=== PATIENT | female | born 1940 | race Caucasian/White ===

== ENCOUNTER 2021-05-04 09:58 | Emergency (ER) | payer MEDICARE, SELFPAY ==
[2021-05-04 10:05] VITALS: BP 160/65; PULSE 82; RESP 18; TEMP -13.2; TEMP 8.2; O2SAT 93; BMI 29.8
--- NOTE | 2021-05-04 10:10 | ECG_ITS ---
Test Reason : FALL Blood Pressure : / mmHG Vent. Rate : 081 BPM Atrial Rate : 081 BPM P-R Int : 162 ms QRS Dur : 084 ms QT Int : 370 ms P-R-T Axes : 034 016 054 degrees QTc Int : 429 ms Normal sinus rhythm Nonspecific ST and T wave abnormality Abnormal ECG No previous ECGs available Referred By: Verona Jurado Electronically Signed By:DONAL HUNTER
--- NOTE | 2021-05-04 10:11 | ED.FALL ---
HPI - Fall General Chief Complaint: Fall Stated Complaint: episode of leg weakness,no complaints now Time Seen by Provider: 05/04/21 10:09 Source: patient and EMS Mode of arrival: EMS Limitations: no limitations History of Present Illness HPI Narrative: 80-year-old female brought in by ambulance for evaluation after a fall. This is a 80-year-old female who fell while walking to the bathroom, patient thing that her legs give out a lost balance patient fell on her buttocks, no head injury, no neck pain. No chest pain, no LOC. Patient thinks that she is dehydrated that is why she fell and felt weak. Patient now has no complaint. Related Data Previous Rx's Medication Instructions Recorded cefuroxime axetil 500 mg tablet 500 mg PO BID #14 tab 05/04/21 Allergies Allergy/AdvReac Type Severity Reaction Status Date / Time No Known Allergies Allergy Verified 05/04/21 10:09 Review of Systems Review of Systems: All other systems are reviewed and are negative Constitutional: Reports as per HPI and Reports no additional constitutional complaints Eyes: Reports as per HPI and Reports no additional eye complaints Reports system reviewed and no additional complaints, except as documented Cardiovascular: Reports as per HPI and Reports no additional cardiovascular complaints Respiratory: Reports as per HPI and Reports no additional respiratory complaints Gastrointestinal: Reports as per HPI and Reports no additional gastrointestinal complaints Genitourinary: Reports no additional female genitourinary complaints Musculoskeletal: Reports no additional musculoskeletal complaints Skin/Breast: Reports system reviewed and no additional complaints, except as docu Psychiatric: Reports no additional psychiatric complaints Endocrine: Reports no additional endocrine complaints Hematologic/Lymphatic: Reports no additional hematologic/lymphatic complaints Allergic/Immunologic: Reports no additional allergic/immunologic complaints Reports system reviewed and no additional complaints, except as documented and Reports Abnormal speech present [facility] Past Medical History Medical History Diabetes Gallbladder & bile duct stone with obstruction Surgical History H/O: hysterectomy Social History Social History Advance Directives: Yes Advance Directives Information Provided: Yes Advance Directives on File: No Physical Exam Vital Signs: Vital Signs: Last Vital Signs Temp 100.0 F 08/25/21 13:25 Pulse 78 05/04/21 13:25 Resp 16 05/04/21 13:25 BP 147/55 H 05/04/21 13:25 Pulse Ox 96 05/04/21 13:25 Body Mass Index 29.8 Vital signs have been reviewed as appeared to be correct. Blood pressure normal. Heart rate normal. Respiration rate normal. Temperature normal. Oxygen saturation normal. Appearance: Alert. Oriented X3. No acute distress. Head: Normal external exam. Normocephalic. Atraumatic. No Rowley signs noted. No raccoon eyes noted Eyes: PERRLA. EOMI. Conjunctiva and sclera normal. Eyelids normal. ENT: TM's Normal. Pharynx normal. Uvula midline. Moist mucous membranes. No trismus noted. No drooling noted. No muffled voice noted. Neck: Normal inspection. Neck supple. FROM. No adenopathy. Thyroid Normal. No meningeal signs. No neck mass noted. CVS: Normal heart rate and rhythm. Heart sound normal. No murmurs noted. Pulses normal throughout. Respiratory: No respiratory distress. Painless inspiration. Breath sounds normal. No wheezes/rales/rhonchi noted. Chest nontender. No accessory muscle usage noted or decreased air movement noted. Abdomen: Soft and nontender. Bowel sounds normal in all 4 quadrants. No distention noted. No organomegaly noted. No visible injury noted. Back: No CVA tenderness. Full range of motion noted. Skin: Skin warm and dry. Normal skin color. Normal skin turgor. No rashes/lesions/lacerations noted. Extremities: No lower extremity edema. Extremities exhibit normal range of motion. Extremities nontender. Neuro: Oriented X 3. Cranial nerve exam: II-XII are grossly intact No motor deficit. No sensory deficit. Reflexes normal. Course Course Course Narrative: Assessment and plan. 80-year-old female came in after she fell, patient declined any chest pain, patient had EKG with no specific ischemic changes, patient also had troponin x2 with no delta changes. Patient was UTI will start the patient on Ceftin and drink plenty of fluids. MDM - Fall Lab Data Attestation: I reviewed the patient's lab results. Result diagrams: 05/04/21 10:40 05/04/21 10:40 Labs: Lab Results 05/04/21 05/04/2121 Range/Units 10:40 10:40 10:40 WBC 8.7 (4.8-10.8) X10*3/uL RBC 4.12 L (4.20-5.50) X10*6/uL Hgb 13.0 (12.0-16.0) g/dl Hct 39.3 (37-47) % MCV 95.4 (80-98) fL MCH 31.6 (27.0-33.0) pg MCHC 33.1 (31.0-35.0) g/dl RDW 12.4 (11.0-16.0) % Plt Count 124 L (160-400) X10*3/uL MPV 9.6 (9.4-12.3) fL Immature Gran % (Auto) 0.2 (0.0-0.4) % Neut % (Auto) 86.4 H (45-73) % Lymph % (Auto) 5.4 L (20-40) % Ritchie % (Auto) 7.8 (2-11) % Eos % (Auto) 0.1 (0-4) % Baso % (Auto) 0.1 (0-2) % Lymph # (Auto) 0.5 L (1.2-4.9) X10*3/uL Ritchie # (Auto) 0.7 (0.1-1.2) X10*3/uL Eos # (Auto) 0.0 (0.0-0.4) X10*3/uL Baso # (Auto) 0.0 (0.0-0.2) X10*3/uL Abs Immat Gran (auto) 0.02 (0.00-0.03) X10*3/uL Absolute Neuts (auto) 7.5 (2.0-8.3) X10*3/uL Absolute Nucleated RBC 0.000 (0.0-0.012) X10*3/uL Nucleated RBC % (auto) 0.0 (0.0-0.2) /100WBC Smear Tech's Comments Not Reportable Sodium 142 (135-145) mmol/L Potassium 4.9 (3.3-5.1) mmol/L Chloride 103 (96-108) mmol/L Carbon Dioxide 31 H (22-29) mmol/L Anion Gap 13 (12-20) BUN 25 H (9-16) mg/dL Creatinine 1.86 H (0.5-1.4) mg/dL Estim Creat Clear Calc 23.5 Estimated GFR 26 Random Glucose 65 (60-115) mg/dL Calcium 9.5 (8.4-10.2) mg/dL Total Bilirubin 1.1 H (0.0-1.0) mg/dL Direct Bilirubin 0.5 (0.0-0.5) mg/dL AST 26 (5-31) U/L ALT 21 (0-31) U/L Alkaline Phosphatase 102 (39-117) U/L Troponin I High Sens (<3.5-17.0) ng/L Total Protein 7.1 (6.5-8.0) g/dL Albumin 4.1 (3.5-5.0) g/dL Lipase 11 (8-78) U/L Urine Color Urine Appearance Urine pH (5.0-8.0) Ur Specific [place] (1.005-1.025) Urine Protein (NEG-TRACE) MG/DL Urine Glucose (UA) (NEG) MG/DL Urine Ketones (NEG) MG/DL Urine Blood (NEG) Urine Nitrite (NEG) Ur Leukocyte Esterase (NEG) Urine RBC (0) /HPF Urine WBC (0-4) /HPF Ur Squamous Epith Cells /LPF Urine Bacteria /LPF 05/04/21 05/04/21 05/04/21 Range/Units 10:40 10:40 15:27 WBC (4.8-10.8) X10*3/uL RBC (4.20-5.50) X10*6/uL Hgb (12.0-16.0) g/dl Hct (37-47) % MCV (80-98) fL MCH (27.0-33.0) pg MCHC (31.0-35.0) g/dl RDW (11.0-16.0) % Plt Count (160-400) X10*3/uL MPV (9.4-12.3) fL Immature Gran % (Auto) (0.0-0.4) % Neut % (Auto) (45-73) % Lymph % (Auto) (20-40) % Ritchie % (Auto) (2-11) % Eos % (Auto) (0-4) % Baso % (Auto) (0-2) % Lymph # (Auto) (1.2-4.9) X10*3/uL Ritchie # (Auto) (0.1-1.2) X10*3/uL Eos # (Auto) (0.0-0.4) X10*3/uL Baso # (Auto) (0.0-0.2) X10*3/uL Abs Immat Gran (auto) (0.00-0.03) X10*3/uL Absolute Neuts (auto) (2.0-8.3) X10*3/uL Absolute Nucleated RBC (0.0-0.012) X10*3/uL Nucleated RBC % (auto) (0.0-0.2) /100WBC Smear Tech's Comments Sodium (135-145) mmol/L Potassium (3.3-5.1) mmol/L Chloride (96-108) mmol/L Carbon Dioxide (22-29) mmol/L Anion Gap (12-20) BUN (9-16) mg/dL Creatinine (0.5-1.4) mg/dL Estim Creat Clear Calc Estimated GFR Random Glucose (60-115) mg/dL Calcium (8.4-10.2) mg/dL Total Bilirubin (0.0-1.0) mg/dL Direct Bilirubin (0.0-0.5) mg/dL AST (5-31) U/L ALT (0-31) U/L Alkaline Phosphatase (39-117) U/L Troponin I High Sens 18.1 H* 18.0 H* (<3.5-17.0) ng/L Total Protein (6.5-8.0) g/dL Albumin (3.5-5.0) g/dL Lipase (8-78) U/L Urine Color YELLOW Urine Appearance CLOUDY Urine pH 6.0 (5.0-8.0) Ur Specific [place] 1.020 (1.005-1.025) Urine Protein 2+ H (NEG-TRACE) MG/DL Urine Glucose (UA) NEG (NEG) MG/DL Urine Ketones 5 (NEG) MG/DL Urine Blood 1+ H (NEG) Urine Nitrite POS H (NEG) Ur Leukocyte Esterase 2+ H (NEG) Urine RBC 1-4 (0) /HPF Urine WBC 50-75 H (0-4) /HPF Ur Squamous Epith Cells 2+ /LPF Urine Bacteria 3+ /LPF ECG Data Pacemaker model: Normal sinus rhythm at 81 beats per minutes, normal axis deviation. Discharge Plan Discharge Clinical Impression: Fall, UTI (urinary tract infection) Patient Disposition: Home, Self-Care Instructions: Urinary Urgency and Frequency (DC) Prescriptions: New cefuroxime axetil 500 mg tablet 500 mg PO BID Qty: 14 RF: 0 Referrals: Physician,Unknown [Primary Care Provider] - 2 days
[2021-05-04] MEDS: 0.9 % Sodium Chloride 1,000 ML 999 ML IVCONT (10:16)
[2021-05-04 10:53] LABS: Glucose Urine UA NEG (NEG); Leukocyte Esterase Urine 2+ (NEG); Nitrite Urine POS (NEG); UACC Culture Trigger YES; Urine Blood 1+ (NEG); Urine Ketones 5 MG/DL (NEG); Urine Protein 2+ MG/DL (NEG-TRACE)
[2021-05-04 10:55] LABS: Appearance Urine CLOUDY; Color Urine YELLOW
[2021-05-04 10:56] LABS: Lymphocytes Percent Auto 5.4 % (20-40); MANUAL DIFF FLAG SCAN; Mean Corpuscular Volume 95.4 fL (80-98); PLT CLUMP 1; SCAN SMEAR FLAG 1
[2021-05-04 10:59] LABS: Basophils Percent Auto 0.1 % (0-2); Eosinophils Percent Auto 0.1 % (0-4); Hematocrit 39.3 % (37-47); Imm Gran Abs Auto 0.02 X10*3/uL (0.00-0.03); Imm Gran Pct Auto 0.2 % (0.0-0.4); Lymphocytes Absolute Auto 0.5 X10*3/uL (1.2-4.9); Mean Corpuscular HGB Conc 33.1 g/dl (31.0-35.0); Mean Corpuscular Hemoglobin 31.6 pg (27.0-33.0); Mean Platelet Volume 9.6 fL (9.4-12.3); Monocytes Absolute Auto 0.7 X10*3/uL (0.1-1.2); Monocytes Percent Auto 7.8 % (2-11); Neutrophils Absolute Auto 7.5 X10*3/uL (2.0-8.3); Neutrophils Percent Auto 86.4 % (45-73); Platelet Count 124 X10*3/uL (160-400); Red Blood Count 4.12 X10*6/uL (4.20-5.50); Red Cell Distribution Width 12.4 % (11.0-16.0); White Blood Count 8.7 X10*3/uL (4.8-10.8)
[2021-05-04 11:05] LABS: Bacteria Urine 3+ /LPF; Squamous Epithelial Cell Urine 2+ /LPF; WBC Urine 50-75 /HPF (0-4)
[2021-05-04 11:15] LABS: Alanine Aminotransferase 21 U/L (0-31); Albumin Level 4.1 g/dL (3.5-5.0); Alkaline Phosphatase 102 U/L (39-117); Aspartate Amino Transferase 26 U/L (5-31); Bilirubin Direct 0.5 mg/dL (0.0-0.5); Bilirubin Total 1.1 mg/dL (0.0-1.0); Total Protein 7.1 g/dL (6.5-8.0)
[2021-05-04 11:16] LABS: Anion Gap 13 (12-20); Blood Urea Nitrogen 25 mg/dL (9-16); Calcium 9.5 mg/dL (8.4-10.2); Carbon Dioxide 31 mmol/L (22-29); Chloride 103 mmol/L (96-108); Creatinine Clr Calc Pharmacy 23.5; Estimated Glomerular Filt Rate 26; Glucose Random 65 mg/dL (60-115); Lipase 11 U/L (8-78); Potassium 4.9 mmol/L (3.3-5.1); Sodium 142 mmol/L (135-145)
[2021-05-04 11:33] VITALS: BP 156/58; PULSE 79; RESP 16; O2SAT 98
[2021-05-04 11:39] LABS: Troponin-I High Sensitivity 18.1 ng/L (<3.5-17.0)
[2021-05-04 13:25] VITALS: BP 147/55; PULSE 78; RESP 16; TEMP 37.8; O2SAT 96
--- NOTE | 2021-05-04 16:19 | PC.NURSE ---
Patient ambulates to bathroom with steady gait.
== END 2021-05-04 16:48 | disposition home or self-care (01) ==
PROVIDERS: Emergency Provider Emergency Medicine
DX: N39.0 Urinary tract infection, site not specified (principal); R35.0 Frequency of micturition; Z79.899 Other long term (current) drug therapy
CPT/HCPCS: 36415; 80048; 80076; 81001; 83690; 84484; 85025; 87086; 93005; 96360; 99284

== ENCOUNTER 2022-09-05 07:10 | Emergency (ER) | payer MEDICARE, SELFPAY ==
[2022-09-05 07:29] VITALS: BP 142/60; PULSE 72; O2SAT 100
[2022-09-05 07:45] VITALS: PULSE 69; RESP 16; TEMP 36.7; O2SAT 100; BMI 26.7
[2022-09-05 07:52] VITALS: BP 160/65; PULSE 69; RESP 16; TEMP 36.7; O2SAT 100
--- NOTE | 2022-09-05 08:08 | ED_ITS ---
HPI - Female Genitourinary General Chief complaint: Urogenital-Female Stated complaint: URINARY SYMPYTOMS Source: patient Mode of arrival: EMS History of Present Illness HPI Narrative: 81-year-old female who arrives via EMS stating ?I felt funny yesterday? and then states that she had urinary frequency overnight and denies any use of any diuretics, denies any abdominal pain fever, chills. Related Data Previous Rx's Medication Instructions Recorded cefuroxime axetil 500 mg tablet 500 mg PO BID #14 tabs 05/04/21 Allergies Allergy/AdvReac Type Severity Reaction Status Date / Time No Known Allergies Allergy Verified 05/04/21 10:09 Review of Systems Review of Systems: Pertinent positives and negatives as stated in HPI. [facility] Past Medical History Source: nursing notes reviewed Medical History Diabetes Gallbladder & bile duct stone with obstruction Surgical History H/O: hysterectomy Social History Social History Advance Directives: No Advance Directives Information Provided: No Physical Exam Vital Signs: Vital Signs: Last Vital Signs Temp 97.7 F 09/05/22 09:33 Pulse 80 09/05/22 09:22 Resp 15 09/05/22 09:22 BP 119/55 L 09/05/22 09:22 Pulse Ox 100 09/05/22 09:22 O2 Del Method 09/05/22 09:22 BMI result Body Mass Index 26.7 VITAL SIGNS: Reviewed. GENERAL: Well developed, well nourished, in no acute distress. HEAD: Normocephalic/atraumatic, EYES: PERRLA, EOMI EARS: Ext canals without abnormality OROPHARYNX: no oral lesions noted, posterior pharynx clear LUNGS: Normal breath sounds. No adventitious sounds or accessory muscle use. SpO2<100> CARDIOVASCULAR: Regular rate and rhythm without noted murmurs ABDOMEN: Soft, non-tender, non-distended with bowel sounds. MUSCULOSKELETAL: No tenderness, deformities, or effusions noted on gross inspection. EXTREMITIES: No cyanosis, clubbing or edema. SKIN: Inspection of the skin reveals no rashes NEUROLOGIC: Alert and oriented x 4. Strength and sensation to light touch were grossly intact x 4. Course Course Course Narrative: I reviewed patient's bladder scan which demonstrates 241 cc within the bladder, patient was provided with a pitcher of water to assist in urination. There is not evidence of overflow incontinence at this time. Reevaluation(s) Reevaluation #1: On re-evaluation patient states that she urinated but did not get a urine sample stating that ?nobody told me?. I have limited suspicion for UTI, patient is hemodynamically stable, urinary frequency in of itself is unlikely to be a urinary tract infection and will discharge the patient without a script for antibiotics at this time and instructed to follow-up with her primary care provider. I will be sending my note to her primary care provider for additional history. Time: 09:45 Medical Decision Making Medical Decision Making MDM Narrative: 81-year-old female who reports urinary frequency without pain or burning and no fever or chills. Differential Diagnosis Differential Diagnoses: The differential diagnosis associated with the presentation includes Overflow incontinence, UTI Lab Data Labs: Lab Results 09/05/22 Range/Units 08:21 POC Glucose 117 H (60-115) mg/dL Discharge Plan Discharge Clinical Impression: Urinary frequency Patient Disposition: Home, Self-Care Instructions: Urinary Urgency and Frequency (DC) Additional Instructions: 1. Resume all home medications as prescribed. 2. Follow-up with your primary care provider by calling the office today and setting up an appointment for re-evaluation further outpatient management Return to the ER for any worsening symptoms. Prescriptions: No Action cefuroxime axetil 500 mg tablet 500 mg PO BID Qty: 14 0RF Referrals: Po,Aniya Quispe MD [Primary Care Provider] - (Patient sites urinary frequency but denies any pain or burning, she was unable to provide a urine sample multiple times here in the emergency room, appears to be otherwise well and hemodynamically stable. I did discharge her home with instructions to follow-up with you and I did not empirically start her on antibiotics for the urinary frequency.)
[2022-09-05 08:17] VITALS: BP 162/78; PULSE 71; RESP 15; O2SAT 100
[2022-09-05 08:25] LABS: Glucose, Whole Blood 117 mg/dL (60-115)
[2022-09-05 09:22] VITALS: BP 119/55; PULSE 80; RESP 15; TEMP -13.3; TEMP 8; O2SAT 100
[2022-09-05 09:33] VITALS: TEMP 36.5
== END 2022-09-05 10:08 | disposition home or self-care (01) ==
PROVIDERS: Emergency Provider Student in an Organized Health Care Education/Training Program; PCP Internal Medicine
DX: R35.0 Frequency of micturition (principal); Z79.899 Other long term (current) drug therapy
CPT/HCPCS: 51798; 82947; 99283; 99284

== ENCOUNTER 2022-09-07 11:41 | Outpatient (REF) | payer MEDICARE, SELFPAY ==
[2022-09-07 13:51] LABS: MANUAL DIFF FLAG NO
[2022-09-07 13:56] LABS: Appearance Urine Turbid; Color Urine Yellow; Glucose Urine UA >=1000 mg/dL (Negative); Leukocyte Esterase Urine Moderate (2+) (Negative); Nitrite Urine Negative (Negative); PH 5.5 (5.0-9.0); Specific Gravity - Urine 1.025 (1.005-1.025); UMIC TRIGGER UACC YES; Urine Blood Moderate (2+) (Negative); Urine Ketones Trace mg/dL (Negative); Urine Protein 30 (1+) mg/dL (Neg-Trace)
[2022-09-07 14:00] LABS: Basophils Percent Auto 0.5 % (0-2); Eosinophils Absolute Auto 0.1 X10*3/uL (0.0-0.4); Eosinophils Percent Auto 2.3 % (0-4); Hematocrit 34.9 % (37.0-47.0); Hemoglobin 11.8 g/dl (12.0-16.0); Imm Gran Abs Auto 0.02 X10*3/uL (0.00-0.03); Imm Gran Pct Auto 0.5 % (0.0-0.4); Lymphocytes Absolute Auto 0.9 X10*3/uL (1.2-4.9); Lymphocytes Percent Auto 21.2 % (20-40); Mean Corpuscular HGB Conc 33.8 g/dl (31.0-35.0); Mean Corpuscular Hemoglobin 31.6 pg (27.0-33.0); Mean Corpuscular Volume 93.6 fL (80.0-98.0); Monocytes Absolute Auto 0.3 X10*3/uL (0.1-1.2); Monocytes Percent Auto 7.2 % (2-11); Neutrophils Percent Auto 68.3 % (45-73); Platelet Count 140 X10*3/uL (160-400); Red Blood Count 3.73 X10*6/uL (4.20-5.50); Red Cell Distribution Width 12.9 % (11.0-16.0); White Blood Count 4.3 X10*3/uL (4.8-10.8)
[2022-09-07 14:07] LABS: Bacteria Urine 4+ (None Seen); Hyaline Casts Urine 0-2 /LPF (0-2); RBC Urine >20 /HPF (0-2); UACC Culture Trigger YES; WBC Urine >50 /HPF (0-5)
[2022-09-07 14:11] LABS: Estimated Average Glucose 260 mg/dL; Hemoglobin A1c % 10.7 %
[2022-09-07 14:46] LABS: Creatinine Urine 37.09 mg/dL
[2022-09-07 15:15] LABS: Folate > 20.0 ng/mL (> or = 4.0); Vitamin B12 1303 pg/mL (200-900)
[2022-09-07 15:50] LABS: Alanine Aminotransferase 17 U/L (0-31); Albumin Level 3.8 g/dL (3.5-5.0); Alkaline Phosphatase 106 U/L (39-117); Anion Gap 13 (12-20); Aspartate Amino Transferase 16 U/L (5-31); Bilirubin Total 0.8 mg/dL (0.0-1.0); Blood Urea Nitrogen 19 mg/dL (9-16); C Reactive Protein 0.44 mg/dL (< or = 0.50); Calcium 9.1 mg/dL (8.4-10.2); Carbon Dioxide 29 mmol/L (22-29); Chloride 98 mmol/L (96-108); Estimated Glomerular Filt Rate 27; Glucose Random 516 mg/dL (60-115); Potassium 4.2 mmol/L (3.3-5.1); Sodium 136 mmol/L (135-145); Total Protein 6.3 g/dL (6.5-8.0); Vitamin D 25-OH Total 33.3 ng/mL (>30)
[2022-09-07 17:56] LABS: Free T4 (Free Thyroxine) 1.32 ng/dL (0.71-1.85)
== END 2022-09-07 11:42 | disposition home or self-care (01) ==
LOC: HO.10HDL 11:41
PROVIDERS: Visit Provider Internal Medicine
DX: I12.9 Hypertensive chronic kidney disease with stage 1 through stage 4 chronic kidney disease, or unspecified chronic kidney disease (principal); E11.22 Type 2 diabetes mellitus with diabetic chronic kidney disease; N18.9 Chronic kidney disease, unspecified; E03.9 Hypothyroidism, unspecified; R30.0 Dysuria; E55.9 Vitamin D deficiency, unspecified
CPT/HCPCS: 36415; 80053; 81001; 82043; 82306; 82607; 82746; 83036; 84439; 85025; 86140; 87086

== ENCOUNTER 2023-05-06 15:44 | Emergency (ER) | payer MEDICARE, SELFPAY ==
[2023-05-06] VITALS (8 sets, daily range): BP systolic 107–179; BP diastolic 61–104; PULSE 86–93; RESP 15–18; TEMP 36.8–38.2; O2SAT 95–100; BMI 25.7
--- NOTE | ~2023-05-06 | CT_ITS ---
EXAMINATION: CT CHEST WITHOUT CONTRAST CLINICAL INFORMATION: Assess for mediastinal lesion COMPARISON: Radiographs the same day TECHNIQUE: Multidetector volumetric CT imaging of the chest was done. Axial MIP volume rendering provided. Sagittal and coronal reformatted images were obtained. This CT examination was performed using dose optimization techniques as appropriate, variously including the following: *Automated exposure control *Adjustment of mA and/or kV according to patient size (this includes techniques or standardized protocols for targeted exams where dose is matched to indication/reason for exam; i.e. extremities or head) *Use of iterative reconstruction technique DLP: 169 mGy-cm FINDINGS: [employer]: Unchanged LUNGS: Appearance of the radiograph can be explained by a left upper lobe paramediastinal infiltrate. No definite endobronchial lesion. There are reactive appearing lymph nodes within the AP window. On this nonenhanced study, there is no definite hilar mass. Additional high density lesions noted within the left lower lobe measuring up to 10 mm and probable granuloma right lobe laterally measuring 3 mm. MEDIASTINUM: Thoracic vasculature normal. No mediastinal mass. CORONARY ARTERY CALCIFICATION: Present PLEURA: There is no pleural effusion. No pleural mass or thickening. Small pericardial effusion is present. AXILLA: No lymphadenopathy. UPPER ABDOMEN: Splenic granulomata. OSSEOUS STRUCTURES: Unremarkable. CT/CT chest wo IV con IMPRESSION: Left upper lobe paramediastinal infiltrate. No definite hilar mass. Nonspecific lung nodules. According to the UPDATED 2017 Fleischner Society recommendations, the advised follow-up imaging for multiple solid nodules, the largest measuring 6 mm or greater, is: LOW RISK PATIENT: CT at 3-6 months, then consider CT at 18-24 months. HIGH RISK PATIENT: CT at 3-6 months, then at 18-24 months. 1. Evidence of old granulomatous disease. 2. Small pericardial effusion. 3. Coronary calcifications. Fleischner guidelines were followed. Follow-up CT in several weeks recommended to ensure resolution of the left upper lobe paramediastinal infiltrate.
--- NOTE | ~2023-05-06 | XR_ITS ---
EXAMINATION: XR CHEST CLINICAL INFORMATION: Generalized weakness COMPARISON: None available. TECHNIQUE: Frontal view of the chest was obtained. FINDINGS: The mediastinal border along the AP window is indistinct. The trachea is slightly deviated to the right. No pleural effusion. No pneumothorax. No acute osseous abnormality. XR/XR chest 1V IMPRESSION: The mediastinal border along the AP window is indistinct and the trachea is deviated to the right. This may be related to an enlarged thoracic aortic arch, although a mediastinal mass could have a similar appearance. Consider dedicated chest CT for further evaluation.
--- NOTE | 2023-05-06 16:01 | PC.NURSE ---
Patient arrived from home via ems with complaints of weakness and high blood sugar BS upon arrival 528, temp 100.3. Patient denies falls, lethargy, fever, sob, or chest pain. Grandson at bedside.
[2023-05-06 16:03] LABS: Glucose, Whole Blood 528 mg/dL (60-115)
--- NOTE | 2023-05-06 16:20 | MHC.EDTECH ---
PT CAME IN VIA EMS ,BLOOD SUGAR CHECK ,JONATHON CALDWELL IS AWARE OF PATIENT BLOOD SUGAR RESULT OF 528 ,PT WAS CHANGE INTO HOSPITAL ATTIRE .
--- NOTE | 2023-05-06 16:27 | ECG_ITS ---
Test Reason : WEAKNESS Blood Pressure : / mmHG Vent. Rate : 090 BPM Atrial Rate : 090 BPM P-R Int : 174 ms QRS Dur : 088 ms QT Int : 366 ms P-R-T Axes : 022 028 -28 degrees QTc Int : 447 ms Normal sinus rhythm Nonspecific ST and T wave abnormality Abnormal ECG When compared with ECG of 04-MAY-2021 10:24, Nonspecific T wave abnormality, worse in Lateral leads Referred By: Verona Jurado Electronically Signed By:DONAL HUNTER
--- NOTE | 2023-05-06 16:47 | MHC.EDTECH ---
EKG TAKEN AND WAS READ BY PROVIDER ,BLOOD DRAWN AND SENT TO LAB .
[2023-05-06 16:48] LABS: MANUAL DIFF FLAG NO
[2023-05-06 16:50] LABS: Basophils Percent Auto 0.3 % (0-2); Hematocrit 31.3 % (37.0-47.0); Hemoglobin 11.1 g/dl (12.0-16.0); Imm Gran Abs Auto 0.04 X10*3/uL (0.00-0.03); Imm Gran Pct Auto 0.6 % (0.0-0.4); Lymphocytes Absolute Auto 0.5 X10*3/uL (1.2-4.9); Mean Corpuscular HGB Conc 35.5 g/dl (31.0-35.0); Mean Corpuscular Hemoglobin 32.7 pg (27.0-33.0); Mean Corpuscular Volume 92.3 fL (80.0-98.0); Mean Platelet Volume 9.7 fL (9.4-12.3); Monocytes Absolute Auto 0.6 X10*3/uL (0.1-1.2); Monocytes Percent Auto 9.3 % (2-11); Neutrophils Absolute Auto 5.5 x10*3/uL (2.0-8.3); Neutrophils Percent Auto 82.8 % (45-73); Platelet Count 105 X10*3/uL (160-400); Red Blood Count 3.39 X10*6/uL (4.20-5.50); Red Cell Distribution Width 11.9 % (11.0-16.0); White Blood Count 6.7 X10*3/uL (4.8-10.8)
--- NOTE | 2023-05-06 16:52 | ED_ITS ---
HPI - General Adult General Chief complaint: General Medical Stated complaint: FEELS WEAK HIGH BLOOD SUGAR Time Seen by Provider: 05/06/23 16:27 Source: patient, family (Grandson) and EMS Mode of arrival: EMS Limitations: no limitations History of Present Illness HPI narrative: 82-year-old female came in by ambulance for evaluation of generalized weakness and patient do not feel her normal self. Otherwise no headache, blurry vision, sore throat, sneezing, coughing, CP, SOB, abdominal pain, nausea, vomiting, fever, chills, dysuria, frequency urination, or blood in the urine. Patient normally functional at home for the past 2 days has been walking with a walker due to generalized weakness, otherwise declined a focal weakness or numbness. Grandson checked her blood sugar and the machine read it as HI, patient with history of diabetes that is controlled with oral medication and insulin that the grandson think she is not compliant with her insulin. Related Data Previous Rx's Medication Instructions Recorded cefuroxime axetil 500 mg tablet 500 mg PO BID #14 tabs 05/04/21 cefuroxime axetil 500 mg tablet 500 mg PO BID #14 tabs 05/06/23 Allergies Allergy/AdvReac Type Severity Reaction Status Date / Time No Known Allergies Allergy Verified 05/04/21 10:09 Review of Systems Review of Systems: All other systems are reviewed and are negative Constitutional: Reports as per HPI and Reports no additional constitutional complaints Eyes: Reports as per HPI and Reports no additional eye complaints Reports system reviewed and no additional complaints, except as documented Cardiovascular: Reports as per HPI and Reports no additional cardiovascular complaints Respiratory: Reports as per HPI and Reports no additional respiratory complaints Gastrointestinal: Reports as per HPI and Reports no additional gastrointestinal complaints Genitourinary: Reports no additional female genitourinary complaints Musculoskeletal: Reports no additional musculoskeletal complaints Skin/Breast: Reports system reviewed and no additional complaints, except as docu Psychiatric: Reports no additional psychiatric complaints Endocrine: Reports no additional endocrine complaints Hematologic/Lymphatic: Reports no additional hematologic/lymphatic complaints Allergic/Immunologic: Reports no additional allergic/immunologic complaints Reports system reviewed and no additional complaints, except as documented and Reports Abnormal speech present PMFSH Past Medical History Medical History Diabetes Gallbladder & bile duct stone with obstruction Surgical History H/O: hysterectomy Social History Social History Alcohol intake: never Smoked in Last 30 Days: No Use of substances other than those prescribed or required for medical reasons: No Advance Directives: No Advance Directives Information Provided: No Physical Exam ED Vital Signs: Vital Signs - 24 hr 05/06/23 15:57 05/06/23 16:04 05/06/23 16:46 Temperature 100.3 F 100.3 F 100.0 F Pulse Rate 87 90 Respiratory Rate 18 18 16 Blood Pressure 166/104 H 154/84 H Pulse Oximetry 96 98 Oxygen Delivery Method Room Air 05/06/23 17:37 05/06/23 19:13 05/06/23 19:29 Temperature 99.7 F 98.3 F 99.6 F Pulse Rate 87 86 Respiratory Rate 15 16 Blood Pressure 166/61 H 156/63 H Pulse Oximetry 95 97 Oxygen Delivery Method Room Air Room Air 05/06/23 20:34 05/06/23 22:23 Temperature 100.7 F H 100.8 F H Pulse Rate 89 93 Respiratory Rate 16 16 Blood Pressure 107/76 175/72 H Pulse Oximetry 96 98 Oxygen Delivery Method Room Air Room Air BMI result Body Mass Index 25.7 Vital signs have been reviewed as appeared to be correct. Blood pressure normal. Heart rate normal. Respiration rate normal. Temperature normal. Oxygen saturation normal. Appearance: Alert. Oriented X3. No acute distress. Head: Normal external exam. Normocephalic. Atraumatic. No [place] signs noted. No raccoon eyes noted Eyes: PERRLA. EOMI. Conjunctiva and sclera normal. Eyelids normal. ENT: TM's Normal. Pharynx normal. Uvula midline. Moist mucous membranes. No trismus noted. No drooling noted. No muffled voice noted. Neck: Normal inspection. Neck supple. FROM. No adenopathy. Thyroid Normal. No meningeal signs. No neck mass noted. CVS: Normal heart rate and rhythm. Heart sound normal. No murmurs noted. Pulses normal throughout. Respiratory: No respiratory distress. Painless inspiration. Breath sounds normal. No wheezes/rales/rhonchi noted. Chest nontender. No accessory muscle usage noted or decreased air movement noted. Abdomen: Soft and nontender. Bowel sounds normal in all 4 quadrants. No dis tention noted. No organomegaly noted. No visible injury noted. Back: No CVA tenderness. Full range of motion noted. Skin: Skin warm and dry. Normal skin color. Normal skin turgor. No rashes/les ions/lacerations noted. Extremities: No lower extremity edema. Extremities exhibit normal range of motion. Extremities nontender. Neuro: Oriented X 3. Cranial nerve exam: II-XII are grossly intact No motor deficit. No sensory deficit. Reflexes normal. Course Course Course Narrative: Patient presented with nonspecific generalized weakness found to have a UTI will start the patient on cefuroxime and encouraged to drink plenty of fluids. As discussed with the patient and the family is to follow instruction for DM management at home patient live with grandson. X-ray is recommending abnormal mediastinal mass recommending CT of the chest that shows lung nodule and left lung infiltrate patient will be going home on cefuroxime. Medications Administered Discontinued Medications Generic Name Dose Route Start Last Admin Trade Name Freq PRN Reason Stop Dose Admin Cefuroxime Axetil 500 mg 05/06/23 21:27 05/06/23 22:07 Cefuroxime Axetil 500 Mg Tablet PO 05/06/23 21:28 500 mg ONCE ONE Administration Sodium Chloride 1,000 mls @ 999 mls/hr 05/06/23 17:20 05/06/23 18:58 Ns IV 05/06/23 18:20 Infused .Q1H1M ONE Infusion Insulin Human Regular 5 unit 05/06/23 17:17 05/06/23 17:33 Insulin Regular, Human 100 Unit/Ml 3 Ml Vial IVPUSH 05/06/23 17:18 5 unit ONCE ONE Administration Medical Decision Making Differential Diagnosis Differential Diagnoses: The differential diagnosis associated with the presentation includes (ACS, CHF, pneumonia, electrolyte abnormality, severe anemia, UTI.) Admission/Observation Consideration of admission/observation: Escalation of care including admission/observation considered Lab Data MDM Lab Attestation statement: I reviewed the patient's lab results. 05/06/23 16:44 05/06/23 16:44 Labs: Lab Results 05/06/23 05/06/23 05/06/23 Range/Units 16:00 16:44 16:44 WBC 6.7 (4.8-10.8) X10*3/uL RBC 3.39 L (4.20-5.50) X10*6/uL Hgb 11.1 L (12.0-16.0) g/dl Hct 31.3 L (37.0-47.0) % MCV 92.3 (80.0-98.0) fL MCH 32.7 (27.0-33.0) pg MCHC 35.5 H (31.0-35.0) g/dl RDW 11.9 (11.0-16.0) % Plt Count 105 L (160-400) X10*3/uL MPV 9.7 (9.4-12.3) fL Immature Gran % (Auto) 0.6 H (0.0-0.4) % Neut % (Auto) 82.8 H (45-73) % Lymph % (Auto) 7.0 L (20-40) % [place] % (Auto) 9.3 (2-11) % Eos % (Auto) 0.0 (0-4) % Baso % (Auto) 0.3 (0-2) % Lymph # (Auto) 0.5 L (1.2-4.9) X10*3/uL [place] # (Auto) 0.6 (0.1-1.2) X10*3/uL Eos # (Auto) 0.0 (0.0-0.4) X10*3/uL Baso # (Auto) 0.0 (0.0-0.2) X10*3/uL Abs Immat Gran (auto) 0.04 H (0.00-0.03) X10*3/uL Absolute Neuts (auto) 5.5 (2.0-8.3) x10*3/uL Absolute Nucleated RBC 0.000 (0.0-0.012) X10*3/uL Nucleated RBC % (auto) 0.0 (0.0-0.2) /100WBC Sodium 133 L (135-145) mmol/L Potassium 4.5 (3.3-5.1) mmol/L Chloride 99 (96-108) mmol/L Carbon Dioxide 25 (22-29) mmol/L Anion Gap 14 (12-20) BUN 19 H (9-16) mg/dL Creatinine 1.47 H (0.5-1.4) mg/dL Estim Creat Clear Calc 24.7 Estimated GFR 34 POC Glucose 528 H* (60-115) mg/dL Random Glucose 431 H* (60-115) mg/dL Lactic Acid (0.5-2.0) mmol/L Calcium 8.5 D (8.4-10.2) mg/dL Total Bilirubin 1.1 H (0.0-1.0) mg/dL Direct Bilirubin 0.4 (0.0-0.5) mg/dL AST 16 (5-31) U/L ALT 11 (0-31) U/L Alkaline Phosphatase 89 (39-117) U/L Troponin I High Sens (<3.5-17.0) ng/L B-Natriuretic Peptide (<100) pg/mL Total Protein 6.1 L (6.5-8.0) g/dL Albumin 3.3 L (3.5-5.0) g/dL Lipase 13 (8-78) U/L Urine Color Urine Appearance Urine pH (5.0-9.0) Ur Specific [place] (1.005-1.025) Urine Protein (Neg-Trace) mg/dL Urine Glucose (UA) (Negative) mg/dL Urine Ketones (Negative) mg/dL Urine Blood (Negative) Urine Nitrite (Negative) Ur Leukocyte Esterase (Negative) Urine RBC (0-2) /HPF Urine WBC (0-5) /HPF Ur Squamous Epith Cells (0-2) /HPF Urine Bacteria (None Seen) Hyaline Casts (0-2) /LPF 05/06/23 05/06/23 05/06/23 Range/Units 16:45 16:45 17:27 WBC (4.8-10.8) X10*3/uL RBC (4.20-5.50) X10*6/uL Hgb (12.0-16.0) g/dl Hct (37.0-47.0) % MCV (80.0-98.0) fL MCH (27.0-33.0) pg MCHC (31.0-35.0) g/dl RDW (11.0-16.0) % Plt Count (160-400) X10*3/uL MPV (9.4-12.3) fL Immature Gran % (Auto) (0.0-0.4) % Neut % (Auto) (45-73) % Lymph % (Auto) (20-40) % [place] % (Auto) (2-11) % Eos % (Auto) (0-4) % Baso % (Auto) (0-2) % Lymph # (Auto) (1.2-4.9) X10*3/uL [place] # (Auto) (0.1-1.2) X10*3/uL Eos # (Auto) (0.0-0.4) X10*3/uL Baso # (Auto) (0.0-0.2) X10*3/uL Abs Immat Gran (auto) (0.00-0.03) X10*3/uL Absolute Neuts (auto) (2.0-8.3) x10*3/uL Absolute Nucleated RBC (0.0-0.012) X10*3/uL Nucleated RBC % (auto) (0.0-0.2) /100WBC Sodium (135-145) mmol/L Potassium (3.3-5.1) mmol/L Chloride (96-108) mmol/L Carbon Dioxide (22-29) mmol/L Anion Gap (12-20) BUN (9-16) mg/dL Creatinine (0.5-1.4) mg/dL Estim Creat Clear Calc Estimated GFR POC Glucose (60-115) mg/dL Random Glucose (60-115) mg/dL Lactic Acid 1.1 (0.5-2.0) mmol/L Calcium (8.4-10.2) mg/dL Total Bilirubin (0.0-1.0) mg/dL Direct Bilirubin (0.0-0.5) mg/dL AST (5-31) U/L ALT (0-31) U/L Alkaline Phosphatase (39-117) U/L Troponin I High Sens 25.4 H (<3.5-17.0) ng/L B-Natriuretic Peptide 182 H (<100) pg/mL Total Protein (6.5-8.0) g/dL Albumin (3.5-5.0) g/dL Lipase (8-78) U/L Urine Color Urine Appearance Urine pH (5.0-9.0) Ur Specific [place] (1.005-1.025) Urine Protein (Neg-Trace) mg/dL Urine Glucose (UA) (Negative) mg/dL Urine Ketones (Negative) mg/dL Urine Blood (Negative) Urine Nitrite (Negative) Ur Leukocyte Esterase (Negative) Urine RBC (0-2) /HPF Urine WBC (0-5) /HPF Ur Squamous Epith Cells (0-2) /HPF Urine Bacteria (None Seen) Hyaline Casts (0-2) /LPF 05/06/23 05/06/23 05/06/23 Range/Units 18:06 18:12 19:28 WBC (4.8-10.8) X10*3/uL RBC (4.20-5.50) X10*6/uL Hgb (12.0-16.0) g/dl Hct (37.0-47.0) % MCV (80.0-98.0) fL MCH (27.0-33.0) pg MCHC (31.0-35.0) g/dl RDW (11.0-16.0) % Plt Count (160-400) X10*3/uL MPV (9.4-12.3) fL Immature Gran % (Auto) (0.0-0.4) % Neut % (Auto) (45-73) % Lymph % (Auto) (20-40) % [place] % (Auto) (2-11) % Eos % (Auto) (0-4) % Baso % (Auto) (0-2) % Lymph # (Auto) (1.2-4.9) X10*3/uL [place] # (Auto) (0.1-1.2) X10*3/uL Eos # (Auto) (0.0-0.4) X10*3/uL Baso # (Auto) (0.0-0.2) X10*3/uL Abs Immat Gran (auto) (0.00-0.03) X10*3/uL Absolute Neuts (auto) (2.0-8.3) x10*3/uL Absolute Nucleated RBC (0.0-0.012) X10*3/uL Nucleated RBC % (auto) (0.0-0.2) /100WBC Sodium (135-145) mmol/L Potassium (3.3-5.1) mmol/L Chloride (96-108) mmol/L Carbon Dioxide (22-29) mmol/L Anion Gap (12-20) BUN (9-16) mg/dL Creatinine (0.5-1.4) mg/dL Estim Creat Clear Calc Estimated GFR POC Glucose 274 H 181 H (60-115) mg/dL Random Glucose (60-115) mg/dL Lactic Acid (0.5-2.0) mmol/L Calcium (8.4-10.2) mg/dL Total Bilirubin (0.0-1.0) mg/dL Direct Bilirubin (0.0-0.5) mg/dL AST (5-31) U/L ALT (0-31) U/L Alkaline Phosphatase (39-117) U/L Troponin I High Sens (<3.5-17.0) ng/L B-Natriuretic Peptide (<100) pg/mL Total Protein (6.5-8.0) g/dL Albumin (3.5-5.0) g/dL Lipase (8-78) U/L Urine Color Yellow Urine Appearance Clear Urine pH 5.5 (5.0-9.0) Ur Specific [place] 1.020 (1.005-1.025) Urine Protein 30 (1+) H (Neg-Trace) mg/dL Urine Glucose (UA) >=1000 H (Negative) mg/dL Urine Ketones Trace (Negative) mg/dL Urine Blood Negative (Negative) Urine Nitrite Positive H (Negative) Ur Leukocyte Esterase Trace H (Negative) Urine RBC 3-5 H (0-2) /HPF Urine WBC 11-20 H (0-5) /HPF Ur Squamous Epith Cells 0-2 (0-2) /HPF Urine Bacteria 4+ (None Seen) Hyaline Casts 3-5 (0-2) /LPF 05/06/23 Range/Units 20:30 WBC (4.8-10.8) X10*3/uL RBC (4.20-5.50) X10*6/uL Hgb (12.0-16.0) g/dl Hct (37.0-47.0) % MCV (80.0-98.0) fL MCH (27.0-33.0) pg MCHC (31.0-35.0) g/dl RDW (11.0-16.0) % Plt Count (160-400) X10*3/uL MPV (9.4-12.3) fL Immature Gran % (Auto) (0.0-0.4) % Neut % (Auto) (45-73) % Lymph % (Auto) (20-40) % [place] % (Auto) (2-11) % Eos % (Auto) (0-4) % Baso % (Auto) (0-2) % Lymph # (Auto) (1.2-4.9) X10*3/uL [place] # (Auto) (0.1-1.2) X10*3/uL Eos # (Auto) (0.0-0.4) X10*3/uL Baso # (Auto) (0.0-0.2) X10*3/uL Abs Immat Gran (auto) (0.00-0.03) X10*3/uL Absolute Neuts (auto) (2.0-8.3) x10*3/uL Absolute Nucleated RBC (0.0-0.012) X10*3/uL Nucleated RBC % (auto) (0.0-0.2) /100WBC Sodium (135-145) mmol/L Potassium (3.3-5.1) mmol/L Chloride (96-108) mmol/L Carbon Dioxide (22-29) mmol/L Anion Gap (12-20) BUN (9-16) mg/dL Creatinine (0.5-1.4) mg/dL Estim Creat Clear Calc Estimated GFR POC Glucose (60-115) mg/dL Random Glucose (60-115) mg/dL Lactic Acid (0.5-2.0) mmol/L Calcium (8.4-10.2) mg/dL Total Bilirubin (0.0-1.0) mg/dL Direct Bilirubin (0.0-0.5) mg/dL AST (5-31) U/L ALT (0-31) U/L Alkaline Phosphatase (39-117) U/L Troponin I High Sens 28.7 H (<3.5-17.0) ng/L B-Natriuretic Peptide (<100) pg/mL Total Protein (6.5-8.0) g/dL Albumin (3.5-5.0) g/dL Lipase (8-78) U/L Urine Color Urine Appearance Urine pH (5.0-9.0) Ur Specific [place] (1.005-1.025) Urine Protein (Neg-Trace) mg/dL Urine Glucose (UA) (Negative) mg/dL Urine Ketones (Negative) mg/dL Urine Blood (Negative) Urine Nitrite (Negative) Ur Leukocyte Esterase (Negative) Urine RBC (0-2) /HPF Urine WBC (0-5) /HPF Ur Squamous Epith Cells (0-2) /HPF Urine Bacteria (None Seen) Hyaline Casts (0-2) /LPF Independent Interpretation I performed an independent interpretation of an: EKG (Normal sinus rhythm at 90 beats per minute, diffuse nonspecific T-wave abnormality, normal axis deviation, normal intervals.), Plain X-Ray and CT Scan (Chest:Left upper lobe paramediastinal infiltrate. No definite hilar mass. Nonspecific lung nodules. According to the UPDATED 2017 Fleischner Society recommendations, the advised follow-up imaging for multiple solid nodules, the largest measuring 6 mm or greater, is: LOW RISK PATIENT: CT at 3-6 mo) Radiology Impression Discussion of test interpretation with radiology: I have reviewed the radiologist's reading. (The mediastinal border along the AP window is indistinct and the trachea is deviated to the right. This may be related to an enlarged thoracic aortic arch, although a mediastinal mass could have a similar appearance. Consider dedicated chest CT for further evaluation. ) Discharge Plan Discharge Clinical Impression: Acute hyperglycemia, Generalized weakness, Acute UTI, Pulmonary nodule, Pneumonia Patient Disposition: Home, Self-Care Instructions: Urinary Tract Infection in Women (ED), Diabetic Hyperglycemia (ED) Additional Instructions: Take your diabetes medicine as instructed. Drink water and take the medicine for urinary tract infection. Prescriptions: New cefuroxime axetil 500 mg tablet 500 mg PO BID Qty: 14 0RF No Action cefuroxime axetil 500 mg tablet 500 mg PO BID Qty: 14 0RF Referrals: Gianluca Betancur MD [Primary Care Provider] -
[2023-05-06 17:10] LABS: Alanine Aminotransferase 11 U/L (0-31); Albumin Level 3.3 g/dL (3.5-5.0); Alkaline Phosphatase 89 U/L (39-117); Anion Gap 14 (12-20); Aspartate Amino Transferase 16 U/L (5-31); Bilirubin Direct 0.4 mg/dL (0.0-0.5); Bilirubin Total 1.1 mg/dL (0.0-1.0); Blood Urea Nitrogen 19 mg/dL (9-16); Calcium 8.5 mg/dL (8.4-10.2); Carbon Dioxide 25 mmol/L (22-29); Chloride 99 mmol/L (96-108); Creatinine Clr Calc Pharmacy 24.7; Estimated Glomerular Filt Rate 34; Glucose Random 431 mg/dL (60-115); Lipase 13 U/L (8-78); Potassium 4.5 mmol/L (3.3-5.1); Sodium 133 mmol/L (135-145); Total Protein 6.1 g/dL (6.5-8.0)
[2023-05-06 17:11] LABS: B Type Natriuretic Peptide 182 pg/mL (<100)
[2023-05-06 17:12] LABS: Troponin-I High Sensitivity 25.4 ng/L (<3.5-17.0)
[2023-05-06] MEDS: 0.9 % Sodium Chloride 1,000 ML 999 ML IV (17:29)
[2023-05-06] MEDS: Insulin Regular, Human 100 UNIT/ML 3 ML VIAL IVPUSH (17:33)
[2023-05-06 17:50] LABS: Lactic Acid 1.1 mmol/L (0.5-2.0)
[2023-05-06 18:15] LABS: Glucose, Whole Blood 274 mg/dL (60-115)
[2023-05-06 18:30] LABS: Appearance Urine Clear; Color Urine Yellow; Glucose Urine UA >=1000 mg/dL (Negative); Leukocyte Esterase Urine Trace (Negative); Nitrite Urine Positive (Negative); PH 5.5 (5.0-9.0); UMIC TRIGGER UACC YES; Urine Blood Negative (Negative); Urine Ketones Trace mg/dL (Negative); Urine Protein 30 (1+) mg/dL (Neg-Trace)
[2023-05-06 18:47] LABS: Bacteria Urine 4+ (None Seen); Squamous Epithelial Cell Urine 0-2 /HPF (0-2); UACC Culture Trigger YES
--- NOTE | 2023-05-06 18:51 | PC.NURSE ---
BS 284 provider aware
[2023-05-06 19:33] LABS: Glucose, Whole Blood 181 mg/dL (60-115)
[2023-05-06 21:01] LABS: Troponin-I High Sensitivity 28.7 ng/L (<3.5-17.0)
== END 2023-05-06 23:14 | disposition home or self-care (01) ==
PROVIDERS: Emergency Provider Emergency Medicine; PCP Internal Medicine
DX: N39.0 Urinary tract infection, site not specified (principal); J18.9 Pneumonia, unspecified organism; R91.1 Solitary pulmonary nodule; R73.9 Hyperglycemia, unspecified; R53.1 Weakness
CPT/HCPCS: 36415; 71045; 71250; 80048; 80076; 81001; 82947; 83605; 83690; 83880; 84484; 85025; 87040; 87086; 87088; 87186; 93005; 99285

== ENCOUNTER 2023-05-07 09:51 | Inpatient (IN) | payer MEDICARE, SELFPAY ==
--- NOTE | ~2023-05-07 | XR_ITS ---
EXAMINATION: XR CHEST CLINICAL INFORMATION: Shortness of breath COMPARISON: 05/06/[address] scan TECHNIQUE: 2 views of the chest were obtained. FINDINGS: There is left upper lobe patchy airspace disease consistent with an old pneumonia. Right lung is clear. There is no pleural effusion seen. Cardiomediastinal silhouette is unremarkable. XR/XR chest 2V IMPRESSION: Upper lobe pneumonia
[2023-05-07 09:57] VITALS: BP 160/80; BP 169/61; PULSE 86; PULSE 91; RESP 18; TEMP 37; O2SAT 97; O2SAT 99; BMI 23.8
--- NOTE | 2023-05-07 10:07 | ECG_ITS ---
Test Reason : weakness Blood Pressure : / mmHG Vent. Rate : 089 BPM Atrial Rate : 089 BPM P-R Int : 174 ms QRS Dur : 082 ms QT Int : 364 ms P-R-T Axes : 074 048 -68 degrees QTc Int : 442 ms Normal sinus rhythm Nonspecific ST and T wave abnormality Abnormal ECG When compared with ECG of 06-MAY-2023 16:37, No significant change was found Referred By: Jeremias Shearer Electronically Signed By:DONAL HUNTER
--- NOTE | 2023-05-07 10:09 | ED.GENADULT ---
HPI - General Adult General Chief complaint: General Medical Stated complaint: WEAKNESS, SEEN RECENTLY FOR UTI PER EMS Time Seen by Provider: 05/07/23 10:07 Source: patient and EMS Mode of arrival: EMS Limitations: no limitations History of Present Illness HPI narrative: This is an 82 years old female presented with a complaint of generalized weakness. Patient was seen yesterday in this emergency department she was diagnosed with the UTI she was discharged home on cefuroxime 500 mg b.i.d., she denies any other symptoms such as shortness of breath chest pain nausea vomiting. Onset (ago): day(s) (1) Radiation: non-radiation Severity: moderate Pain Consistency: constant Relieving factors: none Exacerbating factors: none Related Data Previous Rx's Medication Instructions Recorded cefuroxime axetil 500 mg tablet 500 mg PO BID #14 tabs 05/06/23 Allergies Allergy/AdvReac Type Severity Reaction Status Date / Time No Known Allergies Allergy Verified 05/07/23 10:02 Review of Systems Constitutional: Constitutional: Reports no additional constitutional complaints, Reports fatigue and Denies fever(s) ENT: Reports system reviewed and no additional complaints, except as documented Musculoskeletal: Musculoskeletal: Reports no additional musculoskeletal complaints Endocrine: Endocrine: Reports fatigue PMFSH Past Medical History Medical History Diabetes Gallbladder & bile duct stone with obstruction Surgical History H/O: hysterectomy Social History Social History Alcohol intake: never Advance Directives: No Advance Directives Information Provided: No Physical Exam ED Vital Signs: Vital Signs - 24 hr 05/07/23 09:57 05/07/23 10:36 Temperature 98.6 F 98.6 F Pulse Rate 91 Respiratory Rate 18 Blood Pressure 169/61 H Pulse Oximetry 97 Oxygen Delivery Method Room Air BMI result Body Mass Index 23.8 Const General: cooperative Nutritional Appearance: well nourished Orientation/consciousness: patient oriented x3 HENMT Head: Yes normal to inspection General nose exam: Normal external nose present Neck Neck: Yes normal visual inspection and Yes full ROM Chest Chest palpation & inspection: normal inspection of the chest Resp Effort & Inspection: normal respiratory effort Auscultation: clear to auscultation bilaterally Cardio Jugular venous distension: no JVD Rate: regular rate Rhythm: regular rhythm GI Inspection: Yes normal to inspection Palpation (GI): Soft to palpation, not firm, nontender and no guarding Percussion: Yes normal to percussion Skin General skin exam: no rashes or lesions noted, elasticity normal and turgor normal Lesions: no lesions Rashes: no rashes Neuro General: patient oriented x3 Cranial nerves: Yes CN's II-XII intact bilaterally Medications Administered Generic Name Dose Route Start Last Admin Trade Name Freq PRN Reason Stop Dose Admin Sodium Chloride 1,000 mls @ 100 mls/hr 05/07/23 16:15 05/07/23 16:14 Ns IVCONT 100 mls/hr .Q10H CRISTINA Administration Discontinued Medications Generic Name Dose Route Start Last Admin Trade Name Freq PRN Reason Stop Dose Admin Sodium Chloride 1,000 mls @ 999 mls/hr 05/07/23 10:15 05/07/23 11:25 Ns IVCONT 05/07/23 11:15 Infused .Q1H1M CRISTINA Infusion Ceftriaxone Sodium 1 gm/ 50 mls @ 100 mls/hr 05/07/23 15:34 05/07/23 16:12 Sodium Chloride IV 05/07/23 16:03 100 mls/hr ONCE ONE Administration Medical Decision Making Medical Decision Making [facility] Narrative: Patient presented with complaining of generalized weakness seen yesterday in the ED will good the repeat blood work administer IV fluid reassessed @1500 CXR read as pneumonia UA worse. This is return visit in less that 24 H I think it is very reasonable to admit the pt for IV fluids and IV AB . Differential Diagnosis Differential Diagnoses: The differential diagnosis associated with the presentation includes Hyperglycemia/pneumonia/dehydration Admission/Observation Consideration of admission/observation: Escalation of care including admission/observation considered Consult Healthcare Provider Management of the patient was discussed with: Hospitalist Lab Data MDM Lab Attestation statement: I reviewed the patient's lab results. 05/07/23 11:28 05/07/23 11:28 Labs: Lab Results 05/07/23 05/07/23 05/07/23 Range/Units 10:29 11:14 11:28 WBC 6.5 (4.8-10.8) X10*3/uL RBC 3.93 L (4.20-5.50) X10*6/uL Hgb 12.7 (12.0-16.0) g/dl Hct 36.8 L (37.0-47.0) % MCV 93.6 (80.0-98.0) fL MCH 32.3 (27.0-33.0) pg MCHC 34.5 (31.0-35.0) g/dl RDW 11.9 (11.0-16.0) % Plt Count 119 L (160-400) X10*3/uL MPV 9.4 (9.4-12.3) fL Immature Gran % (Auto) 0.6 H (0.0-0.4) % Neut % (Auto) 84.5 H (45-73) % Lymph % (Auto) 6.3 L (20-40) % [place] % (Auto) 8.1 (2-11) % Eos % (Auto) 0.2 (0-4) % Baso % (Auto) 0.3 (0-2) % Lymph # (Auto) 0.4 L (1.2-4.9) X10*3/uL [place] # (Auto) 0.5 (0.1-1.2) X10*3/uL Eos # (Auto) 0.0 (0.0-0.4) X10*3/uL Baso # (Auto) 0.0 (0.0-0.2) X10*3/uL Abs Immat Gran (auto) 0.04 H (0.00-0.03) X10*3/uL Absolute Neuts (auto) 5.5 (2.0-8.3) x10*3/uL Absolute Nucleated RBC 0.000 (0.0-0.012) X10*3/uL Nucleated RBC % (auto) 0.0 (0.0-0.2) /100WBC Sodium (135-145) mmol/L Potassium (3.3-5.1) mmol/L Chloride (96-108) mmol/L Carbon Dioxide (22-29) mmol/L Anion Gap (12-20) BUN (9-16) mg/dL Creatinine (0.5-1.4) mg/dL Estim Creat Clear Calc Estimated GFR POC Glucose 217 H (60-115) mg/dL Random Glucose (60-115) mg/dL Calcium (8.4-10.2) mg/dL Total Bilirubin (0.0-1.0) mg/dL AST (5-31) U/L ALT (0-31) U/L Alkaline Phosphatase (39-117) U/L Troponin I High Sens (<3.5-17.0) ng/L Total Protein (6.5-8.0) g/dL Albumin (3.5-5.0) g/dL Urine Color Urine Appearance Urine pH (5.0-9.0) Ur Specific [place] (1.005-1.025) Urine Protein (Neg-Trace) mg/dL Urine Glucose (UA) (Negative) mg/dL Urine Ketones (Negative) mg/dL Urine Blood (Negative) Urine Nitrite (Negative) Ur Leukocyte Esterase (Negative) Urine RBC (0-2) /HPF Urine WBC (0-5) /HPF Ur Squamous Epith Cells (0-2) /HPF Urine Bacteria (None Seen) Hyaline Casts (0-2) /LPF COVID-19 (ARUN) Negative (Negative) COVID-19 Clin Com See Note 05/07/23 05/07/23 05/07/23 Range/Units 11:28 11:28 12:09 WBC (4.8-10.8) X10*3/uL RBC (4.20-5.50) X10*6/uL Hgb (12.0-16.0) g/dl Hct (37.0-47.0) % MCV (80.0-98.0) fL MCH (27.0-33.0) pg MCHC (31.0-35.0) g/dl RDW (11.0-16.0) % Plt Count (160-400) X10*3/uL MPV (9.4-12.3) fL Immature Gran % (Auto) (0.0-0.4) % Neut % (Auto) (45-73) % Lymph % (Auto) (20-40) % [place] % (Auto) (2-11) % Eos % (Auto) (0-4) % Baso % (Auto) (0-2) % Lymph # (Auto) (1.2-4.9) X10*3/uL [place] # (Auto) (0.1-1.2) X10*3/uL Eos # (Auto) (0.0-0.4) X10*3/uL Baso # (Auto) (0.0-0.2) X10*3/uL Abs Immat Gran (auto) (0.00-0.03) X10*3/uL Absolute Neuts (auto) (2.0-8.3) x10*3/uL Absolute Nucleated RBC (0.0-0.012) X10*3/uL Nucleated RBC % (auto) (0.0-0.2) /100WBC Sodium 139 (135-145) mmol/L Potassium 3.7 (3.3-5.1) mmol/L Chloride 106 (96-108) mmol/L Carbon Dioxide 21 L (22-29) mmol/L Anion Gap 16 (12-20) BUN 15 (9-16) mg/dL Creatinine 1.29 (0.5-1.4) mg/dL Estim Creat Clear Calc 27.5 Estimated GFR 40 POC Glucose (60-115) mg/dL Random Glucose 254 H (60-115) mg/dL Calcium 8.8 (8.4-10.2) mg/dL Total Bilirubin 1.2 H (0.0-1.0) mg/dL AST 19 (5-31) U/L ALT 13 (0-31) U/L Alkaline Phosphatase 95 (39-117) U/L Troponin I High Sens 59.5 H* D (<3.5-17.0) ng/L Total Protein 6.6 (6.5-8.0) g/dL Albumin 3.6 (3.5-5.0) g/dL Urine Color Yellow Urine Appearance Turbid Urine pH 5.5 (5.0-9.0) Ur Specific [place] 1.015 (1.005-1.025) Urine Protein 30 (1+) H (Neg-Trace) mg/dL Urine Glucose (UA) >=1000 H (Negative) mg/dL Urine Ketones 15 (Negative) mg/dL Urine Blood Small (1+) H (Negative) Urine Nitrite Positive H (Negative) Ur Leukocyte Esterase Large (3+) H (Negative) Urine RBC 0-2 (0-2) /HPF Urine WBC >50 H (0-5) /HPF Ur Squamous Epith Cells 0-2 (0-2) /HPF Urine Bacteria 1+ (None Seen) Hyaline Casts 0-2 (0-2) /LPF COVID-19 (ARUN) (Negative) COVID-19 Clin Com 05/07/23 Range/Units 15:11 WBC (4.8-10.8) X10*3/uL RBC (4.20-5.50) X10*6/uL Hgb (12.0-16.0) g/dl Hct (37.0-47.0) % MCV (80.0-98.0) fL MCH (27.0-33.0) pg MCHC (31.0-35.0) g/dl RDW (11.0-16.0) % Plt Count (160-400) X10*3/uL MPV (9.4-12.3) fL Immature Gran % (Auto) (0.0-0.4) % Neut % (Auto) (45-73) % Lymph % (Auto) (20-40) % [place] % (Auto) (2-11) % Eos % (Auto) (0-4) % Baso % (Auto) (0-2) % Lymph # (Auto) (1.2-4.9) X10*3/uL [place] # (Auto) (0.1-1.2) X10*3/uL Eos # (Auto) (0.0-0.4) X10*3/uL Baso # (Auto) (0.0-0.2) X10*3/uL Abs Immat Gran (auto) (0.00-0.03) X10*3/uL Absolute Neuts (auto) (2.0-8.3) x10*3/uL Absolute Nucleated RBC (0.0-0.012) X10*3/uL Nucleated RBC % (auto) (0.0-0.2) /100WBC Sodium (135-145) mmol/L Potassium (3.3-5.1) mmol/L Chloride (96-108) mmol/L Carbon Dioxide (22-29) mmol/L Anion Gap (12-20) BUN (9-16) mg/dL Creatinine (0.5-1.4) mg/dL Estim Creat Clear Calc Estimated GFR POC Glucose (60-115) mg/dL Random Glucose (60-115) mg/dL Calcium (8.4-10.2) mg/dL Total Bilirubin (0.0-1.0) mg/dL AST (5-31) U/L ALT (0-31) U/L Alkaline Phosphatase (39-117) U/L Troponin I High Sens 45.4 H (<3.5-17.0) ng/L Total Protein (6.5-8.0) g/dL Albumin (3.5-5.0) g/dL Urine Color Urine Appearance Urine pH (5.0-9.0) Ur Specific [place] (1.005-1.025) Urine Protein (Neg-Trace) mg/dL Urine Glucose (UA) (Negative) mg/dL Urine Ketones (Negative) mg/dL Urine Blood (Negative) Urine Nitrite (Negative) Ur Leukocyte Esterase (Negative) Urine RBC (0-2) /HPF Urine WBC (0-5) /HPF Ur Squamous Epith Cells (0-2) /HPF Urine Bacteria (None Seen) Hyaline Casts (0-2) /LPF COVID-19 (ARUN) (Negative) COVID-19 Clin Com Independent Interpretation I performed an independent interpretation of an: Plain X-Ray Radiology Impression Discussion of test interpretation with radiology: I have reviewed the radiologist's reading. Radiologist Impression: left upper lobe infiltrate Independent Historian Clinical information obtained from an independent historian. History obtained from or confirmed by: Other (grand son) External Record Review External record reviewed: Inpatient record ED visit of Yesterday Chronic Conditions Patient?s care impacted by: Diabetes Discharge Plan Discharge Clinical Impression: Acute UTI, Pneumonia Patient Disposition: Admitted As Inpatient
[2023-05-07] MEDS: 0.9 % Sodium Chloride 1,000 ML 999 ML IVCONT (10:27)
[2023-05-07 10:35] LABS: Glucose, Whole Blood 217 mg/dL (60-115)
[2023-05-07 10:36] VITALS: TEMP 37
[2023-05-07 11:33] LABS: MANUAL DIFF FLAG NO
[2023-05-07 11:37] LABS: Basophils Percent Auto 0.3 % (0-2); Eosinophils Percent Auto 0.2 % (0-4); Hematocrit 36.8 % (37.0-47.0); Hemoglobin 12.7 g/dl (12.0-16.0); Imm Gran Abs Auto 0.04 X10*3/uL (0.00-0.03); Imm Gran Pct Auto 0.6 % (0.0-0.4); Lymphocytes Absolute Auto 0.4 X10*3/uL (1.2-4.9); Lymphocytes Percent Auto 6.3 % (20-40); Mean Corpuscular HGB Conc 34.5 g/dl (31.0-35.0); Mean Corpuscular Hemoglobin 32.3 pg (27.0-33.0); Mean Corpuscular Volume 93.6 fL (80.0-98.0); Mean Platelet Volume 9.4 fL (9.4-12.3); Monocytes Absolute Auto 0.5 X10*3/uL (0.1-1.2); Monocytes Percent Auto 8.1 % (2-11); Neutrophils Absolute Auto 5.5 x10*3/uL (2.0-8.3); Neutrophils Percent Auto 84.5 % (45-73); Platelet Count 119 X10*3/uL (160-400); Red Blood Count 3.93 X10*6/uL (4.20-5.50); Red Cell Distribution Width 11.9 % (11.0-16.0); White Blood Count 6.5 X10*3/uL (4.8-10.8)
[2023-05-07 11:40] LABS: COVID-19 Test Negative (Negative); IDNOW Serial# BCCEAD1C
[2023-05-07 11:52] LABS: Alanine Aminotransferase 13 U/L (0-31); Albumin Level 3.6 g/dL (3.5-5.0); Alkaline Phosphatase 95 U/L (39-117); Anion Gap 16 (12-20); Aspartate Amino Transferase 19 U/L (5-31); Bilirubin Total 1.2 mg/dL (0.0-1.0); Blood Urea Nitrogen 15 mg/dL (9-16); Calcium 8.8 mg/dL (8.4-10.2); Carbon Dioxide 21 mmol/L (22-29); Chloride 106 mmol/L (96-108); Creatinine Clr Calc Pharmacy 27.5; Estimated Glomerular Filt Rate 40; Glucose Random 254 mg/dL (60-115); Potassium 3.7 mmol/L (3.3-5.1); Sodium 139 mmol/L (135-145); Total Protein 6.6 g/dL (6.5-8.0)
[2023-05-07 12:04] LABS: Troponin-I High Sensitivity 59.5 ng/L (<3.5-17.0)
[2023-05-07 12:21] LABS: Appearance Urine Turbid; Color Urine Yellow; Glucose Urine UA >=1000 mg/dL (Negative); Leukocyte Esterase Urine Large (3+) (Negative); Nitrite Urine Positive (Negative); PH 5.5 (5.0-9.0); Specific Gravity - Urine 1.015 (1.005-1.025); UMIC TRIGGER UACC YES; Urine Blood Small (1+) (Negative); Urine Ketones 15 mg/dL (Negative); Urine Protein 30 (1+) mg/dL (Neg-Trace)
[2023-05-07 12:28] LABS: Bacteria Urine 1+ (None Seen); Hyaline Casts Urine 0-2 /LPF (0-2); RBC Urine 0-2 /HPF (0-2); Squamous Epithelial Cell Urine 0-2 /HPF (0-2); UACC Culture Trigger YES; WBC Urine >50 /HPF (0-5)
[2023-05-07 15:35] LABS: Troponin-I High Sensitivity 45.4 ng/L (<3.5-17.0)
[2023-05-07] MEDS: cefTRIAXone sodium 1 GM in 0.9 % Sodium Chloride 50 ML IV (16:12)
[2023-05-07] MEDS: 0.9 % Sodium Chloride 1,000 ML 100 ML IVCONT (16:14)
--- NOTE | 2023-05-07 16:46 | PHA.MEDREC ---
Pharmacy Consult ? Medication Reconciliation Pharmacy has completed the medication reconciliation. Patient's son had a picture of all the medications. Reports patient give insulin 3 up to 7 units depending on sugars so i entered as sliding scale insulin. Rosamaria Odom, PharmD
--- NOTE | 2023-05-07 16:51 | P.HPHOSP_ITS ---
History of Present Illness Date of Service: 05/07/23 Attending physician on admission: Lola Canales Chief Complaint: Generalized weakness, forgetfulness 82-year-old female with history of hypothyroidism, insulin-dependent type 2 diabetes, history of ovarian cancer treated with chemo/radiation, total hysterectomy who lives with her grandson, Sam, presents to the ED earlier today for evaluation of generalized weakness with 2 falls. The patient reports symptoms began about 5 days ago but worsened 3 days ago. She reports an accidental fall into a soft chair denying any head injury or loss of consciousness. However yesterday was found by her grandson laying in the for your/doorjamb leading into the garage though she does deny any loss of consciousness. Per grandson, there is no evidence of obvious trauma. She has also been increasingly forgetful but denies any confusion. There is been some mild dyspnea on exertion and occasional nonproductive cough. However no fevers, chills, sinus pressure, sore throat, abdominal pain, nausea, vomiting, diarrhea, dysuria, hematuria, increased urinary frequency, urinary urgency, flank pain, lightheadedness, palpitations, or chest pain. She was brought to the ED last night where she was febrile to 100.8 with heart rate in the 90s though no leukocytosis. She was diagnosed with UTI and left upper lobe pneumonia and discharged home with cefuroxime. This morning, symptoms had worsened and patient was unable to ambulate independently which is her baseline so she return to the ED with her grandson. She is currently reporting the same symptoms. Today, she is afebrile, vitals otherwise stable. No leukocytosis. Renal function baseline, improved from yesterday, electrolyte levels normal. Glucose 217. Troponins flat. Urinalysis with 3+ leukocytes, nitrites, 1+ blood, significant glucose, 1+ protein, positive urinary sediment, 1+ bacteria. Negative for COVID-19. CXR showing left upper lobe pneumonia, consistent with chest CT performed yesterday. EKG showing normal sinus rhythm, rate 89, with nonspecific ST/T-wave abnormality. In the ED, given 1 g IV ceftriaxone, 1 L IV NS bolus, and on L IV NS at 100 mL/hr. Patient will be admitted for further management of acute UTI and left upper lobe pneumonia with progressive generalized weakness and metabolic encephalopathy. Review of Systems Review of Systems: General: No fevers, malaise, unintentional weight loss. +generalized weakness HEENT: No blurred vision, diplopia. No sore throat, nasal congestion, rhinorrhea, sinus pain, ear pain Cardiovascular: No chest pain, palpitations, or leg edema Respiratory: +occ sob, +occ cough. No wheezing GI: No abdominal pain, nausea, vomiting, diarrhea, constipation, melena, hematochezia : No dysuria, hematuria, increased urinary frequency, decreased urinary output MSK: No myalgia, back pain Neuro: No headaches, weakness, paresthesias. +gait imbalance Skin: No rashes or lesions [facility] Medical History (Updated 05/07/23 @ 17:03 by UBALDO Paredes) Diabetes Gallbladder & bile duct stone with obstruction Generalized weakness History of ovarian cancer Hypothyroidism Surgical History H/O: hysterectomy Social History Alcohol intake: never Advance Directives: No Advance Directives Information Provided: No Meds Allergies Allergy/AdvReac Type Severity Reaction Status Date / Time No Known Allergies Allergy Verified 05/07/23 10:02 Active Medications: Current Medications Acetaminophen (Acetaminophen 325 Mg Tablet) 650 mg PO Q6H PRN PRN Reason: Pain, Mild (Pain Scale 1-3) Dextrose (Dextrose 50 % 25 Gm/50 Ml Syringe) 25 gm IVPUSH Q15M PRN; Protocol PRN Reason: per Hypoglycemia Standing Ord. Docusate Sodium (Docusate Sodium 100 Mg Capsule) 100 mg PO DAILY PRN PRN Reason: Constipation Enoxaparin Sodium (Enoxaparin Sodium 30 Mg/0.3 Ml Syringe) 30 mg SUBCUT Q24H [facility] Glucose (Glucose Gel 15 Gm Gel..Gram.) 15 gm PO Q15M PRN; Protocol PRN Reason: per Hypoglycemia Standing Ord. Sodium Chloride (Ns) 1,000 mls @ 100 mls/hr IVCONT .Q10H [facility] Last Admin: 05/07/23 16:14 Dose: 100 mls/hr Azithromycin 500 mg/ Sodium (Chloride) 250 mls @ 125 mls/hr IV Q24H CRISTINA Ceftriaxone Sodium 1 gm/ (Sodium Chloride) 50 mls @ 100 mls/hr IV Q24H [facility] Insulin Human Lispro (Insulin Lispro 100 Unit/Ml 3 Ml Vial) 0 unit SUBCUT QIDACHS [facility]; Protocol Ondansetron HCl (Ondansetron Hcl 4 Mg/2 Ml Vial) 4 mg IVPUSH Q8H PRN PRN Reason: Nausea and Vomiting Sodium Chloride (0.9 % Sodium Chloride Flush 3 Ml Syringe) 3 ml IVFLUSH QSHIFT [facility] Home Medications Medication Instructions Recorded Confirmed Last Taken Type glipizide 5 mg tablet 10 mg PO BID 05/07/23 05/07/23 05/06/23 History insulin NPH isoph U-100 human 100 See Protocol subcut BIDAC 05/07/23 05/07/23 05/06/23 History unit/mL subcutaneous suspension (Novolin N NPH U-100 Insulin isophane) levothyroxine 50 mcg tablet 50 mcg PO DAILY 05/07/23 05/07/23 05/06/23 History multivitamin 1 tab PO DAILY 05/07/23 05/07/23 05/06/23 History Physical Exam Vital Signs and Narrative: Vital Signs: Last Vital Signs Temp 98.6 F 05/07/23 10:36 Pulse 91 05/07/23 09:57 Resp 18 05/07/23 09:57 BP 169/61 H 05/07/23 09:57 Pulse Ox 97 05/07/23 09:57 O2 Del Method Room Air 05/07/23 09:57 BMI result Body Mass Index 23.8 Constitutional - Awake and Alert, No apparent distress Eyes - PERRLA, EOMI Cardiovascular - S1S2, RRR, No edema Respiratory - Normal lung expansion, Normal respiratory effort, No respiratory distress, crackles left lung Gastrointestinal - NT / ND; +BS; No rebound or guarding Extremities - no calf tenderness bilaterally, no swelling Skin - Warm/Dry Neurological - Alert & oriented x3, CN II-XII in tact, 5/5 strength BUE and BLE Results Labs 05/07/23 11:28 05/07/23 11:28 Labs: Laboratory Results - last 24 hr 05/07/23 05/07/23 05/07/23 10:29 11:14 11:28 MCV 93.6 MCH 32.3 MCHC 34.5 RDW 11.9 Plt Count 119 L MPV 9.4 Immature Gran % (Auto) 0.6 H Neut % (Auto) 84.5 H Lymph % (Auto) 6.3 L [place] % (Auto) 8.1 Eos % (Auto) 0.2 Baso % (Auto) 0.3 Lymph # (Auto) 0.4 L [place] # (Auto) 0.5 Eos # (Auto) 0.0 Baso # (Auto) 0.0 Abs Immat Gran (auto) 0.04 H Absolute Neuts (auto) 5.5 Absolute Nucleated RBC 0.000 Nucleated RBC % (auto) 0.0 Anion Gap Estim Creat Clear Calc Estimated GFR POC Glucose 217 H Random Glucose Calcium Total Bilirubin AST ALT Alkaline Phosphatase Total Protein Albumin Urine Color Urine Appearance Urine pH Ur Specific [place] Urine Protein Urine Glucose (UA) Urine Ketones Urine Blood Urine Nitrite Ur Leukocyte Esterase Urine RBC Urine WBC Ur Squamous Epith Cells Urine Bacteria Hyaline Casts COVID-19 (ARUN) Negative COVID-19 Clin Com See Note 05/07/23 05/07/23 11:28 12:09 MCV MCH MCHC RDW Plt Count MPV Immature Gran % (Auto) Neut % (Auto) Lymph % (Auto) [place] % (Auto) Eos % (Auto) Baso % (Auto) Lymph # (Auto) [place] # (Auto) Eos # (Auto) Baso # (Auto) Abs Immat Gran (auto) Absolute Neuts (auto) Absolute Nucleated RBC Nucleated RBC % (auto) Anion Gap 16 Estim Creat Clear Calc 27.5 Estimated GFR 40 POC Glucose Random Glucose 254 H Calcium 8.8 Total Bilirubin 1.2 H AST 19 ALT 13 Alkaline Phosphatase 95 Total Protein 6.6 Albumin 3.6 Urine Color Yellow Urine Appearance Turbid Urine pH 5.5 Ur Specific [place] 1.015 Urine Protein 30 (1+) H Urine Glucose (UA) >=1000 H Urine Ketones 15 Urine Blood Small (1+) H Urine Nitrite Positive H Ur Leukocyte Esterase Large (3+) H Urine RBC 0-2 Urine WBC >50 H Ur Squamous Epith Cells 0-2 Urine Bacteria 1+ Hyaline Casts 0-2 COVID-19 (ARUN) COVID-19 Clin Com Imaging Radiologist's Impressions: Impressions Chest X-Ray 05/07/23 10:23 IMPRESSION: Upper lobe pneumonia Assessment and Plan (1) Acute UTI: Status: Acute (2) Pneumonia: Status: Acute (3) Acute metabolic encephalopathy: Status: Acute (4) Balance problem: Status: Acute (5) Generalized weakness: Status: Acute Plan 82-year-old female with history of hypothyroidism, insulin-dependent type 2 diabetes, history of ovarian cancer treated with chemo/radiation, total hysterectomy who lives with her grandson, Sam, admitted for acute UTI, NATY pneumonia, and acute metabolic encephalopathy #Acute UTI -symptomatic with generalized weakness, metabolic encephalopathy. Febrile yesterday in ed to 100.8 -IV ceftriaxone (initiated 05/07) -UA with 3+ leukocytes, positive nitrites, 1+ blood, significant glucose, 1+ protein, positive urinary sediment, and 1+ bacteria -UC from 05/06 going gram-negative rods. Repeat culture pending -follow CBC, cultures # acute left upper lobe pneumonia -patient symptomatic with only occasional shortness of breath and occasional nonproductive cough. However with febrile yesterday with left upper lobe infiltrate noted on chest CT yesterday and CXR today -IV ceftriaxone x5 days and IV azithromycin 500 mg x3 days (initiated 05/07) -no hypoxia -viral resp panel pending -follow CBC, cultures # acute metabolic encephalopathy -likely in setting of infection -patient with increased forgetfulness in the last few days for her grandson though it is oriented on exam -monitor mentation # generalized weakness with gait imbalance -likely secondary to infection -at bed with assist -PT eval, may need STR placement # insulin-dependent type 2 diabetes -Pt has not been using NPH as prescribed, only using about 3-7 units BID -Humalog on sliding scale -add Lantus as needed pending point of care glucose -check point of care glucose -diabetic diet # hypothyroidism -continue Synthroid # CKD stage 3 -renal function baseline DVT prophylaxis-renally adjusted Lovenox DNR/DNI Patient requires inpatient stay at least 2 midnights for management of acute UTI and pneumonia with acute metabolic encephalopathy requiring IV antibiotics and close monitoring also requiring PT evaluation for possible placement to [facility] due to significant generalized weakness and gait imbalance in the setting of infection Time Spent With Patient Time: Total time managing care of this patient today ____ minutes. Quality Stroke Does the patient have a stroke diagnosis?: No VTE Prior VTE?: No VTE Risk Level:: Medical - moderate - high VTE Device Contraindication: Treatment Not Indicated VTE Drug Contraindication: N/A - Med Ordered
[2023-05-07] MEDS: Azithromycin 500 MG in 0.9 % Sodium Chloride 250 ML 125 MG IV (17:23)
[2023-05-07] MEDS: Enoxaparin Sodium 30 MG/0.3 ML SYRINGE SUBCUT (17:24)
[2023-05-07 17:36] VITALS: BP 173/72; PULSE 89; RESP 16; TEMP 36.7; O2SAT 95
--- NOTE | 2023-05-07 18:22 | PC.NURSE ---
20g l wrist- pt pulled out. reattempt iv access at this time
[2023-05-07 21:24] VITALS: BP 144/56; PULSE 90; RESP 16; TEMP 37.7; O2SAT 98
--- NOTE | 2023-05-07 21:24 | MHC.CM.PN ---
IMM 05/07. Met with patient and family. Son/HCP Jaylon Castillo ([phone]) and HCP#2/grandson Sam Castillo ([phone]). HCP is at home. Copy requested. CM assessment complete. THRIVE negative. Lives with grandson. A&Ox3. Forgetful, family has noted reduced STM, needing reminders with new information. LTM intact. Pt is independent. 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 Pt use no DME/services. Has a walker/wheelchair in home. Pt is unvaccinated. Will not receive vaccines for Covid. PT is pending. Pt may need STR. HX 2 falls in past week. Pt is requesting [facility], as she lives in [place]. Pt and family aware of shortage of STR beds, but would like referrals to [facility] for now. Understands that more referrals may be necessary if HH does not have a bed. Referrals placed pending PT recommendations. CM will follow for discharge planning.
[2023-05-07 21:30] LABS: Glucose, Whole Blood 442 mg/dL (60-115)
[2023-05-07] MEDS: Insulin Lispro 100 UNIT/ML 3 ML VIAL SUBCUT (22:56)
[2023-05-07] MEDS: Insulin Regular, Human 100 UNIT/ML 3 ML VIAL IVPUSH (22:57)
[2023-05-07] MEDS: glipiZIDE 10 MG TABLET PO (23:02)
[2023-05-07] MEDS: Insulin Glargine,Hum.rec.anlog 100 UNIT/ML 10 ML VIAL 10 UNIT SUBCUT (23:02)
[2023-05-08] VITALS (7 sets, daily range): BP systolic 131–159; BP diastolic 48–78; PULSE 78–87; RESP 16–20; TEMP 36.3–38.2; O2SAT 95–99; BMI 23.8
[2023-05-08 00:08] LABS: Glucose, Whole Blood 407 mg/dL (60-115)
[2023-05-08] MEDS: 0.9 % Sodium Chloride Flush 3 ML SYRINGE IVFLUSH ×3 (00:54→21:29)
[2023-05-08] MEDS: Insulin Regular, Human 100 UNIT/ML 3 ML VIAL IVPUSH (00:54)
[2023-05-08 02:26] LABS: Glucose, Whole Blood 256 mg/dL (60-115)
[2023-05-08] MEDS: 0.9 % Sodium Chloride 1,000 ML 100 ML IVCONT (02:32)
[2023-05-08 05:01] LABS: MANUAL DIFF FLAG NO
[2023-05-08 05:03] LABS: Basophils Percent Auto 0.4 % (0-2); Eosinophils Percent Auto 0.4 % (0-4); Hematocrit 28.4 % (37.0-47.0); Hemoglobin 9.7 g/dl (12.0-16.0); Imm Gran Abs Auto 0.07 X10*3/uL (0.00-0.03); Imm Gran Pct Auto 1.2 % (0.0-0.4); Lymphocytes Absolute Auto 0.6 X10*3/uL (1.2-4.9); Lymphocytes Percent Auto 9.8 % (20-40); Mean Corpuscular HGB Conc 34.2 g/dl (31.0-35.0); Mean Corpuscular Hemoglobin 31.8 pg (27.0-33.0); Mean Corpuscular Volume 93.1 fL (80.0-98.0); Mean Platelet Volume 9.6 fL (9.4-12.3); Monocytes Absolute Auto 0.6 X10*3/uL (0.1-1.2); Monocytes Percent Auto 10.2 % (2-11); Neutrophils Absolute Auto 4.5 x10*3/uL (2.0-8.3); Platelet Count 105 X10*3/uL (160-400); Red Blood Count 3.05 X10*6/uL (4.20-5.50); Red Cell Distribution Width 12.1 % (11.0-16.0); White Blood Count 5.7 X10*3/uL (4.8-10.8)
[2023-05-08 05:18] LABS: Anion Gap 14 (12-20); Blood Urea Nitrogen 18 mg/dL (9-16); Calcium 8.1 mg/dL (8.4-10.2); Carbon Dioxide 19 mmol/L (22-29); Chloride 109 mmol/L (96-108); Creatinine Clr Calc Pharmacy 25.8; Estimated Glomerular Filt Rate 37; Glucose Random 228 mg/dL (60-115); Sodium 139 mmol/L (135-145)
[2023-05-08] MEDS: Levothyroxine Sodium 50 MCG TABLET PO (06:43)
--- NOTE | 2023-05-08 07:26 | PC.NURSE ---
pt repositioned in bed; ivf infusing, vss. respirations even and unlabored sats 95% RA. call barboza within reach.
[2023-05-08 07:27] LABS: Glucose, Whole Blood 220 mg/dL (60-115)
[2023-05-08] MEDS: Potassium Chloride ER 20 MEQ TAB.ER.PRT 40 MEQ PO (08:26)
[2023-05-08] MEDS: Multivitamin TABLET 1 TAB PO (08:26)
[2023-05-08] MEDS: Insulin Lispro 100 UNIT/ML 3 ML VIAL SUBCUT ×4 (08:28→21:29)
--- NOTE | 2023-05-08 09:39 | PC.NURSE ---
report given to JONATHON Montejo
[2023-05-08 09:56] LABS: Adenovirus PCR Not Detected (Not Detect.); Bordetella parapertussis PCR Not Detected (Not Detect.); Bordetella pertussis PCR Not Detected (Not Detect.); Chlamydia pneumoniae PCR Not Detected (Not Detect.); Coronavirus 229E PCR Not Detected (Not Detect.); Coronavirus HKU1 PCR Not Detected (Not Detect.); Coronavirus NL63 PCR Not Detected (Not Detect.); Coronavirus OC43 PCR Not Detected (Not Detect.); Human metapneumovirus PCR Not Detected (Not Detect.); Influenza A PCR Not Detected (Not Detect.); Influenza B PCR Not Detected (Not Detect.); Mycoplasma pneumoniae PCR Not Detected (Not Detect.); Parainfluenza 1 PCR Not Detected (Not Detect.); Parainfluenza 2 PCR Not Detected (Not Detect.); Parainfluenza 3 PCR Not Detected (Not Detect.); Parainfluenza 4 PCR Not Detected (Not Detect.); RSV PCR Not Detected (Not Detect.); Rhino/Enterovirus PCR Not Detected (Not Detect.); SARS-CoV-2 PCR Not Detected (Not Detect.)
[2023-05-08] MEDS: glipiZIDE 10 MG TABLET PO ×2 (10:33→21:28)
[2023-05-08 11:17] LABS: Glucose, Whole Blood 233 mg/dL (60-115)
--- NOTE | 2023-05-08 13:02 | HO.PM.IMPN ---
Subjective Subjective Date of Service: 05/08/23 Interval History: Patient offers no acute complaints, mostly in bed since admission therefore does not feel weak denies lightheadedness, no dizziness, no urinary symptoms denies cough no shortness of breath, no sputum production, denies fever, chills, no acute issues overnight. Review of Systems All other system reviewed and negative. Physical Exam Vital Signs: Vital Signs: Last Vital Signs Temp 99.6 F 05/08/23 10:21 Pulse 79 05/08/23 10:21 Resp 18 05/08/23 10:21 BP 159/78 H 05/08/23 10:21 Pulse Ox 98 05/08/23 10:21 O2 Del Method Room Air 05/08/23 10:21 BMI result Body Mass Index 23.8 Const: Other: General awake alert x3, resting comfortably in no acute distress. Neck supple no JVD. CVS regular rate rhythm, Respiratory lungs clear to auscultation, no respiratory distress, no wheeze, no rhonchi. Gastrointestinal abdomen soft, nontender, bowel sounds audible, no guarding , no rigidity. Extremities no edema. Neuro nonfocal , moving all 4 extremity speech clear. Skin no rash Psych appropriate affect Objective Data Active Medications Acetaminophen (Acetaminophen 325 Mg Tablet) 650 mg PO Q6H PRN PRN Reason: Pain, Mild (Pain Scale 1-3) Dextrose (Dextrose 50 % 25 Gm/50 Ml Syringe) 25 gm IVPUSH Q15M PRN; Protocol PRN Reason: per Hypoglycemia Standing Ord. Docusate Sodium (Docusate Sodium 100 Mg Capsule) 100 mg PO DAILY PRN PRN Reason: Constipation Enoxaparin Sodium (Enoxaparin Sodium 30 Mg/0.3 Ml Syringe) 30 mg SUBCUT Q24H [facility] Last Admin: 05/07/23 17:24 Dose: 30 mg Documented By: ROD Glipizide (Glipizide 10 Mg Tablet) 10 mg PO BID [facility] Last Admin: 05/08/23 10:33 Dose: 10 mg Documented By: KAT Glucose (Glucose Gel 15 Gm Gel..Gram.) 15 gm PO Q15M PRN; Protocol PRN Reason: per Hypoglycemia Standing Ord. Azithromycin 500 mg/ Sodium (Chloride) 250 mls @ 125 mls/hr IV Q24H [facility] Last Infusion: 05/08/23 09:53 Dose: 0 mls/hr Documented By: KAT Ceftriaxone Sodium 1 gm/ (Sodium Chloride) 50 mls @ 100 mls/hr IV Q24H [facility] Insulin Glargine (Insulin Glargine,Hum.Rec.Anlog 100 Unit/Ml 10 Ml Vial) 10 unit SUBCUT BEDTIME [facility] Last Admin: 05/07/23 23:02 Dose: 10 unit Documented By: RADHA Insulin Human Lispro (Insulin Lispro 100 Unit/Ml 3 Ml Vial) 0 unit SUBCUT QIDACHS [facility]; Protocol Last Admin: 05/08/23 11:28 Dose: 4 unit Documented By: KAT Levothyroxine Sodium (Levothyroxine Sodium 50 Mcg Tablet) 50 mcg PO DAILY@0600 [facility] Last Admin: 05/08/23 06:43 Dose: 50 mcg Documented By: RADHA Multivitamins/Vitamin C (Multivitamin Tablet) 1 tab PO DAILY [facility] Last Admin: 05/08/23 08:26 Dose: 1 tab Documented By: PARI Ondansetron HCl (Ondansetron Hcl 4 Mg/2 Ml Vial) 4 mg IVPUSH Q8H PRN PRN Reason: Nausea and Vomiting Sodium Chloride (0.9 % Sodium Chloride Flush 3 Ml Syringe) 3 ml IVFLUSH QSHIFT [facility] Last Admin: 05/08/23 10:33 Dose: 3 ml Documented By: KAT Labs 05/08/23 04:42 05/08/23 04:42 Labs: Laboratory Results - last 24 hr 05/07/23 05/07/23 05/08/23 18:43 21:20 00:03 MCV MCH MCHC RDW Plt Count MPV Immature Gran % (Auto) Neut % (Auto) Lymph % (Auto) Branch % (Auto) Eos % (Auto) Baso % (Auto) Lymph # (Auto) Branch # (Auto) Eos # (Auto) Baso # (Auto) Abs Immat Gran (auto) Absolute Neuts (auto) Absolute Nucleated RBC Nucleated RBC % (auto) Anion Gap Estim Creat Clear Calc Estimated GFR POC Glucose 442 H* 407 H* Random Glucose Calcium Respiratory Panel Armas See Note Adenovirus (Rapid PCR) Not Detected B.pert (TEM-PCR) Not Detected B.parapertussis DNA PCR Not Detected C. pneumoniae DNA (PCR) Not Detected Coronavirus OC43 (PCR) Not Detected Coronavirus HKU1 (PCR) Not Detected Coronavirus 229E (PCR) Not Detected Coronavirus NL63 (PCR) Not Detected Human Metapneumovir PCR Not Detected Influenza A (RT-PCR) Not Detected Influenza B (RT-PCR) Not Detected M. pneumoniae (PCR) Not Detected Parainfluenza 1 (PCR) Not Detected Parainfluenza 2 (PCR) Not Detected Parainfluenza 3 (PCR) Not Detected Parainfluenza 4 (PCR) Not Detected RSV (PCR) Not Detected Entero/Rhino (PCR) Not Detected SARS-CoV-2 RNA (RT-PCR) Not Detected 05/08/23 05/08/23 05/08/23 02:23 04:42 04:42 MCV 93.1 MCH 31.8 MCHC 34.2 RDW 12.1 Plt Count 105 L MPV 9.6 Immature Gran % (Auto) 1.2 H Neut % (Auto) 78.0 H Lymph % (Auto) 9.8 L Branch % (Auto) 10.2 Eos % (Auto) 0.4 Baso % (Auto) 0.4 Lymph # (Auto) 0.6 L Branch # (Auto) 0.6 Eos # (Auto) 0.0 Baso # (Auto) 0.0 Abs Immat Gran (auto) 0.07 H Absolute Neuts (auto) 4.5 Absolute Nucleated RBC 0.000 Nucleated RBC % (auto) 0.0 Anion Gap 14 Estim Creat Clear Calc 25.8 Estimated GFR 37 POC Glucose 256 H Random Glucose 228 H Calcium 8.1 L D Respiratory Panel Armas Adenovirus (Rapid PCR) B.pert (TEM-PCR) B.parapertussis DNA PCR C. pneumoniae DNA (PCR) Coronavirus OC43 (PCR) Coronavirus HKU1 (PCR) Coronavirus 229E (PCR) Coronavirus NL63 (PCR) Human Metapneumovir PCR Influenza A (RT-PCR) Influenza B (RT-PCR) M. pneumoniae (PCR) Parainfluenza 1 (PCR) Parainfluenza 2 (PCR) Parainfluenza 3 (PCR) Parainfluenza 4 (PCR) RSV (PCR) Entero/Rhino (PCR) SARS-CoV-2 RNA (RT-PCR) 05/08/23 05/08/23 07:23 11:14 MCV MCH MCHC RDW Plt Count MPV Immature Gran % (Auto) Neut % (Auto) Lymph % (Auto) Branch % (Auto) Eos % (Auto) Baso % (Auto) Lymph # (Auto) Branch # (Auto) Eos # (Auto) Baso # (Auto) Abs Immat Gran (auto) Absolute Neuts (auto) Absolute Nucleated RBC Nucleated RBC % (auto) Anion Gap Estim Creat Clear Calc Estimated GFR POC Glucose 220 H 233 H Random Glucose Calcium Respiratory Panel Armas Adenovirus (Rapid PCR) B.pert (TEM-PCR) B.parapertussis DNA PCR C. pneumoniae DNA (PCR) Coronavirus OC43 (PCR) Coronavirus HKU1 (PCR) Coronavirus 229E (PCR) Coronavirus NL63 (PCR) Human Metapneumovir PCR Influenza A (RT-PCR) Influenza B (RT-PCR) M. pneumoniae (PCR) Parainfluenza 1 (PCR) Parainfluenza 2 (PCR) Parainfluenza 3 (PCR) Parainfluenza 4 (PCR) RSV (PCR) Entero/Rhino (PCR) SARS-CoV-2 RNA (RT-PCR) Microbiology Microbiology Results: Microbiology 05/07/23 Unknown Urine Culture - Final Urine clean catch - Urine rivera top Assessment and Plan (1) Generalized weakness: Status: Acute (2) Acute UTI: Status: Acute (3) Pneumonia: Status: Acute Plan 82-year-old female with history of hypothyroidism, insulin-dependent type 2 diabetes, history of ovarian cancer treated with chemo/radiation, total hysterectomy who lives with her grandson, Sam, admitted for acute UTI, NATY pneumonia, and acute metabolic encephalopathy #Acute UTI -no urinary symptoms, no fever -IV ceftriaxone (initiated 05/07) -UA with 3+ leukocytes, positive nitrites, 1+ blood, significant glucose, 1+ protein, positive urinary sediment, and 1+ bacteria -UC from 05/06 going gram-negative rods.? Repeat culture pending, normal WBC. # acute left upper lobe pneumonia -no cough, no shortness of breath, left upper lobe infiltrate noted on chest CT yesterday and CXR -IV ceftriaxone x5 days and IV azithromycin 500 mg x3 days (initiated 05/07) -no hypoxia -viral resp panel negative -follow CBC, cultures # hypokalemia will replete and follow labs # acute metabolic encephalopathy -resolved was likely due to acute infection # generalized weakness with gait imbalance -likely secondary to infection, seen by Physical therapy they recommend home PT when medically cleared # insulin-dependent type 2 diabetes -Pt has not been using NPH as prescribed, only using about 3-7 units BID -blood sugar in 200 range, continue Humalog on sliding scale -continue Lantus, glipizide 10 mg b.i.d. and diabetic diet # hypothyroidism -continue Synthroid # CKD stage 3 -renal function baseline DVT prophylaxis-renally adjusted Lovenox DNR/DNI Patient requires continued inpatient stay for IV antibiotics Time Spent With Patient Time: Total time managing care of this patient today ____ minutes. Quality Stroke Does the patient have a stroke diagnosis?: No VTE Prior VTE?: No VTE Risk Level:: Medical - moderate - high VTE Device Contraindication: Treatment Not Indicated VTE Drug Contraindication: N/A - Med Ordered
[2023-05-08] MEDS: cefTRIAXone sodium 1 GM in 0.9 % Sodium Chloride 50 ML IV (15:00)
[2023-05-08] MEDS: Azithromycin 500 MG in 0.9 % Sodium Chloride 250 ML 125 MG IV (16:00)
[2023-05-08] MEDS: Enoxaparin Sodium 30 MG/0.3 ML SYRINGE SUBCUT (16:00)
[2023-05-08 16:14] LABS: Glucose, Whole Blood 309 mg/dL (60-115)
--- NOTE | 2023-05-08 17:32 | MHC.CM.PN ---
Addendum entered by Katheryn Lui 05/08/23 17:43: HCP/son Milton Castillo ([phone]) and grandson Sam Castillo ([phone]). Alternate HCP Katheryn Lui (niece ([phone]). Original Note: HCP obtained. U[place]ed into [facility] and [facility] [place]
[2023-05-08 20:24] LABS: Glucose, Whole Blood 351 mg/dL (60-115)
[2023-05-08] MEDS: Insulin Glargine,Hum.rec.anlog 100 UNIT/ML 10 ML VIAL 10 UNIT SUBCUT (21:28)
[2023-05-09] VITALS (7 sets, daily range): BP systolic 146–182; BP diastolic 62–86; PULSE 66–80; RESP 18; TEMP 36–36.1; O2SAT 94–100
[2023-05-09] MEDS: Levothyroxine Sodium 50 MCG TABLET PO (05:52)
[2023-05-09 05:55] LABS: Hematocrit 30.8 % (37.0-47.0); Hemoglobin 10.6 g/dl (12.0-16.0); Mean Corpuscular HGB Conc 34.4 g/dl (31.0-35.0); Mean Corpuscular Hemoglobin 31.5 pg (27.0-33.0); Mean Corpuscular Volume 91.7 fL (80.0-98.0); Mean Platelet Volume 10.1 fL (9.4-12.3); Platelet Count 112 X10*3/uL (160-400); Red Blood Count 3.36 X10*6/uL (4.20-5.50); Red Cell Distribution Width 11.9 % (11.0-16.0); White Blood Count 5.2 X10*3/uL (4.8-10.8)
[2023-05-09 06:17] LABS: Anion Gap 12 (12-20); Blood Urea Nitrogen 15 mg/dL (9-16); Calcium 9.1 mg/dL (8.4-10.2); Carbon Dioxide 24 mmol/L (22-29); Chloride 109 mmol/L (96-108); Estimated Glomerular Filt Rate 47; Glucose Random 76 mg/dL (60-115); Potassium 3.5 mmol/L (3.3-5.1); Sodium 141 mmol/L (135-145)
[2023-05-09 07:31] LABS: Glucose, Whole Blood 80 mg/dL (60-115)
[2023-05-09] MEDS: 0.9 % Sodium Chloride Flush 3 ML SYRINGE IVFLUSH ×3 (09:00→20:47)
[2023-05-09] MEDS: Multivitamin TABLET 1 TAB PO (09:00)
[2023-05-09] MEDS: glipiZIDE 10 MG TABLET PO ×2 (09:02→20:46)
[2023-05-09 09:05] LABS: Glucose, Whole Blood 119 mg/dL (60-115)
[2023-05-09 11:14] LABS: Glucose, Whole Blood 267 mg/dL (60-115)
[2023-05-09] MEDS: Insulin Lispro 100 UNIT/ML 3 ML VIAL SUBCUT ×3 (11:42→20:46)
--- NOTE | 2023-05-09 13:22 | HO.PM.IMPN ---
Subjective Subjective Date of Service: 05/09/23 Interval History: Sitting comfortably looks tired offers no acute complaints of headache lightheadedness dizziness, no fevers, no chills, no nausea, no vomiting, no abdominal pain, no urinary symptoms but noted to have unsteady gait with physical therapy. Review of Systems All other system reviewed and negative Physical Exam Vital Signs: Vital Signs: Last Vital Signs Temp 96.8 F 05/09/23 07:34 Pulse 77 05/09/23 07:34 Resp 18 05/09/23 07:34 BP 150/70 H 05/09/23 08:49 Pulse Ox 96 05/09/23 07:34 O2 Del Method Room Air 05/09/23 07:34 BMI result Body Mass Index 23.8 Const: Other: General awake alert x3, resting comfortably in no acute distress.? Neck supple no JVD. CVS? regular rate rhythm, Respiratory lungs clear to auscultation, no respiratory distress, no wheeze, no rhonchi. Gastrointestinal abdomen soft, nontender, bowel sounds audible,? no guarding , no rigidity. Extremities no edema. Neuro non focal , moving all 4 extremity speech clear. Skin no rash Psych appropriate affect Objective Data Active Medications Acetaminophen (Acetaminophen 325 Mg Tablet) 650 mg PO Q6H PRN PRN Reason: Pain, Mild (Pain Scale 1-3) Dextrose (Dextrose 50 % 25 Gm/50 Ml Syringe) 25 gm IVPUSH Q15M PRN; Protocol PRN Reason: per Hypoglycemia Standing Ord. Docusate Sodium (Docusate Sodium 100 Mg Capsule) 100 mg PO DAILY PRN PRN Reason: Constipation Enoxaparin Sodium (Enoxaparin Sodium 30 Mg/0.3 Ml Syringe) 30 mg SUBCUT Q24H [facility] Last Admin: 05/08/23 16:00 Dose: 30 mg Documented By: KAT Glipizide (Glipizide 10 Mg Tablet) 10 mg PO BID [facility] Last Admin: 05/09/23 09:02 Dose: 10 mg Documented By: KARLEE Glucose (Glucose Gel 15 Gm Gel..Gram.) 15 gm PO Q15M PRN; Protocol PRN Reason: per Hypoglycemia Standing Ord. Azithromycin 500 mg/ Sodium (Chloride) 250 mls @ 125 mls/hr IV Q24H [facility] Last Infusion: 05/08/23 18:02 Dose: 0 mls/hr Documented By: KAT Ceftriaxone Sodium 1 gm/ (Sodium Chloride) 50 mls @ 100 mls/hr IV Q24H [facility] Last Infusion: 05/08/23 15:30 Dose: 0 mls/hr Documented By: KAT Insulin Glargine (Insulin Glargine,Hum.Rec.Anlog 100 Unit/Ml 10 Ml Vial) 10 unit SUBCUT BEDTIME [facility] Last Admin: 05/08/23 21:28 Dose: 10 unit Documented By: MELINDA Insulin Human Lispro (Insulin Lispro 100 Unit/Ml 3 Ml Vial) 0 unit SUBCUT QIDACHS [facility]; Protocol Last Admin: 05/09/23 11:42 Dose: 6 unit Documented By: KARLEE Levothyroxine Sodium (Levothyroxine Sodium 50 Mcg Tablet) 50 mcg PO DAILY@0600 [facility] Last Admin: 05/09/23 05:52 Dose: 50 mcg Documented By: MELINDA Multivitamins/Vitamin C (Multivitamin Tablet) 1 tab PO DAILY [facility] Last Admin: 05/09/23 09:00 Dose: 1 tab Documented By: KARLEE Ondansetron HCl (Ondansetron Hcl 4 Mg/2 Ml Vial) 4 mg IVPUSH Q8H PRN PRN Reason: Nausea and Vomiting Sodium Chloride (0.9 % Sodium Chloride Flush 3 Ml Syringe) 3 ml IVFLUSH QSHIFT [facility] Last Admin: 05/09/23 09:00 Dose: 3 ml Documented By: KARLEE Labs 05/09/23 05:01 05/09/23 05:01 Labs: Laboratory Results - last 24 hr 05/08/23 05/08/23 05/09/23 16:10 20:15 05:01 MCV 91.7 MCH 31.5 MCHC 34.4 RDW 11.9 Plt Count 112 L MPV 10.1 Absolute Nucleated RBC 0.000 Nucleated RBC % (auto) 0.0 Anion Gap Estim Creat Clear Calc Estimated GFR POC Glucose 309 H 351 H* Random Glucose Calcium 05/09/23 05/09/23 05/09/23 05:01 07:24 09:01 MCV MCH MCHC RDW Plt Count MPV Absolute Nucleated RBC Nucleated RBC % (auto) Anion Gap 12 Estim Creat Clear Calc 32.0 Estimated GFR 47 POC Glucose 80 119 H Random Glucose 76 Calcium 9.1 D 05/09/23 11:09 MCV MCH MCHC RDW Plt Count MPV Absolute Nucleated RBC Nucleated RBC % (auto) Anion Gap Estim Creat Clear Calc Estimated GFR POC Glucose 267 H Random Glucose Calcium Microbiology Microbiology Results: Microbiology 05/07/23 Unknown Urine Culture - Final Urine clean catch - Urine rivera top Assessment and Plan (1) Generalized weakness: Status: Acute (2) Acute UTI: Status: Acute (3) Pneumonia: Status: Acute Plan 82-year-old female with history of hypothyroidism, insulin-dependent type 2 diabetes, history of ovarian cancer treated with chemo/radiation, total hysterectomy who lives with her grandson, Sam, admitted for acute UTI, NATY pneumonia, and acute metabolic encephalopathy #Acute UTI -no urinary symptoms, no fever -IV ceftriaxone (initiated 05/07) -UA with 3+ leukocytes, positive nitrites, 1+ blood, significant glucose, 1+ protein, positive urinary sediment, and 1+ bacteria -UC from 05/06 grew Klebsiella sensitive to ceftriaxone blood cultures x2 negative will transition to by mouth antibiotic for total 5 day treatment # acute left upper lobe pneumonia -no cough, no shortness of breath, left upper lobe infiltrate noted on chest CT yesterday and CXR -IV ceftriaxone x5 days and IV azithromycin 500 mg x3 days (initiated 05/07) -no hypoxia -viral resp panel negative -normal blood cultures stable CBC # hypokalemia repleted and normalized # acute metabolic encephalopathy -resolved was likely due to acute infection # generalized weakness with gait imbalance -likely secondary to infection, seen by Physical therapy they recommend short-term rehab today since patient noted to have unsteady gait but patient wishes to go home therefore will discharge with VNA and PT # insulin-dependent type 2 diabetes -stable blood sugars ,continue Lantus, glipizide 10 mg b.i.d. and diabetic diet # hypothyroidism -continue Synthroid # CKD stage 3 -renal function baseline DVT prophylaxis-renally adjusted Lovenox DNR/DNI Patient requires continued inpatient stay for IV antibiotics Time Spent With Patient Time: Total time managing care of this patient today ____ minutes. Quality Stroke Does the patient have a stroke diagnosis?: No VTE Prior VTE?: No VTE Risk Level:: Medical - moderate - high VTE Device Contraindication: Treatment Not Indicated VTE Drug Contraindication: N/A - Med Ordered
[2023-05-09 16:38] LABS: Glucose, Whole Blood 299 mg/dL (60-115)
[2023-05-09] MEDS: Enoxaparin Sodium 30 MG/0.3 ML SYRINGE SUBCUT (16:49)
[2023-05-09] MEDS: cefTRIAXone sodium 1 GM in 0.9 % Sodium Chloride 50 ML IV (16:50)
[2023-05-09] MEDS: Azithromycin 500 MG in 0.9 % Sodium Chloride 250 ML 125 MG IV (19:09)
[2023-05-09 19:32] LABS: Glucose, Whole Blood 239 mg/dL (60-115)
[2023-05-09] MEDS: Insulin Glargine,Hum.rec.anlog 100 UNIT/ML 10 ML VIAL 10 UNIT SUBCUT (20:46)
[2023-05-10] MEDS: Levothyroxine Sodium 50 MCG TABLET PO (05:26)
[2023-05-10 07:27] LABS: Glucose, Whole Blood 91 mg/dL (60-115)
[2023-05-10 07:50] VITALS: BP 143/75; PULSE 76; RESP 18; TEMP 36.1; O2SAT 96
[2023-05-10] MEDS: Multivitamin TABLET 1 TAB PO (08:16)
[2023-05-10] MEDS: glipiZIDE 10 MG TABLET PO (08:16)
[2023-05-10] MEDS: 0.9 % Sodium Chloride Flush 3 ML SYRINGE IVFLUSH (08:17)
[2023-05-10 09:14] VITALS: BP 143/75; PULSE 76; O2SAT 96
--- NOTE | 2023-05-10 09:22 | P.DS_ITS ---
DS: Providers Provider Date of Service: 05/10/23 Date of admission: 05/07/23 16:40 Primary care physician: Gianluca Betancur MD DS: Diagnosis Discharge Diagnosis (1) Generalized weakness: Status: Acute (2) Acute UTI: Status: Acute (3) Pneumonia: Status: Acute DS: Summary Hospital Course Hospital Course: Date of Service: 05/07/23 Attending physician on admission: Lola Canales Chief Complaint: Generalized weakness, forgetfulness 82-year-old female with history of hypothyroidism, insulin-dependent type 2 diabetes, history of ovarian cancer treated with chemo/radiation, total hyster ectomy who lives with her grandson, Sam, presents to the ED earlier today for evaluation of generalized weakness with 2 falls.? The patient reports symptoms began about 5 days ago but worsened 3 days ago.? She reports an accidental fall into a soft chair denying any head injury or loss of consciousness.? However yesterday was found by her grandson laying in the for your/doorjamb leading into the garage though she does deny any loss of consciousness.? Per grandson, there is no evidence of obvious trauma.? She has also been increasingly forgetful but denies any confusion.? There is been some mild dyspnea on exertion and occasional nonproductive cough.? However no fevers, chills, sinus pressure, sore throat, abdominal pain, nausea, vomiting, diarrhea, dysuria, hematuria, increased urinary frequency, urinary urgency, flank pain, lightheadedness, palpitations, or chest pain.? She was brought to the ED last night where she was febrile to 100.8 with heart rate in the 90s though no leukocytosis.? She was diagnosed with UTI and left upper lobe pneumonia and discharged home with cefuroxime.? This morning, symptoms had worsened and patient was unable to ambulate independently which is her baseline so she return to the ED with her grandson.? She is currently reporting the same symptoms.? Today, she is afebrile, vitals otherwise stable.? No leukocytosis.? Renal function baseline, improved from yesterday, electrolyte levels normal.? Glucose 217.? Troponins flat.? Urinalysis with 3+ leukocytes, nitrites, 1+ blood, significant glucose, 1+ protein, positive urinary sediment, 1+ bacteria.? Negative for COVID-19.? CXR showing left upper lobe pneumonia, consistent with chest CT performed yesterday.? EKG showing normal sinus rhythm, rate 89, with nonspecific ST/T-wave abnormality.? In the ED, given 1 g IV ceftriaxone, 1 L IV NS bolus, and on L IV NS at 100 mL/hr.? Patient will be admitted for further management of acute UTI and left upper lobe pneumonia with progressive generalized weakness and metabolic encephalopathy. hospital course: 82-year-old female with history of hypothyroidism, insulin-dependent type 2 diabetes, history of ovarian cancer treated with chemo/radiation, total hysterectomy who lives with her grandson, Sam, admitted for acute UTI, NATY pneumonia, and acute metabolic encephalopathy #Acute UTI admitted to medical floor treated with IV ceftriaxone urine culture grew Klebsiella pneumonia sensitive to ceftriaxone blood cultures x2 -48 hours patient has no urinary symptoms of urgency frequency therefore being discharged home with 2 more days of by mouth ceftriaxone. # acute left upper lobe pneumonia , chest x-ray showed pneumonia patient complained of mild cough and shortness of breath patient initially treated with IV ceftriaxone and IV azithromycin patient oxygenation remains stable, viral respiratory panel is negative patient blood cultures are negative and has no leukocytosis patient is being discharged home as above on by bouts Ceftin for 2 more days to finish a total 5 day course of antibiotics. # hypokalemia repleted and normalized # acute metabolic encephalopathy resolved was likely due to acute infection # generalized weakness with gait imbalance -likely secondary to infection, seen by Physical therapy they recommend VNA and PT # insulin-dependent type 2 diabetes -stable blood sugars recommend to resume home medication glipizide 10 mg b.i.d. NPH and diabetic diet # hypothyroidism -continue Synthroid # CKD stage 3 -renal function baseline Time Spent with Patient Time attestation: Total time managing care of this patient today ____ minutes. Discharge coordination time: Greater than 30 minutes Quality: Safe Use of Opioids Does Pt have an Active Cancer Diagnosis on the Problem List?: No Quality: Stroke Does the patient have a stroke diagnosis?: No Physical Exam Vital Signs: Vital Signs: Last Vital Signs Temp 97.0 F 05/10/23 07:50 Pulse 76 05/10/23 09:14 Resp 18 05/10/23 07:50 BP 143/75 H 05/10/23 09:14 Pulse Ox 96 05/10/23 09:14 O2 Del Method Room Air 05/10/23 07:50 BMI result Body Mass Index 23.8 Const: Other: General awake aler t x3, resting comf ortably in no acut e distress.? Neck supple no JVD. CVS ? regular rate rhy thm, Respiratory l ungs clear to ausc ultation, no respi ratory distress, n o wheeze, no rhonc hi. Gastrointestin al abdomen soft, n on tender, bowel s ounds audible,? no guarding , no rig idity. Extremities no edema. Neuro n on focal , moving all 4 extremity sp eech clear. Skin n o rash Psych appro priate affect DS: Data Data Completed and Pending Labs on day of discharge: Laboratory Results - last 24 hr 05/09/23 05/09/23 05/09/23 11:09 16:14 19:17 POC Glucose 267 H 299 H 239 H 05/10/23 07:16 POC Glucose 91 Discharge Plan Discharge Anticipated Discharge Date/Time: 05/10/23 09:19 Patient Disposition: Home Health Service Discharge Diagnosis: acute UTI generalized weakness pneumonia Referrals: Gianluca Betancur MD [Primary Care Provider] - 1 Week Discharge Medications: Continued cefuroxime axetil 500 mg tablet 500 mg PO BID Qty: 14 0RF levothyroxine 50 mcg tablet 50 mcg PO DAILY Novolin N NPH U-100 Insulin 100 unit/mL suspension See Protocol subcut BIDAC Protocol: Insulin Correction Scale Less than or equal to 110 ---- Give (units): 0 111 to 150 Give (units): 0 151 to 200 Give (units): 2 201 to 250 Give (units): 4 251 to 300 Give (units): 6 301 to 350 Give (units): 8 Greater than 350 Give (units): 10 Call if Blood Glucose > : 350 glipizide 5 mg tablet 10 mg PO BID multivitamin Tablet 1 tab PO DAILY Discharge Orders: Discharge Order (Routine); Ordered 05/10/23 Ordered By: Lola Canales Diet: Diabetic diet Activity on Discharge: As tolerated Stand Alone Forms: Patient Portal Discharge page Care Plan Goals: take cefuroxime 500 mg 1 tablet twice daily for 2 more days only. being discharged home with VNA in PT services Health Concerns: diabetes mellitus/ visual impairment Plan of Treatment: outpatient follow-up with primary care physician call for appointment Assessment: as above
--- NOTE | 2023-05-10 09:27 | W.MHC.F2F ---
Service Date Service Date: 05/10/23 Encounter Date of encounter: 05/10/23 Reasons for Services Signs and symptoms assessed: weakness, unsteady gait Reason for mcc: diabetic teaching and medication management Reason for physical therapy: home safety and mobility and gait/transfer training Homebound: Leaving the home is medically contraindicated at this time without the asist of a device and/or another person due th the listed conditions above and below. Reason homebound: unsteady gait / fall risk and weakness related to hospital stay Homebound supporting statement: weakness, / visual impairment Certification: Based on the above findings, I certify that this patient is confined to the home and needs intermittent mcc care, physical therapy and/or speech therapy, or continues to need occupational therapy. The patient is under my care, and I have initiated the establishment of the plan of care. The patient will be followed by a physician who will periodically review the plan of care. Time Spent With Patient Time: Total time managing care of this patient today ____ minutes.
--- NOTE | 2023-05-10 10:50 | MHC.CM.PN ---
IMM 05/09/23 Patient is discharged to home today. PT recommendation is home with PT. Patient/family preference obtained. [facility] is 1st choice. All discharge information has been sent to the agency, including, the [facility] for SN and PT. Patient's grandson will provide transportation home.
[2023-05-10 11:34] LABS: Glucose, Whole Blood 286 mg/dL (60-115)
[2023-05-10] MEDS: Insulin Lispro 100 UNIT/ML 3 ML VIAL SUBCUT (11:41)
--- NOTE | 2023-05-10 16:28 | P.CDIM_ITS ---
PROVIDER RESPONSE TEXT: To clarify, the appropriate diagnosis supported by the clinical indicators: Hyperglycemia QUERY TEXT: PHYSICIAN'S DOCUMENTATION REQUEST Date of Query: 05/09/2023 08:59 AM EDT Patient Name: JUN SEWELL Admit Date: 05/07/2023 Dear Lola Canales, A review of the medical record indicates additional documentation may be needed. Please review below and update the documentation accordingly. Clinical Indicators: LABS: POC glucose [phone] Insulin Insulin-dependent Type 2 diabetes Patient has not been using NPH as prescribed, Continue Lantus, glipizide and diabetic diet Is there a diagnosis that correlates with these lab findings: Hyperglycemia Other please specify Other (explain)Clinically unable to determine (explain)Thank you, Nataly Conrad, CCS, CDIS Use of terms such as suspected, likely, concern for, or probable (associated with a specific diagnosi s that is being evaluated, monitored, or treated as if it exists) are acceptable and can be coded in the inpatient se tting, when documented at the time of discharge. Please use your independent medical judgment in providing your response. THIS QUERY IS PART OF THE PERMANENT MEDICAL RECORD
== END 2023-05-10 12:45 | disposition home health service (06) | DRG 193 ==
LOC: HO.ED 16:05 → HO.EDOVER 16:53 → HO.S3 05-08 09:23
PROVIDERS: Admitting Provider Physician Assistant; Emergency Provider Emergency Medicine; PCP Internal Medicine; Visit Provider Hospitalist
DX: J18.9 Pneumonia, unspecified organism (principal); G93.41 Metabolic encephalopathy; N39.0 Urinary tract infection, site not specified; E03.9 Hypothyroidism, unspecified; N18.30 Chronic kidney disease, stage 3 unspecified; E11.22 Type 2 diabetes mellitus with diabetic chronic kidney disease; Z66 Do not resuscitate; E87.6 Hypokalemia; E11.65 Type 2 diabetes mellitus with hyperglycemia; T38.3X6A Underdosing of insulin and oral hypoglycemic [antidiabetic] drugs, initial encounter; B96.1 Klebsiella pneumoniae [K. pneumoniae] as the cause of diseases classified elsewhere; Z20.822 Contact with and (suspected) exposure to COVID-19; Z87.891 Personal history of nicotine dependence; Z85.43 Personal history of malignant neoplasm of ovary; Z92.21 Personal history of antineoplastic chemotherapy; Z92.3 Personal history of irradiation; Z79.4 Long term (current) use of insulin; Z79.84 Long term (current) use of oral hypoglycemic drugs; Z79.890 Hormone replacement therapy; Z79.899 Other long term (current) drug therapy
CPT/HCPCS: 36415; 71045; 71046; 71250; 80048; 80053; 80076; 81001; 82947; 83605; 83690; 83880; 84484; 85025; 85027; 87040; 87086; 87088; 87186; 87633; 87635; 93005; 97116; 97162; 99285; J0456; J0696; J1650

== ENCOUNTER → 2023-05-07 16:40 | Outpatient (BNV) | payer MEDICARE, SELFPAY | PROVIDERS: Admitting Provider Physician Assistant; Emergency Provider Emergency Medicine; PCP Internal Medicine; Visit Provider Physician Assistant | DX: R53.1 Weakness (principal); N39.0 Urinary tract infection, site not specified; J18.9 Pneumonia, unspecified organism | CPT/HCPCS: 99223; 99233; 99239; G0180 ==

== ENCOUNTER 2023-07-10 11:55 | Outpatient (REF) | payer MEDICARE, SELFPAY ==
[2023-07-10 14:03] LABS: MANUAL DIFF FLAG NO
[2023-07-10 14:13] LABS: Basophils Percent Auto 0.3 % (0-2); Eosinophils Absolute Auto 0.2 X10*3/uL (0.0-0.4); Eosinophils Percent Auto 2.6 % (0-4); Hemoglobin 12.6 g/dl (12.0-16.0); Imm Gran Abs Auto 0.02 X10*3/uL (0.00-0.03); Imm Gran Pct Auto 0.3 % (0.0-0.4); Lymphocytes Absolute Auto 1.6 X10*3/uL (1.2-4.9); Lymphocytes Percent Auto 27.5 % (20-40); Mean Corpuscular HGB Conc 34.1 g/dl (31.0-35.0); Mean Corpuscular Hemoglobin 31.6 pg (27.0-33.0); Mean Corpuscular Volume 92.7 fL (80.0-98.0); Mean Platelet Volume 9.9 fL (9.4-12.3); Monocytes Absolute Auto 0.4 X10*3/uL (0.1-1.2); Monocytes Percent Auto 7.2 % (2-11); Neutrophils Absolute Auto 3.6 x10*3/uL (2.0-8.3); Neutrophils Percent Auto 62.1 % (45-73); Platelet Count 145 X10*3/uL (160-400); Red Blood Count 3.99 X10*6/uL (4.20-5.50); Red Cell Distribution Width 11.9 % (11.0-16.0); White Blood Count 5.9 X10*3/uL (4.8-10.8)
[2023-07-10 14:17] LABS: Estimated Average Glucose 252 mg/dL; Hemoglobin A1c % 10.4 % (<6.0)
[2023-07-10 14:25] LABS: Alanine Aminotransferase 27 U/L (0-31); Albumin Level 3.9 g/dL (3.5-5.0); Alkaline Phosphatase 102 U/L (39-117); Anion Gap 13 (12-20); Aspartate Amino Transferase 25 U/L (5-31); Bilirubin Total 0.6 mg/dL (0.0-1.0); Blood Urea Nitrogen 19 mg/dL (9-16); Calcium 9.5 mg/dL (8.4-10.2); Carbon Dioxide 28 mmol/L (22-29); Chloride 102 mmol/L (96-108); Estimated Glomerular Filt Rate 34; Glucose Random 239 mg/dL (60-115); Sodium 139 mmol/L (135-145); Total Protein 6.7 g/dL (6.5-8.0)
[2023-07-10 14:43] LABS: Vitamin B12 1067 pg/mL (200-900)
[2023-07-10 14:47] LABS: Free T4 (Free Thyroxine) 1.21 ng/dL (0.71-1.85); Thyroid Stimulating Hormone 0.82 uIU/mL (0.32-4.0)
== END 2023-07-10 11:56 | disposition home or self-care (01) ==
LOC: HO.10HDL 11:55
PROVIDERS: Visit Provider Internal Medicine
DX: E11.22 Type 2 diabetes mellitus with diabetic chronic kidney disease (principal); N18.9 Chronic kidney disease, unspecified; E03.9 Hypothyroidism, unspecified; R53.83 Other fatigue
CPT/HCPCS: 36415; 80053; 82607; 83036; 84439; 84443; 85025

== ENCOUNTER 2023-08-25 07:53 | Emergency (ER) | payer MEDICARE, SELFPAY ==
--- NOTE | ~2023-08-25 | XR_ITS ---
EXAMINATION: XR CHEST CLINICAL INFORMATION: Chest pain COMPARISON: Chest 05/07/2023 TECHNIQUE: 2 views of the chest were obtained. FINDINGS: No significant abnormality is noted involving the heart, lungs, mediastinum, bony thorax or soft tissues. XR/XR chest 2V IMPRESSION: Unremarkable chest.
[2023-08-25 08:00] VITALS: BP 162/74; BP 187/88; PULSE 72; PULSE 76; RESP 18; TEMP 36.8; O2SAT 98; O2SAT 99; BMI 23.2
--- NOTE | 2023-08-25 08:11 | ED_ITS ---
HPI - General Adult General Chief complaint: Weakness Stated complaint: WEAK,SYNCOPE W/EMS LAY TO SIT PER EMS History of Present Illness HPI narrative: The patient is an 82-year-old woman who lives at home with her grandson. Apparently she was well yesterday and when out to some kind of music venue. Apparently her son was playing in a band and she and her grandson went to see the performance. She went to bed around 22:00 was feeling in her usual state of health at that time. This morning however she felt quite weak when she went to the bathroom and may have passed out for a minute. She says that she feels generally weak but does not have more specific complaints. She did not have any dysuria when she urinated this morning. No headache, no nausea vomiting, no chest pain, no cough or sputum. No pleuritic pain. No abdominal pain. No diarrhea. She simply feels generally weak. Related Data Home Medications Medication Instructions Recorded Confirmed glipizide 5 mg tablet 10 mg PO BID 05/07/23 05/07/23 insulin NPH isoph U-100 human 100 See Protocol subcut BIDAC 05/07/23 05/07/23 unit/mL subcutaneous suspension (Novolin N NPH U-100 Insulin isophane) levothyroxine 50 mcg tablet 50 mcg PO DAILY 05/07/23 05/07/23 multivitamin 1 tab PO DAILY 05/07/23 05/07/23 Previous Rx's Medication Instructions Recorded cefuroxime axetil 500 mg tablet 500 mg PO BID #14 tabs 05/06/23 cefuroxime axetil 250 mg tablet 250 mg PO BID #10 tabs 08/25/23 nirmatrelvir 150 mg-ritonavir 100 See Rx Instructions PO .COMPLEX 08/25/23 mg tablets in a dose pack #20 ea (Paxlovid) Allergies Allergy/AdvReac Type Severity Reaction Status Date / Time No Known Allergies Allergy Verified 05/07/23 10:02 Review of Systems 2 Review of Systems: Yes all other systems are reviewed and are negative [facility] Past Medical History Medical History (Updated 08/25/23 @ 13:15 by Javier Pfeiffer MD) Hypothyroidism History of ovarian cancer Generalized weakness Gallbladder & bile duct stone with obstruction Diabetes Surgical History H/O: hysterectomy Social History Social History Household Members: Family Housing: House Do you presently have visiting nurse or other home services: No Alcohol intake: former Patient Tobacco Use Status: Former Tobacco user Smoked in Last 30 Days: No Use of substances other than those prescribed or required for medical reasons: No Advance Directives: Yes Advance Directives on File: Yes Advance Directives Date on File: 05/08/23 service: No Physical Exam ED Vital Signs: Vital Signs - 24 hr 08/25/23 08:00 08/25/23 10:21 Temperature 98.3 F 99.8 F Pulse Rate 76 82 Respiratory Rate 18 Blood Pressure 162/74 H Pulse Oximetry 98 96 Oxygen Delivery Method Room Air Room Air BMI result Body Mass Index 23.2 Const Other: The patient is a pleasant older woman who is awake and alert. She looks mildly fatigued but not in acute distress. HENMT Other: Face was symmetrical. Mucous membranes moist. Tongue midline. Eyes Other: Pupils are round equal, conjunctivae are clear, lateral gaze intact. Visual newell intact to confrontation. Neck Other: No JVD, moving her neck easily. Resp Effort & Inspection: normal respiratory effort Auscultation: clear to auscultation bilaterally Cardio Other: Regular rate and rhythm with no murmur GI Other: Soft nontender. Skin Other: Dry and unremarkable. No rash. Neuro Other: Patient is awake and alert. She seems to have a mildly vague affect but does not seem to have a frankly altered mental status. Face symmetrical. Speech is clear. Eye movements normal. Visual newell intact. Moves all 4 extremities normally. Finger-nose normal. She seems grossly neurologically intact. Extrem Other: No peripheral edema. No pitting edema. No calf swelling or tenderness. Medications Administered Discontinued Medications Generic Name Dose Route Start Last Admin Trade Name Freq PRN Reason Stop Dose Admin Acetaminophen 975 mg 08/25/23 10:08 08/25/23 10:22 Acetaminophen 325 Mg Tablet PO 08/25/23 10:09 975 mg ONCE ONE Administration Sodium Chloride 1,000 mls @ 999 mls/hr 08/25/23 09:45 08/25/23 11:10 Ns IV 08/25/23 10:45 Infused .Q1H1M CRISTINA Infusion Ceftriaxone Sodium 1 gm/ 50 mls @ 100 mls/hr 08/25/23 12:21 08/25/23 13:50 Sodium Chloride IV 08/25/23 12:50 Infused ONCE ONE Infusion Medical Decision Making Medical Decision Making [facility] Narrative: Patient is an 82-year-old woman who lives with his grandson. She seemed acutely weak this morning. She had been in her usual state of health yesterday. Today she is testing positive for COVID. Also her UA may be suggesting a mild UTI. She has an elevated troponin but 2nd troponin shows no increase. She is hemodynamically stable. She was given a L of IV saline. She was observed for several hours during which time she looked well. I felt that she looked well enough for outpatient management and have prescribed Paxlovid for her COVID. With regard to a possible UTI she was given 1 g of IV ceftriaxone and will be discharged on cefuroxime. Lab Data 08/25/23 08:23 08/25/23 08:43 Labs: Lab Results 08/25/23 08/25/23 08/25/23 Range/Units 08:23 08:43 10:27 WBC 3.2 L (4.8-10.8) X10*3/uL RBC 4.20 (4.20-5.50) X10*6/uL Hgb 13.2 (12.0-16.0) g/dl Hct 38.0 (37.0-47.0) % MCV 90.5 (80.0-98.0) fL MCH 31.4 (27.0-33.0) pg MCHC 34.7 (31.0-35.0) g/dl RDW 12.1 (11.0-16.0) % Plt Count 110 L (160-400) X10*3/uL MPV 9.5 (9.4-12.3) fL Immature Gran % (Auto) 0.6 H (0.0-0.4) % Neut % (Auto) 56.6 (45-73) % Lymph % (Auto) 24.9 (20-40) % [place] % (Auto) 17.0 H (2-11) % Eos % (Auto) 0.6 (0-4) % Baso % (Auto) 0.3 (0-2) % Lymph # (Auto) 0.8 L (1.2-4.9) X10*3/uL [place] # (Auto) 0.5 (0.1-1.2) X10*3/uL Eos # (Auto) 0.0 (0.0-0.4) X10*3/uL Baso # (Auto) 0.0 (0.0-0.2) X10*3/uL Abs Immat Gran (auto) 0.02 (0.00-0.03) X10*3/uL Absolute Neuts (auto) 1.8 L (2.0-8.3) x10*3/uL Absolute Nucleated RBC 0.000 (0.0-0.012) X10*3/uL Nucleated RBC % (auto) 0.0 (0.0-0.2) /100WBC Sodium 140 (135-145) mmol/L Potassium 4.0 (3.3-5.1) mmol/L Chloride 101 (96-108) mmol/L Carbon Dioxide 29 (22-29) mmol/L Anion Gap 14 (12-20) BUN 22 H (9-16) mg/dL Creatinine 1.70 H (0.5-1.4) mg/dL Estim Creat Clear Calc 19.0 Estimated GFR 29 Random Glucose 161 H (60-115) mg/dL Lactic Acid 1.7 (0.5-2.0) mmol/L Calcium 9.7 (8.4-10.2) mg/dL Magnesium 1.8 (1.6-2.6) mg/dL Total Bilirubin 0.7 (0.0-1.0) mg/dL Direct Bilirubin 0.2 (0.0-0.5) mg/dL AST 24 (5-31) U/L ALT 22 (0-31) U/L Alkaline Phosphatase 99 (39-117) U/L Troponin I High Sens 82.3 H* D 75.8 H* (<3.5-17.0) ng/L C-Reactive Protein 2.12 H (< or = 0.50) mg/dL B-Natriuretic Peptide 132 H (<100) pg/mL Total Protein 6.8 (6.5-8.0) g/dL Albumin 3.9 (3.5-5.0) g/dL Urine Color Urine Appearance Urine pH (5.0-9.0) Ur Specific [place] (1.005-1.025) Urine Protein (Neg-Trace) mg/dL Urine Glucose (UA) (Negative) mg/dL Urine Ketones (Negative) mg/dL Urine Blood (Negative) Urine Nitrite (Negative) Ur Leukocyte Esterase (Negative) Urine RBC (0-2) /HPF Urine WBC (0-5) /HPF Ur Squamous Epith Cells (0-2) /HPF Urine Bacteria (None Seen) Hyaline Casts (0-2) /LPF Ethyl Alcohol < 10 mg/dL Influenza Type A (PCR) NEGATIVE (Negative) Influenza Type B (PCR) NEGATIVE (Negative) RSV RNA Qual (PCR) NEGATIVE (Negative) SARS-CoV-2 RNA (RT-PCR) POSITIVE A (Negative) 08/25/23 Range/Units 11:11 WBC (4.8-10.8) X10*3/uL RBC (4.20-5.50) X10*6/uL Hgb (12.0-16.0) g/dl Hct (37.0-47.0) % MCV (80.0-98.0) fL MCH (27.0-33.0) pg MCHC (31.0-35.0) g/dl RDW (11.0-16.0) % Plt Count (160-400) X10*3/uL MPV (9.4-12.3) fL Immature Gran % (Auto) (0.0-0.4) % Neut % (Auto) (45-73) % Lymph % (Auto) (20-40) % [place] % (Auto) (2-11) % Eos % (Auto) (0-4) % Baso % (Auto) (0-2) % Lymph # (Auto) (1.2-4.9) X10*3/uL [place] # (Auto) (0.1-1.2) X10*3/uL Eos # (Auto) (0.0-0.4) X10*3/uL Baso # (Auto) (0.0-0.2) X10*3/uL Abs Immat Gran (auto) (0.00-0.03) X10*3/uL Absolute Neuts (auto) (2.0-8.3) x10*3/uL Absolute Nucleated RBC (0.0-0.012) X10*3/uL Nucleated RBC % (auto) (0.0-0.2) /100WBC Sodium (135-145) mmol/L Potassium (3.3-5.1) mmol/L Chloride (96-108) mmol/L Carbon Dioxide (22-29) mmol/L Anion Gap (12-20) BUN (9-16) mg/dL Creatinine (0.5-1.4) mg/dL Estim Creat Clear Calc Estimated GFR Random Glucose (60-115) mg/dL Lactic Acid (0.5-2.0) mmol/L Calcium (8.4-10.2) mg/dL Magnesium (1.6-2.6) mg/dL Total Bilirubin (0.0-1.0) mg/dL Direct Bilirubin (0.0-0.5) mg/dL AST (5-31) U/L ALT (0-31) U/L Alkaline Phosphatase (39-117) U/L Troponin I High Sens (<3.5-17.0) ng/L C-Reactive Protein (< or = 0.50) mg/dL B-Natriuretic Peptide (<100) pg/mL Total Protein (6.5-8.0) g/dL Albumin (3.5-5.0) g/dL Urine Color Yellow Urine Appearance Clear Urine pH 6.0 (5.0-9.0) Ur Specific [place] 1.010 (1.005-1.025) Urine Protein 30 (1+) H (Neg-Trace) mg/dL Urine Glucose (UA) 250 H (Negative) mg/dL Urine Ketones Trace (Negative) mg/dL Urine Blood Trace H (Negative) Urine Nitrite Positive H (Negative) Ur Leukocyte Esterase Moderate (2+) H (Negative) Urine RBC 0-2 (0-2) /HPF Urine WBC 21-50 H (0-5) /HPF Ur Squamous Epith Cells 0-2 (0-2) /HPF Urine Bacteria 4+ (None Seen) Hyaline Casts 0-2 (0-2) /LPF Ethyl Alcohol mg/dL Influenza Type A (PCR) (Negative) Influenza Type B (PCR) (Negative) RSV RNA Qual (PCR) (Negative) SARS-CoV-2 RNA (RT-PCR) (Negative) Independent Interpretation I performed an independent interpretation of an: EKG Interpretation: EKG at 08:22 shows normal sinus rhythm 75 beats per minute. No definite acute changes. Discharge Plan Discharge Clinical Impression: COVID, Urinary tract infection Patient Disposition: Home, Self-Care Instructions: Urinary Tract Infection in Women (ED), COVID-19 (Coronavirus Disease 2019) (ED) Additional Instructions: You have tested positive for COVID today. I have sent a prescription for Paxlovid to your pharmacy. This is an anti COVID medication. Please start the Paxlovid today and take the medication approximately every 12 hours. Your urine is also suspicious for a urinary tract infection. You received an IV dose of antibiotics today. Tomorrow morning please start cefuroxime 2 times a day. Drink a lot of fluids. Please follow-up soon with your regular doctor. Return to the emergency room significantly worse. Prescriptions: New cefuroxime axetil 250 mg tablet 250 mg PO BID Qty: 10 0RF Paxlovid 150-100 mg tablets,dose pack See Rx Instructions .ROUTE .COMPLEX Qty: 20 0RF Rx Instructions: take ONE 150 mg tablet of nirmatrelvir with ONE 100 mg tablet of ritonavir twice daily for 5 days No Action cefuroxime axetil 500 mg tablet 500 mg PO BID Qty: 14 0RF levothyroxine 50 mcg tablet 50 mcg PO DAILY Novolin N NPH U-100 Insulin 100 unit/mL suspension See Protocol subcut BIDAC Protocol: Insulin Correction Scale Less than or equal to 110 ---- Give (units): 0 111 to 150 Give (units): 0 151 to 200 Give (units): 2 201 to 250 Give (units): 4 251 to 300 Give (units): 6 301 to 350 Give (units): 8 Greater than 350 Give (units): 10 Call MD if Blood Glucose > : 350 glipizide 5 mg tablet 10 mg PO BID multivitamin Tablet 1 tab PO DAILY Referrals: Gianluca Betancur MD [Primary Care Provider] - Interventions: ED Discharge Assessment Last Done: 08/25/23 14:53 Discharge Date/Time: 08/25/23 14:54
--- NOTE | 2023-08-25 08:12 | ECG_ITS ---
Test Reason : WEAKNESS Blood Pressure : / mmHG Vent. Rate : 075 BPM Atrial Rate : 075 BPM P-R Int : 180 ms QRS Dur : 080 ms QT Int : 370 ms P-R-T Axes : 071 035 037 degrees QTc Int : 413 ms Normal sinus rhythm Nonspecific ST and T wave abnormality Abnormal ECG When compared with ECG of 07-MAY-2023 11:12, Nonspecific T wave abnormality no longer evident in Inferior leads Nonspecific T wave abnormality, improved in Lateral leads Referred By: Javier Pfeiffer Electronically Signed By:Arnold Mullen
[2023-08-25 08:29] LABS: MANUAL DIFF FLAG NO
[2023-08-25 08:33] LABS: Basophils Percent Auto 0.3 % (0-2); Eosinophils Percent Auto 0.6 % (0-4); Hemoglobin 13.2 g/dl (12.0-16.0); Imm Gran Abs Auto 0.02 X10*3/uL (0.00-0.03); Imm Gran Pct Auto 0.6 % (0.0-0.4); Lymphocytes Absolute Auto 0.8 X10*3/uL (1.2-4.9); Lymphocytes Percent Auto 24.9 % (20-40); Mean Corpuscular HGB Conc 34.7 g/dl (31.0-35.0); Mean Corpuscular Hemoglobin 31.4 pg (27.0-33.0); Mean Corpuscular Volume 90.5 fL (80.0-98.0); Mean Platelet Volume 9.5 fL (9.4-12.3); Monocytes Absolute Auto 0.5 X10*3/uL (0.1-1.2); Neutrophils Absolute Auto 1.8 x10*3/uL (2.0-8.3); Neutrophils Percent Auto 56.6 % (45-73); Platelet Count 110 X10*3/uL (160-400); Red Cell Distribution Width 12.1 % (11.0-16.0); White Blood Count 3.2 X10*3/uL (4.8-10.8)
[2023-08-25 09:02] LABS: Lactic Acid 1.7 mmol/L (0.5-2.0)
[2023-08-25 09:07] LABS: Ethanol < 10 mg/dL
[2023-08-25 09:11] LABS: B Type Natriuretic Peptide 132 pg/mL (<100)
[2023-08-25 09:12] LABS: Alanine Aminotransferase 22 U/L (0-31); Albumin Level 3.9 g/dL (3.5-5.0); Alkaline Phosphatase 99 U/L (39-117); Anion Gap 14 (12-20); Aspartate Amino Transferase 24 U/L (5-31); Bilirubin Direct 0.2 mg/dL (0.0-0.5); Bilirubin Total 0.7 mg/dL (0.0-1.0); Blood Urea Nitrogen 22 mg/dL (9-16); C Reactive Protein 2.12 mg/dL (< or = 0.50); Calcium 9.7 mg/dL (8.4-10.2); Carbon Dioxide 29 mmol/L (22-29); Chloride 101 mmol/L (96-108); Estimated Glomerular Filt Rate 29; Glucose Random 161 mg/dL (60-115); Magnesium 1.8 mg/dL (1.6-2.6); Sodium 140 mmol/L (135-145); Total Protein 6.8 g/dL (6.5-8.0)
[2023-08-25 09:14] LABS: Influenza A PCR NEGATIVE (Negative); Influenza B PCR NEGATIVE (Negative); Resp Syncy Virus RNA Qual PCR NEGATIVE (Negative); SARS COV2 PCR INHOUSE POSITIVE (Negative)
[2023-08-25 09:25] LABS: Troponin-I High Sensitivity 82.3 ng/L (<3.5-17.0)
[2023-08-25] MEDS: 0.9 % Sodium Chloride 1,000 ML 999 ML IV (09:46)
[2023-08-25 10:21] VITALS: PULSE 82; TEMP 37.7; O2SAT 96
[2023-08-25] MEDS: Acetaminophen 325 MG TABLET 975 MG PO (10:22)
[2023-08-25 11:05] LABS: Troponin-I High Sensitivity 75.8 ng/L (<3.5-17.0)
[2023-08-25 11:17] LABS: Appearance Urine Clear; Color Urine Yellow; Glucose Urine UA 250 mg/dL (Negative); Leukocyte Esterase Urine Moderate (2+) (Negative); Nitrite Urine Positive (Negative); UMIC TRIGGER UACC YES; Urine Blood Trace (Negative); Urine Ketones Trace mg/dL (Negative); Urine Protein 30 (1+) mg/dL (Neg-Trace)
[2023-08-25 12:10] LABS: Bacteria Urine 4+ (None Seen); Hyaline Casts Urine 0-2 /LPF (0-2); RBC Urine 0-2 /HPF (0-2); Squamous Epithelial Cell Urine 0-2 /HPF (0-2); UACC Culture Trigger YES; WBC Urine 21-50 /HPF (0-5)
[2023-08-25] MEDS: cefTRIAXone sodium 1 GM in 0.9 % Sodium Chloride 50 ML IV (12:28)
--- NOTE | 2023-08-25 14:11 | PC.NURSE ---
Grandson aware patient is being discharged, stating karoline is on his way to pick dimitris pandya
== END 2023-08-25 14:54 | disposition home or self-care (01) ==
PROVIDERS: Emergency Provider Emergency Medicine; PCP Internal Medicine
DX: U07.1 COVID-19 (principal); N39.0 Urinary tract infection, site not specified; R53.1 Weakness; E11.9 Type 2 diabetes mellitus without complications; Z79.4 Long term (current) use of insulin; Z87.891 Personal history of nicotine dependence
CPT/HCPCS: 0241U; 71046; 80048; 80076; 80307; 81001; 83605; 83735; 83880; 84484; 85025; 86140; 87040; 87086; 87147; 93005; 99285; J0696

== ENCOUNTER → 2023-08-25 08:12 | Outpatient (BNV) | payer MEDICARE, SELFPAY | PROVIDERS: Emergency Provider Emergency Medicine; PCP Internal Medicine; Visit Provider Internal Medicine Cardiovascular Disease | DX: R53.1 Weakness (principal) | CPT/HCPCS: 93010 ==

== ENCOUNTER 2023-08-27 07:57 | Inpatient (IN) | payer MEDICARE, SELFPAY ==
[2023-08-27] VITALS (9 sets, daily range): BP systolic 78–196; BP diastolic 45–86; PULSE 72–86; RESP 12–16; TEMP 36.7–37; O2SAT 95–100; BMI 23.1
--- NOTE | 2023-08-27 | ECG_ITS ---
Test Reason : WEAKNESS Blood Pressure : / mmHG Vent. Rate : 073 BPM Atrial Rate : 073 BPM P-R Int : 164 ms QRS Dur : 084 ms QT Int : 392 ms P-R-T Axes : 029 029 035 degrees QTc Int : 431 ms Sinus rhythm with Premature atrial complexes Nonspecific ST abnormality Abnormal ECG When compared with ECG of 25-AUG-2023 08:22, Premature atrial complexes are now Present Referred By: Generic ED Physician Electronically Signed By:EARL CHANCE MD
--- NOTE | ~2023-08-27 | XR_ITS ---
EXAMINATION: XR CHEST CLINICAL INFORMATION: Covid positive, weakness COMPARISON: Chest 08/25/2023 TECHNIQUE: AP upright portable view of the chest was obtained. 10:02 AM FINDINGS: No significant abnormality is noted involving the heart, lungs, mediastinum, bony thorax or soft tissues. XR/XR chest 1V IMPRESSION: Unremarkable examination.
[2023-08-27 08:20] LABS: MANUAL DIFF FLAG NO
[2023-08-27 08:22] LABS: Basophils Percent Auto 0.4 % (0-2); Eosinophils Percent Auto 0.7 % (0-4); Hematocrit 35.1 % (37.0-47.0); Hemoglobin 11.7 g/dl (12.0-16.0); Imm Gran Abs Auto 0.01 X10*3/uL (0.00-0.03); Imm Gran Pct Auto 0.4 % (0.0-0.4); Lymphocytes Absolute Auto 0.8 X10*3/uL (1.2-4.9); Lymphocytes Percent Auto 30.9 % (20-40); Mean Corpuscular HGB Conc 33.3 g/dl (31.0-35.0); Mean Corpuscular Hemoglobin 30.7 pg (27.0-33.0); Mean Corpuscular Volume 92.1 fL (80.0-98.0); Mean Platelet Volume 9.5 fL (9.4-12.3); Monocytes Absolute Auto 0.4 X10*3/uL (0.1-1.2); Monocytes Percent Auto 15.2 % (2-11); Neutrophils Absolute Auto 1.4 x10*3/uL (2.0-8.3); Neutrophils Percent Auto 52.4 % (45-73); Red Blood Count 3.81 X10*6/uL (4.20-5.50); Red Cell Distribution Width 12.3 % (11.0-16.0); White Blood Count 2.7 X10*3/uL (4.8-10.8)
[2023-08-27 08:37] LABS: Alanine Aminotransferase 21 U/L (0-31); Albumin Level 3.4 g/dL (3.5-5.0); Alkaline Phosphatase 83 U/L (39-117); Anion Gap 12 (12-20); Aspartate Amino Transferase 26 U/L (5-31); Bilirubin Total 0.6 mg/dL (0.0-1.0); Blood Urea Nitrogen 16 mg/dL (9-16); Calcium 8.3 mg/dL (8.4-10.2); Carbon Dioxide 29 mmol/L (22-29); Chloride 105 mmol/L (96-108); Creatinine Clr Calc Pharmacy 21.4; Estimated Glomerular Filt Rate 33; Glucose Random 131 mg/dL (60-115); Potassium 3.2 mmol/L (3.3-5.1); Sodium 143 mmol/L (135-145)
--- NOTE | 2023-08-27 08:41 | PC.NURSE ---
pt carmen reporting increased weakness; see triage note by this RN. ekg obtained attending reviewed. IV R. AC via ems. labs obtained. awaiting primary eval by ed provider. call barboza within reach.
[2023-08-27 08:44] LABS: Troponin-I High Sensitivity 36.9 ng/L (<3.5-17.0)
--- NOTE | 2023-08-27 09:28 | ED.GENADULT ---
HPI - General Adult General Chief complaint: Weakness Stated complaint: +COVID,UTI SINCE SUNDAY,FEELS WEAK PER EMS Time Seen by Provider: 08/27/23 09:14 Source: patient, EMS and RN notes reviewed Mode of arrival: EMS Limitations: no limitations History of Present Illness HPI narrative: Patient is an 82-year-old female with history of DM, ovarian cancer treated with chemo, radiation, total hysterectomy, hypothyroidism presenting to the ED with complaint of generalized weakness. Patient was seen in this ED on 08/25 and diagnosed with COVID as well as UTI, started on Paxlovid and several rock seen at that time. Patient states she has been taking the medications as prescribed. She denies any chest pain, palpitations, shortness of breath. Denies any abdominal pain, nausea, vomiting, diarrhea. Denies fevers. Denies hematochezia or melena. Denies any urinary symptoms. MD complaint: weakness Onset (ago): day(s) Relieving factors: rest Exacerbating factors: movement Associated symptoms: denies other symptoms Treatments prior to arrival: other (has been taking all regularly prescribed medications as directed) Related Data Home Medications Medication Instructions Recorded Confirmed glipizide 5 mg tablet 10 mg PO BID 05/07/23 08/27/23 insulin NPH isoph U-100 human 100 See Protocol subcut BIDAC 05/07/23 08/27/23 unit/mL subcutaneous suspension (Novolin N NPH U-100 Insulin isophane) levothyroxine 50 mcg tablet 50 mcg PO DAILY 05/07/23 08/27/23 multivitamin 1 tab PO DAILY 05/07/23 08/27/23 Previous Rx's Medication Instructions Recorded cefuroxime axetil 250 mg tablet 250 mg PO BID #10 tabs 08/25/23 nirmatrelvir 150 mg-ritonavir 100 See Rx Instructions PO .COMPLEX 08/25/23 mg tablets in a dose pack #20 ea (Paxlovid) Allergies Allergy/AdvReac Type Severity Reaction Status Date / Time No Known Allergies Allergy Verified 05/07/23 10:02 Review of Systems Review of Systems: As per HPI Yes all other systems are reviewed and are negative Constitutional: Constitutional: Reports as per HPI [facility] Past Medical History Medical History (Updated 08/27/23 @ 15:05 by Kassie Arroyo NP) Hypothyroidism History of ovarian cancer Generalized weakness Gallbladder & bile duct stone with obstruction Diabetes Surgical History H/O: hysterectomy Social History Social History Household Members: Family Housing: House Do you presently have visiting nurse or other home services: No Alcohol intake: former Patient Tobacco Use Status: Former Tobacco user Smoked in Last 30 Days: No Use of substances other than those prescribed or required for medical reasons: No Advance Directives: Yes Advance Directives on File: Yes Advance Directives Date on File: 05/08/23 service: No Physical Exam ED Vital Signs: Vital Signs - 24 hr 08/27/23 08:05 08/27/23 09:05 08/27/23 11:44 Temperature 98.6 F 98.2 F 98.0 F Pulse Rate 72 75 79 Respiratory Rate 16 13 12 Blood Pressure 101/60 131/62 158/81 H Pulse Oximetry 99 100 98 Oxygen Delivery Method Room Air Room Air Room Air 08/27/23 13:35 08/27/23 13:35 08/27/23 13:36 Temperature Pulse Rate 78 78 83 Respiratory Rate Blood Pressure 172/79 H 114/69 78/45 L Pulse Oximetry Oxygen Delivery Method 08/27/23 14:22 Temperature 98.3 F Pulse Rate 74 Respiratory Rate 12 Blood Pressure 196/85 H Pulse Oximetry 95 Oxygen Delivery Method Room Air BMI result Body Mass Index 23.1 Vital signs have been reviewed and appear to be correct. Blood pressure normal. Heart rate normal. Respiratory rate normal. Temperature normal. Oxygen saturation normal. Const General: cooperative, healthy appearing and no acute distress Orientation/consciousness: oriented to person, oriented to place, oriented to time and patient oriented x3 Limitations: no limitations HENMT Head: Yes normocephalic and Yes atraumatic Ears: external ears normal General nose exam: Normal external nose present Face and sinus: Yes face symmetric Mouth: oropharynx normal and moist mucous membranes Throat: Yes uvula midline Eyes Pupils: Equal, round and reactive pupils present Neck Neck: Yes normal visual inspection and Yes supple Resp Effort & Inspection: normal respiratory effort and able to speak in complete sentences Auscultation: clear to auscultation bilaterally Cardio Rate: regular rate Rhythm: regular rhythm Heart sounds: S1 normal heart sound present and S2 normal heart sound present GI Other: Rectal exam chaperoned by DENVER Prado tech Inspection: Yes normal to inspection Palpation (GI): Soft to palpation and nontender Auscultation: normoactive bowel sounds Rectal Exam - Female: visual inspection normal and normal sphincter tone General: Yes no CVA tenderness Back/Spine/Pelvis Back: no CVA tenderness Skin General skin exam: elasticity normal and turgor normal Neuro General: oriented to person, oriented to place, oriented to time, patient oriented x3, moves all extremities, no focal motor deficits and CN's II-XI intact bilaterally Cranial nerves: Yes Equal, round and reactive pupils present Cognition (Neuro): normal cognition Extrem General: Yes full ROM, Yes no pedal edema and Yes no calf tenderness Psych Mental Status: mental status grossly normal Affect: normal affect Thought process: Normal thought process present Medications Administered Discontinued Medications Generic Name Dose Route Start Last Admin Trade Name Freq PRN Reason Stop Dose Admin Sodium Chloride 1,000 mls @ 999 mls/hr 08/27/23 14:00 08/27/23 14:46 Ns IV 08/27/23 15:00 Not Given .Q1H1M CRISTINA Potassium Chloride 20 meq 08/27/23 11:38 08/27/23 12:13 Potassium Chloride Er 20 Meq Tab.Er.Prt PO 08/27/23 11:39 20 meq ONCE ONE Administration Medical Decision Making Medical Decision Making [facility] Narrative: 09:44 Patient is an 82-year-old female with history of DM, ovarian cancer treated with chemo, radiation, total hysterectomy, hypothyroidism presenting to the ED with complaint of generalized weakness. On exam patient is awake, A+Ox3, VS WNL, afebrile, normal neurological exam without focal deficits, physical exam findings as above. Given reported symptoms and physical exam findings, initial differential includes anemia, dehydration, electrolyte abnormality, cardiac dysrhythmia, pneumonia, ACS. Do not suspect sepsis at this time. Labs notable for leukopenia, likely due to known Covid infection, mild anemia consistent with prior values, ANC low, elevated troponin will repeat in 3 hours, creatinine elevated but improved from 08/25. EKG shows sinus rhythm with PACs. Will obtain CXR, guiac. X-ray notable for no evidence of pneumonia. My interpretation is in agreement with the radiologist's interpretation. No delta on repeat troponin. Stool negative for occult blood. Urine culture not yet resulted to determine whether patient requires change in antibiotics. Will obtain orthostatic VS and ambulatory oxygen saturation to determine if patient requires admission. Patient noted to become significantly hypotensive upon standing, complained of dizziness. [place] text to Pipo Tompkins NP who accepts admission. Differential Diagnosis Differential Diagnoses: The differential diagnosis associated with the presentation includes As per [facility]. Admission/Observation Consideration of admission/observation: Escalation of care including admission/observation considered Consult Healthcare Provider Management of the patient was discussed with: Hospitalist Lab Data [facility] Lab Attestation statement: I reviewed the patient's lab results. As per [facility] 08/27/23 08:17 08/27/23 08:17 Labs: Lab Results 08/27/23 08/27/23 08/27/23 Range/Units 08:17 09:36 11:51 WBC 2.7 L (4.8-10.8) X10*3/uL RBC 3.81 L (4.20-5.50) X10*6/uL Hgb 11.7 L (12.0-16.0) g/dl Hct 35.1 L (37.0-47.0) % MCV 92.1 (80.0-98.0) fL MCH 30.7 (27.0-33.0) pg MCHC 33.3 (31.0-35.0) g/dl RDW 12.3 (11.0-16.0) % Plt Count 98 L (160-400) X10*3/uL MPV 9.5 (9.4-12.3) fL Immature Gran % (Auto) 0.4 (0.0-0.4) % Neut % (Auto) 52.4 (45-73) % Lymph % (Auto) 30.9 (20-40) % [place] % (Auto) 15.2 H (2-11) % Eos % (Auto) 0.7 (0-4) % Baso % (Auto) 0.4 (0-2) % Lymph # (Auto) 0.8 L (1.2-4.9) X10*3/uL [place] # (Auto) 0.4 (0.1-1.2) X10*3/uL Eos # (Auto) 0.0 (0.0-0.4) X10*3/uL Baso # (Auto) 0.0 (0.0-0.2) X10*3/uL Abs Immat Gran (auto) 0.01 (0.00-0.03) X10*3/uL Absolute Neuts (auto) 1.4 L (2.0-8.3) x10*3/uL Absolute Nucleated RBC 0.000 (0.0-0.012) X10*3/uL Nucleated RBC % (auto) 0.0 (0.0-0.2) /100WBC Sodium 143 (135-145) mmol/L Potassium 3.2 L (3.3-5.1) mmol/L Chloride 105 (96-108) mmol/L Carbon Dioxide 29 (22-29) mmol/L Anion Gap 12 (12-20) BUN 16 (9-16) mg/dL Creatinine 1.50 H (0.5-1.4) mg/dL Estim Creat Clear Calc 21.4 Estimated GFR 33 Random Glucose 131 H (60-115) mg/dL Calcium 8.3 L D (8.4-10.2) mg/dL Total Bilirubin 0.6 (0.0-1.0) mg/dL AST 26 (5-31) U/L ALT 21 (0-31) U/L Alkaline Phosphatase 83 (39-117) U/L Troponin I High Sens 36.9 H D 35.6 H (<3.5-17.0) ng/L Total Protein 6.0 L (6.5-8.0) g/dL Albumin 3.4 L (3.5-5.0) g/dL Stool Occult Blood NEGATIVE (NEGATIVE) Independent Interpretation I performed an independent interpretation of an: EKG (Sinus rhythm with PACs, rate 73 beats per minute, normal [place] and QT intervals) and Plain X-Ray Interpretation: No evidence of pneumonia on CXR Radiology Impression Discussion of test interpretation with radiology: I have reviewed the radiologist's reading. Radiologist Impression: XR/XR chest 1V IMPRESSION: Unremarkable examination. External Record Review External record reviewed: Inpatient record, Office record and Outpatient record Discharge Plan Discharge Patient Disposition: Admitted As Inpatient Prescriptions: No Action levothyroxine 50 mcg tablet 50 mcg PO DAILY Novolin N NPH U-100 Insulin 100 unit/mL suspension See Protocol subcut BIDAC Protocol: Insulin Correction Scale Less than or equal to 110 ---- Give (units): 0 111 to 150 Give (units): 0 151 to 200 Give (units): 2 201 to 250 Give (units): 4 251 to 300 Give (units): 6 301 to 350 Give (units): 8 Greater than 350 Give (units): 10 Call MD if Blood Glucose > : 350 glipizide 5 mg tablet 10 mg PO BID multivitamin Tablet 1 tab PO DAILY cefuroxime axetil 250 mg tablet 250 mg PO BID Qty: 10 0RF Paxlovid 150-100 mg tablets,dose pack See Rx Instructions .ROUTE .COMPLEX Qty: 20 0RF Rx Instructions: take ONE 150 mg tablet of nirmatrelvir with ONE 100 mg tablet of ritonavir twice daily for 5 days
[2023-08-27 09:47] LABS: OBS Int Ctl Valid YES; OBS1 NEGATIVE (NEGATIVE)
[2023-08-27 09:53] LABS: Platelet Count 98 X10*3/uL (160-400)
--- NOTE | 2023-08-27 11:17 | MHC.EDTECH ---
T/w assisted Pt to bedside commode without difficulty. Pt back into bed, vital signs taken, call barboza within reach.
[2023-08-27] MEDS: Potassium Chloride ER 20 MEQ TAB.ER.PRT PO (12:13)
--- NOTE | 2023-08-27 12:15 | PC.NURSE ---
no distress. took pill well
[2023-08-27 12:21] LABS: Troponin-I High Sensitivity 35.6 ng/L (<3.5-17.0)
--- NOTE | 2023-08-27 13:35 | PC.NURSE ---
provider bull aware + orthos and deferring walking spo2 at this time as pt co dizziness standing
--- NOTE | 2023-08-27 13:37 | MHC.EDTECH ---
T/w did orthostatic vitals per provider (Kassie). Pt became lightheaded upon standing BP and immediately needed to sit down. BP was 78/45. Provider aware and RN (Sheryl) aware. Provider aware ambulatory O2 not being done due to Pt feeling faint upon standing. O2 sat remained 98-100% during orthostatics. Provider aware. Pt assisted back into bed, call barboza within reach.
--- NOTE | 2023-08-27 14:42 | P.HPHOSP_ITS ---
History of Present Illness Date of Service: 08/27/23 Chief Complaint: weakness 82-year-old woman presented to the ER with complaints of worsening weakness. She was seen in the emergency department on 08/25/2023 and at that time diagnosed with COVID-19 and UTI. She was started on Paxil [place] and sent home with Ceftin for UTI. She denies fever, chills, nausea, vomiting, diarrhea, recent travel, sick contacts. No fever leukocytosis noted, urine culture from 08/25 showing Gram- positive cocci. She was noted to be orthostatic in the ER with blood pressure going down as low as 70/45. Chest x-ray negative consolidation or effusion. She was given a dose of oral potassium. She will be admitted for further management and treatment weakness likely secondary to UTI orthostatic hypotension. Review of Systems 2 Review of Systems: Denies any recent fever chills or decrease in appetite respiratory denies any shortness of breath or cough cardiovascular Denied chest pain gastrointestinal denies any dysphagia abdominal pain nausea vomiting or diarrhea genitourinary denies any dysuria frequency or hematuria musculoskeletal denies any joint pain or swelling neuropsych denies any weakness or seizures all other systems reviewed are negative [facility] Medical History Hypothyroidism History of ovarian cancer Generalized weakness Gallbladder & bile duct stone with obstruction Diabetes Surgical History H/O: hysterectomy Social History Household Members: Children Housing: House Do you presently have visiting nurse or other home services: No Alcohol intake: former Patient Tobacco Use Status: Former Tobacco user Smoked in Last 30 Days: No Use of substances other than those prescribed or required for medical reasons: No Currently Displaying Signs/Symptoms of Drug Intoxication Withdrawal: No Have you been hit, kicked, punched, or otherwise hurt by someone within the past year? If so, by whom?: No Do you feel safe in your current relationship?: No Current Relationship Is there a partner from a previous relationship who is making you feel unsafe now?: No Are you made to feel afraid or neglected: No Restorationist Healthcare Practices: rastafarian Advance Directives: Yes Advance Directives on File: Yes Advance Directives Date on File: 05/08/23 Do you have thoughts of harming others: None Do you have a plan to hurt others: No Plan Recently lost weight without trying: No Eating poorly because of decreased appetite: No Patient : No service: No Meds Allergies Allergy/AdvReac Type Severity Reaction Status Date / Time No Known Allergies Allergy Verified 05/07/23 10:02 Active Medications: Current Medications Acetaminophen (Acetaminophen 325 Mg Tablet) 650 mg PO Q6H PRN PRN Reason: Pain, Mild (Pain Scale 1-3) Dextrose (Dextrose 50 % 25 Gm/50 Ml Syringe) 25 gm IVPUSH Q15M PRN; Protocol PRN Reason: per Hypoglycemia Standing Ord. Glucose (Glucose Gel 15 Gm Gel..Gram.) 15 gm PO Q15M PRN; Protocol PRN Reason: per Hypoglycemia Standing Ord. Heparin Sodium (Porcine) (Heparin Sodium,Porcine 5,000 Unit/Ml Vial) 5,000 unit SUBCUT Q12H [facility] Sodium Chloride (Ns) 1,000 mls @ 999 mls/hr IV .Q1H1M [facility] Stop: 08/27/23 15:00 Insulin Human Lispro (Insulin Lispro 100 Unit/Ml 3 Ml Vial) 0 unit SUBCUT QIDACHS [facility]; Protocol Ondansetron HCl (Ondansetron Hcl 4 Mg/2 Ml Vial) 4 mg IVPUSH Q8H PRN PRN Reason: Nausea and Vomiting Sodium Chloride (0.9 % Sodium Chloride Flush 3 Ml Syringe) 3 ml IVFLUSH QSHIFT [facility] Home Medications Medication Instructions Recorded Confirmed Last Taken Type glipizide 5 mg tablet 10 mg PO BID 05/07/23 08/27/23 05/06/23 History insulin NPH isoph U-100 human 100 See Protocol subcut BIDAC 05/07/23 08/27/23 05/06/23 History unit/mL subcutaneous suspension (Novolin N NPH U-100 Insulin isophane) levothyroxine 50 mcg tablet 50 mcg PO DAILY 05/07/23 08/27/23 05/06/23 History multivitamin 1 tab PO DAILY 05/07/23 08/27/23 05/06/23 History Physical Exam 2 Vital Signs and Narrative: Vital Signs: Last Vital Signs Temp 98.3 F 08/27/23 14:22 Pulse 74 08/27/23 14:22 Resp 12 08/27/23 14:22 BP 196/85 H 08/27/23 14:22 Pulse Ox 95 08/27/23 14:22 O2 Del Method Room Air 08/27/23 14:22 BMI result Body Mass Index 23.1 Appearing in no acute distress head is normocephalic atraumatic eyes pupils are PERRLA sclera is anicteric mouth throat mucous membranes are intact and moist neck is supple no lymphadenopathy, no JVD noted lung sounds are clear to auscultation heart regular rate rhythm, clear S1, S2 positive bowel sounds, abdomen is soft, nontender neuro patient is alert x3, no focal deficits Results Labs 08/28/23 06:34 08/28/23 06:34 Labs: Laboratory Results - last 24 hr 08/27/23 08/27/23 08:17 09:36 MCV 92.1 MCH 30.7 MCHC 33.3 RDW 12.3 Plt Count 98 L MPV 9.5 Immature Gran % (Auto) 0.4 Neut % (Auto) 52.4 Lymph % (Auto) 30.9 [place] % (Auto) 15.2 H Eos % (Auto) 0.7 Baso % (Auto) 0.4 Lymph # (Auto) 0.8 L [place] # (Auto) 0.4 Eos # (Auto) 0.0 Baso # (Auto) 0.0 Abs Immat Gran (auto) 0.01 Absolute Neuts (auto) 1.4 L Absolute Nucleated RBC 0.000 Nucleated RBC % (auto) 0.0 Anion Gap 12 Estim Creat Clear Calc 21.4 Estimated GFR 33 Random Glucose 131 H Calcium 8.3 L D Total Bilirubin 0.6 AST 26 ALT 21 Alkaline Phosphatase 83 Total Protein 6.0 L Albumin 3.4 L Stool Occult Blood NEGATIVE Imaging Radiologist's Impressions: Impressions Chest X-Ray 08/27/23 10:04 IMPRESSION: Unremarkable examination. Assessment and Plan (1) Dehydration: Status: Acute Plan 82 year old women admitted with weakness and uti Orthostatic hypotension likely from hypovolemia vs UTI IV fluids for now follow Orthostatic BP UTI GPC in urine cx start Rocephin follow final cx Weakness PT consult supportive care COVID 19 dx 08/25/23 continue remdesivir no hypoxia DM2 ss, ada diet Hypothyroidism Levothyroxine DVT prophylaxis with Heparin Full code Patient requires 2 inpatient midnights orthostatic hypotension and UTI requiring IV antibiotics and close monitoring of cultures which may change antibiotic treatment. Quality Stroke Does the patient have a stroke diagnosis?: No VTE Prior VTE?: No VTE Risk Level:: Medical - moderate - high VTE Device Contraindication: Treatment Not Indicated VTE Drug Contraindication: N/A - Med Ordered
--- NOTE | 2023-08-27 14:49 | PHA.MEDREC ---
Pharmacy Consult ? Medication Reconciliation Pharmacy has completed the medication reconciliation. Patient reports most mediations. Patient unsure how many doses or Cefuroxime or Paxlovid, but did confirm she start it was she was discharge 08/25/23. Rosamaria Odom, PharmD
--- NOTE | 2023-08-27 15:55 | MHC.EDTECH ---
pt was 1 assisted from bed to commode, hermila cleaned independently, and 1 assisted back to bed
[2023-08-27] MEDS: Heparin Sodium,Porcine 5,000 UNIT/ML VIAL 5000 UNIT SUBCUT (17:24)
[2023-08-27] MEDS: cefTRIAXone sodium 1 GM in 0.9 % Sodium Chloride 50 ML IV (17:24)
[2023-08-27] MEDS: 0.9 % Sodium Chloride Flush 3 ML SYRINGE IVFLUSH (17:31)
[2023-08-27 18:42] LABS: Glucose, Whole Blood 102 mg/dL (60-115)
[2023-08-27 21:48] LABS: Glucose, Whole Blood 124 mg/dL (60-115)
[2023-08-28 00:05] VITALS: BP 143/60; PULSE 67; RESP 16; TEMP 36.8; O2SAT 98
[2023-08-28] MEDS: 0.9 % Sodium Chloride Flush 3 ML SYRINGE IVFLUSH ×2 (01:36→09:39)
[2023-08-28 02:59] LABS: Influenza A PCR NEGATIVE (Negative); Influenza B PCR NEGATIVE (Negative); Resp Syncy Virus RNA Qual PCR NEGATIVE (Negative); SARS COV2 PCR INHOUSE POSITIVE (Negative)
--- NOTE | 2023-08-28 03:57 | PC.NURSE ---
pt sleeping in bed resp even and unlabored nsr on monitor. medication delay d/t pt sleeping.
[2023-08-28] MEDS: Heparin Sodium,Porcine 5,000 UNIT/ML VIAL 5000 UNIT SUBCUT ×2 (04:51→15:49)
[2023-08-28 05:23] VITALS: BMI 21.5
[2023-08-28 05:26] VITALS: BP 125/71; PULSE 75; RESP 20; TEMP 35.9; O2SAT 93
[2023-08-28] MEDS: Levothyroxine Sodium 50 MCG TABLET PO (05:38)
[2023-08-28 06:48] LABS: MANUAL DIFF FLAG NO
[2023-08-28 06:54] LABS: Basophils Percent Auto 0.2 % (0-2); Eosinophils Percent Auto 0.2 % (0-4); Hematocrit 35.9 % (37.0-47.0); Hemoglobin 12.1 g/dl (12.0-16.0); Imm Gran Abs Auto 0.02 X10*3/uL (0.00-0.03); Imm Gran Pct Auto 0.5 % (0.0-0.4); Lymphocytes Absolute Auto 1.2 X10*3/uL (1.2-4.9); Lymphocytes Percent Auto 27.6 % (20-40); Mean Corpuscular HGB Conc 33.7 g/dl (31.0-35.0); Mean Corpuscular Hemoglobin 31.5 pg (27.0-33.0); Mean Corpuscular Volume 93.5 fL (80.0-98.0); Monocytes Absolute Auto 0.6 X10*3/uL (0.1-1.2); Monocytes Percent Auto 13.8 % (2-11); Neutrophils Absolute Auto 2.5 x10*3/uL (2.0-8.3); Neutrophils Percent Auto 57.7 % (45-73); Platelet Count 110 X10*3/uL (160-400); Red Blood Count 3.84 X10*6/uL (4.20-5.50); Red Cell Distribution Width 12.4 % (11.0-16.0); White Blood Count 4.3 X10*3/uL (4.8-10.8)
[2023-08-28 07:10] LABS: Alanine Aminotransferase 21 U/L (0-31); Albumin Level 3.5 g/dL (3.5-5.0); Alkaline Phosphatase 83 U/L (39-117); Anion Gap 14 (12-20); Aspartate Amino Transferase 27 U/L (5-31); Bilirubin Total 0.4 mg/dL (0.0-1.0); Blood Urea Nitrogen 19 mg/dL (9-16); Calcium 8.6 mg/dL (8.4-10.2); Carbon Dioxide 28 mmol/L (22-29); Chloride 105 mmol/L (96-108); Creatinine Clr Calc Pharmacy 22.4; Estimated Glomerular Filt Rate 35; Glucose Random 138 mg/dL (60-115); Potassium 3.8 mmol/L (3.3-5.1); Sodium 143 mmol/L (135-145); Total Protein 6.2 g/dL (6.5-8.0)
[2023-08-28 07:50] VITALS: BP 98/56; PULSE 75; RESP 20; TEMP 36.2; O2SAT 100
[2023-08-28 08:03] LABS: Glucose, Whole Blood 146 mg/dL (60-115)
--- NOTE | 2023-08-28 08:58 | MHC.CM.PN ---
IMM 08/28/23, Pt lives with grandson, he and son assist her with whatever she needs. She is independent, does not have home health services, or med equipment. HCP is on file, it is her son and grandson. She has not used VNA services or been to [facility] in the past. Family will provide transport upon DC. CM will follow and assist with DC planning.
[2023-08-28] MEDS: 0.9 % Sodium Chloride 1,000 ML 50 ML IVCONT (09:39)
[2023-08-28] MEDS: Multivitamin TABLET 1 TAB PO (09:39)
--- NOTE | 2023-08-28 11:10 | HO.PM.IMPN ---
Subjective Subjective Date of Service: 08/28/23 Interval History: Follow up covid 19, orthostatic hypotension doing better but feeling dizzy when standing Physical Exam Vital Signs: Vital Signs: Last Vital Signs Temp 97.2 F 08/28/23 07:50 Pulse 75 08/28/23 07:50 Resp 20 08/28/23 07:50 BP 98/56 L 08/28/23 07:50 Pulse Ox 100 08/28/23 07:50 O2 Del Method Room Air 08/28/23 07:50 O2 Flow Rate 98 08/27/23 20:14 BMI result Body Mass Index 21.5 Appearing in no acute distress lung sounds are clear to auscultation heart regular rate rhythm, clear S1, S2 positive bowel sounds, abdomen is soft, nontender neuro patient is alert x3, no focal deficits Objective Data Active Medications Acetaminophen (Acetaminophen 325 Mg Tablet) 650 mg PO Q6H PRN PRN Reason: Pain, Mild (Pain Scale 1-3) Dextrose (Dextrose 50 % 25 Gm/50 Ml Syringe) 25 gm IVPUSH Q15M PRN; Protocol PRN Reason: per Hypoglycemia Standing Ord. Glucose (Glucose Gel 15 Gm Gel..Gram.) 15 gm PO Q15M PRN; Protocol PRN Reason: per Hypoglycemia Standing Ord. Heparin Sodium (Porcine) (Heparin Sodium,Porcine 5,000 Unit/Ml Vial) 5,000 unit SUBCUT Q12H [facility] Last Admin: 08/28/23 04:51 Dose: 5,000 unit Documented By: ADDISON Ceftriaxone Sodium 1 gm/ (Sodium Chloride) 50 mls @ 100 mls/hr IV Q24H [facility] Last Infusion: 08/27/23 18:33 Dose: Infused Documented By: PATITO Sodium Chloride (Ns) 1,000 mls @ 100 mls/hr IVCONT .Q10H [facility] Last Admin: 08/28/23 09:39 Dose: 50 mls/hr Documented By: KARO Insulin Human Lispro (Insulin Lispro 100 Unit/Ml 3 Ml Vial) 0 unit SUBCUT QIDACHS [facility]; Protocol Last Admin: 08/28/23 08:06 Dose: Not Given Documented By: KARO Non-Admin Reason: No Insulin Coverage Levothyroxine Sodium (Levothyroxine Sodium 50 Mcg Tablet) 50 mcg PO DAILY@0600 [facility] Last Admin: 08/28/23 05:38 Dose: 50 mcg Documented By: SERJIO Multivitamins/Vitamin C (Multivitamin Tablet) 1 tab PO DAILY [facility] Last Admin: 08/28/23 09:39 Dose: 1 tab Documented By: KARO Ondansetron HCl (Ondansetron Hcl 4 Mg/2 Ml Vial) 4 mg IVPUSH Q8H PRN PRN Reason: Nausea and Vomiting Sodium Chloride (0.9 % Sodium Chloride Flush 3 Ml Syringe) 3 ml IVFLUSH QSHIFT [facility] Last Admin: 08/28/23 09:39 Dose: 3 ml Documented By: KARO Labs 08/28/23 06:34 08/28/23 06:34 Labs: Laboratory Results - last 24 hr 08/27/23 08/27/23 08/28/23 18:37 21:43 02:18 MCV MCH MCHC RDW Plt Count MPV Immature Gran % (Auto) Neut % (Auto) Lymph % (Auto) [place] % (Auto) Eos % (Auto) Baso % (Auto) Lymph # (Auto) [place] # (Auto) Eos # (Auto) Baso # (Auto) Abs Immat Gran (auto) Absolute Neuts (auto) Absolute Nucleated RBC Nucleated RBC % (auto) Anion Gap Estim Creat Clear Calc Estimated GFR POC Glucose 102 124 H Random Glucose Calcium Total Bilirubin AST ALT Alkaline Phosphatase Total Protein Albumin Influenza Type A (PCR) NEGATIVE Influenza Type B (PCR) NEGATIVE RSV RNA Qual (PCR) NEGATIVE SARS-CoV-2 RNA (RT-PCR) POSITIVE A 08/28/23 08/28/23 06:34 07:52 MCV 93.5 MCH 31.5 MCHC 33.7 RDW 12.4 Plt Count 110 L MPV 10.0 Immature Gran % (Auto) 0.5 H Neut % (Auto) 57.7 Lymph % (Auto) 27.6 [place] % (Auto) 13.8 H Eos % (Auto) 0.2 Baso % (Auto) 0.2 Lymph # (Auto) 1.2 [place] # (Auto) 0.6 Eos # (Auto) 0.0 Baso # (Auto) 0.0 Abs Immat Gran (auto) 0.02 Absolute Neuts (auto) 2.5 Absolute Nucleated RBC 0.000 Nucleated RBC % (auto) 0.0 Anion Gap 14 Estim Creat Clear Calc 22.4 Estimated GFR 35 POC Glucose 146 H Random Glucose 138 H Calcium 8.6 Total Bilirubin 0.4 AST 27 ALT 21 Alkaline Phosphatase 83 Total Protein 6.2 L Albumin 3.5 Influenza Type A (PCR) Influenza Type B (PCR) RSV RNA Qual (PCR) SARS-CoV-2 RNA (RT-PCR) Assessment and Plan (1) Dehydration: Status: Acute Plan 82 year old women admitted with weakness and uti Orthostatic hypotension remains orthostatic likely from hypovolemia vs UTI IV fluids follow Orthostatic BP coag neg staph UTI continue Rocephin Weakness PT consult>home vs str supportive care COVID 19 dx 08/25/23 no hypoxia DM2 ss, ada diet Hypothyroidism Levothyroxine DVT prophylaxis with Heparin Attending Dr. Amaro Full code continue hospital stay for orthostatic hypotension and UTI requiring IV antibiotics and close monitoring of cultures which may change antibiotic Quality Stroke Does the patient have a stroke diagnosis?: No VTE Prior VTE?: No VTE Risk Level:: Medical - moderate - high VTE Device Contraindication: Treatment Not Indicated VTE Drug Contraindication: N/A - Med Ordered
[2023-08-28 11:26] VITALS: BP 178/81; PULSE 79; RESP 20; TEMP 36.1; O2SAT 98
[2023-08-28 11:32] LABS: Glucose, Whole Blood 244 mg/dL (60-115)
[2023-08-28] MEDS: Insulin Lispro 100 UNIT/ML 3 ML VIAL SUBCUT ×2 (12:00→17:14)
[2023-08-28 15:10] VITALS: BP 89/55; PULSE 70; RESP 18; TEMP 36.4; O2SAT 97
[2023-08-28] MEDS: cefTRIAXone sodium 1 GM in 0.9 % Sodium Chloride 50 ML IV (15:43)
[2023-08-28 16:27] LABS: Glucose, Whole Blood 213 mg/dL (60-115)
[2023-08-28 19:38] VITALS: BP 125/64; PULSE 71; RESP 17; TEMP 36.3; O2SAT 97
[2023-08-28 20:11] LABS: Glucose, Whole Blood 130 mg/dL (60-115)
[2023-08-28] MEDS: 0.9 % Sodium Chloride 1,000 ML 100 ML IVCONT (22:48)
[2023-08-29] VITALS (11 sets, daily range): BP systolic 69–205; BP diastolic 36–80; PULSE 57–84; RESP 16–20; TEMP 36.1–36.9; O2SAT 96–100
[2023-08-29] MEDS: hydrALAZINE HCl 20 MG/ML VIAL 10 MG IVPUSH (04:36)
[2023-08-29] MEDS: Heparin Sodium,Porcine 5,000 UNIT/ML VIAL 5000 UNIT SUBCUT ×2 (05:53→17:13)
[2023-08-29] MEDS: Levothyroxine Sodium 50 MCG TABLET PO (05:53)
[2023-08-29 07:58] LABS: Glucose, Whole Blood 144 mg/dL (60-115)
[2023-08-29] MEDS: Multivitamin TABLET 1 TAB PO (10:54)
[2023-08-29] MEDS: 0.9 % Sodium Chloride Flush 3 ML SYRINGE IVFLUSH ×3 (10:54→21:00)
[2023-08-29 11:26] LABS: Glucose, Whole Blood 240 mg/dL (60-115)
[2023-08-29] MEDS: Insulin Lispro 100 UNIT/ML 3 ML VIAL SUBCUT ×3 (12:29→20:59)
--- NOTE | 2023-08-29 15:53 | P.PNIM_ITS ---
Subjective Subjective Date of Service: 08/29/23 Interval History: Follow up covid 19, orthostatic hypotension doing better but feeling dizzy when standing Physical Exam 2 Vital Signs: Vital Signs: Last Vital Signs Temp 97.5 F 08/29/23 15:46 Pulse 73 08/29/23 15:46 Resp 16 08/29/23 15:46 BP 135/66 08/29/23 15:46 Pulse Ox 99 08/29/23 15:46 O2 Del Method Room Air 08/29/23 15:46 O2 Flow Rate 98 08/27/23 20:14 BMI result Body Mass Index 21.5 Appearing in no acute distress lung sounds are clear to auscultation heart regular rate rhythm, clear S1, S2 positive bowel sounds, abdomen is soft, nontender neuro patient is alert x3, no focal deficits Objective Data Active Medications Acetaminophen (Acetaminophen 325 Mg Tablet) 650 mg PO Q6H PRN PRN Reason: Pain, Mild (Pain Scale 1-3) Dextrose (Dextrose 50 % 25 Gm/50 Ml Syringe) 25 gm IVPUSH Q15M PRN; Protocol PRN Reason: per Hypoglycemia Standing Ord. Glucose (Glucose Gel 15 Gm Gel..Gram.) 15 gm PO Q15M PRN; Protocol PRN Reason: per Hypoglycemia Standing Ord. Heparin Sodium (Porcine) (Heparin Sodium,Porcine 5,000 Unit/Ml Vial) 5,000 unit SUBCUT Q12H [facility] Last Admin: 08/29/23 05:53 Dose: 5,000 unit Documented By: JULIAN Ceftriaxone Sodium 1 gm/ (Sodium Chloride) 50 mls @ 100 mls/hr IV Q24H [facility] Last Infusion: 08/28/23 16:53 Dose: Infused Documented By: KARO Sodium Chloride (Ns) 1,000 mls @ 100 mls/hr IVCONT .Q10H [facility] Last Infusion: 08/29/23 11:05 Dose: Infused Documented By: LEO Insulin Human Lispro (Insulin Lispro 100 Unit/Ml 3 Ml Vial) 0 unit SUBCUT QIDACHS [facility]; Protocol Last Admin: 08/29/23 12:29 Dose: 4 unit Documented By: LEO Levothyroxine Sodium (Levothyroxine Sodium 50 Mcg Tablet) 50 mcg PO DAILY@0600 [facility] Last Admin: 08/29/23 05:53 Dose: 50 mcg Documented By: JULIAN Multivitamins/Vitamin C (Multivitamin Tablet) 1 tab PO DAILY [facility] Last Admin: 08/29/23 10:54 Dose: 1 tab Documented By: LEO Ondansetron HCl (Ondansetron Hcl 4 Mg/2 Ml Vial) 4 mg IVPUSH Q8H PRN PRN Reason: Nausea and Vomiting Sodium Chloride (0.9 % Sodium Chloride Flush 3 Ml Syringe) 3 ml IVFLUSH QSHIFT [facility] Last Admin: 08/29/23 10:54 Dose: 3 ml Documented By: LEO Labs 08/28/23 06:34 08/28/23 06:34 Labs: Laboratory Results - last 24 hr 08/28/23 08/28/23 08/29/23 15:17 20:06 07:52 POC Glucose 213 H 130 H 144 H 08/29/23 11:20 POC Glucose 240 H Assessment and Plan (1) Dehydration: Status: Acute Plan 82 year old women admitted with weakness and uti Orthostatic hypotension remains orthostatic likely from hypovolemia vs UTI continue IV fluids nephrology consult due to persistent orthostasis check random cortisol MARYSOL stockings change positions slowly coag neg staph UTI continue Rocephin Weakness PT consult>home vs str, re-eval closer to dc supportive care COVID 19 dx 08/25/23 no hypoxia DM2 ss, ada diet Hypothyroidism Levothyroxine DVT prophylaxis with Heparin Attending Dr. Amaro Full code continue hospital stay for orthostatic hypotension and UTI requiring IV antibiotics and close monitoring of cultures which may change antibiotic Quality Stroke Does the patient have a stroke diagnosis?: No VTE Prior VTE?: No VTE Risk Level:: Medical - moderate - high VTE Device Contraindication: Treatment Not Indicated VTE Drug Contraindication: N/A - Med Ordered
[2023-08-29 16:25] LABS: Glucose, Whole Blood 254 mg/dL (60-115)
--- NOTE | 2023-08-29 16:47 | P.CDIM_ITS ---
PROVIDER RESPONSE TEXT: To clarify, the appropriate diagnosis supported by the clinical indicators: Pancytopenia: diagnosed QUERY TEXT: PHYSICIAN'S DOCUMENTATION REQUEST Date of Query: 08/29/2023 09:32 AM EST Patient Name: JUN SEWELL Admit Date: 08/27/2023 Dear Kassandra Tompkins, A review of the medical record indicates additional documentation may be needed. Please review below and update the documentation accordingly. Clinical Indicators: Hematology labs: WBC 2.7L RBC 3.81L PLT 98 L History of ovarian cancer, chemotherapy and radiation Based on the above, could you clarify which of the following is the most likely type of anemia you ar e evaluating, treating, and/or monitoring? Pancytopenia possible, probable, suspected etc. Other etiology of labs Other (explain) Clinically unable to determine (explain) Thank you, Nataly Conrad, CCS, CDIS Use of terms such as suspected, likely, concern for, or probable (associated with a specific diagnosi s that is being evaluated, monitored, or treated as if it exists) are acceptable and can be coded in the inpatient se tting, when documented at the time of discharge. Please use your independent medical judgment in providing your response. THIS QUERY IS PART OF THE PERMANENT MEDICAL RECORD
[2023-08-29] MEDS: cefTRIAXone sodium 1 GM in 0.9 % Sodium Chloride 50 ML IV (17:14)
[2023-08-29] MEDS: 0.9 % Sodium Chloride 1,000 ML 100 ML IVCONT (17:14)
[2023-08-29 20:09] LABS: Glucose, Whole Blood 172 mg/dL (60-115)
[2023-08-30] VITALS (13 sets, daily range): BP systolic 93–217; BP diastolic 54–98; PULSE 68–87; RESP 14–19; TEMP 36.2–36.7; O2SAT 96–100
[2023-08-30] MEDS: Heparin Sodium,Porcine 5,000 UNIT/ML VIAL 5000 UNIT SUBCUT ×2 (00:54→18:01)
[2023-08-30] MEDS: 0.9 % Sodium Chloride 1,000 ML 100 ML IVCONT ×2 (00:54→06:25)
[2023-08-30] MEDS: Levothyroxine Sodium 50 MCG TABLET PO (06:25)
[2023-08-30 07:26] LABS: Glucose, Whole Blood 170 mg/dL (60-115)
[2023-08-30 07:54] LABS: Anion Gap 15 (12-20); Blood Urea Nitrogen 20 mg/dL (9-16); Calcium 8.7 mg/dL (8.4-10.2); Carbon Dioxide 25 mmol/L (22-29); Chloride 106 mmol/L (96-108); Creatinine Clr Calc Pharmacy 23.3; Estimated Glomerular Filt Rate 37; Glucose Random 194 mg/dL (60-115); Potassium 3.8 mmol/L (3.3-5.1); Sodium 142 mmol/L (135-145)
[2023-08-30] MEDS: Multivitamin TABLET 1 TAB PO (08:05)
[2023-08-30] MEDS: Insulin Lispro 100 UNIT/ML 3 ML VIAL SUBCUT ×3 (08:11→21:39)
[2023-08-30 08:15] LABS: Cortisol Random 17.9 ug/dL
[2023-08-30 08:16] LABS: Thyroid Stimulating Hormone 1.96 uIU/mL (0.32-4.0)
[2023-08-30] MEDS: 0.9 % Sodium Chloride Flush 3 ML SYRINGE IVFLUSH ×3 (09:05→21:43)
[2023-08-30 12:25] LABS: Glucose, Whole Blood 260 mg/dL (60-115)
--- NOTE | 2023-08-30 16:38 | HO.PM.IMPN ---
Subjective Subjective Date of Service: 08/30/23 Interval History: seen and examined this morning follow up for covid 19, orthostatic hypotension denies sob or cough no urinary symptoms Review of Systems Review of Systems: Yes all other systems are reviewed and are negative Constitutional Constitutional: Denies chills and Denies fever(s) ENT Ears, Nose, Mouth, and Throat: Denies dizziness Cardiovascular Cardiovascular: Denies chest pain, Denies palpitations and Denies dyspnea Respiratory Respiratory: Denies cough and Denies dyspnea Neurologic Neurologic: Denies dizziness Endocrine Endocrine: Denies palpitations Physical Exam Vital Signs: Vital Signs: Last Vital Signs Temp 97.1 F 08/30/23 15:42 Pulse 84 08/30/23 16:37 Resp 14 08/30/23 15:42 BP 121/56 L 08/30/23 16:37 Pulse Ox 100 08/30/23 15:42 O2 Del Method Room Air 08/30/23 15:42 O2 Flow Rate 98 08/27/23 20:14 BMI result Body Mass Index 21.5 Const: General: cooperative, comfortable, no acute distress, alert and awake Nutritional Appearance: average body habitus Orientation/consciousness: patient oriented x3 Resp: Effort & Inspection: normal respiratory effort, able to speak in complete sentences, no respiratory distress and no use of accessory muscles Cardio: Rate: regular rate GI: Inspection: No distended Palpation (GI): Soft to palpation and nontender Neuro: General: patient oriented x3, moves all extremities and CN's II-XI intact bilaterally Extrem: General: Yes no pedal edema Objective Data Active Medications Acetaminophen (Acetaminophen 325 Mg Tablet) 650 mg PO Q6H PRN PRN Reason: Pain, Mild (Pain Scale 1-3) Dextrose (Dextrose 50 % 25 Gm/50 Ml Syringe) 25 gm IVPUSH Q15M PRN; Protocol PRN Reason: per Hypoglycemia Standing Ord. Glucose (Glucose Gel 15 Gm Gel..Gram.) 15 gm PO Q15M PRN; Protocol PRN Reason: per Hypoglycemia Standing Ord. Heparin Sodium (Porcine) (Heparin Sodium,Porcine 5,000 Unit/Ml Vial) 5,000 unit SUBCUT Q12H [facility] Last Admin: 08/30/23 00:54 Dose: 5,000 unit Documented By: DANIA Insulin Human Lispro (Insulin Lispro 100 Unit/Ml 3 Ml Vial) 0 unit SUBCUT QIDAS [facility]; Protocol Last Admin: 08/30/23 08:11 Dose: 2 unit Documented By: LEO Levothyroxine Sodium (Levothyroxine Sodium 50 Mcg Tablet) 50 mcg PO DAILY@0600 [facility] Last Admin: 08/30/23 06:25 Dose: 50 mcg Documented By: ANTOIC Multivitamins/Vitamin C (Multivitamin Tablet) 1 tab PO DAILY [facility] Last Admin: 08/30/23 08:05 Dose: 1 tab Documented By: LEO Ondansetron HCl (Ondansetron Hcl 4 Mg/2 Ml Vial) 4 mg IVPUSH Q8H PRN PRN Reason: Nausea and Vomiting Sodium Chloride (0.9 % Sodium Chloride Flush 3 Ml Syringe) 3 ml IVFLUSH QSHIFT [facility] Last Admin: 08/29/23 21:00 Dose: 3 ml Documented By: CRICKETAZ Labs 08/28/23 06:34 08/30/23 07:25 Labs: Laboratory Results - last 24 hr 08/29/23 08/30/23 08/30/23 20:06 07:20 07:25 Anion Gap 15 Estim Creat Clear Calc 23.3 Estimated GFR 37 POC Glucose 172 H 170 H Random Glucose 194 H Calcium 8.7 TSH 1.96 Random Cortisol 17.9 08/30/23 12:21 Anion Gap Estim Creat Clear Calc Estimated GFR POC Glucose 260 H Random Glucose Calcium TSH Random Cortisol Assessment and Plan (1) COVID: Status: Acute (2) Orthostatic hypotension: Status: Acute Plan 82 year old women admitted with weakness and uti Orthostatic hypotension/supine hypertension remains orthostatic but asymptomatic. BP will stop IVF for now as supine bp quite high this am not on bp meds at baseline, repeat bp improved without intervention. will follow for now nephrology consult due to persistent orthostasis cortisol normal MARYSOL stockings change positions slowly UTI urine culture growing coag negative staph likely contaminant s/p 3 days of IV Rocephin Weakness PT consult>home vs str, re-eval closer to dc supportive care COVID 19 dx 08/25/23 no hypoxia DM2 ss, ada diet on glipizide and NPH insulin at baseline Hypothyroidism Levothyroxine DVT prophylaxis with Heparin Attending Dr. Amaro Full code continue hospital stay for orthostatic hypotension and UTI requiring IV antibiotics and close monitoring of cultures which may change antibiotic Quality Stroke Does the patient have a stroke diagnosis?: No VTE Prior VTE?: No VTE Risk Level:: Medical - moderate - high VTE Device Contraindication: Treatment Not Indicated VTE Drug Contraindication: N/A - Med Ordered
[2023-08-30 16:53] LABS: Glucose, Whole Blood 332 mg/dL (60-115)
[2023-08-30 20:32] LABS: Glucose, Whole Blood 193 mg/dL (60-115)
[2023-08-31] VITALS (8 sets, daily range): BP systolic 89–193; BP diastolic 55–90; PULSE 69–77; RESP 14–20; TEMP 36–37.3; O2SAT 97–100
[2023-08-31] MEDS: Levothyroxine Sodium 50 MCG TABLET PO (05:35)
[2023-08-31] MEDS: Heparin Sodium,Porcine 5,000 UNIT/ML VIAL 5000 UNIT SUBCUT ×2 (05:35→16:46)
[2023-08-31 07:21] LABS: Glucose, Whole Blood 191 mg/dL (60-115)
[2023-08-31] MEDS: Insulin Lispro 100 UNIT/ML 3 ML VIAL SUBCUT ×4 (08:07→21:48)
[2023-08-31] MEDS: Multivitamin TABLET 1 TAB PO (08:07)
[2023-08-31] MEDS: 0.9 % Sodium Chloride Flush 3 ML SYRINGE IVFLUSH ×2 (08:08→21:45)
[2023-08-31 09:04] LABS: Hematocrit 34.1 % (37.0-47.0); Hemoglobin 11.7 g/dl (12.0-16.0); Mean Corpuscular HGB Conc 34.3 g/dl (31.0-35.0); Mean Corpuscular Volume 90.5 fL (80.0-98.0); Mean Platelet Volume 9.7 fL (9.4-12.3); Platelet Count 117 X10*3/uL (160-400); Red Blood Count 3.77 X10*6/uL (4.20-5.50); Red Cell Distribution Width 12.2 % (11.0-16.0); White Blood Count 2.8 X10*3/uL (4.8-10.8)
[2023-08-31 09:23] LABS: Anion Gap 17 (12-20); Blood Urea Nitrogen 23 mg/dL (9-16); Calcium 9.4 mg/dL (8.4-10.2); Carbon Dioxide 28 mmol/L (22-29); Chloride 101 mmol/L (96-108); Creatinine Clr Calc Pharmacy 21.3; Estimated Glomerular Filt Rate 33; Glucose Random 280 mg/dL (60-115); Potassium 4.6 mmol/L (3.3-5.1); Sodium 141 mmol/L (135-145)
--- NOTE | 2023-08-31 10:10 | P.CONNP_ITS ---
History of Present Illness Reason for Consult Consult date: 08/31/23 Chief Complaint Chief complaint: orthostatic hypotension, weakness, covid History of Present Illness Narrative: 82-year-old woman with a history of diabetes mellitus presented to the ER with complaints of worsening weakness. She was seen in the emergency department on 08/25/2023 and at that time diagnosed with COVID-19 and UTI. She was started on Paxil Russell and sent home with Ceftin for UTI. She is well known to me from the past. Her had end stage renal disease was my patient as well During this admission she has had supine hypertension with significant orthostatic blood pressure changes and hence this consultation. She was not on any antihypertensive medications prior to admission. Cortisol level is normal. Review of Systems Constitutional: Denies anorexia, Denies fever(s) and Denies weakness Eyes: Denies blurry vision Cardiovascular: Denies no additional cardiovascular complaints and Denies dyspnea Respiratory: Reports no additional respiratory complaints, Reports cough and Denies dyspnea Gastrointestinal: Denies melena and Denies diarrhea Genitourinary: Denies hematuria Musculoskeletal: Denies tingling Skin/Breast: Denies rash Denies focal weakness, Denies tingling, Denies tremor(s) and Denies weakness PMFSH Past Medical History Medical History (Updated 08/31/23 @ 10:12 by Jeff Patton MD) Hypothyroidism History of ovarian cancer Generalized weakness Gallbladder & bile duct stone with obstruction Diabetes Surgical History Surgical History H/O: hysterectomy Social History Social History Household Members: Children Housing: House Do you presently have visiting nurse or other home services: No Alcohol intake: former Patient Tobacco Use Status: Former Tobacco user Smoked in Last 30 Days: No Use of substances other than those prescribed or required for medical reasons: No Currently Displaying Signs/Symptoms of Drug Intoxication Withdrawal: No Have you been hit, kicked, punched, or otherwise hurt by someone within the past year? If so, by whom?: No Do you feel safe in your current relationship?: No Current Relationship Is there a partner from a previous relationship who is making you feel unsafe now?: No Are you made to feel afraid or neglected: No [employer] Healthcare Practices: quaker Advance Directives: Yes Advance Directives on File: Yes Advance Directives Date on File: 05/08/23 Do you have thoughts of harming others: None Do you have a plan to hurt others: No Plan Recently lost weight without trying: No Eating poorly because of decreased appetite: No Patient : No service: No Meds Allergies Allergy/AdvReac Type Severity Reaction Status Date / Time No Known Allergies Allergy Verified 05/07/23 10:02 Active Medications: Current Medications Acetaminophen (Acetaminophen 325 Mg Tablet) 650 mg PO Q6H PRN PRN Reason: Pain, Mild (Pain Scale 1-3) Dextrose (Dextrose 50 % 25 Gm/50 Ml Syringe) 25 gm IVPUSH Q15M PRN; Protocol PRN Reason: per Hypoglycemia Standing Ord. Glucose (Glucose Gel 15 Gm Gel..Gram.) 15 gm PO Q15M PRN; Protocol PRN Reason: per Hypoglycemia Standing Ord. Heparin Sodium (Porcine) (Heparin Sodium,Porcine 5,000 Unit/Ml Vial) 5,000 unit SUBCUT Q12H [facility] Last Admin: 08/31/23 05:35 Dose: 5,000 unit Insulin Human Lispro (Insulin Lispro 100 Unit/Ml 3 Ml Vial) 0 unit SUBCUT QIDACHS [facility]; Protocol Last Admin: 08/31/23 08:07 Dose: 2 unit Levothyroxine Sodium (Levothyroxine Sodium 50 Mcg Tablet) 50 mcg PO DAILY@0600 [facility] Last Admin: 08/31/23 05:35 Dose: 50 mcg Multivitamins/Vitamin C (Multivitamin Tablet) 1 tab PO DAILY [facility] Last Admin: 08/31/23 08:07 Dose: 1 tab Ondansetron HCl (Ondansetron Hcl 4 Mg/2 Ml Vial) 4 mg IVPUSH Q8H PRN PRN Reason: Nausea and Vomiting Sodium Chloride (0.9 % Sodium Chloride Flush 3 Ml Syringe) 3 ml IVFLUSH QSHIFT [facility] Last Admin: 08/31/23 08:08 Dose: 3 ml Home Medications Medication Instructions Recorded Confirmed Last Taken Type glipizide 5 mg tablet 10 mg PO BID 05/07/23 08/27/23 05/06/23 History insulin NPH isoph U-100 human 100 See Protocol subcut BIDAC 05/07/23 08/27/23 05/06/23 History unit/mL subcutaneous suspension (Novolin N NPH U-100 Insulin isophane) levothyroxine 50 mcg tablet 50 mcg PO DAILY 05/07/23 08/27/23 05/06/23 History multivitamin 1 tab PO DAILY 05/07/23 08/27/23 05/06/23 History Physical Exam Vital Signs: Last Vital Signs Temp 99.1 F 08/31/23 07:00 Pulse 77 08/31/23 07:39 Resp 20 08/31/23 07:00 BP 89/55 L 08/31/23 07:39 Pulse Ox 97 08/31/23 07:00 O2 Del Method Room Air 08/31/23 07:00 O2 Flow Rate 98 08/27/23 20:14 BMI result Body Mass Index 21.5 Const General: comfortable Nutritional Appearance: well nourished Orientation/consciousness: patient oriented x3 HEENT Head: No normal to inspection Mouth: moist mucous membranes Neck Neck: Yes supple and Yes no JVD Resp Auscultation: clear to auscultation bilaterally, no rales and rub present Cardio Jugular venous distension: no JVD Palpation: no palpable S3 and no palpable S4 Heart sounds: no rubs GI Palpation (GI): Soft to palpation and nontender Percussion: No Fluid wave present General: Yes no CVA tenderness Back/Spine/Pelvis Back: no CVA tenderness Skin General skin exam: no rashes or lesions noted Neuro General: patient oriented x3 Extrem General: Yes no pedal edema and No clubbing Results Lab Results 08/31/23 08:50 08/31/23 08:50 Lab results: Chemistry 08/30/23 08/31/23 07:25 08:50 Sodium 142 141 Potassium 3.8 4.6 D Carbon Dioxide 25 28 BUN 20 H 23 H Creatinine 1.38 1.51 H Calcium 8.7 9.4 D Hematology 08/31/23 08:50 WBC 2.8 L Hgb 11.7 L Plt Count 117 L Assessment and Plan (1) Orthostatic hypotension: Status: Acute (2) YENNIFER (acute kidney injury): Status: Acute Plan Elderly woman with significant supine hypertension with orthostatic hypotension in the setting of diabetes mellitus. Cortisol has been normal. She probably has autonomic neuropathy. Acute kidney injury most likely due to hypoperfusion. Recommendations Check urine for sodium and creatinine. Resume IV normal saline at 70 cc/hour x2 L and recheck orthostatic changes. If she continues have supine hypertension I would add oral hydralazine in the evening to control the supine hypertension Use all orthostatic precautions including Ton stockings and head elevation at 30 degrees. If she is symptomatic with orthostatic drop in blood pressure she would benefit from midodrine 2.5 or 5 mg in the morning. Shall follow along with the team. Procedures Date of Service Date of Service: 08/31/23
[2023-08-31 10:53] LABS: Glucose, Whole Blood 285 mg/dL (60-115)
--- NOTE | 2023-08-31 10:55 | MHC.CM.PN ---
Addendum entered by Rossana Jean Baptiste RN 08/31/23 11:14: PER P.T. PT SHOULD DC W/SCRIPT FOR FRONT WHEELED WALKER Original Note: EMR REVIEWED, PER NEPHRO PT TO RECEIVE 2L IVF AT 70ML/HR AND WILL POSSIBLY NEED MIDRINE IN AM, COMFORT PLUS FOLLOWING FOR HOME SERVICES, CM WILL CONT TO FOLLOW DC NEEDS.
[2023-08-31] MEDS: 0.9 % Sodium Chloride 1,000 ML 70 ML IVCONT (11:56)
--- NOTE | 2023-08-31 15:34 | P.PNIM_ITS ---
Subjective Subjective Date of Service: 08/31/23 Interval History: seen and examined this morning follow up for orthostatic hypotension, COVID denies SOB, no cough denies dizziness Review of Systems Review of Systems: Yes all other systems are reviewed and are negative Constitutional Constitutional: Denies chills and Denies fever(s) Cardiovascular Cardiovascular: Denies chest pain, Denies palpitations and Denies dyspnea Respiratory Respiratory: Denies cough and Denies dyspnea Endocrine Endocrine: Denies palpitations Physical Exam 2 Vital Signs: Vital Signs: Last Vital Signs Temp 96.9 F 08/31/23 10:52 Pulse 69 08/31/23 11:42 Resp 18 08/31/23 10:52 BP 123/59 L 08/31/23 11:42 Pulse Ox 100 08/31/23 11:42 O2 Del Method Room Air 08/31/23 10:52 O2 Flow Rate 98 08/27/23 20:14 BMI result Body Mass Index 21.5 Const: General: cooperative, comfortable, no acute distress, alert and awake Nutritional Appearance: average body habitus Orientation/consciousness: p atient oriented x3 Resp: Effort & Inspection: normal respiratory effort, able to speak in complete sentences, no respiratory distress and no use of accessory muscles Cardio: Rate: regular rate GI: Inspection: No distended Palpation (GI): Soft to palpation and nontender Neuro: General: patient oriented x3, moves all extremities and CN's II-XI intact bilaterally Extrem: General: Yes no pedal edema Objective Data Active Medications Acetaminophen (Acetaminophen 325 Mg Tablet) 650 mg PO Q6H PRN PRN Reason: Pain, Mild (Pain Scale 1-3) Dextrose (Dextrose 50 % 25 Gm/50 Ml Syringe) 25 gm IVPUSH Q15M PRN; Protocol PRN Reason: per Hypoglycemia Standing Ord. Glucose (Glucose Gel 15 Gm Gel..Gram.) 15 gm PO Q15M PRN; Protocol PRN Reason: per Hypoglycemia Standing Ord. Heparin Sodium (Porcine) (Heparin Sodium,Porcine 5,000 Unit/Ml Vial) 5,000 unit SUBCUT Q12H [facility] Last Admin: 08/31/23 05:35 Dose: 5,000 unit Documented By: KENYETTA Sodium Chloride (Ns) 1,000 mls @ 70 mls/hr IVCONT .[id number] [facility] Last Admin: 08/31/23 11:56 Dose: 70 mls/hr Documented By: KAYCEE Insulin Human Lispro (Insulin Lispro 100 Unit/Ml 3 Ml Vial) 0 unit SUBCUT QIDACHS [facility]; Protocol Last Admin: 08/31/23 11:56 Dose: 6 unit Documented By: KAYCEE Levothyroxine Sodium (Levothyroxine Sodium 50 Mcg Tablet) 50 mcg PO DAILY@0600 [facility] Last Admin: 08/31/23 05:35 Dose: 50 mcg Documented By: KENYETTA Multivitamins/Vitamin C (Multivitamin Tablet) 1 tab PO DAILY [facility] Last Admin: 08/31/23 08:07 Dose: 1 tab Documented By: KAYCEE Ondansetron HCl (Ondansetron Hcl 4 Mg/2 Ml Vial) 4 mg IVPUSH Q8H PRN PRN Reason: Nausea and Vomiting Sodium Chloride (0.9 % Sodium Chloride Flush 3 Ml Syringe) 3 ml IVFLUSH QSHIFT [facility] Last Admin: 08/31/23 08:08 Dose: 3 ml Documented By: KAYCEE Labs 08/31/23 08:50 08/31/23 08:50 Labs: Laboratory Results - last 24 hr 08/30/23 08/30/23 08/31/23 16:48 20:26 07:17 MCV MCH MCHC RDW Plt Count MPV Absolute Nucleated RBC Nucleated RBC % (auto) Anion Gap Estim Creat Clear Calc Estimated GFR POC Glucose 332 H 193 H 191 H Random Glucose Calcium 08/31/23 08/31/23 08:50 10:46 MCV 90.5 MCH 31.0 MCHC 34.3 RDW 12.2 Plt Count 117 L MPV 9.7 Absolute Nucleated RBC 0.000 Nucleated RBC % (auto) 0.0 Anion Gap 17 Estim Creat Clear Calc 21.3 Estimated GFR 33 POC Glucose 285 H Random Glucose 280 H Calcium 9.4 D Assessment and Plan (1) YENNIFER (acute kidney injury): Status: Acute (2) Orthostatic hypotension: Status: Acute (3) COVID: Status: Acute Plan 82 year old women admitted with weakness and uti Orthostatic hypotension/supine hypertension remains orthostatic but asymptomatic supine bp still elevated but improving seen by nephro, rec gentle IVF for now no antihypertensives at this time cortisol normal MARYSOL stockings change positions slowly, HOB at 30 degrees YENNIFER slight upward trend in creatinine IVF follow BMP UTI urine culture growing coag negative staph likely contaminant s/p 3 days of IV Rocephin leukopenia may be r/t covid follow CBC Weakness seen by PT rec home with PT and FWW on discharge COVID 19 dx 08/25/23 no hypoxia DM2 ss, ada diet on glipizide and NPH insulin at baseline Hypothyroidism Levothyroxine 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 Amaro Full code continue hospital stay for orthostatic hypotension and UTI requiring IV antibiotics and close monitoring of cultures which may change antibiotic Quality Stroke Does the patient have a stroke diagnosis?: No VTE Prior VTE?: No VTE Risk Level:: Medical - moderate - high VTE Device Contraindication: Treatment Not Indicated VTE Drug Contraindication: N/A - Med Ordered
[2023-08-31 16:41] LABS: Glucose, Whole Blood 270 mg/dL (60-115)
[2023-08-31 20:51] LABS: Glucose, Whole Blood 231 mg/dL (60-115)
[2023-09-01] VITALS (9 sets, daily range): BP systolic 70–218; BP diastolic 50–98; PULSE 20–120; RESP 17–20; TEMP 36.1–36.8; O2SAT 97–99
[2023-09-01] MEDS: Heparin Sodium,Porcine 5,000 UNIT/ML VIAL 5000 UNIT SUBCUT ×2 (03:13→14:25)
[2023-09-01] MEDS: 0.9 % Sodium Chloride 1,000 ML 70 ML IVCONT ×2 (03:13→14:31)
[2023-09-01] MEDS: Levothyroxine Sodium 50 MCG TABLET PO (05:35)
[2023-09-01 07:22] LABS: Glucose, Whole Blood 218 mg/dL (60-115)
[2023-09-01 07:42] LABS: Hemoglobin 11.1 g/dl (12.0-16.0); Mean Corpuscular HGB Conc 34.7 g/dl (31.0-35.0); Mean Corpuscular Hemoglobin 31.5 pg (27.0-33.0); Mean Corpuscular Volume 90.9 fL (80.0-98.0); Mean Platelet Volume 9.6 fL (9.4-12.3); Platelet Count 130 X10*3/uL (160-400); Red Blood Count 3.52 X10*6/uL (4.20-5.50); Red Cell Distribution Width 12.2 % (11.0-16.0)
[2023-09-01 07:52] LABS: Anion Gap 10 (12-20); Blood Urea Nitrogen 26 mg/dL (9-16); Calcium 9.1 mg/dL (8.4-10.2); Carbon Dioxide 28 mmol/L (22-29); Chloride 106 mmol/L (96-108); Estimated Glomerular Filt Rate 38; Glucose Random 238 mg/dL (60-115); Potassium 4.1 mmol/L (3.3-5.1); Sodium 140 mmol/L (135-145)
[2023-09-01] MEDS: Insulin Lispro 100 UNIT/ML 3 ML VIAL SUBCUT ×4 (08:09→20:34)
[2023-09-01] MEDS: Multivitamin TABLET 1 TAB PO (08:09)
--- NOTE | 2023-09-01 11:37 | P.PNIM_ITS ---
Subjective Subjective Date of Service: 09/01/23 Interval History: seen and examined this morning follow up for orthostatic hypotension, COVID denies SOB, no cough denies dizziness Review of Systems Review of Systems: Yes all other systems are reviewed and are negative Constitutional Constitutional: Denies chills and Denies fever(s) Cardiovascular Cardiovascular: Denies chest pain, Denies palpitations and Denies dyspnea Respiratory Respiratory: Denies cough and Denies dyspnea Endocrine Endocrine: Denies palpitations Physical Exam 2 Vital Signs: Vital Signs: Last Vital Signs Temp 97.6 F 09/01/23 11:19 Pulse 75 09/01/23 11:19 Resp 18 09/01/23 11:19 BP 120/64 09/01/23 11:19 Pulse Ox 99 09/01/23 11:19 O2 Del Method Room Air 09/01/23 11:19 O2 Flow Rate 98 08/27/23 20:14 BMI result Body Mass Index 21.5 Appearing in no acute distress lung sounds are clear to auscultation heart regular rate rhythm, clear S1, S2 positive bowel sounds, abdomen is soft, nontender neuro patient is alert x3, no focal deficits Objective Data Active Medications Acetaminophen (Acetaminophen 325 Mg Tablet) 650 mg PO Q6H PRN PRN Reason: Pain, Mild (Pain Scale 1-3) Dextrose (Dextrose 50 % 25 Gm/50 Ml Syringe) 25 gm IVPUSH Q15M PRN; Protocol PRN Reason: per Hypoglycemia Standing Ord. Glucose (Glucose Gel 15 Gm Gel..Gram.) 15 gm PO Q15M PRN; Protocol PRN Reason: per Hypoglycemia Standing Ord. Heparin Sodium (Porcine) (Heparin Sodium,Porcine 5,000 Unit/Ml Vial) 5,000 unit SUBCUT Q12H [facility] Last Admin: 09/01/23 03:13 Dose: 5,000 unit Documented By: MARIANN Sodium Chloride (Ns) 1,000 mls @ 70 mls/hr IVCONT .[id number] [facility] Last Infusion: 09/01/23 08:16 Dose: 0 mls/hr Documented By: ELSIE Insulin Human Lispro (Insulin Lispro 100 Unit/Ml 3 Ml Vial) 0 unit SUBCUT QIDACHS [facility]; Protocol Last Admin: 09/01/23 08:09 Dose: 4 unit Documented By: ELSIE Levothyroxine Sodium (Levothyroxine Sodium 50 Mcg Tablet) 50 mcg PO DAILY@0600 [facility] Last Admin: 09/01/23 05:35 Dose: 50 mcg Documented By: MARIANN Multivitamins/Vitamin C (Multivitamin Tablet) 1 tab PO DAILY [facility] Last Admin: 09/01/23 08:09 Dose: 1 tab Documented By: ELSIE Ondansetron HCl (Ondansetron Hcl 4 Mg/2 Ml Vial) 4 mg IVPUSH Q8H PRN PRN Reason: Nausea and Vomiting Sodium Chloride (0.9 % Sodium Chloride Flush 3 Ml Syringe) 3 ml IVFLUSH QSHIFT [facility] Last Admin: 09/01/23 08:10 Dose: Not Given Documented By: ELSIE Non-Admin Reason: IV Running Labs 09/01/23 07:04 09/01/23 07:04 Labs: Laboratory Results - last 24 hr 08/31/23 08/31/23 09/01/23 16:30 20:25 07:04 MCV 90.9 MCH 31.5 MCHC 34.7 RDW 12.2 Plt Count 130 L MPV 9.6 Absolute Nucleated RBC 0.000 Nucleated RBC % (auto) 0.0 Anion Gap 10 L Estim Creat Clear Calc 24.0 Estimated GFR 38 POC Glucose 270 H 231 H Random Glucose 238 H Calcium 9.1 09/01/23 07:17 MCV MCH MCHC RDW Plt Count MPV Absolute Nucleated RBC Nucleated RBC % (auto) Anion Gap Estim Creat Clear Calc Estimated GFR POC Glucose 218 H Random Glucose Calcium Assessment and Plan (1) YENNIFER (acute kidney injury): Status: Acute (2) Orthostatic hypotension: Status: Acute (3) COVID: Status: Acute Plan 82 year old women admitted with weakness and uti Orthostatic hypotension/supine hypertension remains orthostatic but asymptomatic supine bp still elevated but improving seen by nephro, rec gentle IVF for now no antihypertensives at this time cortisol normal MARYSOL stockings change positions slowly, HOB at 30 degrees check urine lytes YENNIFER slight upward trend in creatinine IVF follow BMP UTI urine culture growing coag negative staph likely contaminant s/p 3 days of IV Rocephin leukopenia may be r/t covid follow CBC Weakness seen by PT rec home with PT and FWW on discharge COVID 19 dx 08/25/23 no hypoxia DM2 ss, ada diet on glipizide and NPH insulin at baseline Hypothyroidism Levothyroxine 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 Amaro Full code continue hospital stay for orthostatic hypotension and UTI requiring IV antibiotics and close monitoring of cultures which may change antibiotic Quality Stroke Does the patient have a stroke diagnosis?: No VTE Prior VTE?: No VTE Risk Level:: Medical - moderate - high VTE Device Contraindication: Treatment Not Indicated VTE Drug Contraindication: N/A - Med Ordered
[2023-09-01 11:55] LABS: Glucose, Whole Blood 178 mg/dL (60-115)
[2023-09-01 16:11] LABS: Glucose, Whole Blood 270 mg/dL (60-115)
[2023-09-01 20:23] LABS: Glucose, Whole Blood 256 mg/dL (60-115)
[2023-09-02] VITALS (11 sets, daily range): BP systolic 93–199; BP diastolic 52–109; PULSE 71–88; RESP 17–19; TEMP 36–37.1; O2SAT 92–100
[2023-09-02 01:26] LABS: Potassium Urine Random 18.2 mmol/L
[2023-09-02] MEDS: Levothyroxine Sodium 50 MCG TABLET PO (05:18)
[2023-09-02] MEDS: Heparin Sodium,Porcine 5,000 UNIT/ML VIAL 5000 UNIT SUBCUT ×2 (05:18→15:06)
[2023-09-02] MEDS: 0.9 % Sodium Chloride 1,000 ML 70 ML IVCONT (05:22)
[2023-09-02 07:23] LABS: Glucose, Whole Blood 27 mg/dL (60-115)
[2023-09-02 07:31] LABS: Glucose, Whole Blood 273 mg/dL (60-115)
[2023-09-02] MEDS: Insulin Lispro 100 UNIT/ML 3 ML VIAL SUBCUT ×4 (08:29→20:25)
[2023-09-02] MEDS: Multivitamin TABLET 1 TAB PO (08:29)
[2023-09-02] MEDS: 0.9 % Sodium Chloride Flush 3 ML SYRINGE IVFLUSH ×3 (08:30→20:25)
[2023-09-02 09:41] LABS: Glucose Random 327 mg/dL (60-115)
[2023-09-02 11:15] LABS: Glucose, Whole Blood 250 mg/dL (60-115)
--- NOTE | 2023-09-02 11:19 | P.PNIM_ITS ---
Subjective Subjective Date of Service: 09/02/23 Interval History: seen and examined this morning follow up for orthostatic hypotension, COVID denies SOB, no cough denies dizziness Review of Systems Review of Systems: Yes all other systems are reviewed and are negative Constitutional Constitutional: Denies chills and Denies fever(s) Cardiovascular Cardiovascular: Denies chest pain, Denies palpitations and Denies dyspnea Respiratory Respiratory: Denies cough and Denies dyspnea Endocrine Endocrine: Denies palpitations Physical Exam 2 Vital Signs: Vital Signs: Last Vital Signs Temp 97.5 F 09/02/23 11:00 Pulse 73 09/02/23 11:00 Resp 18 09/02/23 11:00 BP 153/70 H 09/02/23 11:00 Pulse Ox 100 09/02/23 11:00 O2 Del Method Room Air 09/02/23 11:00 O2 Flow Rate 98 08/27/23 20:14 BMI result Body Mass Index 21.5 Appearing in no acute distress lung sounds are clear to auscultation heart regular rate rhythm, clear S1, S2 positive bowel sounds, abdomen is soft, nontender neuro patient is alert x3, no focal deficits Objective Data Active Medications Acetaminophen (Acetaminophen 325 Mg Tablet) 650 mg PO Q6H PRN PRN Reason: Pain, Mild (Pain Scale 1-3) Dextrose (Dextrose 50 % 25 Gm/50 Ml Syringe) 25 gm IVPUSH Q15M PRN; Protocol PRN Reason: per Hypoglycemia Standing Ord. Glucose (Glucose Gel 15 Gm Gel..Gram.) 15 gm PO Q15M PRN; Protocol PRN Reason: per Hypoglycemia Standing Ord. Heparin Sodium (Porcine) (Heparin Sodium,Porcine 5,000 Unit/Ml Vial) 5,000 unit SUBCUT Q12H [facility] Last Admin: 09/02/23 05:18 Dose: 5,000 unit Documented By: MARIANN Hydralazine HCl (Hydralazine Hcl 25 Mg Tablet) 25 mg PO BEDTIME [facility]; Protocol Insulin Human Lispro (Insulin Lispro 100 Unit/Ml 3 Ml Vial) 0 unit SUBCUT QIDACHS [facility]; Protocol Last Admin: 09/02/23 08:29 Dose: 6 unit Documented By: ELSEI Levothyroxine Sodium (Levothyroxine Sodium 50 Mcg Tablet) 50 mcg PO DAILY@0600 [facility] Last Admin: 09/02/23 05:18 Dose: 50 mcg Documented By: MARIANN Multivitamins/Vitamin C (Multivitamin Tablet) 1 tab PO DAILY [facility] Last Admin: 09/02/23 08:29 Dose: 1 tab Documented By: LESIE Ondansetron HCl (Ondansetron Hcl 4 Mg/2 Ml Vial) 4 mg IVPUSH Q8H PRN PRN Reason: Nausea and Vomiting Sodium Chloride (0.9 % Sodium Chloride Flush 3 Ml Syringe) 3 ml IVFLUSH QSHIFT [facility] Last Admin: 09/02/23 08:30 Dose: 3 ml Documented By: ELSIE Labs 09/01/23 07:04 09/02/23 09:08 Labs: Laboratory Results - last 24 hr 09/01/23 09/01/23 09/01/23 11:49 16:06 20:15 Hold Purple Top POC Glucose 178 H 270 H 256 H Random Glucose Ur Random Sodium Ur Random Potassium Ur Random Chloride 09/02/23 09/02/23 09/02/23 01:00 07:16 07:26 Hold Purple Top POC Glucose 27 L* 273 H Random Glucose Ur Random Sodium 104.0 Ur Random Potassium 18.2 Ur Random Chloride 108.0 09/02/23 09/02/23 09:08 11:09 Hold Purple Top SEE NOTE POC Glucose 250 H Random Glucose 327 H Ur Random Sodium Ur Random Potassium Ur Random Chloride Assessment and Plan (1) YENNIFER (acute kidney injury): Status: Acute (2) Orthostatic hypotension: Status: Acute (3) COVID: Status: Acute Plan 82 year old women admitted with weakness and uti Orthostatic hypotension/supine hypertension remains orthostatic but asymptomatic supine bp still elevated but improving seen by nephro, rec gentle IVF for now, stopped cortisol normal MARYSOL stockings change positions slowly, HOB at 30 degrees hydralazine 20mg at bedtime no lying flat YENNIFER. 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 Mlapah Full code DISPO plan for home when medically clear continue hospital stay for orthostatic hypotension and UTI requiring IV antibiotics and close monitoring of cultures which may change antibiotic Quality Stroke Does the patient have a stroke diagnosis?: No VTE Prior VTE?: No VTE Risk Level:: Medical - moderate - high VTE Device Contraindication: Treatment Not Indicated VTE Drug Contraindication: N/A - Med Ordered
--- NOTE | 2023-09-02 11:39 | PM.DS ---
DS: Providers Provider Date of Service: 09/03/23 Date of admission: 08/27/23 14:35 Primary care physician: Gianluca Betancur MD Consults: 08/29/23 15:57 Consult to Nephrology Routine Consulting Provider: [facility] Reason for consultation: orthostatic hypotension DS: Diagnosis Discharge Diagnosis (1) YENNIFER (acute kidney injury): Status: Acute (2) Orthostatic hypotension: Status: Acute (3) COVID: Status: Acute DS: Summary Hospital Course Hospital Course: History and physical as per admitting provider. 82-year-old woman presented to the ER with complaints of worsening weakness. She was seen in the emergency department on 08/25/2023 and at that time diagnosed with COVID-19 and UTI. She was started on Paxil Fowler and sent home with Ceftin for UTI. She denies fever, chills, nausea, vomiting, diarrhea, recent travel, sick contacts. No fever leukocytosis noted, urine culture from 08/25 showing Gram-positive cocci. She was noted to be orthostatic in the ER with blood pressure going down as low as 70/45. Chest x-ray negative consolidation or effusion. She was given a dose of oral potassium. She will be admitted for further management and treatment weakness likely secondary to UTI orthostatic hypotension. 82-year-old woman treated for orthostatic hypotension/supine hypertension, YENNIFER and UTI. She was having episodes of elevated blood pressure while lying down and mostly at nighttime and then orthostasis in the morning and when changing positions. Treated with IV fluids, cortisol was normal, Ton stockings used. She was encouraged to change positions slowly and keep bed at a 30-40 5 degree angle when lying down or sleeping, drinks 6-8 oz of water before getting out of bed. She was started on hydralazine for bedtime supine hypertension. She has remained asymptomatic. The plan will be for her to follow-up with Nephrology outpatient. Her YENNIFER was treated with IV fluids and resolved, likely secondary to dehydration. She was also found to have coag-negative staph UTI and had been treated with 3 days of IV Rocephin. She was diagnosed with COVID-19 but was asymptomatic and never had any noted hypoxia. Diabetes mellitus type 2. Continue home medications Hypothyroidism. Continue home medications Chronic thrombocytopenia. Follow Time Attestation Discharge coordination time: Greater than 30 minutes Quality: Safe Use of Opioids Does Pt have an Active Cancer Diagnosis on the Problem List?: No Quality: Stroke Does the patient have a stroke diagnosis?: No Physical Exam Vital Signs: Vital Signs: Last Vital Signs Temp 97.5 F 09/02/23 11:00 Pulse 73 09/02/23 11:00 Resp 18 09/02/23 11:00 BP 153/70 H 09/02/23 11:00 Pulse Ox 100 09/02/23 11:00 O2 Del Method Room Air 09/02/23 11:00 O2 Flow Rate 98 08/27/23 20:14 BMI result Body Mass Index 21.5 Appearing in no acute distress head is normocephalic atraumatic eyes pupils are PERRLA sclera is anicteric mouth throat mucous membranes are intact and moist neck is supple no lymphadenopathy, no JVD noted lung sounds are clear to auscultation heart regular rate rhythm, clear S1, S2 positive bowel sounds, abdomen is soft, nontender neuro patient is alert x3, no focal deficits DS: Data Data Completed and Pending Labs on day of discharge: Laboratory Results - last 24 hr 09/01/23 09/01/23 09/01/23 11:49 16:06 20:15 Hold Purple Top POC Glucose 178 H 270 H 256 H Random Glucose Ur Random Sodium Ur Random Potassium Ur Random Chloride 09/02/23 09/02/23 09/02/23 01:00 07:16 07:26 Hold Purple Top POC Glucose 27 L* 273 H Random Glucose Ur Random Sodium 104.0 Ur Random Potassium 18.2 Ur Random Chloride 108.0 09/02/23 09/02/23 09:08 11:09 Hold Purple Top SEE NOTE POC Glucose 250 H Random Glucose 327 H Ur Random Sodium Ur Random Potassium Ur Random Chloride Discharge Plan Discharge Anticipated Discharge Date/Time: 09/03/23 09:48 Patient Disposition: Home Health Service Discharge Diagnosis: Orthostatic hypotension Supine hypertension COVID-19 YENNIFER Referrals: Jeff Patton MD [Physician] - 1 Week (Orthostatic hypotension/supine hypertension) Gianluca Betancur MD [Primary Care Provider] - 1 Week Discharge Medications: New hydralazine 25 mg Tablet 25 mg PO BEDTIME Qty: 30 0RF Protocol: Hold for SBP< HOLD for SBP < : 90 Continued levothyroxine 50 mcg tablet 50 mcg PO DAILY Novolin N NPH U-100 Insulin 100 unit/mL suspension See Protocol subcut BIDAC Protocol: Insulin Correction Scale Less than or equal to 110 ---- Give (units): 0 111 to 150 Give (units): 0 151 to 200 Give (units): 2 201 to 250 Give (units): 4 251 to 300 Give (units): 6 301 to 350 Give (units): 8 Greater than 350 Give (units): 10 Call MD if Blood Glucose > : 350 glipizide 5 mg tablet 10 mg PO BID multivitamin Tablet 1 tab PO DAILY Discontinued cefuroxime axetil 250 mg tablet 250 mg PO BID Qty: 10 0RF Paxlovid 150-100 mg tablets,dose pack See Rx Instructions .ROUTE .COMPLEX Qty: 20 0RF Rx Instructions: take ONE 150 mg tablet of nirmatrelvir with ONE 100 mg tablet of ritonavir twice daily for 5 days Discharge Orders: Discharge Order (Routine); Ordered 09/03/23 Ordered By: Kassandra Tompkins Diet: Advance to usual diet Activity on Discharge: As tolerated Stand Alone Forms: Patient Portal Discharge page Care Plan Goals: -Patients should arise slowly, in stages, from supine to seated to standing. This maneuver is most important in the morning, when orthostatic tolerance is lowest. -Drink 6-8 oz of water before getting out of bed -continue to using compression stockings during the day and remove at bedtime -For patients who sleep supine, we advise raising the head of the bed 30 to 45 degrees. Patients may prefer a wedge pillow or an electric adjustable bed or mattress. -Patients should avoid lying down during the day, especially after taking pressor agents, and, if tired, should rest in a seated position. -A carbohydrate-rich snack lowers blood pressure. The application of an abdominal heating pad to lower blood pressure by inducing splanchnic vasodilation may be helpful -Patients should sleep in a semi-sitting position with the head of the bed raised to at least 30 to 45 degrees. You have been started on a medication called hydralazine, that should be taken at nighttime to lessen the elevated blood pressure readings Health Concerns: Orthostatic hypotension Supine hypertension COVID-19 YENNIFER Plan of Treatment: Follow-up with primary care provider as needed Take all medications as prescribed Assessment: See discharge summary
[2023-09-02 15:50] LABS: Glucose, Whole Blood 254 mg/dL (60-115)
[2023-09-02 19:59] LABS: Glucose, Whole Blood 327 mg/dL (60-115)
[2023-09-02] MEDS: hydrALAZINE HCl 25 MG TABLET PO (20:25)
[2023-09-03] VITALS: BP 200/79; PULSE 79
[2023-09-03 03:59] VITALS: BP 196/86; PULSE 64; RESP 18; TEMP 36.6; O2SAT 98
[2023-09-03] MEDS: Levothyroxine Sodium 50 MCG TABLET PO (05:49)
[2023-09-03] MEDS: Heparin Sodium,Porcine 5,000 UNIT/ML VIAL 5000 UNIT SUBCUT (05:49)
[2023-09-03 07:12] VITALS: BP 149/81; PULSE 75; RESP 18; TEMP 36.3; O2SAT 98
[2023-09-03 07:17] LABS: Glucose, Whole Blood 218 mg/dL (60-115)
[2023-09-03] MEDS: Insulin Lispro 100 UNIT/ML 3 ML VIAL SUBCUT (08:12)
[2023-09-03] MEDS: Multivitamin TABLET 1 TAB PO (08:12)
[2023-09-03] MEDS: 0.9 % Sodium Chloride Flush 3 ML SYRINGE IVFLUSH (08:13)
--- NOTE | 2023-09-03 09:49 | P.F2F_ITS ---
Service Date Service Date: 09/03/23 Encounter Date of encounter: 09/03/23 Reasons for Services Signs and symptoms assessed: Weakness orthostasis/supine hypertension Reason for [facility]: CV/CP assess and/or care and medication management (new medication, hydralazine for supine hypertension ) Reason for physical therapy: home safety and mobility Homebound: Leaving the home is medically contraindicated at this time without the asist of a device and/or another person due th the listed conditions above and below. Reason homebound: unsteady gait / fall risk Certification: Based on the above findings, I certify that this patient is confined to the home and needs intermittent [facility] care, physical therapy and/or speech therapy, or continues to need occupational therapy. The patient is under my care, and I have initiated the establishment of the plan of care. The patient will be followed by a physician who will periodically review the plan of care. Time Spent With Patient Time: Total time managing care of this patient today ____ minutes.
--- NOTE | 2023-09-03 10:04 | MHC.CM.PN ---
Patient has been medically cleared for dc to home today, with services. A referral had been made to [facility], who has been made aware of today's dc. Patient is Covid (+); CM spoke with Grandson/Sam @ [phone] and addressed IMM with him (original will be mailed certified letter to Sam and a copy has been placed on the chart).
[2023-09-08 13:43] LABS: Metanephrine, Free <25 pg/mL (<=57); Normetanephrines, Free 29 pg/mL (<=148); Total Metanephrine, Free 29 pg/mL (<=205)
== END 2023-09-03 11:24 | disposition home health service (06) | DRG 312 ==
LOC: HO.ED 15:05 → HO.EDOVER 15:12 → HO.IMC 08-28 00:36
PROVIDERS: Internal Medicine Hypertension Specialist; Physician Assistant Medical; Registered Nurse Emergency; Admitting Provider Nurse Practitioner Acute Care; Emergency Provider Emergency Medicine; PCP Internal Medicine; Visit Provider Nurse Practitioner Acute Care
DX: I95.1 Orthostatic hypotension (principal); U07.1 COVID-19; N39.0 Urinary tract infection, site not specified; D69.3 Immune thrombocytopenic purpura; D61.818 Other pancytopenia; N17.9 Acute kidney failure, unspecified; E86.0 Dehydration; E03.9 Hypothyroidism, unspecified; I10 Essential (primary) hypertension; G90.9 Disorder of the autonomic nervous system, unspecified; E86.1 Hypovolemia; Z85.43 Personal history of malignant neoplasm of ovary; Z87.891 Personal history of nicotine dependence; Z79.4 Long term (current) use of insulin; Z79.84 Long term (current) use of oral hypoglycemic drugs; Z79.890 Hormone replacement therapy; Z79.899 Other long term (current) drug therapy
CPT/HCPCS: 0241U; 36415; 71045; 71046; 80048; 80053; 80076; 80307; 81001; 82272; 82436; 82533; 82947; 83605; 83735; 83835; 83880; 84133; 84300; 84443; 84484; 85025; 85027; 86140; 87040; 87086; 87147; 93005; 96361; 96365; 97161; 97530; 99285; J0360; J0696; J1644

== ENCOUNTER → 2023-08-27 08:11 | Outpatient (BNV) | payer MEDICARE, SELFPAY | PROVIDERS: Emergency Provider Emergency Medicine; PCP Internal Medicine; Visit Provider Internal Medicine Cardiovascular Disease | DX: U07.1 COVID-19 (principal) | CPT/HCPCS: 93010 ==

== ENCOUNTER → 2023-08-27 14:35 | Outpatient (BNV) | payer MEDICARE, SELFPAY | PROVIDERS: Admitting Provider Nurse Practitioner Acute Care; Emergency Provider Emergency Medicine; PCP Internal Medicine; Visit Provider Nurse Practitioner Acute Care | DX: N17.9 Acute kidney failure, unspecified (principal); I95.1 Orthostatic hypotension; U07.1 COVID-19 | CPT/HCPCS: 99223; 99232; 99239; G0180 ==

== ENCOUNTER → 2023-08-27 14:35 | Outpatient (BNV) | payer MEDICARE, SELFPAY | PROVIDERS: Admitting Provider Nurse Practitioner Acute Care; Emergency Provider Emergency Medicine; PCP Internal Medicine; Visit Provider Internal Medicine Hypertension Specialist | DX: I95.1 Orthostatic hypotension (principal); N17.9 Acute kidney failure, unspecified; E11.8 Type 2 diabetes mellitus with unspecified complications | CPT/HCPCS: 99223 ==

== ENCOUNTER 2023-09-11 16:54 | Outpatient (REF) | payer MEDICARE, SELFPAY ==
[2023-09-11 17:50] LABS: Estimated Average Glucose 240 mg/dL
[2023-09-11 19:32] LABS: Anion Gap 16 (12-20); Blood Urea Nitrogen 24 mg/dL (9-16); Calcium 9.8 mg/dL (8.4-10.2); Carbon Dioxide 30 mmol/L (22-29); Chloride 103 mmol/L (96-108); Estimated Glomerular Filt Rate 33; Glucose Random 213 mg/dL (60-115); Potassium 4.2 mmol/L (3.3-5.1); Sodium 145 mmol/L (135-145)
[2023-09-11 20:13] LABS: Free T4 (Free Thyroxine) 1.35 ng/dL (0.71-1.85); Thyroid Stimulating Hormone 0.73 uIU/mL (0.32-4.0)
== END 2023-09-11 16:55 | disposition home or self-care (01) ==
LOC: HO.LAB 16:54
PROVIDERS: PCP Internal Medicine; Visit Provider Internal Medicine
DX: E11.22 Type 2 diabetes mellitus with diabetic chronic kidney disease (principal); N18.9 Chronic kidney disease, unspecified; E03.9 Hypothyroidism, unspecified
CPT/HCPCS: 36415; 80048; 83036; 84439; 84443

== ENCOUNTER 2023-11-08 16:06 | Outpatient (REF) | payer MEDICARE, SELFPAY ==
[2023-11-08 16:40] LABS: Estimated Average Glucose 235 mg/dL; Hemoglobin A1c % 9.8 % (<6.0)
[2023-11-08 16:49] LABS: Anion Gap 12 (12-20); Blood Urea Nitrogen 27 mg/dL (9-16); Calcium 9.6 mg/dL (8.4-10.2); Carbon Dioxide 30 mmol/L (22-29); Chloride 101 mmol/L (96-108); Estimated Glomerular Filt Rate 28; Glucose Random 244 mg/dL (60-115); Potassium 4.1 mmol/L (3.3-5.1); Sodium 139 mmol/L (135-145)
== END 2023-11-08 16:07 | disposition home or self-care (01) ==
LOC: HO.LAB 16:06
PROVIDERS: PCP Internal Medicine; Visit Provider Internal Medicine
DX: E11.22 Type 2 diabetes mellitus with diabetic chronic kidney disease (principal); N18.9 Chronic kidney disease, unspecified
CPT/HCPCS: 36415; 80048; 83036

== ENCOUNTER 2023-12-24 16:03 | Outpatient (REF) | payer MEDICARE, SELFPAY ==
[2023-12-24 16:20] LABS: MANUAL DIFF FLAG NO
[2023-12-24 17:04] LABS: Basophils Percent Auto 0.6 % (0-2); Eosinophils Absolute Auto 0.1 X10*3/uL (0.0-0.4); Eosinophils Percent Auto 2.4 % (0-4); Hematocrit 38.2 % (37.0-47.0); Hemoglobin 13.1 g/dl (12.0-16.0); Imm Gran Abs Auto 0.03 X10*3/uL (0.00-0.03); Imm Gran Pct Auto 0.6 % (0.0-0.4); Lymphocytes Absolute Auto 1.3 X10*3/uL (1.2-4.9); Lymphocytes Percent Auto 25.9 % (20-40); Mean Corpuscular HGB Conc 34.3 g/dl (31.0-35.0); Mean Corpuscular Hemoglobin 31.8 pg (27.0-33.0); Mean Corpuscular Volume 92.7 fL (80.0-98.0); Mean Platelet Volume 9.8 fL (9.4-12.3); Monocytes Absolute Auto 0.3 X10*3/uL (0.1-1.2); Monocytes Percent Auto 6.5 % (2-11); Neutrophils Absolute Auto 3.2 x10*3/uL (2.0-8.3); Platelet Count 147 X10*3/uL (160-400); Red Blood Count 4.12 X10*6/uL (4.20-5.50); Red Cell Distribution Width 11.9 % (11.0-16.0)
[2023-12-24 17:52] LABS: Estimated Average Glucose 275 mg/dL; Hemoglobin A1c % 11.2 % (<6.0)
[2023-12-24 17:53] LABS: Creatinine Urine 57.56 mg/dL; Microalbum/Creatinine Ratio Ur 154.6 ug/mg cr (<30)
[2023-12-24 18:06] LABS: Free T4 (Free Thyroxine) 0.99 ng/dL (0.71-1.85); Thyroid Stimulating Hormone 1.61 uIU/mL (0.32-4.0)
[2023-12-24 18:41] LABS: Alanine Aminotransferase 29 U/L (0-31); Alkaline Phosphatase 130 U/L (39-117); Anion Gap 11 (12-20); Aspartate Amino Transferase 22 U/L (5-31); Bilirubin Total 0.4 mg/dL (0.0-1.0); Blood Urea Nitrogen 24 mg/dL (9-16); Calcium 9.2 mg/dL (8.4-10.2); Carbon Dioxide 30 mmol/L (22-29); Chloride 100 mmol/L (96-108); Estimated Glomerular Filt Rate 27; Glucose Random 398 mg/dL (60-115); Potassium 4.4 mmol/L (3.3-5.1); Sodium 137 mmol/L (135-145)
== END 2023-12-24 16:04 | disposition home or self-care (01) ==
LOC: HO.LAB 16:03
PROVIDERS: PCP Internal Medicine; Visit Provider Internal Medicine
DX: E03.9 Hypothyroidism, unspecified (principal); E11.22 Type 2 diabetes mellitus with diabetic chronic kidney disease; N18.9 Chronic kidney disease, unspecified
CPT/HCPCS: 36415; 80053; 82043; 82570; 83036; 84439; 84443; 85025

== ENCOUNTER 2024-03-24 16:46 | Outpatient (REF) | payer MEDICARE, SELFPAY ==
[2024-03-24 17:37] LABS: Anion Gap 15 (12-20); Blood Urea Nitrogen 27 mg/dL (9-16); Carbon Dioxide 28 mmol/L (22-29); Chloride 101 mmol/L (96-108); Estimated Glomerular Filt Rate 25; Potassium 4.6 mmol/L (3.3-5.1); Sodium 139 mmol/L (135-145)
[2024-03-24 17:38] LABS: Calcium 10.6 mg/dL (8.4-10.2); Glucose Random 250 mg/dL (60-115)
[2024-03-25 05:16] LABS: Estimated Average Glucose 280 mg/dL; Hemoglobin A1c % 11.4 % (<6.0)
== END 2024-03-24 16:47 | disposition home or self-care (01) ==
LOC: HO.LAB 16:46
PROVIDERS: PCP Internal Medicine; Visit Provider Internal Medicine
DX: E11.22 Type 2 diabetes mellitus with diabetic chronic kidney disease (principal); N18.9 Chronic kidney disease, unspecified; E03.9 Hypothyroidism, unspecified
CPT/HCPCS: 36415; 80048; 83036

== ENCOUNTER 2024-06-19 16:03 | Outpatient (REF) | payer MEDICARE, SELFPAY ==
[2024-06-19 17:03] LABS: Appearance Urine Cloudy; Color Urine Yellow; Glucose Urine UA 100 mg/dL (Negative); Leukocyte Esterase Urine Small (1+) (Negative); Nitrite Urine Negative (Negative); PH 5.5 (5.0-9.0); Specific Gravity - Urine 1.015 (1.005-1.025); UMIC TRIGGER UACC YES; Urine Blood Negative (Negative); Urine Ketones Negative (Negative); Urine Protein 30 (1+) mg/dL (Neg-Trace)
[2024-06-19 17:24] LABS: Bacteria Urine None Seen (None Seen); Calcium Oxalate Crystals Urine Present; Hyaline Casts Urine >20 /LPF (0-2); UACC Culture Trigger YES; WBC Urine 21-50 /HPF (0-5)
== END 2024-06-19 16:04 | disposition home or self-care (01) ==
LOC: HO.LAB 16:03
PROVIDERS: PCP Internal Medicine; Visit Provider Internal Medicine
DX: R30.0 Dysuria (principal)
CPT/HCPCS: 81001; 81003; 87086

== ENCOUNTER 2024-06-25 09:58 | Inpatient (IN) | payer MEDICARE, SELFPAY ==
[2024-06-25] VITALS (9 sets, daily range): BP systolic 148–225; BP diastolic 64–88; PULSE 65–88; RESP 11–17; TEMP 36.3–36.9; O2SAT 95–100; BMI 23.4
--- NOTE | ~2024-06-25 | US_ITS ---
EXAMINATION: ULTRASOUND OF KIDNEYS WITH RENAL ARTERY DOPPLER CLINICAL INFORMATION: Hypertensive urgency, AKA. COMPARISON: None. TECHNIQUE: Ultrasound of the kidneys was performed along with color flow Doppler imaging and velocity measurements in the proximal mid and distal renal arteries. Aortic velocities were measured and renal/aortic ratios were calculated. FINDINGS: The right kidney is small and atrophic measuring 6.7 x 3.6 x 3.1 cm with increased echogenicity and cortical thinning. No renal masses, calcifications or hydronephrosis is seen. The left kidney also demonstrates cortical thinning and increased echogenicity although larger measuring 9.6 x 4.8 x 4.4 cm. No renal masses nephrolithiasis or hydronephrosis is seen. Velocities in both renal arteries are within normal limits throughout. Interlobar resistive indices in both kidneys are all within normal limits under 0.80. Mid aortic velocity is 105 cm/s which is over the 100 cm/s threshold and therefore cannot be used to calculate renal aortic ratios. US/US renal doppler IMPRESSION: 1. No evidence to suggest renal artery stenosis. 2. Bilateral renal cortical thinning and increased echogenicity consistent with medical renal disease. Electronically signed by: Anjel Richard MD 06/26/2024 05:04 PM EDT
--- NOTE | ~2024-06-25 | US_ITS ---
EXAMINATION: ULTRASOUND OF KIDNEYS WITH RENAL ARTERY DOPPLER CLINICAL INFORMATION: Hypertensive urgency, AKA. COMPARISON: None. TECHNIQUE: Ultrasound of the kidneys was performed along with color flow Doppler imaging and velocity measurements in the proximal mid and distal renal arteries. Aortic velocities were measured and renal/aortic ratios were calculated. FINDINGS: The right kidney is small and atrophic measuring 6.7 x 3.6 x 3.1 cm with increased echogenicity and cortical thinning. No renal masses, calcifications or hydronephrosis is seen. The left kidney also demonstrates cortical thinning and increased echogenicity although larger measuring 9.6 x 4.8 x 4.4 cm. No renal masses nephrolithiasis or hydronephrosis is seen. Velocities in both renal arteries are within normal limits throughout. Interlobar resistive indices in both kidneys are all within normal limits under 0.80. Mid aortic velocity is 105 cm/s which is over the 100 cm/s threshold and therefore cannot be used to calculate renal aortic ratios. US/US renal BI IMPRESSION: 1. No evidence to suggest renal artery stenosis. 2. Bilateral renal cortical thinning and increased echogenicity consistent with medical renal disease. Electronically signed by: Anjel Richard MD 06/26/2024 05:04 PM EDT
--- NOTE | ~2024-06-25 | XR_ITS ---
EXAMINATION: XR CHEST CLINICAL INFORMATION: Difficulty breathing COMPARISON: 08/27/2023 TECHNIQUE: Frontal view of the chest was obtained. FINDINGS: Lungs clear. Heart and pulmonary vessels are normal. No congestive change. XR/XR chest 1V IMPRESSION: No active disease. Electronically signed by: Ton Phelan MD 06/25/2024 12:25 PM EDT
--- NOTE | 2024-06-25 10:07 | ECG_ITS ---
Test Reason : SYNCOPYE Blood Pressure : / mmHG Vent. Rate : 069 BPM Atrial Rate : 069 BPM P-R Int : 196 ms QRS Dur : 088 ms QT Int : 414 ms P-R-T Axes : 066 044 135 degrees QTc Int : 443 ms Normal sinus rhythm with sinus arrhythmia ST & T wave abnormality, consider lateral ischemia Abnormal ECG When compared with ECG of 27-AUG-2023 08:11, Premature atrial complexes are no longer Present Referred By: Generic ED Physician Electronically Signed By:RAFITA EMDRANO
--- NOTE | 2024-06-25 10:22 | ED_ITS ---
HPI - General Adult General Chief complaint: Syncope Stated complaint: SYNCOPAL EPISODE,?UTI PER EMS Time Seen by Provider: 06/25/24 10:10 History of Present Illness HPI narrative: This is 83 years old patient presented to the emergency department via ambulance with a chief complaint of generalized weakness. She states that she got up and felt weak. No reported syncope no LOC. she denies any chest pain shortness of breath she has no fever. Patient has history of diabetes, lives home with the grandson Onset (ago): hour(s) (1) Radiation: non-radiation Severity: moderate Relieving factors: none Related Data Home Medications ?Medication ?Instructions ?Recorded ?Confirmed glipizide 5 mg tablet 10 mg PO BID 05/07/23 08/27/23 levothyroxine 50 mcg tablet 50 mcg PO DAILY 05/07/23 08/27/23 multivitamin 1 tab PO DAILY 05/07/23 08/27/23 insulin NPH-regular 70-30 U-100 20 unit subcut BID 06/25/24 06/25/24 insulin 100 unit/mL subcutaneous pen (Humulin 70/30 U-100 KwikPen) Allergies Allergy/AdvReac Type Severity Reaction Status Date / Time No Known Allergies Allergy Verified 06/25/24 10:15 Review of Systems 2 Constitutional: Constitutional: Reports no additional constitutional complaints ENT: Reports system reviewed and no additional complaints, except as documented Cardiovascular: Cardiovascular: Reports no additional cardiovascular complaints Respiratory: Respiratory: Reports no additional respiratory complaints [facility] Past Medical History [facility] Narrative: Diabetes, ovarian cancer Medical History Hypothyroidism History of ovarian cancer Generalized weakness Gallbladder & bile duct stone with obstruction Diabetes Surgical History H/O: hysterectomy Social History Social History Household Members: Children Housing: House Do you presently have visiting nurse or other home services: No Alcohol intake: former Patient Tobacco Use Status: Former Tobacco user Smoked in Last 30 Days: No Use of substances other than those prescribed or required for medical reasons: No Advance Directives: Yes Advance Directives on File: Yes Advance Directives Date on File: 05/08/23 Do you have a plan to hurt others: No Plan service: No Physical Exam ED Vital Signs: Vital Signs - 24 hr 06/25/24 10:21 06/25/24 10:28 06/25/24 11:19 Temperature 97.4 F 97.6 F Pulse Rate 71 68 75 Respiratory Rate 17 14 Blood Pressure 225/86 H 189/80 H 192/87 H Pulse Oximetry 100 100 Oxygen Delivery Method Room Air Room Air 06/25/24 12:26 06/25/24 12:41 Temperature Pulse Rate Respiratory Rate Blood Pressure 197/74 H Pulse Oximetry Oxygen Delivery Method Room Air BMI result Body Mass Index 23.4 Looks well not toxic appearing Const General: cooperative Nutritional Appearance: average body habitus Orientation/consciousness: patient oriented x3 HENMT Head: Yes normal to inspection General nose exam: Normal external nose present Face and sinus: Yes normal facial exam Mouth: Normal oral and palatal mucosa present Throat: Yes posterior oropharynx normal Neck Neck: Yes normal visual inspection Chest Chest palpation & inspection: normal inspection of the chest Resp Effort & Inspection: normal respiratory effort Auscultation: clear to auscultation bilaterally Cardio Jugular venous distension: no JVD Rate: regular rate Rhythm: regular rhythm GI Inspection: Yes normal to inspection Auscultation: normal bowel sounds Skin General skin exam: no rashes or lesions noted, elasticity normal and turgor normal Lesions: no lesions Rashes: no rashes Trauma: no lacerations or abrasions Neuro General: patient oriented x3 Extrem General: Yes normal to inspection, Yes full ROM and Yes capillary refill normal Right upper extremity: normal to inspection Course Reevaluation(s) Reevaluation #1: remain stable BP better Time: 13:18 Medications Administered Discontinued Medications Generic Name Dose Route Start Last Admin Trade Name Freq PRN Reason Stop Dose Admin Amlodipine Besylate 5 mg 06/25/24 12:06 06/25/24 12:26 Amlodipine Besylate 5 Mg Tablet PO 06/25/24 12:07 5 mg ONCE ONE Administration Protocol Sodium Chloride 1,000 mls @ 999 mls/hr 06/25/24 10:30 06/25/24 11:21 Ns IVCONT 06/25/24 11:30 999 mls/hr .Q1H1M CRISTINA Administration Potassium Chloride 40 meq 06/25/24 11:22 06/25/24 11:41 Potassium Chloride Er 20 Meq Tab.Er.Prt PO 06/25/24 11:23 40 meq ONCE ONE Administration Medical Decision Making Medical Decision Making [facility] Narrative: Patient presented to the emergency department with a chief complaint of weakness will check blood work EKG reassess Differential Diagnosis Differential Diagnoses: The differential diagnosis associated with the presentation includes Anemia/pneumonia/FL Admission/Observation Consideration of admission/observation: Escalation of care including admission/observation considered Consult Healthcare Provider Management of the patient was discussed with: Hospitalist Lab Data [facility] Lab Attestation statement: I reviewed the patient's lab results. 06/25/24 10:52 06/25/24 10:52 Labs: Lab Results 06/25/24 06/25/24 Range/Units 10:52 12:26 WBC 4.7 L (4.8-10.8) X10*3/uL RBC 3.94 L (4.20-5.50) X10*6/uL Hgb 12.8 (12.0-16.0) g/dl Hct 35.2 L (37.0-47.0) % MCV 89.3 (80.0-98.0) fL MCH 32.5 (27.0-33.0) pg MCHC 36.4 H (31.0-35.0) g/dl RDW 12.1 (11.0-16.0) % Plt Count 127 L (160-400) X10*3/uL MPV 9.1 L (9.4-12.3) fL Immature Gran % (Auto) 0.6 H (0.0-0.4) % Neut % (Auto) 62.1 (45-73) % Lymph % (Auto) 26.0 (20-40) % Iron % (Auto) 7.9 (2-11) % Eos % (Auto) 2.8 (0-4) % Baso % (Auto) 0.6 (0-2) % Lymph # (Auto) 1.2 (1.2-4.9) X10*3/uL Iron # (Auto) 0.4 (0.1-1.2) X10*3/uL Eos # (Auto) 0.1 (0.0-0.4) X10*3/uL Baso # (Auto) 0.0 (0.0-0.2) X10*3/uL Abs Immat Gran (auto) 0.03 (0.00-0.03) X10*3/uL Absolute Neuts (auto) 2.9 (2.0-8.3) x10*3/uL Absolute Nucleated RBC 0.000 (0.0-0.012) X10*3/uL Nucleated RBC % (auto) 0.0 (0.0-0.2) /100WBC Sodium 144 (135-145) mmol/L Potassium 2.8 L* D (3.3-5.1) mmol/L Chloride 110 H (96-108) mmol/L Carbon Dioxide 23 (22-29) mmol/L Anion Gap 14 (12-20) BUN 27 H (9-16) mg/dL Creatinine 2.23 H (0.5-1.4) mg/dL Estim Creat Clear Calc 14.9 Estimated GFR 21 Random Glucose 126 H (60-115) mg/dL Calcium 9.5 D (8.4-10.2) mg/dL Total Bilirubin 0.8 (0.0-1.0) mg/dL AST 21 (5-31) U/L ALT 22 (0-31) U/L Alkaline Phosphatase 83 (39-117) U/L Troponin I High Sens 16.4 D (<3.5-17.0) ng/L Total Protein 6.3 L (6.5-8.0) g/dL Albumin 3.8 (3.5-5.0) g/dL Urine Color Yellow Urine Appearance Turbid Urine pH 5.5 (5.0-9.0) Ur Specific [place] 1.010 (1.005-1.025) Urine Protein 30 (1+) H (Neg-Trace) mg/dL Urine Glucose (UA) Negative (Negative) mg/dL Urine Ketones Negative (Negative) mg/dL Urine Blood Trace H (Negative) Urine Nitrite Negative (Negative) Ur Leukocyte Esterase Large (3+) H (Negative) Urine RBC 6-10 H (0-2) /HPF Urine WBC >50 H (0-5) /HPF Ur Squamous Epith Cells 3-5 (0-2) /HPF Calcium Oxalate Crystal Present Other Crystals Present Urine Bacteria None Seen (None Seen) Hyaline Casts >20 (0-2) /LPF Influenza Type A (PCR) NEGATIVE (Negative) Influenza Type B (PCR) NEGATIVE (Negative) RSV RNA Qual (PCR) NEGATIVE (Negative) SARS-CoV-2 RNA (RT-PCR) NEGATIVE (Negative) Independent Interpretation I performed an independent interpretation of an: EKG Interpretation: Normal sinus rhythm rate [address]-T changes Radiology Impression Discussion of test interpretation with radiology: I have reviewed the radiologist's reading. Independent Historian Clinical information obtained from an independent historian. History obtained from or confirmed by: EMS External Record Review External record reviewed: Inpatient record Chronic Conditions Patient?s care impacted by: Diabetes and Hypertension Discharge Plan Discharge Clinical Impression: Near syncope, Acute hypokalemia, YENNIFER (acute kidney injury), Acute UTI Hypertension Qualifiers: Hypertension type: unspecified Qualified Code(s): I10 - Essential (primary) hypertension Patient Disposition: Admitted As Inpatient Print Language: Urdu
[2024-06-25 11:00] LABS: MANUAL DIFF FLAG NO
[2024-06-25 11:01] LABS: Basophils Percent Auto 0.6 % (0-2); Eosinophils Absolute Auto 0.1 X10*3/uL (0.0-0.4); Eosinophils Percent Auto 2.8 % (0-4); Hematocrit 35.2 % (37.0-47.0); Hemoglobin 12.8 g/dl (12.0-16.0); Imm Gran Abs Auto 0.03 X10*3/uL (0.00-0.03); Imm Gran Pct Auto 0.6 % (0.0-0.4); Lymphocytes Absolute Auto 1.2 X10*3/uL (1.2-4.9); Mean Corpuscular HGB Conc 36.4 g/dl (31.0-35.0); Mean Corpuscular Hemoglobin 32.5 pg (27.0-33.0); Mean Corpuscular Volume 89.3 fL (80.0-98.0); Mean Platelet Volume 9.1 fL (9.4-12.3); Monocytes Absolute Auto 0.4 X10*3/uL (0.1-1.2); Monocytes Percent Auto 7.9 % (2-11); Neutrophils Absolute Auto 2.9 x10*3/uL (2.0-8.3); Neutrophils Percent Auto 62.1 % (45-73); Platelet Count 127 X10*3/uL (160-400); Red Blood Count 3.94 X10*6/uL (4.20-5.50); Red Cell Distribution Width 12.1 % (11.0-16.0); White Blood Count 4.7 X10*3/uL (4.8-10.8)
[2024-06-25 11:21] LABS: Alanine Aminotransferase 22 U/L (0-31); Albumin Level 3.8 g/dL (3.5-5.0); Alkaline Phosphatase 83 U/L (39-117); Anion Gap 14 (12-20); Aspartate Amino Transferase 21 U/L (5-31); Bilirubin Total 0.8 mg/dL (0.0-1.0); Blood Urea Nitrogen 27 mg/dL (9-16); Calcium 9.5 mg/dL (8.4-10.2); Carbon Dioxide 23 mmol/L (22-29); Chloride 110 mmol/L (96-108); Creatinine Clr Calc Pharmacy 14.9; Estimated Glomerular Filt Rate 21; Glucose Random 126 mg/dL (60-115); Sodium 144 mmol/L (135-145); Total Protein 6.3 g/dL (6.5-8.0)
[2024-06-25] MEDS: 0.9 % Sodium Chloride 1,000 ML 999 ML IVCONT (11:21)
[2024-06-25 11:22] LABS: Potassium 2.8 mmol/L (3.3-5.1)
[2024-06-25 11:26] LABS: Troponin-I High Sensitivity 16.4 ng/L (<3.5-17.0)
[2024-06-25] MEDS: Potassium Chloride ER 20 MEQ TAB.ER.PRT 40 MEQ PO ×2 (11:41→16:46)
[2024-06-25 11:51] LABS: Influenza A PCR NEGATIVE (Negative); Influenza B PCR NEGATIVE (Negative); Resp Syncy Virus RNA Qual PCR NEGATIVE (Negative); SARS COV2 PCR INHOUSE NEGATIVE (Negative)
[2024-06-25] MEDS: amLODIPine Besylate 5 MG TABLET PO ×2 (12:26→16:46)
--- NOTE | 2024-06-25 12:26 | P.HPHOSP_ITS ---
History of Present Illness Date of Service: 06/25/24 Attending physician on admission: [facility] Chief Complaint: Generalized weakness Pt is an 83-year-old female with a PMH significant for?HTN not on home meds, poorly controlled insulin-dependent type 2 diabetes, hypothyroidism, and chronic thrombocytopenia who presents to the ED with?generalized weakness and lightheadedness. Patient reports she awoke this morning and felt lightheaded and weak when she went to get out of bed to use the bathroom. Called out to her grandson for help to get back into bed, and he then called EMS to bring her to the ED for further evaluation. No syncope, LOC, or fall. Patient denies any other acute medical complaints. States has been in her normal state of health up until this morning: Denies recent illness, no nausea, vomiting, diarrhea. No chest pain/pressure, palpitations. Denies fever, chills, abdominal pain. No shortness a breath or difficulty breathing. Denies headache. No polyuria or dysuria. In the ED pt was hypertensive up to 225/86 vitals otherwise stable and WNL. Labs were significant for thrombocytopenia of 127, potassium 2.8, BUN 27, and creatinine 2.23 (elevated from 1.91 on 03/24). UA positive for UTI. Tested negative for flu, COVID, RSV. CXR showed no acute cardiopulmonary disease. EKG demonstrated normal sinus rhythm with sinus arrhythmia. Pt was treated with IVF, potassium chloride, and amlodipine. Pt will be admitted to the hospital for treatment and further evaluation of hypertensive urgency, YENNIFER, hypokalemia, and generalized weakness in the setting of UTI. Review of Systems 2 Review of Systems: Yes all other systems are reviewed and are negative [facility] Medical History Hypothyroidism History of ovarian cancer Generalized weakness Gallbladder & bile duct stone with obstruction Diabetes Surgical History H/O: hysterectomy Social History Household Members: Children Housing: House Do you presently have visiting nurse or other home services: No Alcohol intake: former Patient Tobacco Use Status: Former Tobacco user Smoked in Last 30 Days: No Use of substances other than those prescribed or required for medical reasons: No Advance Directives: Yes Advance Directives on File: Yes Advance Directives Date on File: 05/08/23 Do you have a plan to hurt others: No Plan Nutrition Risks: No Nutritional Risk service: No Meds Allergies Allergy/AdvReac Type Severity Reaction Status Date / Time No Known Allergies Allergy Verified 06/25/24 10:15 Home Medications ?Medication ?Instructions ?Recorded ?Confirmed ?Last Taken ?Type glipizide 5 mg tablet 10 mg PO BID 05/07/23 06/25/24 06/24/24 History levothyroxine 50 mcg tablet 50 mcg PO DAILY 05/07/23 06/25/24 06/24/24 History multivitamin 1 tab PO DAILY 05/07/23 06/25/24 06/24/24 History insulin NPH-regular 70-30 U-100 15 unit subcut BEDTIME@1700 PRN 06/25/24 06/25/24 Unknown History insulin 100 unit/mL subcutaneous Hyperglycemia pen (Humulin 70/30 U-100 KwikPen) insulin NPH-regular 70-30 U-100 20 unit subcut DAILY PRN 06/25/24 06/25/24 Unknown History insulin 100 unit/mL subcutaneous Hyperglycemia pen (Humulin 70/30 U-100 KwikPen) Physical Exam 2 Vital Signs and Narrative: Vital Signs: Last Vital Signs Temp 97.6 F 06/25/24 11:19 Pulse 75 06/25/24 11:19 Resp 14 06/25/24 11:19 BP 192/87 H 06/25/24 11:19 Pulse Ox 100 06/25/24 11:19 O2 Del Method Room Air 06/25/24 11:19 BMI result Body Mass Index 23.4 General: AOx3, no acute distress Resp: CTA bilaterally CVS: S1, S2, RRR GI: +BS, NT, no distention Skin: Warm, dry Neuro: Cranial nerves II-XII grossly intact bilaterally. Motor grossly intact bilaterally Extremities: No edema Psych: Appropriate affect Results Labs 06/26/24 04:31 06/26/24 04:31 Labs: Laboratory Results - last 24 hr 06/25/24 10:52 MCV 89.3 MCH 32.5 MCHC 36.4 H RDW 12.1 Plt Count 127 L MPV 9.1 L Immature Gran % (Auto) 0.6 H Neut % (Auto) 62.1 Lymph % (Auto) 26.0 [place] % (Auto) 7.9 Eos % (Auto) 2.8 Baso % (Auto) 0.6 Lymph # (Auto) 1.2 [place] # (Auto) 0.4 Eos # (Auto) 0.1 Baso # (Auto) 0.0 Abs Immat Gran (auto) 0.03 Absolute Neuts (auto) 2.9 Absolute Nucleated RBC 0.000 Nucleated RBC % (auto) 0.0 Anion Gap 14 Estim Creat Clear Calc 14.9 Estimated GFR 21 Random Glucose 126 H Calcium 9.5 D Total Bilirubin 0.8 AST 21 ALT 22 Alkaline Phosphatase 83 Troponin I High Sens 16.4 D Total Protein 6.3 L Albumin 3.8 Influenza Type A (PCR) NEGATIVE Influenza Type B (PCR) NEGATIVE RSV RNA Qual (PCR) NEGATIVE SARS-CoV-2 RNA (RT-PCR) NEGATIVE Assessment and Plan (1) Acute UTI: Status: Acute (2) YENNIFER (acute kidney injury): Status: Acute (3) Acute hypokalemia: Status: Acute (4) Hypertensive urgency: Status: Acute Plan Pt is an 83-year-old female with a PMH significant for?HTN not on home meds, poorly controlled insulin-dependent type 2 diabetes, hypothyroidism, and chronic thrombocytopenia who presents to the ED with?generalized weakness and lightheadedness. Pt will be admitted to the hospital for treatment and further evaluation of hypertensive urgency, YENNIFER, hypokalemia, and generalized weakness in the setting of UTI. YENNIFER Creatinine 2.23, elevated from 1.91 on 03/24/24 Likely in the setting of hypovolemia Pt received IVF in the ED Will place on maintenance fluids x1L Renal doppler US Follow BMP Hypokalemia Potassium 2.8 at time of presentation Received 40 mEq p.o. in the ED Will treat with 40 mEq p.o. q.6 Check Mag Trend labs Continuous cardiac monitoring Hypertensive urgency BP as high as 225/86 Given amlodipine 5 mg in the ED, currently 170/70 Patient not previously on antihypertensives Will continue amlodipine 5 mg daily UTI No sepsis: No fever, tachycardia, tachypnea, or leukocytosis Will treat with ceftriaxone, started 06/25/2024 Follow urine cultures Lightheadedness, generalized weakness Sudden-onset this morning, no LOC or fall In the setting of UTI Treat as above PT consult Insulin-dependent type 2 diabetes Poorly controlled Pt only checks POC every other day or so Last A1c 11.4 in March Sliding scale insulin, diabetic diet Continue glipizide Re-check A1c Hypothyroidism Continue levothyroxine Full Code Attending:?Dr. Kamara DVT Prophylaxis: Heparin Pt will require a hospitalization of at least two nights for treatment of?YENNIFER, hypokalemia, hypertensive urgency, and generalized weakness in the setting of UTI. Patient require administration IV antibiotics, IVF, potassium supplementation, and close monitoring labs and vital signs. Quality Stroke Does the patient have a stroke diagnosis?: No VTE Prior VTE?: No VTE Risk Level:: Medical - moderate - high VTE Device Contraindication: Treatment Not Indicated VTE Drug Contraindication: N/A - Med Ordered
[2024-06-25 12:34] LABS: Appearance Urine Turbid; Color Urine Yellow; Glucose Urine UA Negative (Negative); Leukocyte Esterase Urine Large (3+) (Negative); Nitrite Urine Negative (Negative); PH 5.5 (5.0-9.0); UMIC TRIGGER UACC YES; Urine Blood Trace (Negative); Urine Ketones Negative (Negative); Urine Protein 30 (1+) mg/dL (Neg-Trace)
[2024-06-25 12:42] LABS: Bacteria Urine None Seen (None Seen); Calcium Oxalate Crystals Urine Present; Hyaline Casts Urine >20 /LPF (0-2); Other Crystals Urine Present; UACC Culture Trigger YES; WBC Urine >50 /HPF (0-5)
--- NOTE | 2024-06-25 13:26 | PHA.MEDREC ---
Addendum entered by Walter Best 06/25/24 13:45: reviewed Original Note: Pharmacy Consult ? Medication Reconciliation Pharmacy has completed the medication reconciliation. Spoke to patient to confirm med list. Patient seemed a little confused on what medication she takes. she was able to confirm she takes glipizide 10 mg. patient said she does take Humulin insulin, however she doesn't know how many units she inject because she does per sliding scale, claims states Humulin 70/30 U-100 kwikPen 20 units QAM and 15 units QPM last filled 04/07/24 for 30 days. Patient says she thinks she is on levothyroxine 50 mg. last fill date was 03/23/24 for 90 days. Tried to call patients dre Vargas to confirm med list, however phone goes straight to voicemail with multiple attempts . Utilized claims to confirm med list.
[2024-06-25 14:01] LABS: Estimated Average Glucose 209 mg/dL; Hemoglobin A1C 245.8893 umol/L; Hemoglobin A1c % 8.9 % (<6.0); Total Hemoglobin (HGBA1C) 3356.2691 umol/L
--- NOTE | 2024-06-25 14:10 | MHC.CM.PN ---
IMM 06/25. Pt self-care, lives at home with her grandson who will transport her home. HCP on file and verified. PCP: Dr. Gianluca Betancur
--- NOTE | 2024-06-25 14:10 | PC.NURSE ---
Infiltration of NS 200mL IVF to RAC IV placed by ems. IV d/c dsd applied and warm pack applied to site.
--- NOTE | 2024-06-25 14:12 | PC.NURSE ---
Patient grandson stated over phone he has had some conerns for UTI and she has been more forgetful for last couple months.
[2024-06-25] MEDS: Heparin Sodium,Porcine 5,000 UNIT/ML VIAL 5000 UNIT SUBCUT (14:20)
[2024-06-25] MEDS: cefTRIAXone sodium 1 GM VIAL IVPUSH (14:20)
[2024-06-25 14:27] LABS: Magnesium 2.1 mg/dL (1.6-2.6)
--- NOTE | 2024-06-25 15:57 | PC.NURSE ---
U/S at bedside at this time
[2024-06-25 16:44] LABS: Glucose, Whole Blood 151 mg/dL (60-115)
[2024-06-25 16:45] LABS: Potassium 3.4 mmol/L (3.3-5.1)
[2024-06-25] MEDS: 0.9 % Sodium Chloride Flush 3 ML SYRINGE IVFLUSH (16:50)
--- NOTE | 2024-06-25 19:02 | PC.NURSE ---
report received from Rossana HOLT, assume care of pt at this time
--- NOTE | 2024-06-25 20:20 | PC.NURSE ---
Dr Oshea aware of BP
[2024-06-25] MEDS: glipiZIDE 10 MG TABLET PO (20:24)
[2024-06-25 20:25] LABS: Glucose, Whole Blood 309 mg/dL (60-115)
[2024-06-25] MEDS: Insulin Lispro 100 UNIT/ML 3 ML VIAL SUBCUT (20:27)
[2024-06-25] MEDS: hydrALAZINE HCl 20 MG/ML VIAL 10 MG IVPUSH (21:34)
[2024-06-26] MEDS: Heparin Sodium,Porcine 5,000 UNIT/ML VIAL 5000 UNIT SUBCUT ×2 (01:43→13:30)
--- NOTE | 2024-06-26 03:12 | PC.NURSE ---
pt resting quietly in bed, with eyes closed, resp with ease, will cont plan of care
[2024-06-26 04:56] LABS: Hematocrit 32.8 % (37.0-47.0); Hemoglobin 11.8 g/dl (12.0-16.0); Mean Corpuscular Hemoglobin 32.8 pg (27.0-33.0); Mean Corpuscular Volume 91.1 fL (80.0-98.0); Mean Platelet Volume 9.3 fL (9.4-12.3); Platelet Count 138 X10*3/uL (160-400); Red Cell Distribution Width 12.4 % (11.0-16.0); White Blood Count 5.3 X10*3/uL (4.8-10.8)
[2024-06-26 05:11] LABS: Anion Gap 14 (12-20); Blood Urea Nitrogen 27 mg/dL (9-16); Calcium 8.7 mg/dL (8.4-10.2); Carbon Dioxide 20 mmol/L (22-29); Chloride 114 mmol/L (96-108); Creatinine Clr Calc Pharmacy 16.3; Estimated Glomerular Filt Rate 24; Glucose Random 218 mg/dL (60-115); Potassium 3.7 mmol/L (3.3-5.1); Sodium 144 mmol/L (135-145)
[2024-06-26 06:24] VITALS: BP 158/70; PULSE 72; RESP 16; TEMP 36.7; O2SAT 98
--- NOTE | 2024-06-26 07:18 | PC.NURSE ---
report given to Kell HOLT
[2024-06-26 07:32] VITALS: BP 158/70; PULSE 72; O2SAT 98
[2024-06-26 07:53] LABS: Glucose, Whole Blood 203 mg/dL (60-115)
--- NOTE | 2024-06-26 07:55 | P.PNIM_ITS ---
Subjective Subjective Date of Service: 06/26/24 Interval History: f/u on uti, yennifer, weakness and hyperglyemia interval history:Overall is feeling better today Physical Exam 2 Vital Signs: Vital Signs: Last Vital Signs Temp 98.0 F 06/26/24 06:24 Pulse 72 06/26/24 07:32 Resp 16 06/26/24 06:24 BP 158/70 H 06/26/24 07:32 Pulse Ox 98 06/26/24 07:32 O2 Del Method Room Air 06/26/24 06:24 BMI result Body Mass Index 23.4 Const: Other: General: AO X 3, no acute distress Resp: CTA bilateral CVS: S1,S2,RRR GI: +BS, NT, no distention Skin: No rash Neuro: motor grossly intact Psych: appropriate affect Objective Data Active Medications Acetaminophen (Acetaminophen 325 Mg Tablet) 650 mg PO Q6H PRN PRN Reason: Pain, Mild (Pain Scale 1-3), fever or headache Amlodipine Besylate (Amlodipine Besylate 5 Mg Tablet) 5 mg PO DAILY [facility]; Protocol Benzonatate (Benzonatate 100 Mg Capsule) 100 mg PO TID PRN PRN Reason: Cough Calcium Carbonate (Calcium Carbonate 750 Mg Tab.Chew) 750 mg PO Q4H PRN PRN Reason: Heartburn Ceftriaxone Sodium (Ceftriaxone Sodium 1 Gm Vial) 1 gm IVPUSH Q24H [facility] Last Admin: 06/25/24 14:20 Dose: 1 gm Documented By: KELSEA Glipizide (Glipizide 10 Mg Tablet) 10 mg PO BID [facility] Last Admin: 06/25/24 20:24 Dose: 10 mg Documented By: JENNIFER Glucose (Glucose Gel 15 Gm Gel..Gram.) 15 gm PO Q15M PRN; Protocol PRN Reason: per Hypoglycemia Standing Ord. Heparin Sodium (Porcine) (Heparin Sodium,Porcine 5,000 Unit/Ml Vial) 5,000 unit SUBCUT Q12H [facility] Last Admin: 06/26/24 01:43 Dose: 5,000 unit Documented By: JENNIFER Dextrose (D10) 250 mls @ 750 mls/hr IV Q15M PRN; Protocol PRN Reason: per Hypoglycemia Standing Ord. Insulin Human Lispro (Insulin Lispro 100 Unit/Ml 3 Ml Vial) 0 unit SUBCUT QIDACHS [facility]; Protocol Last Admin: 06/25/24 20:27 Dose: 8 unit Documented By: JENNIFER Levothyroxine Sodium (Levothyroxine Sodium 50 Mcg Tablet) 50 mcg PO DAILY@0600 [facility] Magnesium Hydroxide (Milk Of Magnesia 30 Ml Oral.Susp) 30 ml PO DAILY PRN PRN Reason: Constipation Melatonin (Melatonin 3 Mg Tablet) 6 mg PO BEDTIME PRN PRN Reason: Insomnia Multivitamins/Vitamin C (Multivitamin Tablet) 1 tab PO DAILY [facility] Ondansetron HCl (Ondansetron Hcl 4 Mg/2 Ml Vial) 4 mg IVPUSH Q8H PRN PRN Reason: Nausea and Vomiting Sodium Chloride (0.9 % Sodium Chloride Flush 3 Ml Syringe) 3 ml IVFLUSH QSHIFT [facility] Last Admin: 06/26/24 07:45 Dose: Not Given Documented By: YADI Non-Admin Reason: Previously Administered Labs 06/26/24 04:31 06/26/24 04:31 Labs: Laboratory Results - last 24 hr 06/25/24 06/25/24 06/25/24 10:52 12:26 16:39 MCV 89.3 MCH 32.5 MCHC 36.4 H RDW 12.1 Plt Count 127 L MPV 9.1 L Immature Gran % (Auto) 0.6 H Neut % (Auto) 62.1 Lymph % (Auto) 26.0 [place] % (Auto) 7.9 Eos % (Auto) 2.8 Baso % (Auto) 0.6 Lymph # (Auto) 1.2 [place] # (Auto) 0.4 Eos # (Auto) 0.1 Baso # (Auto) 0.0 Abs Immat Gran (auto) 0.03 Absolute Neuts (auto) 2.9 Absolute Nucleated RBC 0.000 Nucleated RBC % (auto) 0.0 Anion Gap 14 Estim Creat Clear Calc 14.9 Estimated GFR 21 POC Glucose 151 H Random Glucose 126 H Estimat Average Glucose 209 Hemoglobin A1c % 8.9 H Calcium 9.5 D Magnesium 2.1 Total Bilirubin 0.8 AST 21 ALT 22 Alkaline Phosphatase 83 Troponin I High Sens 16.4 D Total Protein 6.3 L Albumin 3.8 Urine Color Yellow Urine Appearance Turbid Urine pH 5.5 Ur Specific [place] 1.010 Urine Protein 30 (1+) H Urine Glucose (UA) Negative Urine Ketones Negative Urine Blood Trace H Urine Nitrite Negative Ur Leukocyte Esterase Large (3+) H Urine RBC 6-10 H Urine WBC >50 H Ur Squamous Epith Cells 3-5 Calcium Oxalate Crystal Present Other Crystals Present Urine Bacteria None Seen Hyaline Casts >20 Influenza Type A (PCR) NEGATIVE Influenza Type B (PCR) NEGATIVE RSV RNA Qual (PCR) NEGATIVE SARS-CoV-2 RNA (RT-PCR) NEGATIVE 06/25/24 06/26/24 06/26/24 20:20 04:31 07:50 MCV 91.1 MCH 32.8 MCHC 36.0 H RDW 12.4 Plt Count 138 L MPV 9.3 L Immature Gran % (Auto) Neut % (Auto) Lymph % (Auto) [place] % (Auto) Eos % (Auto) Baso % (Auto) Lymph # (Auto) [place] # (Auto) Eos # (Auto) Baso # (Auto) Abs Immat Gran (auto) Absolute Neuts (auto) Absolute Nucleated RBC 0.000 Nucleated RBC % (auto) 0.0 Anion Gap 14 Estim Creat Clear Calc 16.3 Estimated GFR 24 POC Glucose 309 H 203 H Random Glucose 218 H Estimat Average Glucose Hemoglobin A1c % Calcium 8.7 D Magnesium Total Bilirubin AST ALT Alkaline Phosphatase Troponin I High Sens Total Protein Albumin Urine Color Urine Appearance Urine pH Ur Specific [place] Urine Protein Urine Glucose (UA) Urine Ketones Urine Blood Urine Nitrite Ur Leukocyte Esterase Urine RBC Urine WBC Ur Squamous Epith Cells Calcium Oxalate Crystal Other Crystals Urine Bacteria Hyaline Casts Influenza Type A (PCR) Influenza Type B (PCR) RSV RNA Qual (PCR) SARS-CoV-2 RNA (RT-PCR) Assessment and Plan (1) Hypertensive urgency: Status: Acute (2) Acute UTI: Status: Acute (3) YENNIFER (acute kidney injury): Status: Acute Plan 83/F PMH significant for?HTN, , poorly controlled insulin-dependent type 2 diabetes, hypothyroidism, and chronic thrombocytopenia who presents to the ED with?generalized weakness and lightheadedness, found to have HTN ugency, YENNIFER, hypokalemia, UTI and gen weakness YENNIFER on CKD, slightly better with IVF, Cr 2.23--> 2.03 -renal US -IVF -Nephrology consult Hypokalemia, resolved with oral replacement Hypertensive urgency, BP as high as 225/86 -much better - avoid rapid lowering -continue Norvasc 5 and adjust as needed UTI--culture pending -Ceftriaxine started 06/25 Lightheadedness, generalized weakness, likely related to elevated BP, UTI -PT eval and treatment of underlying issues Insulin-dependent type 2 diabetes with hyperglycemia, Hgb A1C = 8.9 -Glipizide 5 bid (10 bid at home) -SSI -diabetic diet Hypothyroidism -levothyroxine Full Code DVT Prophylaxis: Heparin Pt recommends home with services Quality Stroke Does the patient have a stroke diagnosis?: No VTE Prior VTE?: No VTE Risk Level:: Medical - moderate - high VTE Device Contraindication: Treatment Not Indicated VTE Drug Contraindication: N/A - Med Ordered
[2024-06-26] MEDS: Insulin Lispro 100 UNIT/ML 3 ML VIAL SUBCUT ×4 (08:03→21:16)
[2024-06-26] MEDS: amLODIPine Besylate 5 MG TABLET PO ×2 (08:37→15:48)
[2024-06-26] MEDS: Multivitamin TABLET 1 TAB PO (08:37)
--- NOTE | 2024-06-26 08:45 | PC.NURSE ---
Awaiting 09:00 Synthroid and Glipizide per pharmacy at this time.
--- NOTE | 2024-06-26 09:34 | PM.CNNEP ---
History of Present Illness Reason for Consult Consult date: 06/26/24 Chief Complaint Chief complaint: Hypertensive urgency, YENNIFER, hypokalemia, UTI History of Present Illness Narrative: 83 y/o female with untreated HTN, poorly controlled DMII, hypothyroidism, chronic thrombocytopenia in the ED 06/25 for episode of lightheadedness/weakness getting up to the bathroom at home (grandson with whom she lives called EMS). patient states today she felt fine and states her son called EMS but she felt she didn't need to come and still feels herself; though notes she thinks she was a bit dehydrated prior to going to the hospital. blood pressure in the ED was 225/86 on arrival, UA consistent with UTI, lab work showed YENNIFER, potassium 2.8 patient does have baseline chronic kidney disease, states she does not see a air quality technician outside of the hospital potassium has normalized wtih repletion blood pressure has come down to 158/70 this a.m. with 5mg amlodipine PO daily creatinine 2.23 on arrival (last creatinine on 03/24 was 1.91). Today creatinine 2.03 she is on abx for UTI treatment she denies chest pain, dizziness, shortness of breath she denies flank pain, pain with urination, difficulty emptying bladder, blood in urine denies lower extremity swelling she states she feels otherwise well and denies concerns. Review of Systems Constitutional: Reports no additional constitutional complaints and Denies headache(s) Denies dizziness and Denies headache(s) Cardiovascular: Denies chest pain and Denies dyspnea Respiratory: Denies dyspnea Gastrointestinal: Denies abdominal pain, Denies diarrhea and Denies vomiting Genitourinary: Denies hematuria, Denies difficulty voiding, Denies dysuria and Denies flank pain Musculoskeletal: Denies back pain Skin/Breast: Denies rash Denies dizziness and Denies headache(s) [facility] Past Medical History Medical History Hypothyroidism History of ovarian cancer Generalized weakness Gallbladder & bile duct stone with obstruction Diabetes Surgical History Surgical History H/O: hysterectomy Social History Social History Household Members: Other Household Members Other:: Grandson. Housing: House Do you presently have visiting nurse or other home services: No Alcohol intake: former Patient Tobacco Use Status: Former Tobacco user Advance Directives Date on File: 05/08/23 service: No Meds Allergies Allergy/AdvReac Type Severity Reaction Status Date / Time No Known Allergies Allergy Verified 06/25/24 10:15 Active Medications: Current Medications Acetaminophen (Acetaminophen 325 Mg Tablet) 650 mg PO Q6H PRN PRN Reason: Pain, Mild (Pain Scale 1-3), fever or headache Amlodipine Besylate (Amlodipine Besylate 5 Mg Tablet) 5 mg PO DAILY [facility]; Protocol Last Admin: 06/26/24 08:37 Dose: 5 mg Benzonatate (Benzonatate 100 Mg Capsule) 100 mg PO TID PRN PRN Reason: Cough Calcium Carbonate (Calcium Carbonate 750 Mg Tab.Chew) 750 mg PO Q4H PRN PRN Reason: Heartburn Ceftriaxone Sodium (Ceftriaxone Sodium 1 Gm Vial) 1 gm IVPUSH Q24H [facility] Last Admin: 06/25/24 14:20 Dose: 1 gm Glipizide (Glipizide 5 Mg Tablet) 5 mg PO BID [facility] Glucose (Glucose Gel 15 Gm Gel..Gram.) 15 gm PO Q15M PRN; Protocol PRN Reason: per Hypoglycemia Standing Ord. Heparin Sodium (Porcine) (Heparin Sodium,Porcine 5,000 Unit/Ml Vial) 5,000 unit SUBCUT Q12H [facility] Last Admin: 06/26/24 01:43 Dose: 5,000 unit Dextrose (D10) 250 mls @ 750 mls/hr IV Q15M PRN; Protocol PRN Reason: per Hypoglycemia Standing Ord. Insulin Human Lispro (Insulin Lispro 100 Unit/Ml 3 Ml Vial) 0 unit SUBCUT QIDACHS [facility]; Protocol Last Admin: 06/26/24 08:03 Dose: 4 unit Levothyroxine Sodium (Levothyroxine Sodium 50 Mcg Tablet) 50 mcg PO DAILY@0600 [facility] Magnesium Hydroxide (Milk Of Magnesia 30 Ml Oral.Susp) 30 ml PO DAILY PRN PRN Reason: Constipation Melatonin (Melatonin 3 Mg Tablet) 6 mg PO BEDTIME PRN PRN Reason: Insomnia Multivitamins/Vitamin C (Multivitamin Tablet) 1 tab PO DAILY [facility] Last Admin: 06/26/24 08:37 Dose: 1 tab Ondansetron HCl (Ondansetron Hcl 4 Mg/2 Ml Vial) 4 mg IVPUSH Q8H PRN PRN Reason: Nausea and Vomiting Sodium Chloride (0.9 % Sodium Chloride Flush 3 Ml Syringe) [facility] Admin: 06/26/24 07:45 Dose: Not Given Home Medications ?Medication ?Instructions ?Recorded ?Confirmed ?Last Taken ?Type glipizide 5 mg tablet 10 mg PO BID 05/07/23 06/25/24 06/24/24 History levothyroxine 50 mcg tablet 50 mcg PO DAILY 05/07/23 06/25/24 06/24/24 History multivitamin 1 tab PO DAILY 05/07/23 06/25/24 06/24/24 History insulin NPH-regular 70-30 U-100 15 unit subcut BEDTIME@1700 PRN 06/25/24 06/25/24 Unknown History insulin 100 unit/mL subcutaneous Hyperglycemia pen (Humulin 70/30 U-100 KwikPen) insulin NPH-regular 70-30 U-100 20 unit subcut DAILY PRN 06/25/24 06/25/24 Unknown History insulin 100 unit/mL subcutaneous Hyperglycemia pen (Humulin 70/30 U-100 KwikPen) Physical Exam Vital Signs: Last Vital Signs Temp 98.0 F 06/26/24 06:24 Pulse 72 06/26/24 07:32 Resp 16 06/26/24 06:24 BP 158/70 H 06/26/24 07:32 Pulse Ox 98 06/26/24 07:32 O2 Del Method Room Air 06/26/24 06:24 BMI result Body Mass Index 23.4 Const General: comfortable and no acute distress Orientation/consciousness: oriented to person, oriented to place and oriented to time Neck Neck: Yes no JVD Resp Effort & Inspection: able to speak in complete sentences Auscultation: clear to auscultation bilaterally Cardio Jugular venous distension: no JVD Rate: regular rate Rhythm: regular rhythm Heart sounds: S1 normal heart sound present, S2 normal heart sound present and Murmur heart sound present GI Palpation (GI): Soft to palpation Rectal Exam - Female: No tenderness General: Yes no CVA tenderness Back/Spine/Pelvis Back: no CVA tenderness Skin Rashes: no rashes (brownish venous stasis skin discoloration of anterior lower extremities) Neuro General: oriented to person, oriented to place and oriented to time Extrem General: Yes normal to inspection, No edema and No pedal edema Results Lab Results 06/26/24 04:31 06/26/24 04:31 Lab results: Chemistry 06/25/24 06/25/24 06/26/24 10:52 16:16 04:31 Sodium 144 144 Potassium 2.8 L* D 3.4 D 3.7 Carbon Dioxide 23 20 L BUN 27 H 27 H Creatinine 2.23 H 2.03 H Calcium 9.5 D 8.7 D Hematology 06/25/24 06/26/24 10:52 04:31 WBC 4.7 L 5.3 Hgb 12.8 11.8 L Plt Count 127 L 138 L Urinalysis 06/25/24 12:26 Urine Color Yellow Urine Appearance Turbid Urine pH 5.5 Ur Specific [place] 1.010 Urine Protein 30 (1+) H Urine Glucose (UA) Negative Urine Ketones Negative Urine Blood Trace H Urine Nitrite Negative Ur Leukocyte Esterase Large (3+) H Urine RBC 6-10 H Urine WBC >50 H Ur Squamous Epith Cells 3-5 Hyaline Casts >20 Assessment and Plan (1) Hypertensive urgency: Status: Acute (2) YENNIFER (acute kidney injury): Status: Acute (3) Acute UTI: Status: Acute (4) CKD stage 3b, GFR 30-44 ml/min: Status: Acute Plan YENNIFER on CKD most likely tubular injury, unlikely thrombotic microangiopathy had not been on any HTN medications will benefit from doppler of renal arteries if BP is not getting better For blood pressure control add extra 5mg amlodipine today (in addition to 5mg given already). Will start 10mg amlodipine daily tomorrow a.m. renal US pending Will check serum and urine immunofixation rule out paraproteinemia Will check parathyroid hormone level and vitamin D will take some time for creatinine to settle if BP improving and creatinine stabilized/trending down, can discharge from renal standpoint with outpatient nephrology follow up within following few weeks. Discussed with Dr Jayjay Hurst Date of Service Date of Service: 06/26/24
[2024-06-26] MEDS: glipiZIDE 5 MG TABLET PO ×2 (10:08→21:16)
[2024-06-26] MEDS: Levothyroxine Sodium 50 MCG TABLET PO (10:08)
--- NOTE | 2024-06-26 11:00 | MHC.CM.PN ---
PT eval rec home services, CM met with Pt. to ask her choice of VNA, she did not have one, so referral in to [facility].
[2024-06-26 11:47] LABS: Glucose, Whole Blood 158 mg/dL (60-115)
--- NOTE | 2024-06-26 12:07 | PC.NURSE ---
Did not give pt.'s dose of 11:30 Lispro because pt.'s lunch tray has not arrived and transport is here to bring her up to [facility]. JONATHON [place] aware- states that pt.'s meal tray is waiting for her upstairs.
[2024-06-26 12:41] VITALS: BP 172/78; PULSE 84; RESP 18; TEMP 36.4; O2SAT 100
[2024-06-26] MEDS: cefTRIAXone sodium 1 GM VIAL IVPUSH (13:30)
[2024-06-26 15:16] VITALS: BP 142/78; PULSE 80; RESP 20; TEMP 36.4; O2SAT 100
[2024-06-26] MEDS: 0.9 % Sodium Chloride Flush 3 ML SYRINGE IVFLUSH (15:49)
[2024-06-26 16:11] LABS: Glucose, Whole Blood 276 mg/dL (60-115)
[2024-06-26 19:38] VITALS: PULSE 87; RESP 20; TEMP 36.4; O2SAT 100
[2024-06-26 19:59] LABS: Glucose, Whole Blood 230 mg/dL (60-115)
[2024-06-26 21:07] VITALS: BP 166/72
[2024-06-27] MEDS: Heparin Sodium,Porcine 5,000 UNIT/ML VIAL 5000 UNIT SUBCUT ×2 (01:04→12:33)
[2024-06-27 04:00] VITALS: BP 146/67; PULSE 79; RESP 16; TEMP 36.4; O2SAT 100
[2024-06-27] MEDS: Levothyroxine Sodium 50 MCG TABLET PO (05:49)
[2024-06-27 07:19] LABS: Anion Gap 13 (12-20); Blood Urea Nitrogen 29 mg/dL (9-16); Calcium 9.2 mg/dL (8.4-10.2); Carbon Dioxide 24 mmol/L (22-29); Chloride 110 mmol/L (96-108); Creatinine Clr Calc Pharmacy 16.2; Estimated Glomerular Filt Rate 23; Glucose Random 234 mg/dL (60-115); Potassium 3.5 mmol/L (3.3-5.1); Sodium 143 mmol/L (135-145)
[2024-06-27 07:29] VITALS: BP 144/65; PULSE 77; RESP 18; TEMP 36.8; O2SAT 97
[2024-06-27 07:53] LABS: Glucose, Whole Blood 222 mg/dL (60-115)
[2024-06-27] MEDS: amLODIPine Besylate 10 MG TABLET PO (08:11)
[2024-06-27] MEDS: 0.9 % Sodium Chloride Flush 3 ML SYRINGE IVFLUSH (08:11)
[2024-06-27] MEDS: Multivitamin TABLET 1 TAB PO (08:11)
[2024-06-27] MEDS: Insulin Lispro 100 UNIT/ML 3 ML VIAL SUBCUT ×2 (08:11→11:43)
[2024-06-27] MEDS: glipiZIDE 5 MG TABLET PO (08:11)
[2024-06-27 08:37] LABS: Parathyroid Hormone Intact 91.3 pg/mL (8.7-77.1)
--- NOTE | 2024-06-27 08:54 | PM.PNNEP ---
Subjective Subjective Date of Service: 06/27/24 Interval history: 83 y/o female with untreated HTN, poorly controlled DMII, hypothyroidism, chronic thrombocytopenia in the ED 06/25 for episode of lightheadedness/weakness getting up to the bathroom at home (grandson with whom she lives called EMS). per pt her son called EMS but she felt ok; notes she was a bit dehydrated prior to going to the hospital. blood pressure in the ED was 225/86 on arrival, UA consistent with UTI, lab work showed YENNIFER, potassium 2.8 amlodipine increased to 10mg daily yesterday, BP this a.m. 144/65 patient does have baseline chronic kidney disease, states she does not see a blindstitch lining feller outside of the hospital renal ultrasound on 06/25 did not suggest renal artery stenosis; renal cortical thinning and increased echogenicity; no obstruction on US. electrolytes within normal limits maxine/urine ummunofixation to rule out paraproteinemia pending; vitamin D pending PTH mildly elevated at 91 blood pressure has come down to 144/65 this a.m. prior to 10mg amlodipine PO daily creatinine 2.23 on arrival (last creatinine on 03/24 was 1.91). yesterday, creatinine 2.03, today stable at 2.06 she is on abx for UTI treatment she denies chest pain, dizziness, shortness of breath she denies flank pain, pain with urination, difficulty emptying bladder, blood in urine denies lower extremity swelling she states she feels otherwise well and denies concerns. Physical Exam Vital Signs: Vital Signs: Last Vital Signs Temp 98.2 F 06/27/24 07:29 Pulse 77 06/27/24 07:29 Resp 18 06/27/24 07:29 BP 144/65 H 06/27/24 07:29 Pulse Ox 97 06/27/24 07:29 O2 Del Method Room Air 06/27/24 07:29 BMI result Body Mass Index 23.4 Const: General: comfortable and no acute distress Orientation/consciousness: oriented to person, oriented to place and oriented to time Neck: Neck: Yes no JVD Resp: Effort & Inspection: able to speak in complete sentences Auscultation: clear to auscultation bilaterally Cardio: Jugular venous distension: no JVD Rate: regular rate Rhythm: regular rhythm Heart sounds: S1 normal heart sound present, S2 normal heart sound present and Murmur heart sound present GI: Palpation (GI): Soft to palpation Rectal Exam - Female: No tenderness : General: Yes no CVA tenderness Back/Spine/Pelvis: Back: no CVA tenderness Skin: Rashes: no rashes (brownish venous stasis skin discoloration of anterior lower extremities) Neuro: General: oriented to person, oriented to place and oriented to time Extrem: General: Yes normal to inspection, No edema and No pedal edema Objective Data Labs 06/26/24 04:31 06/27/24 06:27 Labs: Laboratory Results - last 24 hr 06/26/24 06/26/24 06/26/24 11:43 16:07 19:52 Sodium Potassium Chloride Carbon Dioxide Anion Gap BUN Creatinine Estim Creat Clear Calc Estimated GFR POC Glucose 158 H 276 H 230 H Random Glucose Calcium PTH Intact 06/27/24 06/27/24 06:27 07:27 Sodium 143 Potassium 3.5 Chloride 110 H Carbon Dioxide 24 Anion Gap 13 BUN 29 H Creatinine 2.06 H Estim Creat Clear Calc 16.2 Estimated GFR 23 POC Glucose 222 H Random Glucose 234 H Calcium 9.2 PTH Intact 91.3 H Microbiology Microbiology Results: Microbiology 06/25/24 14:15 Blood - Venous Blood Culture - Preliminary No growth after 24 hours. 06/25/24 14:06 Blood - Venous Blood Culture - Preliminary No growth after 24 hours. 06/25/24 Unknown Urine clean catch - Clean Catch Midstream Urine Culture - Preliminary Culture too young to evaluate. Procedures Date of Service Date of Service: 06/27/24 Assessment & Plan Assessment and plan (1) CKD stage 3b, GFR 30-44 ml/min: Status: Acute (2) YENNIFER (acute kidney injury): Status: Acute (3) Hypertension: Status: Acute Plan YENNIFER on CKD most likely tubular injury, unlikely thrombotic microangiopathy had not been on any HTN medications renal US showed renal cortical thinning and increased echogenicity; no obstructon. No evidence of renal artery stenosis blood pressures improving, recommend continue 10mg PO amlodipine daily serum and urine immunofixation rule out paraproteinemia and vit D levels pending PTH mildly elevated creatinine is stabilizing Patient ok for discharge from renal standpoint; recommend she follow up with outpatient nephrology within following few weeks. Discussed with Dr Ro Time Spent With Patient Time: Total time managing care of this patient today ____ minutes. Progress Note: Quality Stroke Does the patient have a stroke diagnosis?: No
[2024-06-27 09:03] VITALS: BP 144/65; PULSE 77; O2SAT 97
[2024-06-27 11:22] LABS: Glucose, Whole Blood 279 mg/dL (60-115)
--- NOTE | 2024-06-27 11:51 | P.DS_ITS ---
DS: Providers Provider Date of Service: 06/27/24 Date of admission: 06/25/24 13:03 Date of discharge: 06/27/24 Primary care physician: Gianluca Betancur MD Consults: 06/26/24 07:59 Consult to Nephrology Routine Consulting Provider: [facility] Reason for consultation: YENNIFER on CKD DS: Diagnosis Discharge Diagnosis (1) CKD stage 3b, GFR 30-44 ml/min: Status: Acute (2) YENNIFER (acute kidney injury): Status: Acute (3) Hypertension: Status: Acute DS: Summary Hospital Course Hospital Course: 83-year-old female with a PMH significant for?HTN not on home meds, poorly controlled insulin-dependent type 2 diabetes, hypothyroidism, and chronic thrombocytopenia who presents to the ED with?generalized weakness and lightheadedness. Patient reports she awoke this morning and felt lightheaded and weak when she went to get out of bed to use the bathroom. Called out to her grandson for help to get back into bed, and he then called EMS to bring her to the ED for further evaluation. No syncope, LOC, or fall. Patient denies any other acute medical complaints. States has been in her normal state of health up until this morning: Denies recent illness, no nausea, vomiting, diarrhea. No chest pain/pressure, palpitations. Denies fever, chills, abdominal pain. No shortness a breath or difficulty breathing. Denies headache. No polyuria or dysuria. In the ED pt was hypertensive up to 225/86 vitals otherwise stable and WNL. Labs were significant for thrombocytopenia of 127, potassium 2.8, BUN 27, and creatinine 2.23 (elevated from 1.91 on 03/24). UA positive for UTI. Tested negative for flu, COVID, RSV. CXR showed no acute cardiopulmonary disease. EKG demonstrated normal sinus rhythm with sinus arrhythmia. Pt was treated with IVF, potassium chloride, and amlodipine. Pt will be admitted to the hospital for treatment and further evaluation of hypertensive urgency, YENNIFER, hypokalemia, and generalized weakness in the setting of UTI. Hospital course Patient admitted to general medical floor. She received volume repletion with lactated Ringer's and was seen in consultation by renal. Renal ultrasound failed to demonstrate any acute renal artery stenosis. Her blood pressure was controlled with the addition of amlodipine. Her UTI grew out greater than 100,000 colonies; she did receive ceftriaxone in-house and will be completing her therapy with p.o. Ceftin. Renal function has plateaued and renal will follow-up in office as outpatient. At this point in time she is anxious to be discharged and is medically acceptable to do so at this time Time Attestation Discharge Coordination Time (in mins): 35 Quality: Safe Use of Opioids Does Pt have an Active Cancer Diagnosis on the Problem List?: No Quality: Stroke Does the patient have a stroke diagnosis?: No Physical Exam Vital Signs: Vital Signs: Last Vital Signs Temp 98.2 F 06/27/24 07:29 Pulse 77 06/27/24 09:03 Resp 18 06/27/24 07:29 BP 144/65 H 06/27/24 09:03 Pulse Ox 97 06/27/24 09:03 O2 Del Method Room Air 06/27/24 07:29 BMI result Body Mass Index 23.4 Const: Other: Awake alert no acute distress Resp: Other: Clear to auscultation bilaterally no rales rhonchi or wheezes Cardio: Other: No S4; positive S1-S2; no S3 murmurs rubs or gallops GI: Other: Soft nontender nondistended normoactive bowel sounds Extrem: Other: No edema bilaterally DS: Data Data Completed and Pending Labs on day of discharge: Laboratory Results - last 24 hr 06/26/24 06/26/24 06/27/24 16:07 19:52 06:27 Sodium 143 Potassium 3.5 Chloride 110 H Carbon Dioxide 24 Anion Gap 13 BUN 29 H Creatinine 2.06 H Estim Creat Clear Calc 16.2 Estimated GFR 23 POC Glucose 276 H 230 H Random Glucose 234 H Calcium 9.2 PTH Intact 91.3 H 06/27/24 06/27/24 07:27 11:15 Sodium Potassium Chloride Carbon Dioxide Anion Gap BUN Creatinine Estim Creat Clear Calc Estimated GFR POC Glucose 222 H 279 H Random Glucose Calcium PTH Intact Preliminary micro results at discharge 06/25/24 14:15 Blood Culture - Preliminary Blood - Venous No growth after 24 hours. 06/25/24 14:06 Blood Culture - Preliminary Blood - Venous No growth after 24 hours. Discharge Plan Discharge Anticipated Discharge Date/Time: 06/27/24 11:35 Patient Disposition: Home Health Service Discharge Diagnosis: Hypertensive urgency Referrals: Lakshmi GREY [Outside] - 1 Week (HOME SERVICES FOR PHYSICAL THERAPY- A THERAPIST WILL CALL YOU TO SET UP FIRST APPOINTMENT) Gianluca Betancur MD [Primary Care Provider] - 1 Week Discharge Medications: New amlodipine 10 mg Tablet 10 mg PO DAILY Qty: 30 0RF Protocol: Hold for SBP< HOLD for SBP < : 90 cefuroxime axetil 250 mg tablet 250 mg PO BID 7 Days Qty: 14 0RF Continued levothyroxine 50 mcg tablet 50 mcg PO DAILY glipizide 5 mg tablet 10 mg PO BID multivitamin Tablet 1 tab PO DAILY Humulin 70/30 U-100 KwikPen 100 unit/mL (70-30) insulin pen 20 unit subcut DAILY PRN (Reason: Hyperglycemia) Humulin 70/30 U-100 KwikPen 100 unit/mL (70-30) insulin pen 15 unit subcut BEDTIME@1700 PRN (Reason: Hyperglycemia) Discharge Orders: Discharge Order (Routine); Ordered 06/27/24 Ordered By: Jarrett Campo Diet: Advance to usual diet Activity on Discharge: As tolerated Stand Alone Forms: Patient Portal Discharge page Print Language: Uruguayan Care Plan Goals: Continue all previous medications as taken before hospital. Amlodipine 10 mg daily has been added to your regimen Health Concerns: Follow-up with the kidney doctors as outpatient. Dr. Ro's office will call with an appointment. Plan of Treatment: Physical therapy will see you at home; further plans as recommended Assessment: See discharge summary
--- NOTE | 2024-06-27 11:51 | P.F2F_ITS ---
Service Date Service Date: 06/27/24 Encounter Date of encounter: 06/27/24 Reasons for Services Signs and symptoms assessed: Home physical therapy Reason for physical therapy: home safety and mobility, gait/transfer training and ADL training Homebound: Leaving the home is medically contraindicated at this time without the asist of a device and/or another person due th the listed conditions above and below. Reason homebound: unsteady gait / fall risk and unable to drive Certification: Based on the above findings, I certify that this patient is confined to the home and needs intermittent residential care, physical therapy and/or speech therapy, or continues to need occupational therapy. The patient is under my care, and I have initiated the establishment of the plan of care. The patient will be followed by a physician who will periodically review the plan of care. Time Spent With Patient Time: Total time managing care of this patient today ____ minutes.
--- NOTE | 2024-06-27 12:03 | MHC.CM.PN ---
DP: PT HAS BEEN MEDICALLY CLEARED FOR DC HOME WITH NEW [facility]. [facility] NOTIFIED OF TODAY'S DC. FAMILY WILL TRANSPORT HOME.
[2024-06-27] MEDS: cefTRIAXone sodium 1 GM VIAL IVPUSH (12:33)
[2024-07-02 08:48] LABS: IgA 211 mg/dL (70-320); IgG 797 mg/dL (600-1540); IgM 83 mg/dL (50-300)
[2024-07-03 16:42] LABS: VITAMIN D (1,25 OH) D3 36 pg/mL; Vit D (1,25-Dihydroxy) Total 36 pg/mL (18-72); Vitamin D (1,25 OH) D2 <8 pg/mL
== END 2024-06-27 13:53 | disposition home health service (06) | DRG 690 ==
LOC: HO.ED 12:19 → HO.EDOVER 13:19 → HO.S3 06-26 11:00
PROVIDERS: Internal Medicine; Nurse Practitioner Family; Admitting Provider Student in an Organized Health Care Education/Training Program; Emergency Provider Emergency Medicine; PCP Internal Medicine; Visit Provider Hospitalist
DX: N39.0 Urinary tract infection, site not specified (principal); N17.9 Acute kidney failure, unspecified; I12.9 Hypertensive chronic kidney disease with stage 1 through stage 4 chronic kidney disease, or unspecified chronic kidney disease; N18.32 Chronic kidney disease, stage 3b; E03.9 Hypothyroidism, unspecified; E11.65 Type 2 diabetes mellitus with hyperglycemia; I16.0 Hypertensive urgency; D69.6 Thrombocytopenia, unspecified; E11.22 Type 2 diabetes mellitus with diabetic chronic kidney disease; I87.8 Other specified disorders of veins; E87.6 Hypokalemia; Z20.822 Contact with and (suspected) exposure to COVID-19; Z85.43 Personal history of malignant neoplasm of ovary; Z79.4 Long term (current) use of insulin; Z79.84 Long term (current) use of oral hypoglycemic drugs; Z79.890 Hormone replacement therapy; Z79.899 Other long term (current) drug therapy
CPT/HCPCS: 0241U; 36415; 71045; 76775; 80048; 80053; 81001; 82652; 82784; 82947; 83036; 83735; 83970; 84132; 84484; 85025; 85027; 86334; 86335; 87040; 87086; 93005; 93975; 97116; 97162; 99285; J0360; J0696; J1644

== ENCOUNTER → 2024-06-25 10:07 | Outpatient (BNV) | payer MEDICARE, SELFPAY | PROVIDERS: Admitting Provider Student in an Organized Health Care Education/Training Program; Emergency Provider Emergency Medicine; PCP Internal Medicine; Visit Provider Internal Medicine | DX: R55 Syncope and collapse (principal) | CPT/HCPCS: 93010 ==

== ENCOUNTER → 2024-06-25 13:03 | Outpatient (BNV) | payer MEDICARE, SELFPAY | PROVIDERS: Admitting Provider Student in an Organized Health Care Education/Training Program; Emergency Provider Emergency Medicine; PCP Internal Medicine; Visit Provider Nurse Practitioner Family | DX: I16.0 Hypertensive urgency (principal); N17.9 Acute kidney failure, unspecified; N39.0 Urinary tract infection, site not specified; N18.32 Chronic kidney disease, stage 3b | CPT/HCPCS: 99222; 99232 ==

== ENCOUNTER → 2024-06-25 13:03 | Outpatient (BNV) | payer MEDICARE, SELFPAY | PROVIDERS: Admitting Provider Student in an Organized Health Care Education/Training Program; Emergency Provider Emergency Medicine; PCP Internal Medicine; Visit Provider Student in an Organized Health Care Education/Training Program | DX: I16.0 Hypertensive urgency (principal); N39.0 Urinary tract infection, site not specified; N17.9 Acute kidney failure, unspecified; E87.6 Hypokalemia | CPT/HCPCS: 99223; 99232; 99239; G0180 ==

== ENCOUNTER 2024-07-08 16:05 | Outpatient (REF) | payer MEDICARE, SELFPAY ==
[2024-07-08 17:30] LABS: Appearance Urine Cloudy; Color Urine Yellow; Glucose Urine UA Negative (Negative); Leukocyte Esterase Urine Moderate (2+) (Negative); Nitrite Urine Negative (Negative); PH 5.5 (5.0-9.0); UMIC TRIGGER UA YES; Urine Blood Negative (Negative); Urine Ketones Negative (Negative); Urine Protein 30 (1+) mg/dL (Neg-Trace)
[2024-07-08 17:53] LABS: Bacteria Urine None Seen (None Seen); RBC Urine 0-2 /HPF (0-2)
== END 2024-07-08 16:06 | disposition home or self-care (01) ==
LOC: HO.LAB 16:05
PROVIDERS: PCP Internal Medicine; Visit Provider Internal Medicine
DX: R30.0 Dysuria (principal)
CPT/HCPCS: 81001; 81003; 87086

== ENCOUNTER 2024-07-14 11:18 | Inpatient (IN) | payer MEDICARE, SELFPAY ==
[2024-07-14] VITALS (7 sets, daily range): BP systolic 142–213; BP diastolic 56–94; PULSE 74–87; RESP 12–20; TEMP 36–36.8; O2SAT 99–100; BMI 25.5; BMI 23.2
--- NOTE | ~2024-07-14 | CT_ITS ---
EXAMINATION: CT HEAD WITHOUT CONTRAST CLINICAL INFORMATION: Ataxia COMPARISON: None available. TECHNIQUE: Contiguous axial imaging was performed from the skull base to vertex without intravenous administration of contrast. This CT examination was performed using dose optimization techniques as appropriate, variously including the following: *Automated exposure control *Adjustment of mA and/or kV according to patient size (this includes techniques or standardized protocols for targeted exams where dose is matched to indication/reason for exam; i.e. extremities or head) *Use of iterative reconstruction technique DLP: 662 mGy-cm RESULTS: There is no evidence of acute intracranial hemorrhage, acute large vessel infarct, midline shift or mass effect. The rivera-white differentiation is preserved. The ventricles and sulci are within normal limits in size and configuration. There is no evidence of hydrocephalus. There are no extraaxial collections. Osseous structures are intact. Paranasal sinuses and mastoid air cells are well aerated. CT/CT head/brain wo IV con IMPRESSION: Unremarkable non-contrast CT of the brain. Electronically signed by: Regine Muhammad MD 07/17/2024 08:51 AM [facility]
[2024-07-14 11:41] LABS: MANUAL DIFF FLAG NO
[2024-07-14 11:42] LABS: Basophils Percent Auto 0.6 % (0-2); Eosinophils Absolute Auto 0.1 X10*3/uL (0.0-0.4); Eosinophils Percent Auto 2.1 % (0-4); Hematocrit 35.3 % (37.0-47.0); Hemoglobin 12.6 g/dl (12.0-16.0); Imm Gran Abs Auto 0.02 X10*3/uL (0.00-0.03); Imm Gran Pct Auto 0.4 % (0.0-0.4); Lymphocytes Absolute Auto 1.4 X10*3/uL (1.2-4.9); Lymphocytes Percent Auto 30.1 % (20-40); Mean Corpuscular HGB Conc 35.7 g/dl (31.0-35.0); Mean Corpuscular Hemoglobin 32.1 pg (27.0-33.0); Mean Corpuscular Volume 89.8 fL (80.0-98.0); Mean Platelet Volume 9.3 fL (9.4-12.3); Monocytes Absolute Auto 0.4 X10*3/uL (0.1-1.2); Neutrophils Absolute Auto 2.8 x10*3/uL (2.0-8.3); Neutrophils Percent Auto 58.8 % (45-73); Platelet Count 144 X10*3/uL (160-400); Red Blood Count 3.93 X10*6/uL (4.20-5.50); Red Cell Distribution Width 12.5 % (11.0-16.0); White Blood Count 4.8 X10*3/uL (4.8-10.8)
[2024-07-14 12:10] LABS: Anion Gap 16 (12-20); Blood Urea Nitrogen 27 mg/dL (9-16); Calcium 9.6 mg/dL (8.4-10.2); Carbon Dioxide 19 mmol/L (22-29); Chloride 109 mmol/L (96-108); Creatinine Clr Calc Pharmacy 11.1; Estimated Glomerular Filt Rate 13; Glucose Random 184 mg/dL (60-115); Potassium 3.1 mmol/L (3.3-5.1); Sodium 141 mmol/L (135-145)
--- NOTE | 2024-07-14 12:25 | ECG_ITS ---
Test Reason : HYPOKALEMIA Blood Pressure : / mmHG Vent. Rate : 072 BPM Atrial Rate : 084 BPM P-R Int : 184 ms QRS Dur : 090 ms QT Int : 408 ms P-R-T Axes : 090 035 116 degrees QTc Int : 446 ms Sinus rhythm with occasional Premature ventricular complexes Nonspecific ST and T wave abnormality Abnormal ECG When compared with ECG of 25-JUN-2024 10:08, Premature ventricular complexes are now Present Nonspecific T wave abnormality now evident in Inferior leads Referred By: Generic ED Physician Electronically Signed By:EARL CHANCE MD
--- NOTE | 2024-07-14 13:10 | ED.WEAKNESS ---
HPI - Weakness General Chief complaint: Weakness Stated complaint: LETHARIGIC/WEAK X2WK PER EMS Time Seen by Provider: 07/14/24 12:42 Source: patient Mode of arrival: EMS Limitations: no limitations History of Present Illness HPI Narrative: 83-year-old female for 1 month of generalized weakness treated for UTI earlier patient denies any chest pain cough fever patient is alert and oriented patient does live with her grandson who is concerned about her change in mental status. MD Complaint: generalized weakness Related Data Home Medications ?Medication ?Instructions ?Recorded ?Confirmed glipizide 5 mg tablet 10 mg PO BID 05/07/23 06/25/24 levothyroxine 50 mcg tablet 50 mcg PO DAILY 05/07/23 06/25/24 multivitamin 1 tab PO DAILY 05/07/23 06/25/24 insulin NPH-regular 70-30 U-100 15 unit subcut BEDTIME@1700 PRN 06/25/24 06/25/24 insulin 100 unit/mL subcutaneous Hyperglycemia pen (Humulin 70/30 U-100 KwikPen) insulin NPH-regular 70-30 U-100 20 unit subcut DAILY PRN 06/25/24 06/25/24 insulin 100 unit/mL subcutaneous Hyperglycemia pen (Humulin 70/30 U-100 KwikPen) Previous Rx's ?Medication ?Instructions ?Recorded amlodipine 10 mg tablet 10 mg PO DAILY #30 tabs 06/27/24 cefuroxime axetil 250 mg tablet 250 mg PO BID 7 days #14 tabs 06/27/24 Allergies Allergy/AdvReac Type Severity Reaction Status Date / Time No Known Allergies Allergy Verified 07/14/24 11:27 [facility] Past Medical History Medical History Hypothyroidism History of ovarian cancer Generalized weakness Gallbladder & bile duct stone with obstruction Diabetes Surgical History H/O: hysterectomy Social History Social History Household Members: Other Household Members Other:: Grandson. Housing: House Do you presently have visiting nurse or other home services: No Alcohol intake: former Patient Tobacco Use Status: Former Tobacco user Advance Directives: Yes Advance Directives on File: Yes Advance Directives Date on File: 05/08/23 service: No Physical Exam Vital Signs: Vital Signs: Last Vital Signs Temp 98.3 F 07/14/24 11:22 Pulse 87 07/14/24 14:37 Resp 16 07/14/24 14:37 BP 156/75 H 07/14/24 14:37 Pulse Ox 99 07/14/24 14:37 O2 Del Method Room Air 07/14/24 14:37 BMI result Body Mass Index 25.5 Course Course Course Narrative: Patient found YENNIFER was given 2 L of fluid patient's creatinine usually in his baseline of 2 today is 3.3. I will admit the patient to Medicine still pending urine patient took 3 attempts to find the correct a clean catch sample. I discussed the case with hospitalist at 15:44. Medications Administered Discontinued Medications Generic Name Dose Route Start Last Admin Trade Name Freq PRN Reason Stop Dose Admin Sodium Chloride 1,000 mls @ 999 mls/hr 07/14/24 13:15 07/14/24 13:15 Ns IV 07/14/24 14:15 999 mls/hr .Q1H1M CRISTINA Administration Potassium Chloride 40 meq 07/14/24 12:59 07/14/24 13:15 Potassium Chloride Er 20 Meq Tab.Er.Prt PO 07/14/24 13:00 40 meq ONCE ONE Administration Medical Decision Making Medical Decision Making [facility] Narrative: Patient has no complaints labs showing worsening kidney function has never been this high in the past I will start the patient on fluids think the patient likely benefit from admission urine is still pending at this time. Differential Diagnosis Differential Diagnoses: The differential diagnosis associated with the presentation includes Dehydration electrolyte abnormality kidney disease acute on chronic kidney injury UTI pneumonia Admission/Observation Consideration of admission/observation: Escalation of care including admission/observation considered Consult Healthcare Provider Management of the patient was discussed with: Hospitalist Lab Data [facility] Lab Attestation statement: I reviewed the patient's lab results. 07/14/24 11:34 07/14/24 11:34 Labs: Lab Results 07/14/24 07/14/24 Range/Units 11:34 15:25 WBC 4.8 (4.8-10.8) X10*3/uL RBC 3.93 L (4.20-5.50) X10*6/uL Hgb 12.6 (12.0-16.0) g/dl Hct 35.3 L (37.0-47.0) % MCV 89.8 (80.0-98.0) fL MCH 32.1 (27.0-33.0) pg MCHC 35.7 H (31.0-35.0) g/dl RDW 12.5 (11.0-16.0) % Plt Count 144 L (160-400) X10*3/uL MPV 9.3 L (9.4-12.3) fL Immature Gran % (Auto) 0.4 (0.0-0.4) % Neut % (Auto) 58.8 (45-73) % Lymph % (Auto) 30.1 (20-40) % [place] % (Auto) 8.0 (2-11) % Eos % (Auto) 2.1 (0-4) % Baso % (Auto) 0.6 (0-2) % Lymph # (Auto) 1.4 (1.2-4.9) X10*3/uL [place] # (Auto) 0.4 (0.1-1.2) X10*3/uL Eos # (Auto) 0.1 (0.0-0.4) X10*3/uL Baso # (Auto) 0.0 (0.0-0.2) X10*3/uL Abs Immat Gran (auto) 0.02 (0.00-0.03) X10*3/uL Absolute Neuts (auto) 2.8 (2.0-8.3) x10*3/uL Absolute Nucleated RBC 0.000 (0.0-0.012) X10*3/uL Nucleated RBC % (auto) 0.0 (0.0-0.2) /100WBC Sodium 141 (135-145) mmol/L Potassium 3.1 L (3.3-5.1) mmol/L Chloride 109 H (96-108) mmol/L Carbon Dioxide 19 L (22-29) mmol/L Anion Gap 16 (12-20) BUN 27 H (9-16) mg/dL Creatinine 3.32 H (0.5-1.4) mg/dL Estim Creat Clear Calc 11.1 Estimated GFR 13 Random Glucose 184 H (60-115) mg/dL Calcium 9.6 (8.4-10.2) mg/dL Urine Color Yellow Urine Appearance Clear Urine pH 5.5 (5.0-9.0) Ur Specific [place] <= 1.005 (1.005-1.025) Urine Protein Negative (Neg-Trace) mg/dL Urine Glucose (UA) Negative (Negative) mg/dL Urine Ketones Negative (Negative) mg/dL Urine Blood Negative (Negative) Urine Nitrite Negative (Negative) Ur Leukocyte Esterase Trace H (Negative) Urine RBC 0-2 (0-2) /HPF Urine WBC 0-5 (0-5) /HPF Ur Squamous Epith Cells 0-2 (0-2) /HPF Urine Bacteria None Seen (None Seen) Hyaline Casts 3-5 (0-2) /LPF Independent Interpretation I performed an independent interpretation of an: EKG Radiology Impression Discussion of test interpretation with radiology: I have reviewed the radiologist's reading. Discharge Plan Discharge Clinical Impression: Hypokalemia, Acute on chronic kidney failure, Dehydration Patient Disposition: Admitted As Inpatient Print Language: Kinyarwanda
[2024-07-14] MEDS: 0.9 % Sodium Chloride 1,000 ML 999 ML IV (13:15)
[2024-07-14] MEDS: Potassium Chloride ER 20 MEQ TAB.ER.PRT 40 MEQ PO (13:15)
--- NOTE | 2024-07-14 14:19 | PC.NURSE ---
Pt ambulatory to the BR with assist. Pt put toilet paper in the hat that was placed for urine sample as well as stool. Plan to straight catheterize patient for sample when she next feels the urge to void as bladder is currently empty.
[2024-07-14 15:36] LABS: Appearance Urine Clear; Color Urine Yellow; Glucose Urine UA Negative (Negative); Leukocyte Esterase Urine Trace (Negative); Nitrite Urine Negative (Negative); PH 5.5 (5.0-9.0); Specific Gravity - Urine <= 1.005 (1.005-1.025); UMIC TRIGGER UACC YES; Urine Blood Negative (Negative); Urine Ketones Negative (Negative); Urine Protein Negative (Neg-Trace)
[2024-07-14 15:38] LABS: Bacteria Urine None Seen (None Seen); RBC Urine 0-2 /HPF (0-2); Squamous Epithelial Cell Urine 0-2 /HPF (0-2); WBC Urine 0-5 /HPF (0-5)
--- NOTE | 2024-07-14 15:40 | PC.NURSE ---
up with minimal assist to BR. naturl void for U/A
--- NOTE | 2024-07-14 17:00 | P.HPHOSP_ITS ---
History of Present Illness Date of Service: 07/14/24 Chief Complaint: Weakness An 83 years old lady with PMH of CKD4, HTN, DM2 among others presenting with increase weakness and confusion. The patient reports being treated recently for urine infections. she was in the hospital couple weeks ago for the same problem. she denies No chest pain, palpitations, SOB, nausea, vomiting, diarrhea or urinary symptoms. Her family is concerned that she is getting weaker and mildly more confused. In ED found to have worsening Cr to 3.3. Urine is negative for infection. Admitted for further work up and treatment. Review of Systems 2 Review of Systems: No fever, chills but has more weakness No chest pain, palpitation No shortness of breath or coughing No abdominal pain, nausea or vomiting No urinary symptoms No any rash or wounds PMFSH Medical History CKD stage 3b, GFR 30-44 ml/min Hypertension Hypothyroidism History of ovarian cancer Generalized weakness Gallbladder & bile duct stone with obstruction Diabetes Surgical History H/O: hysterectomy Social History Household Members: Other Household Members Other:: Grandson. Housing: House Do you presently have visiting nurse or other home services: No Alcohol intake: former Patient Tobacco Use Status: Former Tobacco user Advance Directives: Yes Advance Directives on File: Yes Advance Directives Date on File: 05/08/23 service: No Meds Allergies Allergy/AdvReac Type Severity Reaction Status Date / Time No Known Allergies Allergy Verified 07/14/24 11:27 Active Medications: Current Medications Acetaminophen (Acetaminophen 325 Mg Tablet) 650 mg PO Q6H PRN PRN Reason: Pain, Mild (Pain Scale 1-3), fever or headache Calcium Carbonate (Calcium Carbonate 750 Mg Tab.Chew) 750 mg PO Q4H PRN PRN Reason: Heartburn Heparin Sodium (Porcine) (Heparin Sodium,Porcine 5,000 Unit/Ml Vial) 5,000 unit SUBCUT Q12H CRISTINA Sodium Chloride (Ns) 1,000 mls @ 75 mls/hr IVCONT .[id number] CRISTINA Insulin Human Lispro (Insulin Lispro 100 Unit/Ml 3 Ml Vial) 0 [facility]; Protocol Levothyroxine Sodium (Levothyroxine Sodium 50 Mcg Tablet) 50 mcg PO DAILY@0600 [facility] Magnesium Hydroxide (Milk Of Magnesia 30 Ml Oral.Susp) 30 ml PO DAILY PRN PRN Reason: Constipation Melatonin (Melatonin 3 Mg Tablet) 6 mg PO BEDTIME PRN PRN Reason: Insomnia Sodium Chloride (0.9 % Sodium Chloride Flush 3 Ml Syringe) [facility] Medications ?Medication ?Instructions ?Recorded ?Confirmed ?Last Taken ?Type glipizide 5 mg tablet 10 mg PO BID 05/07/23 06/25/24 06/24/24 History levothyroxine 50 mcg tablet 50 mcg PO DAILY 05/07/23 06/25/24 06/24/24 History multivitamin 1 tab PO DAILY 05/07/23 06/25/24 06/24/24 History insulin NPH-regular 70-30 U-100 15 unit subcut BEDTIME@1700 PRN 06/25/24 06/25/24 Unknown History insulin 100 unit/mL subcutaneous Hyperglycemia pen (Humulin 70/30 U-100 KwikPen) insulin NPH-regular 70-30 U-100 20 unit subcut DAILY PRN 06/25/24 06/25/24 Unknown History insulin 100 unit/mL subcutaneous Hyperglycemia pen (Humulin 70/30 U-100 KwikPen) Physical Exam 2 Vital Signs and Narrative: Vital Signs: Last Vital Signs Temp 97.0 F 07/14/24 16:28 Pulse 81 07/14/24 16:28 Resp 16 07/14/24 16:28 BP 213/94 H 07/14/24 16:28 Pulse Ox 100 07/14/24 16:28 O2 Del Method Room Air 07/14/24 16:28 BMI result Body Mass Index 25.5 Const: Other: Constitutional : Awake, interactive, not in distress Neck : Normal inspection, Supple Cardiovascular : RRR, no JVP, no lower extremity edema Respiratory : good bilateral air entry, no crackles, wheezes or rhonchi Gastrointestinal: soft, lax, Normal bowel sounds, Non tender Skin : Warm, Dry Neurological : Alert & oriented x3, No focal deficit Results Labs 07/14/24 11:34 07/14/24 11:34 Labs: Laboratory Results - last 24 hr 07/14/24 07/14/24 11:34 15:25 MCV 89.8 MCH 32.1 MCHC 35.7 H RDW 12.5 Plt Count 144 L MPV 9.3 L Immature Gran % (Auto) 0.4 Neut % (Auto) 58.8 Lymph % (Auto) 30.1 Johnson % (Auto) 8.0 Eos % (Auto) 2.1 Baso % (Auto) 0.6 Lymph # (Auto) 1.4 Johnson # (Auto) 0.4 Eos # (Auto) 0.1 Baso # (Auto) 0.0 Abs Immat Gran (auto) 0.02 Absolute Neuts (auto) 2.8 Absolute Nucleated RBC 0.000 Nucleated RBC % (auto) 0.0 Anion Gap 16 Estim Creat Clear Calc 11.1 Estimated GFR 13 Random Glucose 184 H Calcium 9.6 Urine Color Yellow Urine Appearance Clear Urine pH 5.5 Ur Specific [place] <= 1.005 Urine Protein Negative Urine Glucose (UA) Negative Urine Ketones Negative Urine Blood Negative Urine Nitrite Negative Ur Leukocyte Esterase Trace H Urine RBC 0-2 Urine WBC 0-5 Ur Squamous Epith Cells 0-2 Urine Bacteria None Seen Hyaline Casts 3-5 Assessment and Plan (1) Acute on chronic kidney failure: Status: Acute (2) Hypokalemia: Status: Acute Plan An 83 years old lady with PMH of CKD4, HTN, DM2 among others presenting with increase weakness and confusion. YENNIFER on CKD4 Worsening Cr with usage of Cipro and Ceftin recently at risk of ESRD and need of dialysis Hold nephrotoxic meds IVF for now follow BMP nephrology consult DMII DC Glipizide Last A1c 8.9 SSI diabetic diet HTN with elevated BP Start Amlodipine monitor closely weakness related to worsening CKD; PT eval DVT PPx Heparin SC The patient will likely need 2 overnight hospital stay for evaluation of worsening kidney function pending nephrology evaluation with close monitoring of KFT to avoid dialysis Quality Stroke Does the patient have a stroke diagnosis?: No VTE Prior VTE?: No VTE Risk Level:: Medical - moderate - high VTE Device Contraindication: Treatment Not Indicated VTE Drug Contraindication: N/A - Med Ordered
[2024-07-14 17:08] LABS: Creatinine Urine 20.66 mg/dL
[2024-07-14 17:29] LABS: Anion Gap 12 (12-20); Blood Urea Nitrogen 25 mg/dL (9-16); Calcium 9.5 mg/dL (8.4-10.2); Carbon Dioxide 21 mmol/L (22-29); Chloride 115 mmol/L (96-108); Creatinine Clr Calc Pharmacy 12.4; Estimated Glomerular Filt Rate 15; Glucose Random 192 mg/dL (60-115); Phosphorus 2.6 mg/dL (2.7-4.5); Potassium 3.5 mmol/L (3.3-5.1); Sodium 144 mmol/L (135-145)
[2024-07-14] MEDS: amLODIPine Besylate 5 MG TABLET PO (17:51)
[2024-07-14] MEDS: 0.9 % Sodium Chloride 1,000 ML 75 ML IVCONT (17:52)
--- NOTE | 2024-07-14 19:03 | PHA.MEDREC ---
Pharmacy Consult ? Medication Reconciliation Pharmacy has completed the medication reconciliation. Spoke to patient's grandson Sruesh at bedside who takes care of patient's medications to confirm medication list. He said patient hasn't started taking amlodipine 10 mg yet, she is still taking ciprofloxacin 250 mg (started last ) and he gives her 3-6 units of Humulin 70/30 depending on her blood sugar (test twice a day at approx 0700 and 1900).
[2024-07-14 20:49] LABS: Glucose, Whole Blood 324 mg/dL (60-115)
[2024-07-14] MEDS: Insulin Lispro 100 UNIT/ML 3 ML VIAL SUBCUT (20:57)
[2024-07-14] MEDS: Heparin Sodium,Porcine 5,000 UNIT/ML VIAL 5000 UNIT SUBCUT (20:57)
[2024-07-15] VITALS (8 sets, daily range): BP systolic 138–182; BP diastolic 63–91; PULSE 75–88; RESP 14–18; TEMP 36.1–36.3; O2SAT 96–100
[2024-07-15] MEDS: Levothyroxine Sodium 50 MCG TABLET PO (05:27)
[2024-07-15 06:45] LABS: Anion Gap 12 (12-20); Blood Urea Nitrogen 24 mg/dL (9-16); Calcium 9.3 mg/dL (8.4-10.2); Carbon Dioxide 21 mmol/L (22-29); Chloride 115 mmol/L (96-108); Creatinine Clr Calc Pharmacy 12.1; Estimated Glomerular Filt Rate 17; Glucose Random 132 mg/dL (60-115); Sodium 144 mmol/L (135-145)
[2024-07-15 07:59] LABS: EOS Counted 0 CELLS; WBC, Counted 100 CELLS
[2024-07-15 07:59] LABS: Glucose, Whole Blood 151 mg/dL (60-115)
[2024-07-15 08:00] LABS: EOS QC POS YES; EOS Stain Quality OK YES
[2024-07-15 08:43] LABS: Glucose, Whole Blood 197 mg/dL (60-115)
[2024-07-15] MEDS: 0.9 % Sodium Chloride Flush 3 ML SYRINGE IVFLUSH (09:08)
[2024-07-15] MEDS: amLODIPine Besylate 10 MG TABLET PO (09:10)
[2024-07-15] MEDS: Heparin Sodium,Porcine 5,000 UNIT/ML VIAL 5000 UNIT SUBCUT ×2 (09:11→22:11)
--- NOTE | 2024-07-15 09:18 | PM.CNNEP ---
History of Present Illness Reason for Consult Consult date: 07/15/24 Chief Complaint Chief complaint: Weakness History of Present Illness Narrative: 83 y/o female with untreated HTN, poorly controlled DMII, hypothyroidism, chronic thrombocytopenia, CKD ED 07/14 for weakness, confusion (via EMS, grandson called per pt). BP 213/94 on 07/14 admission had recently been on cipro and ceftin for UTI; UA negative for UTI creatinine 3.32 on admission, was 2.06 after last discharge on 06/27 pt has been receiving IVF, creatinine has improved to 2.75 on 07/15 patient does have baseline chronic kidney disease, states she does not see a mid level practitioner outside of the hospital, did not follow up with nephrology after last visit prior to this admission she states today she has not been taking blood pressure medications at home she states she sees Dr Betancur, her PCP, but does not see any other specialists she states she checks her sugars at home and they are generally fine in the mornings, below 200. Her A1c is 8.9 she states she feels well and not sure why she had to come to the hospital she denies chest pain, dizziness, shortness of breath she denies flank pain, pain with urination, difficulty emptying bladder, blood in urine denies lower extremity swelling she states she feels otherwise well and denies concerns. Review of Systems Constitutional: Reports no additional constitutional complaints and Denies headache(s) Denies dizziness and Denies headache(s) Cardiovascular: Denies chest pain and Denies dyspnea Respiratory: Denies dyspnea Gastrointestinal: Denies abdominal pain, Denies diarrhea and Denies vomiting Genitourinary: Denies hematuria, Denies difficulty voiding, Denies dysuria and Denies flank pain Musculoskeletal: Denies back pain Skin/Breast: Denies rash Denies dizziness and Denies headache(s) [facility] Past Medical History Medical History (Updated 07/15/24 @ 10:31 by Rossana Nelson, MARIA ELENA, ROTARY VENEER MACHINE OPERATOR-BC) Hypertension CKD stage 3b, GFR 30-44 ml/min Hypothyroidism History of ovarian cancer Generalized weakness Gallbladder & bile duct stone with obstruction Diabetes Surgical History Surgical History H/O: hysterectomy Social History Social History Household Members: Family Household Members Other:: Grandson. Housing: House Do you presently have visiting nurse or other home services: No Alcohol intake: former Patient Tobacco Use Status: Former Tobacco user Advance Directives Date on File: 05/08/23 service: No Meds Allergies Allergy/AdvReac Type Severity Reaction Status Date / Time No Known Allergies Allergy Verified 07/14/24 11:27 Active Medications: Current Medications Acetaminophen (Acetaminophen 325 Mg Tablet) 650 mg PO Q6H PRN PRN Reason: Pain, Mild (Pain Scale 1-3), fever or headache Amlodipine Besylate (Amlodipine Besylate 10 Mg Tablet) 10 mg PO DAILY [facility]; Protocol Last Admin: 07/15/24 09:10 Dose: 10 mg Calcium Carbonate (Calcium Carbonate 750 Mg Tab.Chew) 750 mg PO Q4H PRN PRN Reason: Heartburn Heparin Sodium (Porcine) (Heparin Sodium,Porcine 5,000 Unit/Ml Vial) 5,000 unit SUBCUT Q12H [facility] Last Admin: 07/15/24 09:11 Dose: 5,000 unit Sodium Chloride (Ns) 1,000 mls @ 75 mls/hr IVCONT .[id number] [facility] Stop: 07/15/24 21:00 Last Infusion: 07/15/24 07:53 Dose: Infused Insulin Human Lispro (Insulin Lispro 100 Unit/Ml 3 Ml Vial) 0 unit SUBCUT QIDACHS [facility]; Protocol Last Admin: 07/15/24 07:57 Dose: Not Given Levothyroxine Sodium (Levothyroxine Sodium 50 Mcg Tablet) 50 mcg PO DAILY@0600 [facility] Last Admin: 07/15/24 05:27 Dose: 50 mcg Magnesium Hydroxide (Milk Of Magnesia 30 Ml Oral.Susp) 30 ml PO DAILY PRN PRN Reason: Constipation Melatonin (Melatonin 3 Mg Tablet) 6 mg PO BEDTIME PRN PRN Reason: Insomnia Sodium Chloride (0.9 % Sodium Chloride Flush 3 Ml Syringe) 3 ml IVFLUSH QSHIFT [facility] Last Admin: 07/15/24 09:08 Dose: 3 ml Home Medications ?Medication ?Instructions ?Recorded ?Confirmed ?Last Taken ?Type glipizide 5 mg tablet 10 mg PO BID 05/07/23 07/14/24 07/14/24 History levothyroxine 50 mcg tablet 50 mcg PO DAILY 05/07/23 07/14/24 07/13/24 History multivitamin 1 tab PO DAILY 05/07/23 07/14/24 06/24/24 History insulin NPH-regular 70-30 U-100 3 - 6 unit subcut BID@0700,1900 06/25/24 07/14/24 07/14/24 History insulin 100 unit/mL subcutaneous PRN Hyperglycemia pen (Humulin 70/30 U-100 KwikPen) ciprofloxacin HCl 250 mg tablet 250 mg PO BID 07/14/24 07/14/24 07/14/24 History Physical Exam Vital Signs: Last Vital Signs Temp 97.0 F 07/15/24 07:23 Pulse 83 07/15/24 07:23 Resp 16 07/15/24 07:23 BP 180/80 H 07/15/24 08:41 Pulse Ox 99 07/15/24 07:23 O2 Del Method Room Air 07/15/24 07:23 BMI result Body Mass Index 23.2 Const General: comfortable and no acute distress Orientation/consciousness: oriented to person, oriented to place and oriented to time Neck Neck: Yes no JVD Resp Effort & Inspection: able to speak in complete sentences Auscultation: clear to auscultation bilaterally Cardio Jugular venous distension: no JVD Rate: regular rate Rhythm: regular rhythm Heart sounds: S1 normal heart sound present, S2 normal heart sound present and Murmur heart sound present GI Palpation (GI): Soft to palpation Rectal Exam - Female: No tenderness General: Yes no CVA tenderness Back/Spine/Pelvis Back: no CVA tenderness Skin Rashes: no rashes (brownish venous stasis skin discoloration of anterior lower extremities) Neuro General: oriented to person, oriented to place and oriented to time Extrem General: Yes normal to inspection, No edema and No pedal edema Results Lab Results 07/14/24 11:34 07/15/24 05:51 Lab results: Chemistry 07/14/24 07/14/24 07/15/24 11:34 17:02 05:51 Sodium 141 144 144 Potassium 3.1 L 3.5 4.0 Carbon Dioxide 19 L 21 L 21 L BUN 27 H 25 H 24 H Creatinine 3.32 H 2.98 H 2.75 H Calcium 9.6 9.5 9.3 Phosphorus 2.6 L Hematology 07/14/24 11:34 WBC 4.8 Hgb 12.6 Plt Count 144 L Urinalysis 07/14/24 15:25 Urine Color Yellow Urine Appearance Clear Urine pH 5.5 Ur Specific [place] <= 1.005 Urine Protein Negative Urine Glucose (UA) Negative Urine Ketones Negative Urine Blood Negative Urine Nitrite Negative Ur Leukocyte Esterase Trace H Urine RBC 0-2 Urine WBC 0-5 Ur Squamous Epith Cells 0-2 Hyaline Casts 3-5 Urine Studies 07/14/24 15:25 Urine Creatinine 20.66 Assessment and Plan (1) Acute on chronic kidney failure: Status: Acute (2) CKD stage 4 secondary to hypertension: Status: Acute (3) Hypertension: Qualifiers: Hypertension type: unspecified Qualified Code(s): I10 - Essential (primary) hypertension Status: Acute Plan YENNIFER likely due to tubular injury from reduced PO intake given recovering with fluids underlying CKD likely secondary to hypertensive nephropathy, diabetic nephropathy recommend continue IVF, supportive care and monitoring electrolytes and renal function blood pressure is poorly controlled, recommend continuing 10mg amlodipine daily and will add 6.125mg BID carvedilol she should follow up outpatient with nephrology for ongoing management of CKD once ready for discharge Will continue to follow Discussed with Dr Ro Procedures Date of Service Date of Service: 07/15/24
--- NOTE | 2024-07-15 09:31 | MHC.CM.PN ---
IMM 07/14/24, Pt lives with her grandson, she is independent, active with [facility] following hosp stay here, DC on 06/27/24. For DME she has grab bars in bathroom. HCP on file and confirmed, her grand son, Sam. PCP confirmed: Dr. Betancur. PT has rec. [facility], pt says she wants to go home. CM will discuss with HCP and assist with DC plan.
--- NOTE | 2024-07-15 10:31 | MHC.CM.PN ---
CM spoke with grand son / HCP about rec for pt to go to [facility]. He was hesitant to support this plan as he thinks she will not do well at [facility], she has memory impairment. He will speak with other family members and follow up later. Message from NA that pt declined their services at previous (06/27/24) DC.
--- NOTE | 2024-07-15 11:05 | P.PNIM_ITS ---
Subjective Subjective Date of Service: 07/15/24 Interval History: seen and evaluated this morning had incident if disequiliprium with PT Cr mildly better BP still elevated no other events Review of Systems Review of Systems: Yes all other systems are reviewed and are negative Physical Exam 2 Vital Signs: Vital Signs: Last Vital Signs Temp 97.0 F 07/15/24 07:23 Pulse 83 07/15/24 07:23 Resp 16 07/15/24 07:23 BP 180/80 H 07/15/24 08:41 Pulse Ox 99 07/15/24 07:23 O2 Del Method Room Air 07/15/24 07:23 BMI result Body Mass Index 23.2 Const: Other: Constitutional : Awake, interactive, not in distress Neck : Normal inspection, Supple Cardiovascular : RRR, no JVP, no lower extremity edema Respiratory : good bilateral air entry, no crackles, wheezes or rhonchi Gastrointestinal: soft, lax, Normal bowel sounds, Non tender Skin : Warm, Dry Neurological : Alert & oriented x3, No focal deficit Objective Data Active Medications Acetaminophen (Acetaminophen 325 Mg Tablet) 650 mg PO Q6H PRN PRN Reason: Pain, Mild (Pain Scale 1-3), fever or headache Amlodipine Besylate (Amlodipine Besylate 10 Mg Tablet) 10 mg PO DAILY [facility]; Protocol Last Admin: 07/15/24 09:10 Dose: 10 mg Documented By: DION Calcium Carbonate (Calcium Carbonate 750 Mg Tab.Chew) 750 mg PO Q4H PRN PRN Reason: Heartburn Carvedilol (Carvedilol 6.25 Mg Tablet) 6.25 mg PO BID [facility]; Protocol Heparin Sodium (Porcine) (Heparin Sodium,Porcine 5,000 Unit/Ml Vial) 5,000 unit SUBCUT Q12H [facility] Last Admin: 07/15/24 09:11 Dose: 5,000 unit Documented By: DION Sodium Chloride (Ns) 1,000 mls @ 75 mls/hr IVCONT .[id number] [facility] Stop: 07/15/24 21:00 Last Infusion: 07/15/24 07:53 Dose: Infused Documented By: DION Insulin Human Lispro (Insulin Lispro 100 Unit/Ml 3 Ml Vial) 0 unit SUBCUT QIDACHS [facility]; Protocol Last Admin: 07/15/24 07:57 Dose: Not Given Documented By: DION Non-Admin Reason: No Insulin Coverage Levothyroxine Sodium (Levothyroxine Sodium 50 Mcg Tablet) 50 mcg PO DAILY@0600 [facility] Last Admin: 07/15/24 05:27 Dose: 50 mcg Documented By: VARUN Magnesium Hydroxide (Milk Of Magnesia 30 Ml Oral.Susp) 30 ml PO DAILY PRN PRN Reason: Constipation Melatonin (Melatonin 3 Mg Tablet) 6 mg PO BEDTIME PRN PRN Reason: Insomnia Sodium Chloride (0.9 % Sodium Chloride Flush 3 Ml Syringe) 3 ml IVFLUSH QSHIFT [facility] Last Admin: 07/15/24 09:08 Dose: 3 ml Documented By: DION Labs 07/14/24 11:34 07/15/24 05:51 Labs: Laboratory Results - last 24 hr 07/14/24 07/14/24 07/14/24 11:34 15:25 17:02 MCV 89.8 MCH 32.1 MCHC 35.7 H RDW 12.5 Plt Count 144 L MPV 9.3 L Immature Gran % (Auto) 0.4 Neut % (Auto) 58.8 Lymph % (Auto) 30.1 [place] % (Auto) 8.0 Eos % (Auto) 2.1 Baso % (Auto) 0.6 Lymph # (Auto) 1.4 [place] # (Auto) 0.4 Eos # (Auto) 0.1 Baso # (Auto) 0.0 Abs Immat Gran (auto) 0.02 Absolute Neuts (auto) 2.8 Absolute Nucleated RBC 0.000 Nucleated RBC % (auto) 0.0 Hold Purple Top Anion Gap 16 12 Estim Creat Clear Calc 11.1 12.4 Estimated GFR 13 15 POC Glucose Random Glucose 184 H 192 H Calcium 9.6 9.5 Phosphorus 2.6 L Total Creatine Kinase 88 Urine Color Yellow Urine Appearance Clear Urine pH 5.5 Ur Specific [place] <= 1.005 Urine Protein Negative Urine Glucose (UA) Negative Urine Ketones Negative Urine Blood Negative Urine Nitrite Negative Ur Leukocyte Esterase Trace H Urine RBC 0-2 Urine WBC 0-5 Ur Squamous Epith Cells 0-2 Urine Bacteria None Seen Hyaline Casts 3-5 Urine Eosinophils % 0.0 Urine Creatinine 20.66 07/14/24 07/15/24 07/15/24 20:45 05:51 07:56 MCV MCH MCHC RDW Plt Count MPV Immature Gran % (Auto) Neut % (Auto) Lymph % (Auto) [place] % (Auto) Eos % (Auto) Baso % (Auto) Lymph # (Auto) [place] # (Auto) Eos # (Auto) Baso # (Auto) Abs Immat Gran (auto) Absolute Neuts (auto) Absolute Nucleated RBC Nucleated RBC % (auto) Hold Purple Top SEE NOTE Anion Gap 12 Estim Creat Clear Calc 12.1 Estimated GFR 17 POC Glucose 324 H 151 H Random Glucose 132 H Calcium 9.3 Phosphorus Total Creatine Kinase Urine Color Urine Appearance Urine pH Ur Specific [place] Urine Protein Urine Glucose (UA) Urine Ketones Urine Blood Urine Nitrite Ur Leukocyte Esterase Urine RBC Urine WBC Ur Squamous Epith Cells Urine Bacteria Hyaline Casts Urine Eosinophils % Urine Creatinine 07/15/24 08:38 MCV MCH MCHC RDW Plt Count MPV Immature Gran % (Auto) Neut % (Auto) Lymph % (Auto) [place] % (Auto) Eos % (Auto) Baso % (Auto) Lymph # (Auto) [place] # (Auto) Eos # (Auto) Baso # (Auto) Abs Immat Gran (auto) Absolute Neuts (auto) Absolute Nucleated RBC Nucleated RBC % (auto) Hold Purple Top Anion Gap Estim Creat Clear Calc Estimated GFR POC Glucose 197 H Random Glucose Calcium Phosphorus Total Creatine Kinase Urine Color Urine Appearance Urine pH Ur Specific [place] Urine Protein Urine Glucose (UA) Urine Ketones Urine Blood Urine Nitrite Ur Leukocyte Esterase Urine RBC Urine WBC Ur Squamous Epith Cells Urine Bacteria Hyaline Casts Urine Eosinophils % Urine Creatinine Assessment and Plan (1) Hypertension: Status: Acute (2) CKD stage 4 secondary to hypertension: Status: Acute (3) Acute on chronic kidney failure: Status: Acute Plan An 83 years old lady with PMH of CKD4, HTN, DM2 among others presenting with increase weakness and confusion. YENNIFER on CKD4 Likely ATN; worsened with usage of Cipro and Ceftin recently PHosphorus Low Hold nephrotoxic meds IVF for now follow BMP nephrology input appreciated Physical deconditioning PT rec STR DMII DC Glipizide at time of discharge, she is on Mixtard insulin at home as well Last A1c 8.9 SSI diabetic diet HTN with elevated BP Start Amlodipine 10 mg daily Start Carvedilol 6.25 bid monitor closely weakness related to worsening CKD; PT eval DVT PPx Heparin SC The patient will likely need overnight hospital stay for evaluation of worsening kidney function pending close monitoring of KFT and placement at SNF Quality Stroke Does the patient have a stroke diagnosis?: No VTE Prior VTE?: No VTE Risk Level:: Medical - moderate - high VTE Device Contraindication: Treatment Not Indicated VTE Drug Contraindication: N/A - Med Ordered
[2024-07-15 12:09] LABS: Glucose, Whole Blood 272 mg/dL (60-115)
[2024-07-15] MEDS: Insulin Lispro 100 UNIT/ML 3 ML VIAL SUBCUT ×3 (12:19→22:10)
[2024-07-15 16:12] LABS: Glucose, Whole Blood 218 mg/dL (60-115)
[2024-07-15] MEDS: 0.9 % Sodium Chloride 1,000 ML 75 ML IVCONT (18:13)
[2024-07-15 20:54] LABS: Glucose, Whole Blood 199 mg/dL (60-115)
[2024-07-15] MEDS: carvediloL 6.25 MG TABLET PO (22:10)
[2024-07-16] VITALS (8 sets, daily range): BP systolic 98–143; BP diastolic 56–67; PULSE 67–79; RESP 12–20; TEMP 36–36.4; O2SAT 98–100
[2024-07-16 05:54] LABS: Anion Gap 12 (12-20); Blood Urea Nitrogen 23 mg/dL (9-16); Calcium 8.5 mg/dL (8.4-10.2); Carbon Dioxide 21 mmol/L (22-29); Chloride 115 mmol/L (96-108); Creatinine Clr Calc Pharmacy 13.3; Estimated Glomerular Filt Rate 19; Glucose Random 175 mg/dL (60-115); Sodium 144 mmol/L (135-145)
[2024-07-16] MEDS: Levothyroxine Sodium 50 MCG TABLET PO (06:44)
[2024-07-16 07:10] LABS: Glucose, Whole Blood 177 mg/dL (60-115)
[2024-07-16] MEDS: 0.9 % Sodium Chloride Flush 3 ML SYRINGE IVFLUSH ×3 (09:31→21:30)
[2024-07-16] MEDS: Insulin Lispro 100 UNIT/ML 3 ML VIAL SUBCUT ×3 (09:31→21:27)
[2024-07-16] MEDS: amLODIPine Besylate 10 MG TABLET PO (09:31)
[2024-07-16] MEDS: carvediloL 6.25 MG TABLET PO (09:31)
[2024-07-16] MEDS: Heparin Sodium,Porcine 5,000 UNIT/ML VIAL 5000 UNIT SUBCUT ×2 (09:32→21:26)
[2024-07-16 11:20] LABS: Glucose, Whole Blood 228 mg/dL (60-115)
--- NOTE | 2024-07-16 12:40 | P.PNNP_ITS ---
Subjective Subjective Date of Service: 07/16/24 Interval history: 83 y/o female with untreated HTN, poorly controlled DMII, hypothyroidism, chronic thrombocytopenia in the ED 06/25 for episode of lightheadedness/weakness getting up to the bathroom at home (grandson with whom she lives called EMS). per pt her son called EMS but she felt ok; notes she was a bit dehydrated prior to going to the hospital. blood pressure in the ED was 225/86 on arrival, UA consistent with UTI, lab work showed YENNIFER, potassium 2.8 amlodipine 10mg daily, added carvedilol 6.25mg BID yesterday evening due to continued elevated BPs 140s/60s this a.m. BP 143/67, then 98/56 patient does have baseline chronic kidney disease, states she does not see a accounting machine servicer outside of the hospital renal ultrasound on 06/25 did not suggest renal artery stenosis; renal cortical thinning and increased echogenicity; no obstruction on US. electrolytes within normal limits serum/urine ummunofixation to rule out paraproteinemia negative PTH mildly elevated at 91 creatinine 3.32 on arrival 07/14 (previous 2.06 on 06/27), has been trending down, today 2.49 she denies chest pain, dizziness, shortness of breath she denies flank pain, pain with urination, difficulty emptying bladder, blood in urine denies lower extremity swelling she states she feels otherwise well and denies concerns. Physical Exam 2 Vital Signs: Vital Signs: Last Vital Signs Temp 97.2 F 07/16/24 11:30 Pulse 67 07/16/24 11:30 Resp 20 07/16/24 11:30 BP 98/56 L 07/16/24 11:30 Pulse Ox 100 07/16/24 11:30 O2 Del Method Room Air 07/16/24 11:30 BMI result Body Mass Index 23.2 Const: General: comfortable and no acute distress O rientation/consciousness: oriented to person, oriented to place and oriented to time Neck: Neck: Yes no JVD Resp: Effort & Inspection: able to speak in complete sentences A uscultation: clear to auscultation bilaterally Cardio: Jugular venous distension: no JVD Rate: regular rate Rhythm: r egular rhythm Heart sounds: S1 normal heart sound present, S2 normal heart sound present and Murmur heart sound present GI: Palpation (GI): Soft to palpation Rectal Exam - Female: No tenderness : General: Yes no CVA tenderness Back/Spine/Pelvis: Back: no CVA tenderness Skin: Rashes: no rashes (brownish venous stasis skin discoloration of anterior lower extremities) Neuro: General: oriented to person, oriented to place and oriented to time Extrem: General: Yes normal to inspection, No edema and No pedal edema Objective Data Labs 07/14/24 11:34 07/16/24 05:26 Labs: Laboratory Results - last 24 hr 07/15/24 07/15/24 07/16/24 15:59 20:22 05:26 Hold Purple Top SEE NOTE Sodium 144 Potassium 4.0 Chloride 115 H Carbon Dioxide 21 L Anion Gap 12 BUN 23 H Creatinine 2.49 H Estim Creat Clear Calc 13.3 Estimated GFR 19 POC Glucose 218 H 199 H Random Glucose 175 H Calcium 8.5 D 07/16/24 07/16/24 07:05 11:16 Hold Purple Top Sodium Potassium Chloride Carbon Dioxide Anion Gap BUN Creatinine Estim Creat Clear Calc Estimated GFR POC Glucose 177 H 228 H Random Glucose Calcium Procedures Date of Service Date of Service: 07/16/24 Assessment & Plan Assessment and plan (1) CKD stage 3b, GFR 30-44 ml/min: Status: Acute (2) YENNIFER (acute kidney injury): Status: Resolved (3) Hypertension: Status: Acute Plan YENNIFER on CKD most likely tubular injury, unlikely thrombotic microangiopathy had not been on any HTN medications renal US showed renal cortical thinning and increased echogenicity; no obstructon. No evidence of renal artery stenosis blood pressures improving- agree continue 5mg amlodipine and carvedilol 3.125mg BID (reduced by half) due to episode of hypotension creatinine is stabilizing Patient ok for discharge from renal standpoint; recommend she follow up with outpatient nephrology within following few weeks. Discussed with Dr Ro Time Spent With Patient Time: Total time managing care of this patient today ____ minutes. Progress Note: Quality Stroke Does the patient have a stroke diagnosis?: No
--- NOTE | 2024-07-16 12:48 | P.PNIM_ITS ---
Subjective Subjective Date of Service: 07/16/24 Interval History: Feels well, but now relatively hypotensive Physical Exam 2 Vital Signs: Vital Signs: Last Vital Signs Temp 97.2 F 07/16/24 11:30 Pulse 67 07/16/24 11:30 Resp 20 07/16/24 11:30 BP 98/56 L 07/16/24 11:30 Pulse Ox 100 07/16/24 11:30 O2 Del Method Room Air 07/16/24 11:30 BMI result Body Mass Index 23.2 Const: General: comfortable and no acute distress O rientation/consciousness: oriented to person, oriented to place and oriented to time Neck: Neck: Yes no JVD Resp: Effort & Inspection: able to speak in complete sentences A uscultation: clear to auscultation bilaterally Cardio: Jugular venous distension: no JVD Rate: regular rate Rhythm: r egular rhythm Heart sounds: S1 normal heart sound present, S2 normal heart sound present and Murmur heart sound present GI: Palpation (GI): Soft to palpation Rectal Exam - Female: No tenderness : General: Yes no CVA tenderness Back/Spine/Pelvis: Back: no CVA tenderness Skin: Rashes: no rashes (brownish venous stasis skin discoloration of anterior lower extremities) Neuro: General: oriented to person, oriented to place and oriented to time Extrem: General: Yes normal to inspection, No edema and No pedal edema Objective Data Active Medications Acetaminophen (Acetaminophen 325 Mg Tablet) 650 mg PO Q6H PRN PRN Reason: Pain, Mild (Pain Scale 1-3), fever or headache Calcium Carbonate (Calcium Carbonate 750 Mg Tab.Chew) 750 mg PO Q4H PRN PRN Reason: Heartburn Heparin Sodium (Porcine) (Heparin Sodium,Porcine 5,000 Unit/Ml Vial) 5,000 unit SUBCUT Q12H [facility] Last Admin: 07/16/24 09:32 Dose: 5,000 unit Documented By: SEFERINO Insulin Human Lispro (Insulin Lispro 100 Unit/Ml 3 Ml Vial) 0 unit SUBCUT QIDACHS [facility]; Protocol Last Admin: 07/16/24 11:51 Dose: 4 unit Documented By: SEFERINO Levothyroxine Sodium (Levothyroxine Sodium 50 Mcg Tablet) 50 mcg PO DAILY@0600 [facility] Last Admin: 07/16/24 06:44 Dose: 50 mcg Documented By: CARO Magnesium Hydroxide (Milk Of Magnesia 30 Ml Oral.Susp) 30 ml PO DAILY PRN PRN Reason: Constipation Melatonin (Melatonin 3 Mg Tablet) 6 mg PO BEDTIME PRN PRN Reason: Insomnia Sodium Chloride (0.9 % Sodium Chloride Flush 3 Ml Syringe) 3 ml IVFLUSH QSHIFT [facility] Last Admin: 07/16/24 09:31 Dose: 3 ml Documented By: SEFERINO Labs 07/14/24 11:34 07/16/24 05:26 Labs: Laboratory Results - last 24 hr 07/15/24 07/15/24 07/16/24 15:59 20:22 05:26 Hold Purple Top SEE NOTE Anion Gap 12 Estim Creat Clear Calc 13.3 Estimated GFR 19 POC Glucose 218 H 199 H Random Glucose 175 H Calcium 8.5 D 07/16/24 07/16/24 07:05 11:16 Hold Purple Top Anion Gap Estim Creat Clear Calc Estimated GFR POC Glucose 177 H 228 H Random Glucose Calcium Assessment and Plan (1) Hypertension: Status: Acute (2) CKD stage 4 secondary to hypertension: Status: Acute (3) Acute on chronic kidney failure: Status: Acute Plan An 83 years old lady with PMH of CKD4, HTN, DM2 among others presenting with increase weakness and confusion. YENNIFER on CKD4 Likely ATN; worsened with usage of Cipro and Ceftin recently PHosphorus Low Hold nephrotoxic meds follow BMP nephrology input appreciated Physical deconditioning PT rec STR Unclear if patient agreeable DMII DC Glipizide at time of discharge, she is on Mixtard insulin at home as well Last A1c 8.9 SSI diabetic diet HTN Started Amlodipine 10 mg daily and Carvedilol 6.25 bid Now with relative hypotension we will decrease to amlodipine 5 mg daily and carvedilol 3.125 b.i.d. DVT PPx Heparin SC Full code reason for continued hospitalization: Fluctuating blood pressure Quality Stroke Does the patient have a stroke diagnosis?: No VTE Prior VTE?: No VTE Risk Level:: Medical - moderate - high VTE Device Contraindication: Treatment Not Indicated VTE Drug Contraindication: N/A - Med Ordered
--- NOTE | 2024-07-16 14:58 | MHC.CM.PN ---
Pt has not been medically cleared for DC, she is being treated for fluctuating BP. Family plans to speak with her to encourage her to accept plan for her to DC to [facility], anticipate DC on 07/17/24.
[2024-07-16 15:54] LABS: Glucose, Whole Blood 81 mg/dL (60-115)
[2024-07-16 20:37] LABS: Glucose, Whole Blood 238 mg/dL (60-115)
[2024-07-16] MEDS: carvediloL 3.125 MG TABLET PO (21:27)
[2024-07-17] VITALS (7 sets, daily range): BP systolic 117–174; BP diastolic 59–72; PULSE 68–84; RESP 12–20; TEMP 36.1–36.3; O2SAT 92–100
--- NOTE | 2024-07-17 | EEG_ITS ---
FINDINGS: This is a 16-channel EEG with an EKG lead. The patient is awake and drowsy during the tracing. Background EEG rhythm is mixed theta, beta with no obvious asymmetry or paroxysmal tendency. Photic stimulation does not produce any significant driving. Hyperventilation is not performed. No definite sharp wave spikes or paroxysmal tendency noted. Some lead and muscle artifacts are noted. Cardiac lead does not reveal any significant abnormality. IMPRESSION: Mild generalized slowing with no evidence of seizure disorder. MD ESTELA Samano/TREASURE / [id number]
[2024-07-17] MEDS: Levothyroxine Sodium 50 MCG TABLET PO (06:32)
[2024-07-17 07:22] LABS: Glucose, Whole Blood 165 mg/dL (60-115)
[2024-07-17 07:41] LABS: Hematocrit 31.5 % (37.0-47.0); Hemoglobin 11.3 g/dl (12.0-16.0); Mean Corpuscular HGB Conc 35.9 g/dl (31.0-35.0); Mean Corpuscular Hemoglobin 32.5 pg (27.0-33.0); Mean Corpuscular Volume 90.5 fL (80.0-98.0); Mean Platelet Volume 9.8 fL (9.4-12.3); Platelet Count 141 X10*3/uL (160-400); Red Blood Count 3.48 X10*6/uL (4.20-5.50); Red Cell Distribution Width 12.6 % (11.0-16.0); White Blood Count 4.8 X10*3/uL (4.8-10.8)
[2024-07-17 07:52] LABS: Anion Gap 17 (12-20); Blood Urea Nitrogen 35 mg/dL (9-16); Calcium 8.7 mg/dL (8.4-10.2); Carbon Dioxide 18 mmol/L (22-29); Chloride 112 mmol/L (96-108); Creatinine Clr Calc Pharmacy 12.5; Estimated Glomerular Filt Rate 17; Glucose Fasting 181 mg/dL (60-99); Potassium 3.2 mmol/L (3.3-5.1); Sodium 144 mmol/L (135-145)
[2024-07-17] MEDS: Heparin Sodium,Porcine 5,000 UNIT/ML VIAL 5000 UNIT SUBCUT ×2 (08:30→21:23)
[2024-07-17] MEDS: amLODIPine Besylate 5 MG TABLET PO (08:30)
[2024-07-17] MEDS: Insulin Lispro 100 UNIT/ML 3 ML VIAL SUBCUT ×3 (08:30→16:56)
[2024-07-17] MEDS: carvediloL 3.125 MG TABLET PO ×2 (08:31→21:23)
[2024-07-17] MEDS: 0.9 % Sodium Chloride Flush 3 ML SYRINGE IVFLUSH ×3 (08:35→21:25)
[2024-07-17] MEDS: Potassium Chloride ER 20 MEQ TAB.ER.PRT 40 MEQ PO (09:39)
--- NOTE | 2024-07-17 09:57 | PC.NURSE ---
Patient off unit for EEG
--- NOTE | 2024-07-17 10:27 | P.PNNP_ITS ---
Subjective Subjective Date of Service: 07/17/24 Interval history: 83 y/o female with untreated HTN, poorly controlled DMII, hypothyroidism, chronic thrombocytopenia, CKD ED 07/14 for weakness, confusion (via EMS, grandson called per pt). BP 213/94 on 07/14 admission had recently been on cipro and ceftin for UTI; UA negative for UTI amlodipine 10mg daily, added carvedilol 6.25mg BID yesterday evening due to continued elevated BPs 140s/60s had episode of hypotension 07/16 BP 98/56; amlodipine and carvedilol dosing cut in half, hypotension has resolved. Most recent BP 141/66 renal ultrasound on 06/25 did not suggest renal artery stenosis; renal cortical thinning and increased echogenicity; no obstruction on US. electrolytes within normal limits serum/urine ummunofixation to rule out paraproteinemia negative PTH mildly elevated at 91 creatinine 3.32 on arrival 07/14 (previous 2.06 on 06/27), has been trending down, today 2.49 she denies chest pain, dizziness, shortness of breath she denies flank pain, pain with urination, difficulty emptying bladder, blood in urine denies lower extremity swelling she states she feels otherwise well and denies concerns. Physical Exam 2 Vital Signs: Vital Signs: Last Vital Signs Temp 97.4 F 07/17/24 07:54 Pulse 70 07/17/24 07:54 Resp 18 07/17/24 07:54 BP 141/66 H 07/17/24 07:54 Pulse Ox 99 07/17/24 07:54 O2 Del Method Room Air 07/17/24 07:54 BMI result Body Mass Index 23.2 Const: General: comfortable and no acute distress O rientation/consciousness: oriented to person, oriented to place and oriented to time Neck: Neck: Yes no JVD Resp: Effort & Inspection: able to speak in complete sentences A uscultation: clear to auscultation bilaterally Cardio: Jugular venous distension: no JVD Rate: regular rate Rhythm: r egular rhythm Heart sounds: S1 normal heart sound present, S2 normal heart sound present and Murmur heart sound present GI: Palpation (GI): Soft to palpation Rectal Exam - Female: No tenderness : General: Yes no CVA tenderness Back/Spine/Pelvis: Back: no CVA tenderness Skin: Rashes: no rashes (brownish venous stasis skin discoloration of anterior lower extremities) Neuro: General: oriented to person, oriented to place and oriented to time Extrem: General: Yes normal to inspection, No edema and No pedal edema Objective Data Labs 07/17/24 06:46 07/17/24 06:46 Labs: Laboratory Results - last 24 hr 07/16/24 07/16/24 07/16/24 11:16 15:50 20:33 WBC RBC Hgb Hct MCV MCH MCHC RDW Plt Count MPV Absolute Nucleated RBC Nucleated RBC % (auto) Sodium Potassium Chloride Carbon Dioxide Anion Gap BUN Creatinine Estim Creat Clear Calc Estimated GFR POC Glucose 228 H 81 238 H Fasting Glucose Calcium 07/17/24 07/17/24 06:46 07:10 WBC 4.8 RBC 3.48 L Hgb 11.3 L Hct 31.5 L MCV 90.5 MCH 32.5 MCHC 35.9 H RDW 12.6 Plt Count 141 L MPV 9.8 Absolute Nucleated RBC 0.000 Nucleated RBC % (auto) 0.0 Sodium 144 Potassium 3.2 L Chloride 112 H Carbon Dioxide 18 L Anion Gap 17 BUN 35 H Creatinine 2.66 H Estim Creat Clear Calc 12.5 Estimated GFR 17 POC Glucose 165 H Fasting Glucose 181 H Calcium 8.7 Procedures Date of Service Date of Service: 07/17/24 Assessment & Plan Assessment and plan (1) CKD stage 3b, GFR 30-44 ml/min: Status: Acute (2) YENNIFER (acute kidney injury): Status: Resolved (3) Hypertension: Status: Acute Plan YENNIFER on CKD most likely tubular injury, unlikely thrombotic microangiopathy had not been on any HTN medications renal US showed renal cortical thinning and increased echogenicity; no obstructon. No evidence of renal artery stenosis had bump in creatinine this a.m., likely secondary to hypoperfusion from episode of hypotension yesterday blood pressures improving- agree continue 5mg amlodipine and carvedilol 3.125mg BID (reduced by half) due to episode of hypotension creatinine is stabilizing Patient ok for discharge from renal standpoint; recommend she follow up with outpatient nephrology within following few weeks. Discussed with Dr Ro Time Spent With Patient Time: Total time managing care of this patient today ____ minutes. Progress Note: Quality Stroke Does the patient have a stroke diagnosis?: No
--- NOTE | 2024-07-17 10:37 | HO.PM.IMPN ---
Subjective Subjective Date of Service: 07/17/24 Interval History: Two separate witnessed freezing spells during physical therapy sessions Physical Exam Vital Signs: Vital Signs: Last Vital Signs Temp 97.4 F 07/17/24 07:54 Pulse 70 07/17/24 07:54 Resp 18 07/17/24 07:54 BP 141/66 H 07/17/24 07:54 Pulse Ox 99 07/17/24 07:54 O2 Del Method Room Air 07/17/24 07:54 BMI result Body Mass Index 23.2 Const: General: comfortable and no acute distress Orientation/consciousness: oriented to person, oriented to place and oriented to time Neck: Neck: Yes no JVD Resp: Effort & Inspection: able to speak in complete sentences Auscultation: clear to auscultation bilaterally Cardio: Jugular venous distension: no JVD Rate: regular rate Rhythm: regular rhythm Heart sounds: S1 normal heart sound present, S2 normal heart sound present and Murmur heart sound present GI: Palpation (GI): Soft to palpation Rectal Exam - Female: No tenderness : General: Yes no CVA tenderness Back/Spine/Pelvis: Back: no CVA tenderness Skin: Rashes: no rashes (brownish venous stasis skin discoloration of anterior lower extremities) Neuro: General: oriented to person, oriented to place and oriented to time Extrem: General: Yes normal to inspection, No edema and No pedal edema Objective Data Active Medications Acetaminophen (Acetaminophen 325 Mg Tablet) 650 mg PO Q6H PRN PRN Reason: Pain, Mild (Pain Scale 1-3), fever or headache Amlodipine Besylate (Amlodipine Besylate 5 Mg Tablet) 5 mg PO DAILY [facility]; Protocol Last Admin: 07/17/24 08:30 Dose: 5 mg Documented By: KARO Calcium Carbonate (Calcium Carbonate 750 Mg Tab.Chew) 750 mg PO Q4H PRN PRN Reason: Heartburn Carvedilol (Carvedilol 3.125 Mg Tablet) 3.125 mg PO BID [facility]; Protocol Last Admin: 07/17/24 08:31 Dose: 3.125 mg Documented By: KARO Heparin Sodium (Porcine) (Heparin Sodium,Porcine 5,000 Unit/Ml Vial) 5,000 unit SUBCUT Q12H [facility] Last Admin: 07/17/24 08:30 Dose: 5,000 unit Documented By: KARO Insulin Human Lispro (Insulin Lispro 100 Unit/Ml 3 Ml Vial) 0 unit SUBCUT QIDACHS [facility]; Protocol Last Admin: 07/17/24 08:30 Dose: 2 unit Documented By: KARO Levothyroxine Sodium (Levothyroxine Sodium 50 Mcg Tablet) 50 mcg PO DAILY@0600 [facility] Last Admin: 07/17/24 06:32 Dose: 50 mcg Documented By: CARO Magnesium Hydroxide (Milk Of Magnesia 30 Ml Oral.Susp) 30 ml PO DAILY PRN PRN Reason: Constipation Melatonin (Melatonin 3 Mg Tablet) 6 mg PO BEDTIME PRN PRN Reason: Insomnia Sodium Chloride (0.9 % Sodium Chloride Flush 3 Ml Syringe) [facility] Last Admin: 07/17/24 08:35 Dose: 3 ml Documented By: KARO Labs 07/17/24 06:46 07/17/24 06:46 Labs: Laboratory Results - last 24 hr 07/16/24 07/16/24 07/16/24 11:16 15:50 20:33 MCV MCH MCHC RDW Plt Count MPV Absolute Nucleated RBC Nucleated RBC % (auto) Anion Gap Estim Creat Clear Calc Estimated GFR POC Glucose 228 H 81 238 H Fasting Glucose Calcium 07/17/24 07/17/24 06:46 07:10 MCV 90.5 MCH 32.5 MCHC 35.9 H RDW 12.6 Plt Count 141 L MPV 9.8 Absolute Nucleated RBC 0.000 Nucleated RBC % (auto) 0.0 Anion Gap 17 Estim Creat Clear Calc 12.5 Estimated GFR 17 POC Glucose 165 H Fasting Glucose 181 H Calcium 8.7 Assessment and Plan (1) Hypertension: Status: Acute (2) CKD stage 4 secondary to hypertension: Status: Acute (3) Acute on chronic kidney failure: Status: Acute Plan An 83 years old lady with PMH of CKD4, HTN, DM2 among others presenting with increase weakness and confusion. YENNIFER on CKD4 Likely ATN; worsened with usage of Cipro and Ceftin recently PHosphorus Low Hold nephrotoxic meds nephrology input appreciated - outpatient follow-up Physical deconditioning PT rec [facility] Freezing spells during physical therapy Possible orthostatic versus seizures Follow up CT head, EEG, neuro eval DMII DC Glipizide at time of discharge, she is on Mixtard insulin at home as well Last A1c 8.9 SSI diabetic diet HTN Better controlled on amlodipine 5 mg daily and carvedilol 3.125 b.i.d. DVT PPx Heparin SC Full code reason for continued hospitalization: Working up [facility] Stroke Does the patient have a stroke diagnosis?: No VTE Prior VTE?: No VTE Risk Level:: Medical - moderate - high VTE Device Contraindication: Treatment Not Indicated VTE Drug Contraindication: N/A - Med Ordered
[2024-07-17 11:09] LABS: Glucose, Whole Blood 288 mg/dL (60-115)
--- NOTE | 2024-07-17 11:15 | PC.NURSE ---
Patient returned to the room from s/p EEG
--- NOTE | 2024-07-17 12:36 | P.CNNE_ITS ---
History of Present Illness Data of Consult Service Date: 07/17/24 Primary Care Provider: Gianluca Betancur MD [facility] Reason for consult: Episodes of freezing 83 years old woman with chronic renal disease was noted to have couple of episodes of freezing while in physical therapy. She did not know what had happened and why she was in hospital. Otherwise she was comfortable and eating her lunch when I talked to her. Review of Systems 2 Review of Systems: No loss of consciousness or shaking PMFSH Past Medical History Medical History (Updated 07/17/24 @ 12:37 by Manju Garcia MD) Hypertension CKD stage 3b, GFR 30-44 ml/min Hypothyroidism History of ovarian cancer Generalized weakness Gallbladder & bile duct stone with obstruction Diabetes Surgical History Surgical History H/O: hysterectomy Social History Social History Household Members: Family Household Members Other:: Grandson. Housing: House Do you presently have visiting nurse or other home services: No Alcohol intake: former Patient Tobacco Use Status: Former Tobacco user Advance Directives Date on File: 05/08/23 service: No Meds Allergies Allergy/AdvReac Type Severity Reaction Status Date / Time No Known Allergies Allergy Verified 07/14/24 11:27 Active Medications: Current Medications Acetaminophen (Acetaminophen 325 Mg Tablet) 650 mg PO Q6H PRN PRN Reason: Pain, Mild (Pain Scale 1-3), fever or headache Amlodipine Besylate (Amlodipine Besylate 5 Mg Tablet) 5 mg PO DAILY [facility]; Protocol Last Admin: 07/17/24 08:30 Dose: 5 mg Calcium Carbonate (Calcium Carbonate 750 Mg Tab.Chew) 750 mg PO Q4H PRN PRN Reason: Heartburn Carvedilol (Carvedilol 3.125 Mg Tablet) 3.125 mg PO BID [facility]; Protocol Last Admin: 07/17/24 08:31 Dose: 3.125 mg Heparin Sodium (Porcine) (Heparin Sodium,Porcine 5,000 Unit/Ml Vial) 5,000 unit SUBCUT Q12H [facility] Last Admin: 07/17/24 08:30 Dose: 5,000 unit Insulin Human Lispro (Insulin Lispro 100 Unit/Ml 3 Ml Vial) 0 unit SUBCUT QIDACHS [facility]; Protocol Last Admin: 07/17/24 12:22 Dose: 6 unit Levothyroxine Sodium (Levothyroxine Sodium 50 Mcg Tablet) 50 mcg PO DAILY@0600 [facility] Last Admin: 07/17/24 06:32 Dose: 50 mcg Magnesium Hydroxide (Milk Of Magnesia 30 Ml Oral.Susp) 30 ml PO DAILY PRN PRN Reason: Constipation Melatonin (Melatonin 3 Mg Tablet) 6 mg PO BEDTIME PRN PRN Reason: Insomnia Sodium Chloride (0.9 % Sodium Chloride Flush 3 Ml Syringe) 3 ml IVFLUSH QSHIFT [facility] Last Admin: 07/17/24 08:35 Dose: 3 ml Home Medications ?Medication ?Instructions ?Recorded ?Confirmed ?Last Taken ?Type glipizide 5 mg tablet 10 mg PO BID 05/07/23 07/14/24 07/14/24 History levothyroxine 50 mcg tablet 50 mcg PO DAILY 05/07/23 07/14/24 07/13/24 History multivitamin 1 tab PO DAILY 05/07/23 07/14/24 06/24/24 History insulin NPH-regular 70-30 U-100 3 - 6 unit subcut BID@0700,1900 06/25/24 07/14/24 07/14/24 History insulin 100 unit/mL subcutaneous PRN Hyperglycemia pen (Humulin 70/30 U-100 KwikPen) ciprofloxacin HCl 250 mg tablet 250 mg PO BID 07/14/24 07/14/24 07/14/24 History Physical Exam 2 Vital Signs: Vital Signs: Last Vital Signs Temp 97.2 F 07/17/24 11:09 Pulse 70 07/17/24 11:09 Resp 20 07/17/24 11:09 BP 117/72 07/17/24 11:09 Pulse Ox 97 07/17/24 11:09 O2 Del Method Room Air 07/17/24 11:09 BMI result Body Mass Index 23.2 Neuro: Other: She is alert and awake with normal spontaneity of speech fluency comprehension and affect. Face is symmetrical. Visual newell are full. There is no focal weakness. Plantars are flexor. Results Labs 07/17/24 06:46 07/17/24 06:46 Labs: Short CBC 07/17/24 Range/Units 06:46 WBC 4.8 (4.8-10.8) X10*3/uL Hgb 11.3 L (12.0-16.0) g/dl Hct 31.5 L (37.0-47.0) % Plt Count 141 L (160-400) X10*3/uL [facility] 07/17/24 06:46 Sodium 144 Potassium 3.2 L Chloride 112 H Carbon Dioxide 18 L BUN 35 H Creatinine 2.66 H Calcium 8.[address] revealed mild diffuse cerebral and cerebellar atrophy and mild microvascular ischemic changes. Assessment and Plan (1) Episodes of decreased attentiveness: Status: Acute Possible seizure disorder. I recommend an EEG. Procedures Date of Service Date of Service: 07/17/24
[2024-07-17 16:05] LABS: Glucose, Whole Blood 154 mg/dL (60-115)
[2024-07-17 20:44] LABS: Glucose, Whole Blood 134 mg/dL (60-115)
[2024-07-18 03:39] VITALS: BP 168/77; PULSE 69; RESP 18; TEMP 36.6; O2SAT 98
[2024-07-18] MEDS: Levothyroxine Sodium 50 MCG TABLET PO (06:29)
[2024-07-18 07:40] VITALS: BP 142/62; PULSE 76; RESP 16; TEMP 36.5; O2SAT 99
[2024-07-18 07:47] LABS: Anion Gap 15 (12-20); Blood Urea Nitrogen 39 mg/dL (9-16); Calcium 9.3 mg/dL (8.4-10.2); Carbon Dioxide 20 mmol/L (22-29); Chloride 111 mmol/L (96-108); Creatinine Clr Calc Pharmacy 10.2; Estimated Glomerular Filt Rate 14; Glucose Random 294 mg/dL (60-115); Potassium 4.3 mmol/L (3.3-5.1); Sodium 142 mmol/L (135-145)
[2024-07-18 08:01] LABS: Glucose, Whole Blood 257 mg/dL (60-115)
[2024-07-18] MEDS: Heparin Sodium,Porcine 5,000 UNIT/ML VIAL 5000 UNIT SUBCUT ×2 (08:20→20:43)
[2024-07-18] MEDS: Insulin Lispro 100 UNIT/ML 3 ML VIAL SUBCUT ×3 (08:20→20:43)
[2024-07-18] MEDS: carvediloL 3.125 MG TABLET PO ×2 (08:20→20:43)
[2024-07-18] MEDS: 0.9 % Sodium Chloride Flush 3 ML SYRINGE IVFLUSH ×3 (08:22→20:44)
[2024-07-18] MEDS: amLODIPine Besylate 5 MG TABLET PO (08:25)
--- NOTE | 2024-07-18 08:58 | P.PNNP_ITS ---
Subjective Subjective Date of Service: 07/18/24 Interval history: 83 y/o female with untreated HTN, poorly controlled DMII, hypothyroidism, chronic thrombocytopenia, CKD ED 07/14 for weakness, confusion (via EMS, grandson called per pt). BP 213/94 on 07/14 admission had recently been on cipro and ceftin for UTI; UA negative for UTI amlodipine 10mg daily, added carvedilol 6.25mg BID yesterday evening due to continued elevated BPs 140s/60s had episode of hypotension 07/16 BP 98/56; amlodipine and carvedilol dosing cut in half, hypotension has resolved. Most recent BP 142/62 renal ultrasound on 06/25 did not suggest renal artery stenosis; renal cortical thinning and increased echogenicity; no obstruction on US. electrolytes within normal limits serum/urine ummunofixation to rule out paraproteinemia negative PTH mildly elevated at 91 creatinine 3.32 on arrival 07/14 (previous 2.06 on 06/27), had been trending down to 2.49 on 07/16, now trending up 07/18 is 3.25 she denies chest pain, dizziness, shortness of breath she denies flank pain, pain with urination, difficulty emptying bladder, blood in urine denies lower extremity swelling she states she feels otherwise well and denies concerns. Physical Exam 2 Vital Signs: Vital Signs: Last Vital Signs Temp 97.7 F 07/18/24 07:40 Pulse 76 07/18/24 07:40 Resp 16 07/18/24 07:40 BP 142/62 H 07/18/24 07:40 Pulse Ox 99 07/18/24 07:40 O2 Del Method Room Air 07/18/24 07:40 BMI result Body Mass Index 23.2 Const: General: comfortable and no acute distress O rientation/consciousness: oriented to person, oriented to place and oriented to time Neck: Neck: Yes no JVD Resp: Effort & Inspection: able to speak in complete sentences A uscultation: clear to auscultation bilaterally Cardio: Jugular venous distension: no JVD Rate: regular rate Rhythm: r egular rhythm Heart sounds: S1 normal heart sound present, S2 normal heart sound present and Murmur heart sound present GI: Palpation (GI): Soft to palpation Rectal Exam - Female: No tenderness : General: Yes no CVA tenderness Back/Spine/Pelvis: Back: no CVA tenderness Skin: Rashes: no rashes (brownish venous stasis skin discoloration of anterior lower extremities) Neuro: Other: She is alert and awake with normal spontaneity of speech fluency comprehension and affect. Face is symmetrical. Visual newell are full. There is no focal weakness. Plantars are flexor. General: oriented to person, oriented to place and oriented to time Extrem: General: Yes normal to inspection, No edema and No pedal edema Objective Data Labs 07/17/24 06:46 07/18/24 07:18 Labs: Laboratory Results - last 24 hr 07/17/24 07/17/24 07/17/24 11:03 15:41 20:33 Sodium Potassium Chloride Carbon Dioxide Anion Gap BUN Creatinine Estim Creat Clear Calc Estimated GFR POC Glucose 288 H 154 H 134 H Random Glucose Calcium 07/18/24 07/18/24 07:18 07:35 Sodium 142 Potassium 4.3 D Chloride 111 H Carbon Dioxide 20 L Anion Gap 15 BUN 39 H Creatinine 3.25 H Estim Creat Clear Calc 10.2 Estimated GFR 14 POC Glucose 257 H Random Glucose 294 H Calcium 9.3 D Procedures Date of Service Date of Service: 07/18/24 Assessment & Plan Assessment and plan (1) CKD stage 3b, GFR 30-44 ml/min: Status: Acute (2) YENNIFER (acute kidney injury): Status: Resolved (3) Hypertension: Status: Acute Plan YENNIFER on CKD most likely tubular injury, unlikely thrombotic microangiopathy had not been on any HTN medications renal US showed renal cortical thinning and increased echogenicity; no obstructon. No evidence of renal artery stenosis creatinine worsening- had increase in creatinine this a.m., likely secondary to hypoperfusion from episode of hypotension 07/16 blood pressures improving- agree continue 5mg amlodipine and carvedilol 3.125mg BID (reduced by half) due to episode of hypotension Recommend patient continue stay overnight given rise in creatinine today- if creatinine stable tomorrow morning or improving, may discharge from renal standpoint. If Creatinine continues to rise tomorrow morning, will need further monitoring and workup. Discussed with Dr Ro Time Spent With Patient Time: Total time managing care of this patient today ____ minutes. Progress Note: Quality Stroke Does the patient have a stroke diagnosis?: No
--- NOTE | 2024-07-18 10:48 | P.PNIM_ITS ---
Subjective Subjective Date of Service: 07/18/24 Interval History: Feels well Physical Exam 2 Vital Signs: Vital Signs: Last Vital Signs Temp 97.7 F 07/18/24 07:40 Pulse 76 07/18/24 07:40 Resp 16 07/18/24 07:40 BP 142/62 H 07/18/24 07:40 Pulse Ox 99 07/18/24 07:40 O2 Del Method Room Air 07/18/24 07:40 BMI result Body Mass Index 23.2 Const: General: comfortable and no acute distress O rientation/consciousness: oriented to person, oriented to place and oriented to time Neck: Neck: Yes no JVD Resp: Effort & Inspection: able to speak in complete sentences A uscultation: clear to auscultation bilaterally Cardio: Jugular venous distension: no JVD Rate: regular rate Rhythm: r egular rhythm Heart sounds: S1 normal heart sound present, S2 normal heart sound present and Murmur heart sound present GI: Palpation (GI): Soft to palpation Rectal Exam - Female: No tenderness : General: Yes no CVA tenderness Back/Spine/Pelvis: Back: no CVA tenderness Skin: Rashes: no rashes (brownish venous stasis skin discoloration of anterior lower extremities) Neuro: Other: She is alert and awake with normal spontaneity of speech fluency comprehension and affect. Face is symmetrical. Visual newell are full. There is no focal weakness. Plantars are flexor. General: oriented to person, oriented to place and oriented to time Extrem: General: Yes normal to inspection, No edema and No pedal edema Objective Data Active Medications Acetaminophen (Acetaminophen 325 Mg Tablet) 650 mg PO Q6H PRN PRN Reason: Pain, Mild (Pain Scale 1-3), fever or headache Amlodipine Besylate (Amlodipine Besylate 5 Mg Tablet) 5 mg PO DAILY [facility]; Protocol Last Admin: 07/18/24 08:25 Dose: 5 mg Documented By: CARLEE Calcium Carbonate (Calcium Carbonate 750 Mg Tab.Chew) 750 mg PO Q4H PRN PRN Reason: Heartburn Carvedilol (Carvedilol 3.125 Mg Tablet) 3.125 mg PO BID [facility]; Protocol Last Admin: 07/18/24 08:20 Dose: 3.125 mg Documented By: CARLEE Heparin Sodium (Porcine) (Heparin Sodium,Porcine 5,000 Unit/Ml Vial) 5,000 unit SUBCUT Q12H [facility] Last Admin: 07/18/24 08:20 Dose: 5,000 unit Documented By: CARLEE Insulin Human Lispro (Insulin Lispro 100 Unit/Ml 3 Ml Vial) 0 unit SUBCUT QIDACHS [facility]; Protocol Last Admin: 07/18/24 08:20 Dose: 6 unit Documented By: CARLEE Levothyroxine Sodium (Levothyroxine Sodium 50 Mcg Tablet) 50 mcg PO DAILY@0600 [facility] Last Admin: 07/18/24 06:29 Dose: 50 mcg Documented By: KAYLEE Magnesium Hydroxide (Milk Of Magnesia 30 Ml Oral.Susp) 30 ml PO DAILY PRN PRN Reason: Constipation Melatonin (Melatonin 3 Mg Tablet) 6 mg PO BEDTIME PRN PRN Reason: Insomnia Sodium Chloride (0.9 % Sodium Chloride Flush 3 Ml Syringe) 3 ml IVFLUSH QSHIFT [facility] Last Admin: 07/18/24 08:22 Dose: 3 ml Documented By: CARLEE Labs 07/17/24 06:46 07/18/24 07:18 Labs: Laboratory Results - last 24 hr 07/17/24 07/17/24 07/17/24 11:03 15:41 20:33 Anion Gap Estim Creat Clear Calc Estimated GFR POC Glucose 288 H 154 H 134 H Random Glucose Calcium 07/18/24 07/18/24 07:18 07:35 Anion Gap 15 Estim Creat Clear Calc 10.2 Estimated GFR 14 POC Glucose 257 H Random Glucose 294 H Calcium 9.3 D Assessment and Plan (1) Hypertension: Status: Acute (2) CKD stage 4 secondary to hypertension: Status: Acute (3) Acute on chronic kidney failure: Status: Acute Plan An 83 years old lady with PMH of CKD4, HTN, DM2 among others presenting with increase weakness and confusion. YENNIFER on CKD4 Likely ATN; worsened with usage of Cipro and Ceftin recently PHosphorus Low Hold nephrotoxic meds Initially with some improvement, now worsening again due to hypoperfusion episode with relative hypotension Continue to monitor nephrology input appreciated Physical deconditioning PT rec [facility] Freezing spells during physical therapy Possible orthostatic versus seizures Head CT unremarkable, EEG no seizure activity DMII DC Glipizide at time of discharge, she is on Mixtard insulin at home as well Last A1c 8.9 SSI diabetic diet HTN Better controlled on amlodipine 5 mg daily and carvedilol 3.125 b.i.d. DVT PPx Heparin SC Full code reason for continued hospitalization: Monitoring creatinine Quality Stroke Does the patient have a stroke diagnosis?: No VTE Prior VTE?: No VTE Risk Level:: Medical - moderate - high VTE Device Contraindication: Treatment Not Indicated VTE Drug Contraindication: N/A - Med Ordered
[2024-07-18 11:32] VITALS: BP 142/66; PULSE 73; RESP 18; TEMP 36.3; O2SAT 100
[2024-07-18 11:46] LABS: Glucose, Whole Blood 247 mg/dL (60-115)
--- NOTE | 2024-07-18 14:57 | MHC.CM.PN ---
Per rounds, pt is not ready for DC, anticipate DC on 07/19/24. Pt. has said that she does not want to go to [facility]. CM spoke with grandson / HCP and he would like for pt to go to [facility], and said he and his uncle will visit pt and talk with her to again, to try to get her to agree to go.
[2024-07-18 15:40] VITALS: BP 142/66; PULSE 73; O2SAT 100
[2024-07-18 16:13] LABS: Glucose, Whole Blood 59 mg/dL (60-115)
[2024-07-18 16:32] VITALS: BP 126/60; PULSE 80; RESP 16; TEMP 36.1; O2SAT 100
[2024-07-18 16:40] LABS: Glucose, Whole Blood 77 mg/dL (60-115)
[2024-07-18 20:00] VITALS: BP 140/68; PULSE 80; RESP 18; TEMP 36.5; O2SAT 100
[2024-07-18 20:42] LABS: Glucose, Whole Blood 293 mg/dL (60-115)
[2024-07-19] VITALS: BP 164/72; PULSE 70; RESP 20; TEMP 36.3; O2SAT 99
[2024-07-19 04:00] VITALS: BP 152/78; PULSE 73; RESP 20; TEMP 36.3; O2SAT 94
[2024-07-19] MEDS: Levothyroxine Sodium 50 MCG TABLET PO (05:00)
[2024-07-19 07:10] LABS: Hematocrit 30.8 % (37.0-47.0); Hemoglobin 10.7 g/dl (12.0-16.0); Mean Corpuscular HGB Conc 34.7 g/dl (31.0-35.0); Mean Corpuscular Hemoglobin 32.3 pg (27.0-33.0); Mean Corpuscular Volume 93.1 fL (80.0-98.0); Mean Platelet Volume 9.6 fL (9.4-12.3); Platelet Count 124 X10*3/uL (160-400); Red Blood Count 3.31 X10*6/uL (4.20-5.50); Red Cell Distribution Width 12.7 % (11.0-16.0); White Blood Count 4.4 X10*3/uL (4.8-10.8)
[2024-07-19 07:22] LABS: Anion Gap 16 (12-20); Blood Urea Nitrogen 42 mg/dL (9-16); Calcium 9.3 mg/dL (8.4-10.2); Carbon Dioxide 21 mmol/L (22-29); Chloride 111 mmol/L (96-108); Creatinine Clr Calc Pharmacy 10.5; Estimated Glomerular Filt Rate 14; Glucose Fasting 275 mg/dL (60-99); Potassium 3.9 mmol/L (3.3-5.1); Sodium 144 mmol/L (135-145)
[2024-07-19 07:42] LABS: Glucose, Whole Blood 264 mg/dL (60-115)
[2024-07-19 08:00] VITALS: BP 114/60; PULSE 73; RESP 20; TEMP 36.3; O2SAT 100
[2024-07-19 09:02] VITALS: BP 118/60; PULSE 73
[2024-07-19] MEDS: carvediloL 3.125 MG TABLET PO (09:02)
[2024-07-19] MEDS: Insulin Lispro 100 UNIT/ML 3 ML VIAL SUBCUT ×2 (09:03→12:12)
[2024-07-19] MEDS: amLODIPine Besylate 5 MG TABLET PO (09:03)
[2024-07-19] MEDS: 0.9 % Sodium Chloride Flush 3 ML SYRINGE IVFLUSH (09:04)
[2024-07-19] MEDS: Heparin Sodium,Porcine 5,000 UNIT/ML VIAL 5000 UNIT SUBCUT (09:04)
--- NOTE | 2024-07-19 11:11 | P.PNIM_ITS ---
Subjective Subjective Date of Service: 07/19/24 Interval History: Feels well Physical Exam 2 Vital Signs: Vital Signs: Last Vital Signs Temp 97.4 F 07/19/24 08:00 Pulse 73 07/19/24 09:02 Resp 20 07/19/24 08:00 BP 118/60 07/19/24 09:02 Pulse Ox 100 07/19/24 08:00 O2 Del Method Room Air 07/19/24 08:00 BMI result Body Mass Index 23.2 Const: General: comfortable and no acute distress O rientation/consciousness: oriented to person, oriented to place and oriented to time Neck: Neck: Yes no JVD Resp: Effort & Inspection: able to speak in complete sentences A uscultation: clear to auscultation bilaterally Cardio: Jugular venous distension: no JVD Rate: regular rate Rhythm: r egular rhythm Heart sounds: S1 normal heart sound present, S2 normal heart sound present and Murmur heart sound present GI: Palpation (GI): Soft to palpation Rectal Exam - Female: No tenderness : General: Yes no CVA tenderness Back/Spine/Pelvis: Back: no CVA tenderness Skin: Rashes: no rashes (brownish venous stasis skin discoloration of anterior lower extremities) Neuro: Other: She is alert and awake with normal spontaneity of speech fluency comprehension and affect. Face is symmetrical. Visual newell are full. There is no focal weakness. Plantars are flexor. General: oriented to person, oriented to place and oriented to time Extrem: General: Yes normal to inspection, No edema and No pedal edema Objective Data Active Medications Acetaminophen (Acetaminophen 325 Mg Tablet) 650 mg PO Q6H PRN PRN Reason: Pain, Mild (Pain Scale 1-3), fever or headache Amlodipine Besylate (Amlodipine Besylate 5 Mg Tablet) 5 mg PO DAILY [facility]; Protocol Last Admin: 07/19/24 09:03 Dose: 5 mg Documented By: FELISHA Calcium Carbonate (Calcium Carbonate 750 Mg Tab.Chew) 750 mg PO Q4H PRN PRN Reason: Heartburn Carvedilol (Carvedilol 3.125 Mg Tablet) 3.125 mg PO BID [facility]; Protocol Last Admin: 07/19/24 09:02 Dose: 3.125 mg Documented By: FELISHA Heparin Sodium (Porcine) (Heparin Sodium,Porcine 5,000 Unit/Ml Vial) 5,000 unit SUBCUT Q12H [facility] Last Admin: 07/19/24 09:04 Dose: 5,000 unit Documented By: FELISHA Insulin Human Lispro (Insulin Lispro 100 Unit/Ml 3 Ml Vial) 0 unit SUBCUT QIDACHS [facility]; Protocol Last Admin: 07/19/24 09:03 Dose: 6 unit Documented By: FELISHA Levothyroxine Sodium (Levothyroxine Sodium 50 Mcg Tablet) 50 mcg PO DAILY@0600 [facility] Last Admin: 07/19/24 05:00 Dose: 50 mcg Documented By: KAYLEE Magnesium Hydroxide (Milk Of Magnesia 30 Ml Oral.Susp) 30 ml PO DAILY PRN PRN Reason: Constipation Melatonin (Melatonin 3 Mg Tablet) 6 mg PO BEDTIME PRN PRN Reason: Insomnia Sodium Chloride (0.9 % Sodium Chloride Flush 3 Ml Syringe) 3 ml IVFLUSH QSHIFT [facility] Last Admin: 07/19/24 09:04 Dose: 3 ml Documented By: FELISHA Labs 07/19/24 06:19 07/19/24 06:19 Labs: Laboratory Results - last 24 hr 07/18/24 07/18/24 07/18/24 11:28 15:55 16:37 MCV MCH MCHC RDW Plt Count MPV Absolute Nucleated RBC Nucleated RBC % (auto) Anion Gap Estim Creat Clear Calc Estimated GFR POC Glucose 247 H 59 L* 77 Fasting Glucose Calcium 07/18/24 07/19/24 07/19/24 20:34 06:19 07:04 MCV 93.1 MCH 32.3 MCHC 34.7 RDW 12.7 Plt Count 124 L MPV 9.6 Absolute Nucleated RBC 0.000 Nucleated RBC % (auto) 0.0 Anion Gap 16 Estim Creat Clear Calc 10.5 Estimated GFR 14 POC Glucose 293 H 264 H Fasting Glucose 275 H Calcium 9.3 Assessment and Plan (1) Hypertension: Status: Acute (2) CKD stage 4 secondary to hypertension: Status: Acute (3) Acute on chronic kidney failure: Status: Acute Plan An 83 years old lady with PMH of CKD4, HTN, DM2 among others presenting with increase weakness and confusion. YENNIFER on CKD4 Likely ATN; worsened with usage of Cipro and Ceftin recently PHosphorus Low Hold nephrotoxic meds Initially with some improvement, then worsened again due to hypoperfusion episode with relative hypotension, somewhat better today Continue to monitor nephrology input appreciated Physical deconditioning PT rec STR Freezing spells during physical therapy Possible orthostatic versus seizures Head CT unremarkable, EEG no seizure activity DMII DC Glipizide at time of discharge, she is on Mixtard insulin at home as well Last A1c 8.9 SSI diabetic diet HTN Better controlled on amlodipine 5 mg daily and carvedilol 3.125 b.i.d. DVT PPx Heparin SC Full code reason for continued hospitalization: safe dispo Quality Stroke Does the patient have a stroke diagnosis?: No VTE Prior VTE?: No VTE Risk Level:: Medical - moderate - high VTE Device Contraindication: Treatment Not Indicated VTE Drug Contraindication: N/A - Med Ordered
--- NOTE | 2024-07-19 11:14 | P.DS_ITS ---
DS: Providers Provider Date of Service: 07/19/24 Date of admission: 07/14/24 16:46 Date of discharge: 07/19/24 Primary care physician: Gianluca Betancur MD Consults: 07/14/24 16:59 Consult to Nephrology Routine Consulting Provider: [facility] Reason for consultation: YENNIFER on CKD4 07/17/24 08:45 Consult to Neurology Routine Consulting Provider: [facility] Reason for consultation: Freezing episodes with PT DS: Diagnosis Discharge Diagnosis (1) Hypertension: Status: Acute (2) CKD stage 4 secondary to hypertension: Status: Acute (3) Acute on chronic kidney failure: Status: Acute DS: Summary Hospital Course Hospital Course: from initial hpi: 83 years old lady with PMH of CKD4, HTN, DM2 among others presenting with increase weakness and confusion. The patient reports being treated recently for urine infections. she was in the hospital couple weeks ago for the same problem. she denies No chest pain, palpitations, SOB, nausea, vomiting, diarrhea or urinary symptoms. Her family is concerned that she is getting weaker and mildly more confused. In ED found to have worsening Cr to 3.3. Urine is negative for infection. Admitted for further work up and treatment. hospital course: Patient was admitted for acute kidney injury on CKD 4, likely acute tubular necrosis with worsen due to Cipro and Ceftin recently. Nephrotoxic meds were held and initially had some improvement creatinine into the mid 2s, then had hypoperfusion episode due to hypotension and creatinine worsened again, now trending back in the right direction. We will continue to follow up with Nephrology as outpatient. For physical deconditioning was seen by physical therapy who noticed freezing spells during physical therapy, was seen by neuro who recommended at CT which was negative and EEG which showed no seizure activity, we will continue physical therapy at short-term rehab. For diabetes glipizide was discontinued, we will continue on insulin for hyperglycemia. For hypertension patient was started initially on amlodipine 10 mg and carvedilol 6.25 b.i.d., due to hypotensive episode this was decreased amlodipine 5 mg daily and carvedilol 3.125 b.i.d. and blood pressure was better controlled. Patient is feeling better [facility] Time Attestation Discharge Coordination Time (in mins): 35 Quality: Safe Use of Opioids Does Pt have an Active Cancer Diagnosis on the Problem List?: No Quality: Stroke Does the patient have a stroke diagnosis?: No Physical Exam Vital Signs: Vital Signs: Last Vital Signs Temp 97.4 F 07/19/24 08:00 Pulse 73 07/19/24 09:02 Resp 20 07/19/24 08:00 BP 118/60 07/19/24 09:02 Pulse Ox 100 07/19/24 08:00 O2 Del Method Room Air 07/19/24 08:00 BMI result Body Mass Index 23.2 Const: General: comfortable and no acute distress Orientation/consciousness: oriented to person, oriented to place and oriented to time Neck: Neck: Yes no JVD Resp: Effort & Inspection: able to speak in complete sentences Auscultation: clear to auscultation bilaterally Cardio: Jugular venous distension: no JVD Rate: regular rate Rhythm: regular rhythm Heart sounds: S1 normal heart sound present, S2 normal heart sound present and Murmur heart sound present GI: Palpation (GI): Soft to palpation Rectal Exam - Female: No tenderness : General: Yes no CVA tenderness Back/Spine/Pelvis: Back: no CVA tenderness Skin: Rashes: no rashes (brownish venous stasis skin discoloration of anterior lower extremities) Neuro: Other: She is alert and awake with normal spontaneity of speech fluency comprehension and affect. Face is symmetrical. Visual newell are full. There is no focal weakness. Plantars are flexor. General: oriented to person, oriented to place and oriented to time Extrem: General: Yes normal to inspection, No edema and No pedal edema DS: Data Data Completed and Pending Labs on day of discharge: Laboratory Results - last 24 hr 07/18/24 07/18/24 07/18/24 11:28 15:55 16:37 WBC RBC Hgb Hct MCV MCH MCHC RDW Plt Count MPV Absolute Nucleated RBC Nucleated RBC % (auto) Sodium Potassium Chloride Carbon Dioxide Anion Gap BUN Creatinine Estim Creat Clear Calc Estimated GFR POC Glucose 247 H 59 L* 77 Fasting Glucose Calcium 07/18/24 07/19/24 07/19/24 20:34 06:19 07:04 WBC 4.4 L RBC 3.31 L Hgb 10.7 L Hct 30.8 L MCV 93.1 MCH 32.3 MCHC 34.7 RDW 12.7 Plt Count 124 L MPV 9.6 Absolute Nucleated RBC 0.000 Nucleated RBC % (auto) 0.0 Sodium 144 Potassium 3.9 Chloride 111 H Carbon Dioxide 21 L Anion Gap 16 BUN 42 H Creatinine 3.15 H Estim Creat Clear Calc 10.5 Estimated GFR 14 POC Glucose 293 H 264 H Fasting Glucose 275 H Calcium 9.3 Discharge Plan Discharge Anticipated Discharge Date/Time: 07/19/24 11:12 Patient Disposition: Xfer SNF Discharge Diagnosis: YENNIFER Referrals: Gianluca Betancur MD [Primary Care Provider] - 1 Week Alvaro Ro MD [Physician] - 1 Week Discharge Medications: New amlodipine 5 mg Tablet 5 mg PO DAILY Qty: 0 0RF Protocol: Hold for SBP< HOLD for SBP < : 90 carvedilol 3.125 mg Tablet 3.125 mg PO BID Qty: 0 0RF Protocol: Hold for SBP/HR < HOLD for SBP < : 90 HOLD for HR < : 60 Continued levothyroxine 50 mcg tablet 50 mcg PO DAILY multivitamin Tablet 1 tab PO DAILY Humulin 70/30 U-100 KwikPen 100 unit/mL (70-30) insulin pen 3 - 6 unit subcut BID@0700,1900 PRN (Reason: Hyperglycemia) Discontinued glipizide 5 mg tablet 10 mg PO BID ciprofloxacin HCl 250 mg tablet 250 mg PO BID Discharge Orders: Discharge Order (Routine); Ordered 07/19/24 Ordered By: Travis Alcazar Diet: Advance to usual diet Activity on Discharge: As tolerated Stand Alone Forms: Patient Portal Discharge page Print Language: Luxembourger Care Plan Goals: [facility] Concerns: CKD Plan of Treatment: Follow up Nephrology, short-term rehab, started amlodipine and carvedilol, stop ped glipizide Assessment: See above
[2024-07-19 11:28] VITALS: BP 118/59; PULSE 71; RESP 20; TEMP 36.6; O2SAT 100
[2024-07-19 11:46] LABS: Glucose, Whole Blood 237 mg/dL (60-115)
--- NOTE | 2024-07-19 11:54 | MHC.CM.PN ---
Patient is medically cleared for dc to SNF/STR today and has been accepted at the first choice facility ([facility]). CM has reached out to [facility] via Epic[employer] multiple times and called the facility @ [phone] and reported this difficulty.CM awaits confirmation that [facility] still has a bed today (and at which building). CM will follow.
--- NOTE | 2024-07-19 12:07 | MHC.CM.PN ---
LARRY called [facility] again; Dinora has been sent an email but has not yet responded.
--- NOTE | 2024-07-19 12:52 | MHC.CM.PN ---
CM called [facility] again, the head of Admissions is being contacted. CM will follow.
--- NOTE | 2024-07-19 13:16 | MHC.CM.PN ---
Patient has been medically cleared for dc to SNF/STR today. Patient will dc to [facility] today at 4PM, via [facility]. IMM to be addressed with Patient and CM spoke with Son/HCP/Milton @ [phone], and informed him of the dc plan.
== END 2024-07-19 16:22 | disposition skilled nursing facility (03) | DRG 683 ==
LOC: HO.ED 13:12 → HO.EDOVER 17:02 → HO.IMC 17:30
PROVIDERS: Nurse Practitioner Family; Admitting Provider Student in an Organized Health Care Education/Training Program; Emergency Provider Student in an Organized Health Care Education/Training Program; PCP Internal Medicine; Visit Provider Internal Medicine
DX: N17.0 Acute kidney failure with tubular necrosis (principal); N39.0 Urinary tract infection, site not specified; I12.9 Hypertensive chronic kidney disease with stage 1 through stage 4 chronic kidney disease, or unspecified chronic kidney disease; N18.4 Chronic kidney disease, stage 4 (severe); E03.9 Hypothyroidism, unspecified; D69.6 Thrombocytopenia, unspecified; I95.9 Hypotension, unspecified; E11.65 Type 2 diabetes mellitus with hyperglycemia; E11.22 Type 2 diabetes mellitus with diabetic chronic kidney disease; E86.0 Dehydration; E87.6 Hypokalemia; Z79.4 Long term (current) use of insulin; Z79.890 Hormone replacement therapy; Z79.899 Other long term (current) drug therapy
CPT/HCPCS: 36415; 70450; 80048; 81001; 82550; 82570; 82947; 84100; 85025; 85027; 85999; 93005; 95816; 97110; 97112; 97162; 97530; 99285; J1644

== ENCOUNTER → 2024-07-14 12:25 | Outpatient (BNV) | payer MEDICARE, SELFPAY | PROVIDERS: Admitting Provider Student in an Organized Health Care Education/Training Program; Emergency Provider Student in an Organized Health Care Education/Training Program; PCP Internal Medicine; Visit Provider Internal Medicine Cardiovascular Disease | DX: E87.6 Hypokalemia (principal) | CPT/HCPCS: 93010 ==

== ENCOUNTER → 2024-07-14 16:46 | Outpatient (BNV) | payer MEDICARE, SELFPAY | PROVIDERS: Admitting Provider Student in an Organized Health Care Education/Training Program; Emergency Provider Student in an Organized Health Care Education/Training Program; PCP Internal Medicine; Visit Provider Psychiatry & Neurology Neurology | DX: R68.89 Other general symptoms and signs (principal) | CPT/HCPCS: 99221 ==

== ENCOUNTER → 2024-07-14 16:46 | Outpatient (BNV) | payer MEDICARE, SELFPAY | PROVIDERS: Admitting Provider Student in an Organized Health Care Education/Training Program; Emergency Provider Student in an Organized Health Care Education/Training Program; PCP Internal Medicine; Visit Provider Nurse Practitioner Family | DX: N17.9 Acute kidney failure, unspecified (principal); I12.9 Hypertensive chronic kidney disease with stage 1 through stage 4 chronic kidney disease, or unspecified chronic kidney disease; N18.32 Chronic kidney disease, stage 3b | CPT/HCPCS: 99222; 99232 ==

== ENCOUNTER → 2024-07-14 16:46 | Outpatient (BNV) | payer MEDICARE, SELFPAY | PROVIDERS: Admitting Provider Student in an Organized Health Care Education/Training Program; Emergency Provider Student in an Organized Health Care Education/Training Program; PCP Internal Medicine; Visit Provider Student in an Organized Health Care Education/Training Program | DX: N17.9 Acute kidney failure, unspecified (principal); I12.9 Hypertensive chronic kidney disease with stage 1 through stage 4 chronic kidney disease, or unspecified chronic kidney disease; E11.22 Type 2 diabetes mellitus with diabetic chronic kidney disease; N18.4 Chronic kidney disease, stage 4 (severe) | CPT/HCPCS: 99223; 99232; 99233; 99239; 99499 ==

== ENCOUNTER 2024-07-20 19:54 | Emergency (ER) | payer MEDICARE, SELFPAY ==
[2024-07-20 20:02] VITALS: BP 170/80; PULSE 76; PULSE 78; RESP 18; TEMP 36.2; O2SAT 100; BMI 25.4
[2024-07-20 20:42] LABS: Glucose, Whole Blood 349 mg/dL (60-115)
[2024-07-20 21:20] LABS: MANUAL DIFF FLAG NO
[2024-07-20 21:21] LABS: Basophils Percent Auto 0.7 % (0-2); Eosinophils Absolute Auto 0.1 X10*3/uL (0.0-0.4); Eosinophils Percent Auto 1.8 % (0-4); Hematocrit 32.6 % (37.0-47.0); Hemoglobin 11.8 g/dl (12.0-16.0); Imm Gran Abs Auto 0.05 X10*3/uL (0.00-0.03); Imm Gran Pct Auto 0.8 % (0.0-0.4); Lymphocytes Absolute Auto 1.5 X10*3/uL (1.2-4.9); Lymphocytes Percent Auto 24.4 % (20-40); Mean Corpuscular HGB Conc 36.2 g/dl (31.0-35.0); Mean Corpuscular Hemoglobin 32.8 pg (27.0-33.0); Mean Corpuscular Volume 90.6 fL (80.0-98.0); Mean Platelet Volume 9.4 fL (9.4-12.3); Monocytes Absolute Auto 0.6 X10*3/uL (0.1-1.2); Monocytes Percent Auto 8.9 % (2-11); Neutrophils Absolute Auto 3.9 x10*3/uL (2.0-8.3); Neutrophils Percent Auto 63.4 % (45-73); Platelet Count 131 X10*3/uL (160-400); Red Cell Distribution Width 12.5 % (11.0-16.0); White Blood Count 6.2 X10*3/uL (4.8-10.8)
--- NOTE | 2024-07-20 21:31 | ED.GENADULT ---
HPI - General Adult General Chief complaint: General Medical Stated complaint: hyperglycemia Time Seen by Provider: 07/20/24 21:28 Source: patient Mode of arrival: ambulatory Limitations: no limitations History of Present Illness ED Provider: deborah PADILLA narrative: Patient diabetic with UTI just center custodial on 70/30 insulin 3-6 units before twice a day noted to elevated blood sugar in 300 range patient has been on this insulin for last 1 month prior to that patient was taking Lantus only poor control patient also has a CKD family's here who likes to take her home back instead of rehab and will manage diabetes at home patient denied any other symptoms otherwise Related Data Home Medications ?Medication ?Instructions ?Recorded ?Confirmed levothyroxine 50 mcg tablet 50 mcg PO DAILY 05/07/23 07/14/24 multivitamin 1 tab PO DAILY 05/07/23 07/14/24 insulin NPH-regular 70-30 U-100 3 - 6 unit subcut BID@0700,1900 06/25/24 07/14/24 insulin 100 unit/mL subcutaneous PRN Hyperglycemia pen (Humulin 70/30 U-100 KwikPen) Previous Rx's ?Medication ?Instructions ?Recorded amlodipine 5 mg tablet 5 mg PO DAILY #0 tabs 07/19/24 carvedilol 3.125 mg tablet 3.125 mg PO BID #0 tabs 07/19/24 Allergies Allergy/AdvReac Type Severity Reaction Status Date / Time No Known Allergies Allergy Verified 07/20/24 20:09 Review of Systems Review of Systems: Yes all other systems are reviewed and are negative [facility] Past Medical History Medical History Hypertension CKD stage 3b, GFR 30-44 ml/min Hypothyroidism History of ovarian cancer Generalized weakness Gallbladder & bile duct stone with obstruction Diabetes Surgical History H/O: hysterectomy Social History Social History Household Members: Family Household Members Other:: Grandson. Housing: House Do you presently have visiting nurse or other home services: No Alcohol intake: former Patient Tobacco Use Status: Former Tobacco user Advance Directives: Yes Advance Directives on File: Yes Advance Directives Date on File: 05/08/23 Do you have a plan to hurt others: No Plan service: No Physical Exam ED Vital Signs: Vital Signs - 24 hr 07/20/24 20:02 Temperature 97.1 F Pulse Rate 78 Respiratory Rate 18 Blood Pressure 170/80 H Pulse Oximetry 100 Oxygen Delivery Method Room Air BMI result Body Mass Index 25.4 Appearance: Alert. Oriented X3. No acute distress. Eyes: PERRLA, No Nystagmus ENT: Pharynx normal. Oral Mucosa moist Neck: Normal inspection. Neck supple. CVS: Normal heart rate and rhythm. Pulses normal. Respiratory: No respiratory distress. Equal air entry bilateral, no wheezing/rales/rhonchi Abdomen: Soft and nontender. Bowel sounds are present, no mass palpable, no CVA tenderness Skin: Skin warm and dry. Normal skin color. Normal skin turgor. Extremities: No lower extremity edema. No calf tenderness Neuro: Oriented X 3. No motor deficit. No sensory deficit.No cerebellar signs , cranial nerves II-XII intact Medications Administered Discontinued Medications Generic Name Dose Route Start Last Admin Trade Name Freq PRN Reason Stop Dose Admin Insulin Human Lispro 8 unit 07/20/24 21:59 07/20/24 22:18 Insulin Lispro 100 Unit/Ml 3 Ml Vial SUBCUT 07/20/24 22:00 8 unit ONCE ONE Administration Medical Decision Making Medical Decision Making [facility] Narrative: Patient with hyperglycemia will increase the dose of Humulin [id number] units twice a day patient's family's at bedside will managed diabetes at home patient is ambulatory in his steady gait will arrange for VNA Lab Data [facility] Lab Attestation statement: I reviewed the patient's lab results. 07/20/24 21:17 07/20/24 21:17 Labs: Lab Results 07/20/24 07/20/24 Range/Units 20:36 21:17 WBC 6.2 (4.8-10.8) X10*3/uL RBC 3.60 L (4.20-5.50) X10*6/uL Hgb 11.8 L (12.0-16.0) g/dl Hct 32.6 L (37.0-47.0) % MCV 90.6 (80.0-98.0) fL MCH 32.8 (27.0-33.0) pg MCHC 36.2 H (31.0-35.0) g/dl RDW 12.5 (11.0-16.0) % Plt Count 131 L (160-400) X10*3/uL MPV 9.4 (9.4-12.3) fL Immature Gran % (Auto) 0.8 H (0.0-0.4) % Neut % (Auto) 63.4 (45-73) % Lymph % (Auto) 24.4 (20-40) % [place] % (Auto) 8.9 (2-11) % Eos % (Auto) 1.8 (0-4) % Baso % (Auto) 0.7 (0-2) % Lymph # (Auto) 1.5 (1.2-4.9) X10*3/uL [place] # (Auto) 0.6 (0.1-1.2) X10*3/uL Eos # (Auto) 0.1 (0.0-0.4) X10*3/uL Baso # (Auto) 0.0 (0.0-0.2) X10*3/uL Abs Immat Gran (auto) 0.05 H (0.00-0.03) X10*3/uL Absolute Neuts (auto) 3.9 (2.0-8.3) x10*3/uL Absolute Nucleated RBC 0.000 (0.0-0.012) X10*3/uL Nucleated RBC % (auto) 0.0 (0.0-0.2) /100WBC Sodium 140 (135-145) mmol/L Potassium 3.5 (3.3-5.1) mmol/L Chloride 111 H (96-108) mmol/L Carbon Dioxide 18 L (22-29) mmol/L Anion Gap 15 (12-20) BUN 48 H (9-16) mg/dL Creatinine 3.15 H (0.5-1.4) mg/dL Estim Creat Clear Calc 11.2 Estimated GFR 14 POC Glucose 349 H (60-115) mg/dL Random Glucose 328 H (60-115) mg/dL Calcium 9.6 (8.4-10.2) mg/dL Total Bilirubin 0.5 (0.0-1.0) mg/dL AST 34 H (5-31) U/L ALT 37 H (0-31) U/L Alkaline Phosphatase 79 (39-117) U/L Total Protein 7.1 (6.5-8.0) g/dL Albumin 4.2 (3.5-5.0) g/dL Beta-Hydroxybutyrate 0.09 (0.02-0.27) mmol/L Discharge Plan Discharge Clinical Impression: Diabetes mellitus with hyperglycemia Patient Disposition: Home, Self-Care Instructions: Diabetic Hyperglycemia (ED) Additional Instructions: Increase the dose of Humulin 70 /30 to 10 units twice a day Drink plenty of fluids Follow up with your PCP Prescriptions: No Action levothyroxine 50 mcg tablet 50 mcg PO DAILY multivitamin Tablet 1 tab PO DAILY Humulin 70/30 U-100 KwikPen 100 unit/mL (70-30) insulin pen 3 - 6 unit subcut BID@0700,1900 PRN (Reason: Hyperglycemia) amlodipine 5 mg Tablet 5 mg PO DAILY Qty: 0 0RF Protocol: Hold for SBP< HOLD for SBP < : 90 carvedilol 3.125 mg Tablet 3.125 mg PO BID Qty: 0 0RF Protocol: Hold for SBP/HR < HOLD for SBP < : 90 HOLD for HR < : 60 Print Language: Tanzanian
[2024-07-20 21:35] LABS: Alanine Aminotransferase 37 U/L (0-31); Albumin Level 4.2 g/dL (3.5-5.0); Alkaline Phosphatase 79 U/L (39-117); Anion Gap 15 (12-20); Aspartate Amino Transferase 34 U/L (5-31); Beta-Hydroxybutyrate 0.09 mmol/L (0.02-0.27); Bilirubin Total 0.5 mg/dL (0.0-1.0); Blood Urea Nitrogen 48 mg/dL (9-16); Calcium 9.6 mg/dL (8.4-10.2); Carbon Dioxide 18 mmol/L (22-29); Chloride 111 mmol/L (96-108); Creatinine Clr Calc Pharmacy 11.2; Estimated Glomerular Filt Rate 14; Glucose Random 328 mg/dL (60-115); Potassium 3.5 mmol/L (3.3-5.1); Sodium 140 mmol/L (135-145); Total Protein 7.1 g/dL (6.5-8.0)
[2024-07-20] MEDS: Insulin Lispro 100 UNIT/ML 3 ML VIAL 8 UNIT SUBCUT (22:18)
[2024-07-20 23:02] LABS: Glucose, Whole Blood 264 mg/dL (60-115)
--- NOTE | 2024-07-20 23:11 | PC.NURSE ---
Pt denies complaints. Grandson (Sam) at bedside, who normally lives with Nighat. Nighat and Sam both request to be discharged home, rather than [facility]. Pt & family dissatisfied with care at [facility]. Dr. Mcwilliams agrees with plan to discharge pt home with Sam with plan to receive follow-up call from case management to discuss possibility of home services.
[2024-07-20 23:13] VITALS: BP 158/82; PULSE 74; RESP 18; TEMP 36.3; O2SAT 100
--- NOTE | 2024-07-21 09:20 | MHC.CM.ED ---
Addendum entered by Nga Washington 07/21/24 09:30: Received return telephone call from Suresh. Patient and grandson requesting [facility] referral for care home and physical therapy. Referral made. [facility] accepts. Original Note: Received case management consult overnight. Patient was already d/c'd home. Attempted to contact grandSam snowden, via telephone at [phone]. Left message requesting return telephone call.
== END 2024-07-20 23:13 | disposition home or self-care (01) ==
PROVIDERS: Physician Assistant; Emergency Provider Internal Medicine; PCP Internal Medicine
DX: E11.65 Type 2 diabetes mellitus with hyperglycemia (principal); Z79.4 Long term (current) use of insulin; Z79.899 Other long term (current) drug therapy; Z87.891 Personal history of nicotine dependence
CPT/HCPCS: 36415; 80053; 82010; 82947; 85025; 99283

== ENCOUNTER 2024-07-31 14:10 | Outpatient (AMB) | payer MEDICARE, SELFPAY ==
--- NOTE | 2024-07-31 14:18 | HO.NEPHOV_ITS ---
Vital Signs 07/31/24 14:20 Height 5 ft Weight 124 lb 2 oz BMI 24.2 BP 138/62 Blood Pressure Location Lt brachial Position Sitting Pulse 80 Pulse Source Pulse Oximeter Pulse Oximetry (%) 100 Oxygen Delivery Method Room Air Intake Visit Reasons: Pt seen at [facility] on 07/20/24-COnf [employer]ized [employer] Lieutenant Required: No Accompanied by: Grand Child Allergies No Known Allergies Allergy (Verified 07/31/24 14:20) HPI Comments Details: 83 years old lady with PMH of CKD3 B, HTN, DM2 among others presented recently with increasing weakness and confusion. She had worsening of creatinine to 3.3 and she was admitted for further work up and treatment. She was thought to have tubular injury due to hypotension. She has been started on amlodipine recently. Patient is feeling better but has not had any blood work after hospital D/C. She denies uremic symptoms. Her appetite is improving [facility] Medical History Hypertension CKD stage 3b, GFR 30-44 ml/min Hypothyroidism History of ovarian cancer Generalized weakness Gallbladder & bile duct stone with obstruction Diabetes Surgical History H/O: hysterectomy Social History Household Members: Family Household Members Other:: Grandson. Housing: House Do you presently have visiting nurse or other home services: No Alcohol intake: former Patient Tobacco Use Status: Former Tobacco user Advance Directives Date on File: 05/08/23 service: No Physical Exam Vital Signs: Last Vital Signs Pulse 80 07/31/24 14:20 BP 138/62 07/31/24 14:20 Pulse Ox 100 07/31/24 14:20 Oxygen Delivery Method Room Air 07/31/24 14:20 BMI result Body Mass Index 24.2 Const General: comfortable and no acute distress Orientation/consciousness: patient oriented x3 HEENT Head: Yes normocephalic Mouth: Normal oral and palatal mucosa present Eyes EOM: EOMs intact bilaterally Neck Neck: Yes supple Resp Auscultation: clear to auscultation bilaterally Cardio Jugular venous distension: no JVD Rate: regular rate GI Palpation (GI): Soft to palpation Auscultation: normal bowel sounds General: Yes no CVA tenderness Back/Spine/Pelvis Back: no CVA tenderness Skin General skin exam: no rashes or lesions noted Neuro General: patient oriented x3 and moves all extremities Results Reviewed Nephrology Results: Hgb 11.8 g/dl (12.0-16.0) L 07/20/24 WBC 6.2 X10*3/uL (4.8-10.8) 07/20/24 Plt Count 131 X10*3/uL (160-400) L 07/20/24 Sodium 140 mmol/L (135-145) 07/20/24 Potassium 3.5 mmol/L (3.3-5.1) 07/20/24 Chloride 111 mmol/L (96-108) H 07/20/24 Carbon Dioxide 18 mmol/L (22-29) L 07/20/24 BUN 48 mg/dL (9-16) H 07/20/24 Creatinine 3.15 mg/dL (0.5-1.4) H 07/20/24 Calcium 9.6 mg/dL (8.4-10.2) 07/20/24 Phosphorus 2.6 mg/dL (2.7-4.5) L 07/14/24 PTH Intact 91.3 pg/mL (8.7-77.1) H 06/27/24 Urine Protein Negative mg/dL (Neg-Trace) 07/14/24 Urine Creatinine 20.66 mg/dL 07/14/24 Renal US 06/25/24 Assessment & Plan Assessment & Plan (1) CKD stage 3b, GFR 30-44 ml/min: Code(s): N18.32 - Chronic kidney disease, stage 3b Category: Medical (2) YENNIFER (acute kidney injury): Code(s): N17.9 - Acute kidney failure, unspecified Category: Medical (3) Hypertension: Code(s): I10 - Essential (primary) hypertension Category: Medical Qualifiers: Hypertension type: unspecified Qualified Code(s): I10 - Essential (primary) hypertension Plan YENNIFER on CKD most likely due to tubular injury Renal US showed renal cortical thinning and increased echogenicity She had no evidence of renal artery stenosis; C/W current medications for BP No NSAID's. Good hydration; F/U labs ordered; Answered all questions Follow up appointment given Orders: Orders Parathyroid Hormone Intact 2 Months N18.32 - Chronic kidney disease, stage 3b Vitamin D 25-OH Total 2 Months N18.32 - Chronic kidney disease, stage 3b Creatinine 2 Months N18.32 - Chronic kidney disease, stage 3b Blood Urea Nitrogen 2 Months N18.32 - Chronic kidney disease, stage 3b Electrolytes 2 Months N18.32 - Chronic kidney disease, stage 3b Calcium 2 Months N18.32 - Chronic kidney disease, stage 3b Complete Blood Count Auto Diff 2 Months N18.32 - Chronic kidney disease, stage 3b Coding Level of Care Code Est Pt Level 4 (69205) Diagnoses CKD stage 3b, GFR 30-44 ml/min N18.32 YENNIFER (acute kidney injury) N17.9 Hypertension I10 Hypertension type: unspecified
[2024-07-31 14:20] VITALS: BP 138/62; PULSE 80; O2SAT 100; BMI 24.2
== END 2024-07-31 14:47 | disposition home or self-care (01) ==
PROVIDERS: PCP Internal Medicine; Visit Provider Internal Medicine Nephrology
DX: N18.32 Chronic kidney disease, stage 3b (principal); N17.9 Acute kidney failure, unspecified; I10 Essential (primary) hypertension
CPT/HCPCS: 99214

== ENCOUNTER 2024-07-31 15:14 | Outpatient (REF) | payer MEDICARE, SELFPAY ==
[2024-07-31 15:54] LABS: MANUAL DIFF FLAG NO
[2024-07-31 16:44] LABS: Basophils Percent Auto 0.3 % (0-2); Eosinophils Absolute Auto 0.1 X10*3/uL (0.0-0.4); Eosinophils Percent Auto 2.1 % (0-4); Hematocrit 29.4 % (37.0-47.0); Hemoglobin 10.8 g/dl (12.0-16.0); Imm Gran Abs Auto 0.03 X10*3/uL (0.00-0.03); Imm Gran Pct Auto 0.5 % (0.0-0.4); Lymphocytes Absolute Auto 1.1 X10*3/uL (1.2-4.9); Lymphocytes Percent Auto 17.2 % (20-40); Mean Corpuscular HGB Conc 36.7 g/dl (31.0-35.0); Mean Corpuscular Hemoglobin 32.1 pg (27.0-33.0); Mean Corpuscular Volume 87.5 fL (80.0-98.0); Mean Platelet Volume 9.7 fL (9.4-12.3); Monocytes Absolute Auto 0.5 X10*3/uL (0.1-1.2); Monocytes Percent Auto 8.5 % (2-11); Neutrophils Absolute Auto 4.5 x10*3/uL (2.0-8.3); Neutrophils Percent Auto 71.4 % (45-73); Platelet Count 170 X10*3/uL (160-400); Red Blood Count 3.36 X10*6/uL (4.20-5.50); Red Cell Distribution Width 13.2 % (11.0-16.0); White Blood Count 6.3 X10*3/uL (4.8-10.8)
[2024-07-31 16:45] LABS: Basophils Percent Auto 0.5 % (0-2); Eosinophils Absolute Auto 0.1 X10*3/uL (0.0-0.4); Eosinophils Percent Auto 1.9 % (0-4); Hematocrit 29.4 % (37.0-47.0); Hemoglobin 10.6 g/dl (12.0-16.0); Imm Gran Abs Auto 0.05 X10*3/uL (0.00-0.03); Imm Gran Pct Auto 0.8 % (0.0-0.4); Lymphocytes Absolute Auto 1.1 X10*3/uL (1.2-4.9); Lymphocytes Percent Auto 17.7 % (20-40); Mean Corpuscular HGB Conc 36.1 g/dl (31.0-35.0); Mean Corpuscular Hemoglobin 31.5 pg (27.0-33.0); Mean Corpuscular Volume 87.5 fL (80.0-98.0); Mean Platelet Volume 9.5 fL (9.4-12.3); Monocytes Absolute Auto 0.5 X10*3/uL (0.1-1.2); Monocytes Percent Auto 8.1 % (2-11); Neutrophils Absolute Auto 4.4 x10*3/uL (2.0-8.3); Platelet Count 164 X10*3/uL (160-400); Red Blood Count 3.36 X10*6/uL (4.20-5.50); Red Cell Distribution Width 13.2 % (11.0-16.0); White Blood Count 6.3 X10*3/uL (4.8-10.8)
[2024-07-31 17:03] LABS: Estimated Average Glucose 183 mg/dL; Hemoglobin A1C 184.6571 umol/L; Total Hemoglobin (HGBA1C) 2896.3635 umol/L
[2024-07-31 17:39] LABS: Vitamin D 25-OH Total 32.6 ng/mL (>30)
[2024-07-31 17:59] LABS: Anion Gap 13 (12-20); Blood Urea Nitrogen 31 mg/dL (9-16); Calcium 9.2 mg/dL (8.4-10.2); Carbon Dioxide 20 mmol/L (22-29); Chloride 111 mmol/L (96-108); Estimated Glomerular Filt Rate 15; Glucose Fasting 300 mg/dL (60-99); Potassium 2.6 mmol/L (3.3-5.1); Sodium 141 mmol/L (135-145)
[2024-07-31 18:02] LABS: Anion Gap 13 (12-20); Blood Urea Nitrogen 30 mg/dL (9-16); Calcium 9.3 mg/dL (8.4-10.2); Carbon Dioxide 20 mmol/L (22-29); Chloride 111 mmol/L (96-108); Estimated Glomerular Filt Rate 15; Potassium 2.6 mmol/L (3.3-5.1); Sodium 141 mmol/L (135-145)
== END 2024-07-31 15:15 | disposition home or self-care (01) ==
LOC: HO.LAB 15:14
PROVIDERS: Internal Medicine Nephrology; PCP Internal Medicine; Visit Provider Internal Medicine
DX: E11.22 Type 2 diabetes mellitus with diabetic chronic kidney disease (principal); I12.9 Hypertensive chronic kidney disease with stage 1 through stage 4 chronic kidney disease, or unspecified chronic kidney disease; N18.32 Chronic kidney disease, stage 3b; N17.9 Acute kidney failure, unspecified
CPT/HCPCS: 36415; 80048; 80051; 82306; 82310; 82565; 83036; 83970; 84520; 85025; 99212

== ENCOUNTER 2024-08-20 16:54 | Outpatient (REF) | payer MEDICARE, SELFPAY ==
[2024-08-20 17:54] LABS: Anion Gap 15 (12-20); Blood Urea Nitrogen 37 mg/dL (9-16); Carbon Dioxide 19 mmol/L (22-29); Chloride 112 mmol/L (96-108); Estimated Glomerular Filt Rate 12; Potassium 3.7 mmol/L (3.3-5.1); Sodium 142 mmol/L (135-145)
--- OUTSIDE RECORDS SUMMARY | 2024-08-21 03:14 | XMS_ITS | Patient Health Record ---
Author Organization Chadwick Gomez III, MD Address [address] [place] [address] Care Team Providers Care Well Drill Operator Cable Tool Name Role Phone Gianluca Betancur MD Primary Care Provider Chadwick Pelayo Unavailable [phone] Allergies No Known Allergies Reason For Referral No Information Medications Medication SIG (Take, Route, Frequency, Duration) Notes Start Date End Date Status glipiZIDE 5 MG 1 tablet Orally twic e a day Active NovoLIN N 100 UNIT/ML Subcutaneous Active HumaLOG 100 UNIT/ML as directed Subcutan eous once a day Active Levothyroxine Sodium 25 MCG 1 tablet on an empty stomach in the morning Orally Once a day Active Social History Tobacco Use: Social History Observation Description Date Details (start date - stop date) Former Smoker NA - NA Tobacco Use/Smoking Question Answer Notes Patient is a former smoker How long has it been since you last smoked? > 10 years Additional Findings: Tobacco Non-User Ex-cigaret te smoker Alcohol Screen Question Answer Notes Did you have a drink contain ing alcohol in the past year? Yes How often did you have a dri nk containing alcohol in the past year? Monthly or less (1 point) How many drinks did you have on a typical day when you were drinking in the past year? 1 or 2 drinks (0 point) How often did you have 6 or more drinks on one occasion in the past year? Less than monthly (1 point) Points 2 Interpretation Negative Problems Problem Type SNOMED Code ICD Code Onset Dates Problem Status W/U Status Risk Notes Problem 490365627 Obesity (278.00) Active confirmed Her body mass index was increased from 29-30. I recommended weight reduction, regular exercise, portion control and a low fat, low sodium nourishing diet. Problem 4973862 Former smoker (Z87.891) Active confirmed She is highly motivated not to smoke. She has a plan for prevention of relapse in times of stress or illness. Problem 935866454 Overweight (E66.3) Active confirmed She has lost a substantial amount of weight the last year through diet and exercise. He seems healthy and well today. Her body mass index is 27. I encouraged her to continue losing weight gradually until her body mass index is normal. Problem 38008765 Type 2 diabetes mellitus without complications (E11.9) Active confirmed Her diabetes has been stable and she is compliant with all medications. Problem 889305878 Ovarian cancer in remission (Z85.43) Active confirmed There is no sign of recurrent disease today. There is no sign of her. Surveillance will continue annual intervals. There has been no case of hereditary cancer in her family. Plan Of Treatment Pending Test Test Name Order Date PROFILE, RANDOM (COMPREHENSIVE METABOLIC ) 12/16/2019 CBC w DIFF 12/16/2019 CA 125 12/16/2019 Insurance Providers Payer Name Payer Address Payer Phone Subscriber Number Group Number Insured Name Patient Relationship to Insured Coverage Start Date Coverage End Date MEDICARE NGS [address] [place] [phone] [id number] Nighat Castillo Self - patient is the insured [facility] [address] [place], [place] [id number] [phone] [id number] Nighat Castillo Self - patient is the insured Medical (General) History Medical History History ICD Code ovarian cancer diabetes mellulitis Surgical History Surgery Date(Month/Year) cholecystectomy appendectomy T & A left eye cataract
== END 2024-08-20 16:55 | disposition home or self-care (01) ==
LOC: HO.LAB 16:54
PROVIDERS: PCP Internal Medicine; Visit Provider Internal Medicine Nephrology
DX: N17.9 Acute kidney failure, unspecified (principal); N18.9 Chronic kidney disease, unspecified; N17.8 Other acute kidney failure
CPT/HCPCS: 36415; 80051; 82565; 84520

== ENCOUNTER 2024-09-17 18:12 | Inpatient (IN) | payer MEDICARE, SELFPAY ==
[2024-09-17] VITALS (10 sets, daily range): BP systolic 80–126; BP diastolic 31–90; PULSE 50–70; RESP 12–18; TEMP 32.6–34.7; O2SAT 97–100; BMI 23.7; BMI 23.6
--- NOTE | ~2024-09-17 | CT_ITS ---
EXAMINATION: CT ABDOMEN PELVIS WITHOUT IV CONTRAST HISTORY: sepsis COMPARISON: There are no prior studies for comparison. TECHNIQUE: CT scan of the abdomen and pelvis was performed without contrast using standard departmental protocol. Coronal and sagittal reformatted images were generated and reviewed. Oral contrast material was not administered at the request of the referring physician. This CT exam was performed with one or more of the following dose reduction techniques: automated exposure control, adjustment of the mA and/or kV according to patient size, use of iterative reconstruction technique. DLP: 340 mGy-cm FINDINGS: LOWER CHEST: There are [id number] bilateral pleural effusions. Adjacent airspace opacities at both lung bases may represent atelectasis or pneumonia. CARDIOVASCULATURE: The heart is normal in size. There is no pericardial effusion. LIVER: The liver is normal in size and contour. The liver has an unremarkable unenhanced appearance. GALLBLADDER / BILE DUCTS: The gallbladder is surgically absent. There is no intra or extrahepatic biliary ductal dilatation. SPLEEN: The spleen is normal in size and has an unremarkable unenhanced appearance. PANCREAS: The pancreas has an unremarkable unenhanced appearance. ADRENAL GLANDS: Unremarkable. KIDNEYS/RETROPERITONEUM: There are nonobstructing calculi at the lower poles of both kidneys measuring up to 7 mm on the right and 2 mm on the left.. There is no hydronephrosis. LYMPH NODES: No retroperitoneal lymphadenopathy is identified in the abdomen or pelvis. VASCULATURE: The abdominal aorta demonstrates atherosclerotic calcification, but is normal in caliber. MESENTERY/PERITONEUM: There is a small amount of fluid around the liver. There is no free intraperitoneal gas. STOMACH: The stomach is collapsed, limiting evaluation. SMALL BOWEL: The small bowel is normal in caliber. COLON: The colon is unremarkable in appearance, although evaluation is limited by lack of intravenous and oral contrast material. APPENDIX: Appendix is not seen, however no inflammatory changes are seen adjacent to the cecum. URINARY BLADDER/PELVIC ORGANS: The urinary bladder is collapsed, limiting evaluation. The patient is status post hysterectomy. BONES / SOFT TISSUES: No suspicious bony or soft tissue abnormalities. CT/CT abdomen pelvis wo IV con IMPRESSION: 1. Multiple moderate bilateral pleural effusions. Adjacent airspace opacity at both lung bases may represent atelectasis or pneumonia. Small amount of ascites in the upper abdomen. 2. Bilateral nephrolithiasis. No inflammatory process is identified, although evaluation is limited by lack of intravenous and oral contrast material. Electronically signed by: Chadwick Denton MD 09/18/2024 12:55 PM EST
--- NOTE | ~2024-09-17 | XR_ITS ---
CLINICAL HISTORY: sepsis 1 view chest x-ray Comparison: Chest x-ray from 06/25/2024 Findings: No consolidation or effusion. Bilateral emphysematous changes. New minimal right apical opacities may reflect pneumonitis versus artifact. No pneumothorax or pleural effusion. Imaged mediastinum appears unchanged. Degenerative changes include imaged shoulders and AC joints. Mild rib deformities appear old chronic. IMPRESSION: Mild right apical opacities are nonspecific. Mild pneumonitis is considered. This document has been electronically signed by: Thomas Sesay MD on 09/17/2024 19:31:04
--- NOTE | ~2024-09-17 | XR_ITS ---
EXAMINATION: XR CHEST CLINICAL INFORMATION: dialysis catheter insertion COMPARISON: Chest 09/17/2024 TECHNIQUE: Frontal view of the chest was obtained. FINDINGS: There is a new irregular central line with its tip in the proximal SVC. No pneumothorax. The lungs are expanded and slight increased pulmonary vascularity question mild congestion. The heart size is normal. No pleural effusion seen. There is no consolidation. No gross bony abnormality seen. XR/XR chest 1V IMPRESSION: Suspect mild pulmonary vascular congestion. Right central venous dialysis catheter tip in proximal SVC. Electronically signed by: Vikash Gurrola MD 09/18/2024 01:43 PM EST
--- NOTE | ~2024-09-17 | CT_ITS ---
CLINICAL HISTORY: [address] head without contrast Comparison: Head CT from 07/16/2024 Findings: No acute intracranial hemorrhage. No significant change in white matter lesions again including external capsules and approaching bilateral insula. Small-vessel ischemic disease considered likely. No midline shift or hydrocephalus, accounting for mild generalized volume loss. Again there is opacification of the sphenoid sinus. Acute appearing air-fluid levels also present in left side of the sphenoid sinus with asymmetric variant pneumatization of the sphenoid sinus. Trace left mastoid effusion. No acute skull fracture. IMPRESSION: 1. No acute intracranial abnormality by CT. 2. Combination of the soft tissue and fluid of the paranasal sinuses including the sphenoid sinus as can be associated with sinusitis. This document has been electronically signed by: Thomas Sesay MD on 09/17/2024 19:16:42
--- NOTE | 2024-09-17 18:20 | ECG_ITS ---
Test Reason : RODGER Blood Pressure : */* mmHG Vent. Rate : 55 BPM Atrial Rate : 55 BPM P-R Int : 222 ms QRS Dur : 86 ms QT Int : 452 ms P-R-T Axes : 56 47 256 degrees QTcB Int : 432 ms Sinus bradycardia with sinus arrhythmia with 1st degree A-V block Nonspecific ST and T wave abnormality Abnormal ECG When compared with ECG of 14-Jul-2024 12:25, Premature ventricular complexes are no longer Present AL interval has increased Referred By: Generic ED Physician Electronically Signed By: RAFITA MEDRANO
[2024-09-17] MEDS: SODIUM CHLORIDE 1824 ML IV (18:45)
--- NOTE | 2024-09-17 18:45 | PC.NURSE ---
patient presents to the ED via EMS poor historian has hx of dementia, per EMS patient grandson concerned for slurred speech x1week, and increased general weakness. patient denies pain but states that she does feel weak. patient noted to be cool to the touch, rectal temp 91.0, other VSS. ED provider notified, came to bedside, rectal probe placed for temperature management. secondary IV placed in patient left wrist #20 labs drawn and sent. IV fluids started by this RN per NOV. patient does not have any wounds on bottom, skin WNL. patient face symmetrical, patient noted to be bradycardic for EMS, ekg ordered and obtained by ED techs. jatinder hopper at bedside, for rewarming measures.
[2024-09-17 18:54] LABS: Prothrombin Time 11.4 SEC (10.9-12.4)
[2024-09-17] MEDS: levoFLOXacin/D5W 500 MG/100 ML PIGGYBACK 100 MG IV (18:55)
[2024-09-17 19:01] LABS: Hematocrit 24.8 % (37.0-47.0); Hemoglobin 8.9 g/dl (12.0-16.0); Mean Corpuscular HGB Conc 35.9 g/dl (31.0-35.0); Mean Corpuscular Hemoglobin 32.2 pg (27.0-33.0); Mean Corpuscular Volume 89.9 fL (80.0-98.0); Mean Platelet Volume 10.2 fL (9.4-12.3); NRBC Pct Auto 0.2 /100WBC (0.0-0.2); Red Blood Count 2.76 X10*6/uL (4.20-5.50); Red Cell Distribution Width 12.6 % (11.0-16.0); White Blood Count 12.4 X10*3/uL (4.8-10.8)
[2024-09-17 19:04] LABS: Lactic Acid 0.7 mmol/L (0.5-2.0)
[2024-09-17 19:04] LABS: Appearance Urine Cloudy; Color Urine Yellow; Glucose Urine UA Negative (Negative); Leukocyte Esterase Urine Large (3+) (Negative); Nitrite Urine Negative (Negative); Specific Gravity - Urine 1.015 (1.005-1.025); UMIC TRIGGER UACC YES; Urine Blood Moderate (2+) (Negative); Urine Ketones Negative (Negative); Urine Protein 100 (2+) mg/dL (Neg-Trace)
[2024-09-17 19:11] LABS: Troponin-I High Sensitivity 17.6 ng/L (<3.5-17.0)
--- NOTE | 2024-09-17 19:16 | ED.WEAKNESS ---
HPI - Weakness General Chief complaint: Weakness Stated complaint: SLURRED SPEECH, WEAKNESS, FAST ED NEGATIVE Time Seen by Provider: 09/17/24 18:30 Source: patient and EMS Mode of arrival: EMS Limitations: other History of Present Illness ED Provider: Dr. Lu He HPI Narrative: Patient comes to the emergency room complaining weakness that started earlier today. Per EMS, the grandson reported the patient has had 1 week of slurred speech. Generalized weakness and poor p.o. intake. Patient has history of dementia. Patient states that she feels a bit weak but has no complaints. Related Data Home Medications ?Medication ?Instructions ?Recorded ?Confirmed levothyroxine 50 mcg tablet 50 mcg PO DAILY 05/07/23 07/14/24 multivitamin 1 tab PO DAILY 05/07/23 07/14/24 insulin NPH-regular 70-30 U-100 3 - 6 unit subcut BID@0700,1900 06/25/24 07/14/24 insulin 100 unit/mL subcutaneous PRN Hyperglycemia pen (Humulin 70/30 U-100 KwikPen) Previous Rx's ?Medication ?Instructions ?Recorded amlodipine 5 mg tablet 5 mg PO DAILY #0 tabs 07/19/24 potassium chloride 10 mEq 10 meq PO DAILY #14 caps 08/01/24 capsule,extended release Allergies Allergy/AdvReac Type Severity Reaction Status Date / Time No Known Allergies Allergy Verified 09/17/24 18:27 Review of Systems Review of Systems: Constitutional : No Weight loss, No Fever, No Chills, No Night Sweats, complaining of fatigue and weakness ENT/Mouth : No Hearing loss, No Ear Pain, No Nasal Congestion, No Sinus Pain, No Hoarseness, No sore throat, No Rhinorrhea, No Swallowing Difficulty Eyes: No Eye Pain, No Swelling, No Redness, No Foreign Body, No Discharge, No Vision Changes Cardiovascular : No Chest Pain, No SOB, No Dyspnea on Exertion, No Orthopnea, No Edema, No Palpitations Respiratory : No Cough, No Sputum, No Wheezing, No Smoke Exposure, No Dyspnea Gastrointestinal : No Nausea, No Vomiting, No Diarrhea, No Constipation, No abdominal Pain, No Hematochezia, No Melena Genitourinary : no irregular bleeding, No Dysuria, No Urinary Frequency, No Hematuria, No Urinary Incontinence, No Urgency, No Flank Pain, No Urinary Flow Changes, No Hesitancy Musculoskeletal : No joint pain, No Myalgias, No Joint Swelling Skin : No Skin Lesions, No rash Neuro : No Weakness, No Numbness, No Paresthesias, No Loss of Consciousness, No Dizziness, No Headache Psych : No Anxiety/Panic, No Depression, No SI/HI/AH/VH, No Social Issues, Heme/Lymph: No Bruising, No Bleeding,No Lymphadenopathy Endocrine : No Polyuria, No Polydipsia, No Temperature Intolerance [facility] Past Medical History Medical History Hypertension CKD stage 3b, GFR 30-44 ml/min Hypothyroidism History of ovarian cancer Generalized weakness Gallbladder & bile duct stone with obstruction Diabetes Surgical History H/O: hysterectomy Social History Social History Household Members: Family Household Members Other:: Grandson. Housing: House Do you presently have visiting nurse or other home services: No Alcohol intake: former Patient Tobacco Use Status: Former Tobacco user Advance Directives: Yes Advance Directives on File: Yes Advance Directives Date on File: 05/08/23 service: No Physical Exam Vital Signs: Vital Signs: Last Vital Signs Temp 90.7 F L 09/17/24 20:11 Pulse 51 09/17/24 20:36 Resp 13 09/17/24 20:11 BP 94/37 L 09/17/24 20:36 Pulse Ox 97 09/17/24 20:11 O2 Del Method Room Air 09/17/24 20:11 BMI result Body Mass Index 23.7 Const: Other: Appearance: Alert. Oriented X3. No acute distress. Eyes: Pupils equal, round and reactive to light. ENT: Pharynx normal. Neck: Normal inspection. Neck supple. No lymph nodes noted. No crepitus CVS: Normal heart rate and rhythm. Pulses normal. Normal S1 and S2 Respiratory: No respiratory distress. Breath sounds normal. No Wheezing. No rales Abdomen: Soft and nontender. No rigidity. No distention. Skin: Skin warm and dry. Patient's seems pale skin color. Normal skin turgor. Extremities: No lower extremity edema. No Lacerations. No Rash Neuro: Oriented X 3. No motor deficit. No sensory deficit. Moving all extremities. No slurred speech. CN 2 through 12 grossly intact Psych: calm, cooperative, normal affect NIH Stroke Scale Internal: Initial- Upon Arrival Level of Consciousness: Alert Level of Consciousness Questions: Answers both questions correctly Level of Consciousness Commands: Performs both tasks correctly Best Gaze: Normal Visual: No visual loss Facial Palsy: Normal Motor Arm (Right): No drift Motor Arm (Left): No drift Motor Leg (Right): No drift Motor Leg (Left): No drift Limb Ataxia: Absent Sensory: Normal Best Language: No aphasia Dysarthia: Mild to moderate dysarthria Extinction and Inattention: No abnormality Score: 1 Course Course Course Narrative: Patient's NIH score is 1, patient has been symptomatic for 1 week, patient is outside of the window for any thrombolytic treatment if this would be a stroke. On arrival while taking vitals, it was noted that patient's rectal temperature is 90.9 degrees, blood pressure 101/44. All of patient's labs pending. At this time, there is no clear source of infection. Patient has no URI or UTI symptoms. Patient was inside of her house, unlikely this is the source of patient's hypothermia. Prophylactically, patient has been given IV fluids and empiric antibiotics levofloxacin Medications Administered Generic Name Dose Route Start Last Admin Trade Name Freq PRN Reason Stop Dose Admin Norepinephrine Bitartrate 8 mg in 250 mls @ 0 mls/hr 09/17/24 20:45 09/17/24 20:36 Levophed IVCONT 0.05 mcg/kg/min .Q0M CRISTINA 5.7 mls/hr Administration Protocol Per Protocol Discontinued Medications Generic Name Dose Route Start Last Admin Trade Name Freq PRN Reason Stop Dose Admin Levofloxacin 500 mg in 100 mls @ 100 mls/hr 09/17/24 18:36 09/17/24 20:09 Levaquin IV 09/17/24 19:35 Infused ONCE ONE Infusion Sodium Chloride 1,824 mls @ 1,824 mls/hr 09/17/24 18:36 09/17/24 20:38 Ns 30 ml/kg infuse over 1 hr (1824 ml) 09/17/24 19:35 Infused IV Infusion .Q1H STA Medical Decision Making Medical Decision Making [facility] Narrative: My interpretation of labs. Patient's white blood cell count 12.4. Patient is a bit anemic below baseline, 8.9. Patient's blood gases pH 7.09, pCO2 19, bicarb 6 Patient's creatinine is significantly increased from previous labs. Today BUN is 110, creatinine 10.21. Previously last month, patient's BUN 37, creatinine 3.59 Patient's TSH within normal limits Patient's urinalysis shows a large amount of leukocyte esterase, nitrate negative, +4 bacteria. Patient empirically treated with antibiotics. Chest x-ray shows mild right apical opacities, possible pneumonia. Patient does not have URI. Initially, an IV sepsis bolus was ordered. However, after we received the patient's labs, I contacted Dr. Swain from Nephrology. At this time, we will stop giving fluids, patient already received 1 L of normal saline, patient will need IV bicarb. Patient's blood pressure in the 80s, receiving Levophed. It is possible that tomorrow patient may need dialysis. I discussed the patient with Dr. Pennington, patient being admitted to the ICU CT scan: Negative for any acute findings. Differential Diagnosis Differential Diagnoses: The differential diagnosis associated with the presentation includes (Pneumonia, UTI, acute on chronic renal failure) Admission/Observation Consideration of admission/observation: Escalation of care including admission/observation considered Consult Healthcare Provider Management of the patient was discussed with: Hospitalist and Louver Mortiser Operator Lab Data MDM Lab Attestation statement: I reviewed the patient's lab results. 09/17/24 18:37 09/17/24 18:37 Labs: Lab Results 09/17/24 09/17/24 09/17/24 Range/Units 18:37 18:41 18:52 WBC 12.4 H (4.8-10.8) X10*3/uL RBC 2.76 L (4.20-5.50) X10*6/uL Hgb 8.9 L (12.0-16.0) g/dl Hct 24.8 L (37.0-47.0) % MCV 89.9 (80.0-98.0) fL MCH 32.2 (27.0-33.0) pg MCHC 35.9 H (31.0-35.0) g/dl RDW 12.6 (11.0-16.0) % Plt Count 78 L D (160-400) X10*3/uL MPV 10.2 (9.4-12.3) fL Immature Gran % (Auto) Cancelled Neut % (Auto) Cancelled Lymph % (Auto) Cancelled [place] % (Auto) Cancelled Eos % (Auto) Cancelled Baso % (Auto) Cancelled Lymph # (Auto) Cancelled [place] # (Auto) Cancelled Eos # (Auto) Cancelled Baso # (Auto) Cancelled Abs Immat Gran (auto) Cancelled Absolute Neuts (auto) Cancelled Absolute Nucleated RBC 0.020 H (0.0-0.012) X10*3/uL Nucleated RBC % (auto) 0.2 (0.0-0.2) /100WBC Neutrophils % (Manual) 96 H (45-73) % Band Neutrophils % 0 L (3-5) % Lymphocytes % (Manual) 2 L (20-40) % Monocytes % (Manual) 2 (2-11) % Abs Neuts (Manual) 11.9 H (2.0-8.3) X10*3/uL Lymphocytes # (Manual) 0.2 L (1.2-4.9) X10*3/uL Monocytes # (Manual) 0.2 (0.1-1.2) X10*3/uL Nucleated RBCs 1 H (0-0) /100WBC Toxic Vacuolation PRESENT Platelet Estimate DECREASED (NORMAL) Large Platelets PRESENT Plt Morphology Comment NOTED RBC Morphology NOTED [place] Cells 2+ (3-5) /OIF PT 11.4 (10.9-12.4) SEC INR 1.0 (0.9-1.1) VBG pH (7.32-7.43) VBG pCO2 mmHg VBG pO2 mmHg VBG HCO3 (22-26) mmol/L VBG O2 Saturation VBG Base Excess mmol/L Sodium 135 (135-145) mmol/L Potassium 4.4 (3.3-5.1) mmol/L Chloride 113 H (96-108) mmol/L Carbon Dioxide 6 L* D (22-29) mmol/L Anion Gap 20 (12-20) BUN 110 H (9-16) mg/dL Creatinine 10.21 H* (0.5-1.4) mg/dL Estim Creat Clear Calc 3.6 Estimated GFR 4 Random Glucose 181 H (60-115) mg/dL Lactic Acid 0.7 (0.5-2.0) mmol/L Calcium 8.8 (8.4-10.2) mg/dL Total Bilirubin 0.5 (0.0-1.0) mg/dL Direct Bilirubin 0.1 (0.0-0.5) mg/dL AST 27 (5-31) U/L ALT 29 (0-31) U/L Alkaline Phosphatase 101 (39-117) U/L Troponin I High Sens 17.6 H (<3.5-17.0) ng/L Total Protein 6.5 (6.5-8.0) g/dL Albumin 3.6 (3.5-5.0) g/dL TSH 1.37 (0.32-4.0) uIU/mL Urine Color Yellow Urine Appearance Cloudy Urine pH 5.0 (5.0-9.0) Ur Specific [place] 1.015 (1.005-1.025) Urine Protein 100 (2+) H (Neg-Trace) mg/dL Urine Glucose (UA) Negative (Negative) mg/dL Urine Ketones Negative (Negative) mg/dL Urine Blood Moderate (2+) H (Negative) Urine Nitrite Negative (Negative) Ur Leukocyte Esterase Large (3+) H (Negative) Urine RBC 0-2 (0-2) /HPF Urine WBC >50 H (0-5) /HPF Ur Squamous Epith Cells 0-2 (0-2) /HPF Urine Bacteria 4+ (None Seen) Hyaline Casts 0-2 (0-2) /LPF Influenza Type A (PCR) NEGATIVE (Negative) Influenza Type B (PCR) NEGATIVE (Negative) RSV RNA Qual (PCR) NEGATIVE (Negative) SARS-CoV-2 RNA (RT-PCR) NEGATIVE (Negative) 09/17/24 Range/Units 20:13 WBC (4.8-10.8) X10*3/uL RBC (4.20-5.50) X10*6/uL Hgb (12.0-16.0) g/dl Hct (37.0-47.0) % MCV (80.0-98.0) fL MCH (27.0-33.0) pg MCHC (31.0-35.0) g/dl RDW (11.0-16.0) % Plt Count (160-400) X10*3/uL MPV (9.4-12.3) fL Immature Gran % (Auto) Neut % (Auto) Lymph % (Auto) [place] % (Auto) Eos % (Auto) Baso % (Auto) Lymph # (Auto) [place] # (Auto) Eos # (Auto) Baso # (Auto) Abs Immat Gran (auto) Absolute Neuts (auto) Absolute Nucleated RBC (0.0-0.012) X10*3/uL Nucleated RBC % (auto) (0.0-0.2) /100WBC Neutrophils % (Manual) (45-73) % Band Neutrophils % (3-5) % Lymphocytes % (Manual) (20-40) % Monocytes % (Manual) (2-11) % Abs Neuts (Manual) (2.0-8.3) X10*3/uL Lymphocytes # (Manual) (1.2-4.9) X10*3/uL Monocytes # (Manual) (0.1-1.2) X10*3/uL Nucleated RBCs (0-0) /100WBC Toxic Vacuolation Platelet Estimate (NORMAL) Large Platelets Plt Morphology Comment RBC Morphology [place] Cells /OIF PT (10.9-12.4) SEC INR (0.9-1.1) VBG pH 7.09 L* (7.32-7.43) VBG pCO2 19 mmHg VBG pO2 64 mmHg VBG HCO3 6 L (22-26) mmol/L VBG O2 Saturation TNP VBG Base Excess -21.6 mmol/L Sodium (135-145) mmol/L Potassium (3.3-5.1) mmol/L Chloride (96-108) mmol/L Carbon Dioxide (22-29) mmol/L Anion Gap (12-20) BUN (9-16) mg/dL Creatinine (0.5-1.4) mg/dL Estim Creat Clear Calc Estimated GFR Random Glucose (60-115) mg/dL Lactic Acid (0.5-2.0) mmol/L Calcium (8.4-10.2) mg/dL Total Bilirubin (0.0-1.0) mg/dL Direct Bilirubin (0.0-0.5) mg/dL AST (5-31) U/L ALT (0-31) U/L Alkaline Phosphatase (39-117) U/L Troponin I High Sens (<3.5-17.0) ng/L Total Protein (6.5-8.0) g/dL Albumin (3.5-5.0) g/dL TSH (0.32-4.0) uIU/mL Urine Color Urine Appearance Urine pH (5.0-9.0) Ur Specific [place] (1.005-1.025) Urine Protein (Neg-Trace) mg/dL Urine Glucose (UA) (Negative) mg/dL Urine Ketones (Negative) mg/dL Urine Blood (Negative) Urine Nitrite (Negative) Ur Leukocyte Esterase (Negative) Urine RBC (0-2) /HPF Urine WBC (0-5) /HPF Ur Squamous Epith Cells (0-2) /HPF Urine Bacteria (None Seen) Hyaline Casts (0-2) /LPF Influenza Type A (PCR) (Negative) Influenza Type B (PCR) (Negative) RSV RNA Qual (PCR) (Negative) SARS-CoV-2 RNA (RT-PCR) (Negative) Independent Interpretation I performed an independent interpretation of an: Plain X-Ray and CT Scan Radiology Impression Discussion of test interpretation with radiology: I have reviewed the radiologist's reading. Critical Care Time Critical Care Time Critical Care Time: Yes Total Critical Care Time: 90 Attestation: I have personally provided critical care time. Time includes review of lab data, radiology results, discussion with consultants, and monitoring for potential decompensation. Intervention performed as documented. Discharge Plan Discharge Clinical Impression: Acute on chronic kidney failure, Sepsis, Acute hypotension, Acute UTI Patient Disposition: Admitted As Inpatient Prescriptions: No Action potassium chloride 10 mEq capsule, extended release 10 meq PO DAILY Qty: 14 0RF levothyroxine 50 mcg tablet 50 mcg PO DAILY multivitamin Tablet 1 tab PO DAILY Humulin 70/30 U-100 KwikPen 100 unit/mL (70-30) insulin pen 3 - 6 unit subcut BID@0700,1900 PRN (Reason: Hyperglycemia) amlodipine 5 mg Tablet 5 mg PO DAILY Qty: 0 0RF Protocol: Hold for SBP< HOLD for SBP < : 90 Print Language: Chinese Sepsis Bolus Exclusion Sepsis Bolus Exclusion CHF/Renal Failure This patient met severe sepsis criteria due to the following condition(s):: Hypotension In my clinical judgement the administration of 30 ml/kg of crystalloid would be detrimental to this patient due to the patient's following conditions:: Concern for fluid overload and Other (Acute renal failure) Replace the 30 mls/kg with (Zero amount not acceptable and all fluids for severe sepsis must be given at GREATER than 125 mls/hr) Crystalloids amount given in mls: (rate must be at least 150cc/hr): 1,000 Colloids amount given in mls:: 1,000
[2024-09-17 19:29] LABS: TSH reflex Free T4 1.37 uIU/mL (0.32-4.0)
[2024-09-17 19:39] LABS: Influenza A PCR NEGATIVE (Negative); Influenza B PCR NEGATIVE (Negative); Resp Syncy Virus RNA Qual PCR NEGATIVE (Negative); SARS COV2 PCR INHOUSE NEGATIVE (Negative)
--- OUTSIDE RECORDS SUMMARY | 2024-09-17 19:40 | XMS_ITS | Patient Health Record ---
Author Organization Chadwick Gomez III, MD Address [address] [place] [address] Care Team Providers Care Assistant Community Director Name Role Phone Gianluca Betancur MD Primary Care Provider Chadwick Pelayo Unavailable [phone] Allergies No Known Allergies Reason For Referral [...] Problem Status W/U Status Risk Notes Problem 702135662 Obesity (278.00) Active confirmed Her body mass index was increased from 29-30. I recommended weight reduction, regular exercise, portion control and a low fat, low sodium nourishing diet. Problem 2407961 Former smoker (Z87.891) Active confirmed She is highly motivated not to smoke. She has a plan for prevention of relapse in times of stress or illness. Problem 619504240 Overweight (E66.3) Active confirmed She has lost a substantial amount of weight the last year through diet and exercise. He seems healthy and well today. Her body mass index is 27. I encouraged her to continue losing weight gradually until her body mass index is normal. Problem 96832499 Type 2 diabetes mellitus without complications (E11.9) Active confirmed Her diabetes has been stable and she is compliant with all medications. Problem 296231706 Ovarian cancer in remission (Z85.43) Active confirmed [...] Date MEDICARE NGS [address] [place] [address] [id number] Nighat Castillo Self - patient is the insured [facility] [address] [place], [place] [id number] Nighat Castillo Self - patient is the insured Medical (General) History Medical History History ICD Code ovarian cancer diabetes mellulitis Surgical History Surgery Date(Month/Year) cholecystectomy appendectomy T & A left eye cataract
[2024-09-17 19:43] LABS: Alanine Aminotransferase 29 U/L (0-31); Albumin Level 3.6 g/dL (3.5-5.0); Alkaline Phosphatase 101 U/L (39-117); Anion Gap 20 (12-20); Aspartate Amino Transferase 27 U/L (5-31); Bilirubin Direct 0.1 mg/dL (0.0-0.5); Bilirubin Total 0.5 mg/dL (0.0-1.0); Blood Urea Nitrogen 110 mg/dL (9-16); Calcium 8.8 mg/dL (8.4-10.2); Carbon Dioxide 6 mmol/L (22-29); Chloride 113 mmol/L (96-108); Creatinine Clr Calc Pharmacy 3.6; Estimated Glomerular Filt Rate 4; Glucose Random 181 mg/dL (60-115); Potassium 4.4 mmol/L (3.3-5.1); Sodium 135 mmol/L (135-145); Total Protein 6.5 g/dL (6.5-8.0)
[2024-09-17 19:49] LABS: Lymphocytes Absolute Manual 0.2 X10*3/uL (1.2-4.9); Lymphocytes Percent Manual 2 % (20-40); Monocytes Absolute Manual 0.2 X10*3/uL (0.1-1.2); Monocytes Percent Manual 2 % (2-11); Neutrophils Percent Manual 96 % (45-73); Nucleated Red Blood Cells 1 /100WBC (0-0)
[2024-09-17 19:50] LABS: Burr Cells 2+ (3-5) /OIF; Large Platelet PRESENT; Platelet Estimate DECREASED (NORMAL); RBC Morphology NOTED
[2024-09-17 19:51] LABS: Band Neutrophils Percent 0 % (3-5); Neutrophils Absolute Manual 11.9 X10*3/uL (2.0-8.3); Platelet Morphology Comment NOTED; Toxic Vacuolation PRESENT
[2024-09-17 19:54] LABS: Bacteria Urine 4+ (None Seen); Hyaline Casts Urine 0-2 /LPF (0-2); RBC Urine 0-2 /HPF (0-2); Squamous Epithelial Cell Urine 0-2 /HPF (0-2); UACC Culture Trigger YES; WBC Urine >50 /HPF (0-5)
[2024-09-17 19:59] LABS: Platelet Count 78 X10*3/uL (160-400)
[2024-09-17 20:23] LABS: VBG Base Excess -21.6 mmol/L; VBG HCO3 6 mmol/L (22-26); VBG pCO2 19 mmHg; VBG pH 7.09 (7.32-7.43); VBG pO2 64 mmHg
--- NOTE | 2024-09-17 20:23 | PC.NURSE ---
sepsis fluids stopped after 1L d/t pt's kidney function per MD and hospitalist.
[2024-09-17 20:24] LABS: Venous Blood Gas Refer to POC result
[2024-09-17] MEDS: Norepinephrine Bitartrate/D5W 8 MG/250 ML PLAST..BAG 5.7 MG IVCONT (20:36)
--- NOTE | 2024-09-17 21:00 | PC.NURSE ---
BP remains soft. NOREPI drip titrated x2 per MAR
--- NOTE | 2024-09-17 21:06 | PHA.MEDREC ---
Addendum entered by Nikita Talley RPh 09/17/24 21:18: Med rec was reviewed by [facility]. Original Note: Pharmacy Consult ? Medication Reconciliation Pharmacy has completed the medication reconciliation. Spoke with patients grandson at bedside and he was able to confirm his grandmothers medications. He confirmed his grandmother still uses the Humulin 70/30 U-100 KwikPen and states she does 3-8 units as needed for her sugar levels. He confirmed he gave 3 units to her today due to her levels. He confirmed his grandmother took all her medications today.
[2024-09-17] MEDS: Sodium Bicarbonate 8.4% 150 MEQ in Dextrose 5 % 850 ML 100 MEQ IV (21:09)
[2024-09-17 21:40] LABS: Phosphorus 8.6 mg/dL (2.7-4.5)
--- NOTE | 2024-09-17 21:53 | PC.NURSE ---
verbal report to ICU
--- NOTE | 2024-09-17 22:13 | P.HPCC_ITS ---
History of Present Illness Date of Service: 09/17/24 Attending physician on admission: Shiraz Pennington Chief Complaint: Urosepsis Review of Systems 2 Review of Systems: Yes all other systems are reviewed and are negative Constitutional: Constitutional: Reports as per HPI and Reports weakness Eyes: Eyes: Denies change in vision and Denies eye discharge ENT: Reports Normal hearing present, Denies nasal congestion, Denies nasal discharge, Denies post nasal drip, Denies sinus pain and Denies sinus pressure Cardiovascular: Cardiovascular: Denies chest pain, Denies lightheadedness and Denies dyspnea Respiratory: Respiratory: Denies chest congestion, Denies cough and Denies dyspnea Gastrointestinal: Gastrointestinal: Denies abdominal pain Genitourinary: Genitourinary: Denies dysuria and Denies urinary urgency Musculoskeletal: Musculoskeletal: Reports muscle weakness Integumentary/Breasts: Skin/Breast: Denies lesions, Denies sores and Denies wounds Neurologic: Reports Normal hearing present, Denies Abnormal speech present, Denies confusion and Reports weakness Psychiatric: Psychiatric: Denies anxiety and Denies confusion Endocrine: Endocrine: Reports as per HPI PMFSH Past Medical History Medical History Hypertension CKD stage 3b, GFR 30-44 ml/min Hypothyroidism History of ovarian cancer Generalized weakness Gallbladder & bile duct stone with obstruction Diabetes Surgical History Surgical History H/O: hysterectomy Social History Social History Household Members: Family Household Members Other:: Grandson. Housing: House Do you presently have visiting nurse or other home services: No Alcohol intake: former Patient Tobacco Use Status: Former Tobacco user Use of substances other than those prescribed or required for medical reasons: Unknown Advance Directives: Yes Advance Directives on File: Yes Advance Directives Date on File: 05/08/23 Nutrition Risks: Poor intake 0-25% >4 days Patient : No service: No Narrative Narrative: Ms. Castillo is an 83-year-old female with CKD 4, HTN, DM2, hypothyroidism, chronic thrombocytopenia, history of ovarian cancer who was brought in by ambulance for generalized weakness, poor p.o. intake. The patient?s grandson reported to EMS that she had had slurred speech for 1 week.? The patient has history of dementia.? She states she feels a bit weak but has no other complaints. On arrival to the emergency room, rectal temp was 91 0.0, blood pressure 110/47, heart rate 56.? O2 sat 100% on room air. Laboratory data significant for? WBC 12.4, hemoglobin 8.9, hematocrit 24.8, platelets 78 ,? chloride 113, serum bicarb 6, BUN 110, creatinine 10.21, glucose 181, phos 8.6. VBG 7.09 19 64 6. UA indicative of UTI. Respiratory panel negative for influenza and COVID-19. Imaging:? Head CT showed nothing acute. Chest x-ray showed? nonspecific mild right opacities, possibly pneumonitis. ED course: the patient was initially given 1 L of normal saline.? She was started on a bicarb drip per Nephrology. ? She received Levaquin 500 mg. ? She became hypotensive and was started on a Levophed drip. Meds Allergies Allergy/AdvReac Type Severity Reaction Status Date / Time No Known Allergies Allergy Verified 09/17/24 18:27 Active Medications: Current Medications Norepinephrine Bitartrate (Levophed) 8 mg in 250 mls @ 0 mls/hr IVCONT .Q0M [facility]; Protocol Last Titration: 09/17/24 20:59 Dose: 0.09 mcg/kg/min, 10.26 mls/hr Sodium Bicarbonate 150 meq/ (Dextrose) 1,000 mls @ 100 mls/hr IV .Q10H CRISTINA Last Admin: 09/17/24 21:09 Dose: 100 mls/hr Home Medications ?Medication ?Instructions ?Recorded ?Confirmed ?Last Taken ?Type levothyroxine 50 mcg tablet 50 mcg PO DAILY@0600 05/07/23 09/17/24 09/17/24 History multivitamin 1 tab PO DAILY 05/07/23 09/17/24 09/17/24 History insulin NPH-regular 70-30 U-100 3 - 8 unit subcut BID@0700,1900 06/25/24 09/17/24 09/17/24 History insulin 100 unit/mL subcutaneous PRN Hyperglycemia pen (Humulin 70/30 U-100 [place]) glipizide 5 mg tablet 10 mg PO BID 09/17/24 09/17/24 09/17/24 History Physical Exam 2 Vital Signs: Vital Signs: Last Vital Signs Temp 92.7 F L 09/17/24 21:58 Pulse 61 09/17/24 21:58 Resp 15 09/17/24 21:58 BP 117/43 L 09/17/24 21:58 Pulse Ox 99 09/17/24 21:58 O2 Del Method Room Air 09/17/24 21:58 BMI result Body Mass Index 23.7 Const: General: no acute distress and alert; No confusion O rientation/consciousness: patient oriented x3 (vague but answering appropriately.) and No confusion HEENT: Head: Yes normocephalic and Yes atraumatic General nose exam: Normal external nose present (Nares patent, septum midline, sinuses nontender bilaterally.) Mouth: Normal oral and palatal mucosa present (No thrush, tongue in midline, mucosa moist.) Throat: Yes other (No erythema, no exudate.) Neck: Neck: Yes supple (no thyromegaly, trachea midline.) Carotids: normal carotid upstroke Resp: Auscultation: clear to auscultation bilaterally (normal work of breathing, no accessory muscle use) Cardio: Jugular venous distension: no JVD Rate: regular rate Rhythm: r egular rhythm Heart sounds: no gallops, no murmurs and no rubs Peripheral pulses: Peripheral pulses 2+ throughout GI: Palpation (GI): Soft to palpation (nondistended.) and nontender Neuro: General: patient oriented x3 (vague but answering appropriately.) and No confusion Cranial nerves: Yes CN's II-XII intact bilaterally and Yes Normal hearing present Speech: No Abnormal speech present Extrem: General: Yes full ROM, Yes capillary refill normal and Yes no clubbing, cyanosis or edema Psych: Appearance: grossly normal Speech and movement: Normal speech and movement present Affect: normal affect Attitude: cooperative Results Labs 09/17/24 18:37 09/17/24 18:37 Labs: Laboratory Results - last 24 hr 09/17/24 09/17/24 09/17/24 18:37 18:41 18:52 MCV 89.9 MCH 32.2 MCHC 35.9 H RDW 12.6 Plt Count 78 L D MPV 10.2 Immature Gran % (Auto) Cancelled Neut % (Auto) Cancelled Lymph % (Auto) Cancelled [place] % (Auto) Cancelled Eos % (Auto) Cancelled Baso % (Auto) Cancelled Lymph # (Auto) Cancelled [place] # (Auto) Cancelled Eos # (Auto) Cancelled Baso # (Auto) Cancelled Abs Immat Gran (auto) Cancelled Absolute Neuts (auto) Cancelled Absolute Nucleated RBC 0.020 H Nucleated RBC % (auto) 0.2 Neutrophils % (Manual) 96 H Band Neutrophils % 0 L Lymphocytes % (Manual) 2 L Monocytes % (Manual) 2 Abs Neuts (Manual) 11.9 H Lymphocytes # (Manual) 0.2 L Monocytes # (Manual) 0.2 Nucleated RBCs 1 H Toxic Vacuolation PRESENT Platelet Estimate DECREASED Large Platelets PRESENT Plt Morphology Comment NOTED RBC Morphology NOTED [place] Cells 2+ (3-5) PT 11.4 INR 1.0 VBG pH VBG pCO2 VBG pO2 VBG HCO3 VBG O2 Saturation VBG Base Excess Anion Gap 20 Estim Creat Clear Calc 3.6 Estimated GFR 4 Random Glucose 181 H Lactic Acid 0.7 Calcium 8.8 Phosphorus 8.6 H Total Bilirubin 0.5 Direct Bilirubin 0.1 AST 27 ALT 29 Alkaline Phosphatase 101 Troponin I High Sens 17.6 H Total Protein 6.5 Albumin 3.6 TSH 1.37 Urine Color Yellow Urine Appearance Cloudy Urine pH 5.0 Ur Specific [place] 1.015 Urine Protein 100 (2+) H Urine Glucose (UA) Negative Urine Ketones Negative Urine Blood Moderate (2+) H Urine Nitrite Negative Ur Leukocyte Esterase Large (3+) H Urine RBC 0-2 Urine WBC >50 H Ur Squamous Epith Cells 0-2 Urine Bacteria 4+ Hyaline Casts 0-2 Influenza Type A (PCR) NEGATIVE Influenza Type B (PCR) NEGATIVE RSV RNA Qual (PCR) NEGATIVE SARS-CoV-2 RNA (RT-PCR) NEGATIVE 09/17/24 20:13 MCV MCH MCHC RDW Plt Count MPV Immature Gran % (Auto) Neut % (Auto) Lymph % (Auto) [place] % (Auto) Eos % (Auto) Baso % (Auto) Lymph # (Auto) [place] # (Auto) Eos # (Auto) Baso # (Auto) Abs Immat Gran (auto) Absolute Neuts (auto) Absolute Nucleated RBC Nucleated RBC % (auto) Neutrophils % (Manual) Band Neutrophils % Lymphocytes % (Manual) Monocytes % (Manual) Abs Neuts (Manual) Lymphocytes # (Manual) Monocytes # (Manual) Nucleated RBCs Toxic Vacuolation Platelet Estimate Large Platelets Plt Morphology Comment RBC Morphology [place] Cells PT INR VBG pH 7.09 L* VBG pCO2 19 VBG pO2 64 VBG HCO3 6 L VBG O2 Saturation TNP VBG Base Excess -21.6 Anion Gap Estim Creat Clear Calc Estimated GFR Random Glucose Lactic Acid Calcium Phosphorus Total Bilirubin Direct Bilirubin AST ALT Alkaline Phosphatase Troponin I High Sens Total Protein Albumin TSH Urine Color Urine Appearance Urine pH Ur Specific [place] Urine Protein Urine Glucose (UA) Urine Ketones Urine Blood Urine Nitrite Ur Leukocyte Esterase Urine RBC Urine WBC Ur Squamous Epith Cells Urine Bacteria Hyaline Casts Influenza Type A (PCR) Influenza Type B (PCR) RSV RNA Qual (PCR) SARS-CoV-2 RNA (RT-PCR) Imaging Radiologist's Impressions: CT head without contrast IMPRESSION: 1. No acute intracranial abnormality by CT. 2. Combination of the soft tissue and fluid of the paranasal sinuses including the sphenoid sinus as can be associated with sinusitis. XR chest 1V IMPRESSION: Mild right apical opacities are nonspecific. Mild pneumonitis is considered. Assessment and Plan (1) Sepsis: Qualifiers: Acute renal failure type: unspecified Sepsis acute organ dysfunction status: with acute organ dysfunction Sepsis type: sepsis due to unspecified organism Severe sepsis acute organ dysfunction type: acute renal failure S evere sepsis shock status: with septic shock Qualified Code(s): A41.9 - Sepsis, unspecified organism; R65.21 - Severe sepsis with septic shock; N17.9 - Acute kidney failure, unspecified Status: Acute (2) Acute hypotension: Status: Acute (3) Acute UTI: Status: Acute (4) Acute on chronic kidney failure: Qualifiers: Acute renal failure type: unspecified Chronic kidney disease stage: u nspecified stage Qualified Code(s): N17.9 - Acute kidney failure, unspecified; N18.9 - Chronic kidney disease, unspecified Status: Acute (5) Pneumonia: Qualifiers: Laterality: right Lung location: upper lobe of lung Pneumonia type: d ue to unspecified organism Qualified Code(s): J18.9 - Pneumonia, unspecified organism Status: Acute (6) Episodes of decreased attentiveness: Status: Acute Plan 83-year-old female with CKD 4, HTN, DM2, hypothyroidism, chronic thrombocytopenia, history of ovarian cancer admitted for management of sepsis, acute UTI, acute on chronic renal failure. Neuro:? No acute issues. History of dementia. Cardiac:? Sepsis- patient has elevated white count, she is? hypothermic, hypotensive. Urine is positive for UTI? which is likely the source. Pulmonary: No acute issues. Chest x-ray shows possible pneumonia; patient has no URI symptoms. Renal: ?Acute on chronic renal failure.? Creatinine 10.21 (baseline appears to be about 3.15).? Continue bicarb drip.? Avoid nephrotoxic agents. Monitor renal induces and urine output. Hx of poorly controlled diabetes. SS insulin per protocol. Nephrology care services appreciated. : UTI GI: ? No acute issues. Heme/Onc: ?History of chronic thrombocytopenia. Plt 78? (baseline 120-140?s). ID:? Sepsis. UTI likely source. Elevated white count, hypothermia, hypotensive.? IV fluids per sepsis protocol were started in the emergency room.? She received 1 L normal saline.? Bolus stopped; sodium bicarb started per Nephrology recommendation. Past UTI positive for Klebsiella, Coag-negative staph. She received Levaquin 500 mg. Add vanco. Continue empiric coverage.? Psych:? No acute issues. Misc: ?No acute issues. Prophylaxis: Pneumatic hoses Diet:? Renal Patient's care was discussed in detail with Dr. Pennington.? He is aware of all the above as well as the plan of care for this patient. Total time managing care of this patient today: 60 minutes.
[2024-09-18] VITALS (26 sets, daily range): BP systolic 93–159; BP diastolic 34–80; PULSE 61–107; RESP 15–21; TEMP 35.1–37.5; O2SAT 91–98
[2024-09-18] MEDS: vancomycin HCL 1,250 MG in 0.9 % Sodium Chloride 250 ML 166.67 MG IV (00:32)
[2024-09-18 04:41] LABS: VBG Base Excess -15.9 mmol/L; VBG HCO3 8 mmol/L (22-26); VBG pCO2 18 mmHg; VBG pH 7.27 (7.32-7.43); VBG pO2 45 mmHg
[2024-09-18 04:42] LABS: Venous Blood Gas Refer to POC result
[2024-09-18 05:06] LABS: Basophils Percent Auto 0.1 % (0-2); Hematocrit 21.3 % (37.0-47.0); Hemoglobin 7.7 g/dl (12.0-16.0); Imm Gran Abs Auto 0.04 X10*3/uL (0.00-0.03); Imm Gran Pct Auto 0.5 % (0.0-0.4); Lymphocytes Absolute Auto 0.2 X10*3/uL (1.2-4.9); Lymphocytes Percent Auto 2.4 % (20-40); MANUAL DIFF FLAG SCAN; Mean Corpuscular HGB Conc 36.2 g/dl (31.0-35.0); Mean Corpuscular Hemoglobin 32.5 pg (27.0-33.0); Mean Corpuscular Volume 89.9 fL (80.0-98.0); Monocytes Absolute Auto 0.6 X10*3/uL (0.1-1.2); Monocytes Percent Auto 6.2 % (2-11); Neutrophils Percent Auto 90.8 % (45-73); Red Blood Count 2.37 X10*6/uL (4.20-5.50); Red Cell Distribution Width 12.7 % (11.0-16.0); SCAN SMEAR FLAG 1; White Blood Count 8.9 X10*3/uL (4.8-10.8)
[2024-09-18 05:07] LABS: Platelet Count 68 X10*3/uL (160-400)
[2024-09-18 05:25] LABS: Anion Gap 18 (12-20); Blood Urea Nitrogen 106 mg/dL (9-16); Carbon Dioxide 8 mmol/L (22-29); Chloride 112 mmol/L (96-108); Creatinine Clr Calc Pharmacy 3.5; Estimated Glomerular Filt Rate 4; Glucose Random 269 mg/dL (60-115); Magnesium 2.8 mg/dL (1.6-2.6); Potassium 3.5 mmol/L (3.3-5.1); Sodium 134 mmol/L (135-145)
[2024-09-18 05:32] LABS: SLIDE REVIEW VERIFIED
[2024-09-18] MEDS: Levothyroxine Sodium 50 MCG TABLET PO (06:02)
[2024-09-18] MEDS: Sodium Bicarbonate 8.4% 150 MEQ in Dextrose 5 % 850 ML 100 MEQ IV ×2 (06:37→17:12)
[2024-09-18 07:41] LABS: Glucose, Whole Blood 222 mg/dL (60-115)
[2024-09-18] MEDS: Insulin Lispro 100 UNIT/ML 3 ML VIAL SUBCUT ×2 (08:06→21:47)
--- NOTE | 2024-09-18 09:30 | PM.CCPN ---
Subjective Subjective Date of Service: 09/18/24 Critical Care Time (minutes): 35 Comment: Blood pressure is improving, off vasopressor support this morning. Renal function remains poor, bicarb at 8 Physical Exam Vital Signs: Vital Signs: Last Vital Signs Temp 95.2 F L 09/18/24 09:00 Pulse 70 09/18/24 09:00 Resp 17 09/18/24 09:00 BP 104/42 L 09/18/24 09:00 Pulse Ox 94 09/18/24 09:00 O2 Del Method Room Air 09/18/24 09:00 BMI result Body Mass Index 23.6 General: Pleasant, elderly lady in minimal distress sitting in the bed Nutritional Appearance: well nourished and overweight Eyes: appearance normal, both eyes and all related structures; Alignment and Position: alignment normal and position normal Neck: No lymphadenopathy, no thyromegaly Resp: bilateral air entry equal, occasional added sounds present Cardio: Regular rate, regular rhythm; Heart sounds: S1 normal heart sound present and S2 normal heart sound present GI: soft, nontender, no guarding, no hepatosplenomegaly : bladder normal to inspection, bladder normal to palpation, no renal angle tenderness Skin: no rashes or lesions noted and elasticity normal Neuro: oriented to person, oriented to place, oriented to time and moves all extremities Objective Data Labs 09/18/24 04:36 09/18/24 04:36 Labs: Laboratory Results - last 24 hr 09/17/24 09/17/24 09/17/24 18:37 18:41 18:52 WBC 12.4 H RBC 2.76 L Hgb 8.9 L Hct 24.8 L MCV 89.9 MCH 32.2 MCHC 35.9 H RDW 12.6 Plt Count 78 L D MPV 10.2 Immature Gran % (Auto) Cancelled Neut % (Auto) Cancelled Lymph % (Auto) Cancelled [place] % (Auto) Cancelled Eos % (Auto) Cancelled Baso % (Auto) Cancelled Lymph # (Auto) Cancelled [place] # (Auto) Cancelled Eos # (Auto) Cancelled Baso # (Auto) Cancelled Abs Immat Gran (auto) Cancelled Absolute Neuts (auto) Cancelled Absolute Nucleated RBC 0.020 H Nucleated RBC % (auto) 0.2 Neutrophils % (Manual) 96 H Band Neutrophils % 0 L Lymphocytes % (Manual) 2 L Monocytes % (Manual) 2 Abs Neuts (Manual) 11.9 H Lymphocytes # (Manual) 0.2 L Monocytes # (Manual) 0.2 Nucleated RBCs 1 H Toxic Vacuolation PRESENT Platelet Estimate DECREASED Large Platelets PRESENT Plt Morphology Comment NOTED RBC Morphology NOTED [place] Cells 2+ (3-5) Smear Tech's Comments PT 11.4 INR 1.0 VBG pH VBG pCO2 VBG pO2 VBG HCO3 VBG O2 Saturation VBG Base Excess Sodium 135 Potassium 4.4 Chloride 113 H Carbon Dioxide 6 L* D Anion Gap 20 BUN 110 H Creatinine 10.21 H* Estim Creat Clear Calc 3.6 Estimated GFR 4 POC Glucose Random Glucose 181 H Lactic Acid 0.7 Calcium 8.8 Phosphorus 8.6 H Magnesium Total Bilirubin 0.5 Direct Bilirubin 0.1 AST 27 ALT 29 Alkaline Phosphatase 101 Troponin I High Sens 17.6 H Total Protein 6.5 Albumin 3.6 TSH 1.37 Urine Color Yellow Urine Appearance Cloudy Urine pH 5.0 Ur Specific [place] 1.015 Urine Protein 100 (2+) H Urine Glucose (UA) Negative Urine Ketones Negative Urine Blood Moderate (2+) H Urine Nitrite Negative Ur Leukocyte Esterase Large (3+) H Urine RBC 0-2 Urine WBC >50 H Ur Squamous Epith Cells 0-2 Urine Bacteria 4+ Hyaline Casts 0-2 Influenza Type A (PCR) NEGATIVE Influenza Type B (PCR) NEGATIVE RSV RNA Qual (PCR) NEGATIVE SARS-CoV-2 RNA (RT-PCR) NEGATIVE 09/17/24 09/18/24 09/18/24 20:13 04:30 04:36 WBC 8.9 RBC 2.37 L Hgb 7.7 L Hct 21.3 L MCV 89.9 MCH 32.5 MCHC 36.2 H RDW 12.7 Plt Count 68 L MPV 10.0 Immature Gran % (Auto) 0.5 H Neut % (Auto) 90.8 H Lymph % (Auto) 2.4 L [place] % (Auto) 6.2 Eos % (Auto) 0.0 Baso % (Auto) 0.1 Lymph # (Auto) 0.2 L [place] # (Auto) 0.6 Eos # (Auto) 0.0 Baso # (Auto) 0.0 Abs Immat Gran (auto) 0.04 H Absolute Neuts (auto) 8.0 Absolute Nucleated RBC 0.000 Nucleated RBC % (auto) 0.0 Neutrophils % (Manual) Band Neutrophils % Lymphocytes % (Manual) Monocytes % (Manual) Abs Neuts (Manual) Lymphocytes # (Manual) Monocytes # (Manual) Nucleated RBCs Toxic Vacuolation Platelet Estimate Large Platelets Plt Morphology Comment RBC Morphology [place] Cells Smear Tech's Comments VERIFIED PT INR VBG pH 7.09 L* 7.27 L VBG pCO2 19 18 VBG pO2 64 45 VBG HCO3 6 L 8 L VBG O2 Saturation TNP 76.0 VBG Base Excess -21.6 -15.9 Sodium 134 L Potassium 3.5 D Chloride 112 H Carbon Dioxide 8 L* D Anion Gap 18 BUN 106 H Creatinine 10.24 H* Estim Creat Clear Calc 3.5 Estimated GFR 4 POC Glucose Random Glucose 269 H Lactic Acid Calcium 8.0 L D Phosphorus Magnesium 2.8 H Total Bilirubin Direct Bilirubin AST ALT Alkaline Phosphatase Troponin I High Sens Total Protein Albumin 3.0 L TSH Urine Color Urine Appearance Urine pH Ur Specific [place] Urine Protein Urine Glucose (UA) Urine Ketones Urine Blood Urine Nitrite Ur Leukocyte Esterase Urine RBC Urine WBC Ur Squamous Epith Cells Urine Bacteria Hyaline Casts Influenza Type A (PCR) Influenza Type B (PCR) RSV RNA Qual (PCR) SARS-CoV-2 RNA (RT-PCR) 09/18/24 07:37 WBC RBC Hgb Hct MCV MCH MCHC RDW Plt Count MPV Immature Gran % (Auto) Neut % (Auto) Lymph % (Auto) [place] % (Auto) Eos % (Auto) Baso % (Auto) Lymph # (Auto) [place] # (Auto) Eos # (Auto) Baso # (Auto) Abs Immat Gran (auto) Absolute Neuts (auto) Absolute Nucleated RBC Nucleated RBC % (auto) Neutrophils % (Manual) Band Neutrophils % Lymphocytes % (Manual) Monocytes % (Manual) Abs Neuts (Manual) Lymphocytes # (Manual) Monocytes # (Manual) Nucleated RBCs Toxic Vacuolation Platelet Estimate Large Platelets Plt Morphology Comment RBC Morphology [place] Cells Smear Tech's Comments PT INR VBG pH VBG pCO2 VBG pO2 VBG HCO3 VBG O2 Saturation VBG Base Excess Sodium Potassium Chloride Carbon Dioxide Anion Gap BUN Creatinine Estim Creat Clear Calc Estimated GFR POC Glucose 222 H Random Glucose Lactic Acid Calcium Phosphorus Magnesium Total Bilirubin Direct Bilirubin AST ALT Alkaline Phosphatase Troponin I High Sens Total Protein Albumin TSH Urine Color Urine Appearance Urine pH Ur Specific [place] Urine Protein Urine Glucose (UA) Urine Ketones Urine Blood Urine Nitrite Ur Leukocyte Esterase Urine RBC Urine WBC Ur Squamous Epith Cells Urine Bacteria Hyaline Casts Influenza Type A (PCR) Influenza Type B (PCR) RSV RNA Qual (PCR) SARS-CoV-2 RNA (RT-PCR) Microbiology Microbiology Results: Microbiology 09/17/24 18:41 Blood - Venous Blood Culture - Preliminary Prelim: GPC Gram Stain only Progress Note: A&P Assessment and plan (1) Hypertension: Status: Acute (2) Acute hypotension: Status: Acute (3) Acute on chronic kidney failure: Status: Acute (4) Pneumonia: Status: Acute (5) Acute UTI: Status: Acute Plan Acute on chronic kidney disease: High anion gap metabolic acidosis: Acute kidney injury possibly secondary to ATN from shock and possible urosepsis She has underlying Chronic kidney disease V possibly secondary to underlying diabetes mellitus Possibly needs long-term dialysis She has significant metabolic acidosis, with bicarb increasing from 6-8 despite getting IV fluids and sodium bicarbonate. Her creatinine increased to 10 from a baseline of 3 and has unchanged despite volume corrections and blood pressure corrections. Would start on renal replacement therapy as per Nephrology I will place a dialysis line following which we will start hemodialysis sessions Shock: Improved, off pressors Normocytic anemia: Possibly secondary to EPO deficiency from chronic kidney disease Erythropoietin as per Nephrology Transfuse if hemoglobin less than 7 grams/deciliter We will get iron profile Infectious disease: Urinalysis shows dirty urine, urine cultures pending Blood cultures positive for GPC 1/[address] of abdomen and pelvis to look for source of infection On levofloxacin and vancomycin for antibiotic coverage Hypothyroidism: Continue levothyroxine 50 mcg daily Prophylaxis: Heparin Quality Stroke Does the patient have a stroke diagnosis?: No VTE Prior VTE?: No VTE Risk Level:: Medical - moderate - high VTE Device Contraindication: N/A - Device Ordered VTE Drug Contraindication: N/A - Med Ordered
[2024-09-18 11:20] LABS: Glucose, Whole Blood 82 mg/dL (60-115)
[2024-09-18 13:02] LABS: Anion Gap 20 (12-20); Blood Urea Nitrogen 106 mg/dL (9-16); Calcium 8.1 mg/dL (8.4-10.2); Carbon Dioxide 12 mmol/L (22-29); Chloride 111 mmol/L (96-108); Creatinine Clr Calc Pharmacy 3.5; Estimated Glomerular Filt Rate 4; Glucose Random 62 mg/dL (60-115); Potassium 3.5 mmol/L (3.3-5.1); Sodium 139 mmol/L (135-145)
--- NOTE | 2024-09-18 15:10 | MHC.CM.PN ---
Met with pt and family to discuss d/c planning: pt resides w/grandson and has good family supports: she uses a walker but has no services at this time. Family assists w/transportation. Pt would benefit from skilled RN assessments and possible [employer] for assistance with care needs. Referred to NA at this time should patient and family feel services would be helpful at the time of d/c. IMM in chart, HCP on file and verified w/son. CM to follow
[2024-09-18 16:49] LABS: Glucose, Whole Blood 115 mg/dL (60-115)
--- NOTE | 2024-09-18 17:35 | W.PM.CCHP ---
Procedures Date of Service Date of Service: 09/18/24 Central Line Placement dialysis line placement: Consent for Procedure: Elective - informed consent obtained Time out performed: Yes Sterile Technique Used: Yes Patient placed on monitor/pulse ox: Yes MD prep: mask, gown and gloves Central line prep: Povidone-Iodine 1% Local anesthesia used: lidocaine 1% Amount of anesthesia used (ml): 10 Ultrasound used for placement: Yes Central line lumen inserted: triple Post procedure: sutured in place, good blood return, all ports aspirated, flushed, capped and sterile dressing applied Post procedure x-ray: tip of catheter in good position and no pneumothorax seen Patient tolerated procedure: well and no complications Complications: none
--- NOTE | 2024-09-18 18:06 | P.CONNP_ITS ---
History of Present Illness Reason for Consult Consult date: 09/18/24 Reason for consult: YENNIFER Chief Complaint Chief complaint: Urosepsis History of Present Illness Narrative: Ms. Castillo is an 83-year-old female with CKD 4 at baseline who was brought in by ambulance for generalized weakness, poor p.o. intake. On arrival to the emergency room, rectal temp was 91 0.0, blood pressure 110/47, heart rate 56.? O2 sat 100% on room air. Laboratory data significant for? WBC 12.4, hemoglobin 8.9, hematocrit 24.8, platelets 78 ,? chloride 113, serum bicarb 6, BUN 110, creatinine 10.21, glucose 181, phos 8.6. VBG 7.09 19 64 6. UA indicative of UTI. Respiratory panel negative for influenza and COVID-19. Head CT showed nothing acute. Chest x-ray showed? nonspecific mild right opacities, possibly pneumonitis. She was initially given 1 L of normal saline and was started on a bicarb drip . ?She received Levaquin 500 mg. ?She became hypotensive and was started on a Levophed drip. Nephrology was consulted to assist in her clinical care during her current hospital stay Review of Systems Review of Systems Yes all other systems are reviewed and are negative PMFSH Past Medical History Medical History Hypertension CKD stage 3b, GFR 30-44 ml/min Hypothyroidism History of ovarian cancer Generalized weakness Gallbladder & bile duct stone with obstruction Diabetes Surgical History Surgical History H/O: hysterectomy Social History Social History Household Members: Family Household Members Other:: Grandson. Housing: House Do you presently have visiting nurse or other home services: No Alcohol intake: former Patient Tobacco Use Status: Former Tobacco user Advance Directives Date on File: 05/08/23 service: No Meds Allergies Allergy/AdvReac Type Severity Reaction Status Date / Time No Known Allergies Allergy Verified 09/17/24 18:27 Active Medications: Current Medications Glucose (Glucose Gel 15 Gm Gel..Gram.) 15 gm PO Q15M PRN; Protocol PRN Reason: per Hypoglycemia Standing Ord. Norepinephrine Bitartrate (Levophed) 8 mg in 250 mls @ 0 mls/hr IVCONT .Q0M [facility]; Protocol Last Titration: 09/18/24 16:36 Dose: 0 mcg/kg/min, 0 mls/hr Sodium Bicarbonate 150 meq/ (Dextrose) 1,000 mls @ 100 mls/hr IV .Q10H [facility] Last Admin: 09/18/24 17:12 Dose: 100 mls/hr Dextrose (D10) 250 mls @ 750 mls/hr IV Q15M PRN; Protocol PRN Reason: per Hypoglycemia Standing Ord. Levofloxacin (Levaquin) 500 mg in 100 mls @ 100 mls/hr IV Q48H CRISTINA Vancomycin HCl 500 mg/ Sodium (Chloride) 110 mls @ 110 mls/hr IV Q48H [facility] Insulin Human Lispro (Insulin Lispro 100 Unit/Ml 3 Ml Vial) 0 unit SUBCUT QIDACHS [facility]; Protocol Last Admin: 09/18/24 16:56 Dose: Not Given Levothyroxine Sodium (Levothyroxine Sodium 50 Mcg Tablet) 50 mcg PO DAILY@0600 [facility] Last Admin: 09/18/24 06:02 Dose: 50 mcg Pharmacy Consult (Consult Rx Vancomycin Dosing) 1 each MISCELLANE DAILY PRN PRN Reason: Consult order Home Medications ?Medication ?Instructions ?Recorded ?Confirmed ?Last Taken ?Type levothyroxine 50 mcg tablet 50 mcg PO DAILY@0600 05/07/23 09/17/24 09/17/24 History multivitamin 1 tab PO DAILY 05/07/23 09/17/24 09/17/24 History insulin NPH-regular 70-30 U-100 3 - 8 unit subcut BID@0700,1900 06/25/24 09/17/24 09/17/24 History insulin 100 unit/mL subcutaneous PRN Hyperglycemia pen (Humulin 70/30 U-100 KwikPen) glipizide 5 mg tablet 10 mg PO BID 09/17/24 09/17/24 09/17/24 History Physical Exam Vital Signs: Last Vital Signs Temp 97.8 F 09/18/24 17:00 Pulse 86 09/18/24 17:00 Resp 21 H 09/18/24 17:00 BP 125/50 L 09/18/24 17:00 Pulse Ox 95 09/18/24 14:00 O2 Del Method Room Air 09/18/24 17:00 BMI result Body Mass Index 23.6 Const General: no acute distress Orientation/consciousness: patient oriented x3 Eyes EOM: EOMs intact bilaterally Resp Auscultation: diminished lung sounds Cardio Rate: regular rate GI Palpation (GI): Soft to palpation Neuro General: patient oriented x3 Results Lab Results 09/18/24 04:36 09/18/24 12:35 Lab results: Chemistry 09/17/24 09/17/24 09/18/24 18:37 18:41 04:36 Sodium 135 134 L Potassium 4.4 3.5 D Carbon Dioxide 6 L* D 8 L* D BUN 110 H 106 H Creatinine 10.21 H* 10.24 H* Calcium 8.8 8.0 L D Phosphorus 8.6 H 09/18/24 12:35 Sodium 139 Potassium 3.5 Carbon Dioxide 12 L BUN 106 H Creatinine 10.33 H* Calcium 8.1 L Phosphorus Hematology 09/17/24 09/18/24 18:37 04:36 WBC 12.4 H 8.9 Hgb 8.9 L 7.7 L Plt Count 78 L D 68 L Urinalysis 09/17/24 18:52 Urine Color Yellow Urine Appearance Cloudy Urine pH 5.0 Ur Specific [place] 1.015 Urine Protein 100 (2+) H Urine Glucose (UA) Negative Urine Ketones Negative Urine Blood Moderate (2+) H Urine Nitrite Negative Ur Leukocyte Esterase Large (3+) H Urine RBC 0-2 Urine WBC >50 H Ur Squamous Epith Cells 0-2 Hyaline Casts 0-2 Assessment and Plan (1) Acute on chronic kidney failure: Qualifiers: Acute renal failure type: unspecified Chronic kidney disease stage: u nspecified stage Qualified Code(s): N17.9 - Acute kidney failure, unspecified; N18.9 - Chronic kidney disease, unspecified Status: Acute Has advanced CKD at baseline Presented with YENNIFER on CKD likely due to tubular injury No reason to suspect obstructive Uropathy/GN Shall do a renal USS if not already done C3/C4 levels AM. HD today/tomorrow/Sat If UO does not improve, will need permcath after W/E C/W rest of current management; Shall F/U closely Procedures Date of Service Date of Service: 09/18/24
[2024-09-18 21:19] LABS: Glucose, Whole Blood 196 mg/dL (60-115)
[2024-09-19] MEDS: Sodium Bicarbonate 8.4% 150 MEQ in Dextrose 5 % 850 ML 100 MEQ IV (03:44)
[2024-09-19 03:48] VITALS: BP 129/60; PULSE 74; RESP 15; TEMP 36.1; O2SAT 93
[2024-09-19 05:25] VITALS: BMI 23.3
[2024-09-19] MEDS: Levothyroxine Sodium 50 MCG TABLET PO (06:02)
--- NOTE | 2024-09-19 06:21 | PC.NURSE ---
0400 At the time of 4 am assessment patient's vitals signs checked and O2 sat was 85-86% ,pt stating she felt loopy . O2 2L placed on pt, sats increased to 93%. VSS , patient resting at present time. Hospitalist notified. Will continue to monitor.
[2024-09-19 06:33] LABS: MANUAL DIFF FLAG NO
[2024-09-19 07:17] LABS: Basophils Percent Auto 0.1 % (0-2); Hematocrit 21.4 % (37.0-47.0); Hemoglobin 8.1 g/dl (12.0-16.0); Imm Gran Abs Auto 0.07 X10*3/uL (0.00-0.03); Lymphocytes Absolute Auto 0.3 X10*3/uL (1.2-4.9); Lymphocytes Percent Auto 4.2 % (20-40); Mean Corpuscular Hemoglobin 32.7 pg (27.0-33.0); Mean Corpuscular Volume 86.3 fL (80.0-98.0); Mean Platelet Volume 9.5 fL (9.4-12.3); Monocytes Absolute Auto 0.5 X10*3/uL (0.1-1.2); Monocytes Percent Auto 7.6 % (2-11); Neutrophils Absolute Auto 5.9 x10*3/uL (2.0-8.3); Neutrophils Percent Auto 87.1 % (45-73); Red Blood Count 2.48 X10*6/uL (4.20-5.50); Red Cell Distribution Width 12.6 % (11.0-16.0); SCAN SMEAR FLAG 1; White Blood Count 6.7 X10*3/uL (4.8-10.8)
[2024-09-19 07:20] LABS: Anion Gap 18 (12-20); Blood Urea Nitrogen 50 mg/dL (9-16); Calcium 7.6 mg/dL (8.4-10.2); Carbon Dioxide 25 mmol/L (22-29); Chloride 98 mmol/L (96-108); Creatinine Clr Calc Pharmacy 5.4; Estimated Glomerular Filt Rate 6; Glucose Random 316 mg/dL (60-115); Mean Corpuscular HGB Conc 37.9 g/dl (31.0-35.0); Platelet Count 67 X10*3/uL (160-400); Potassium 2.9 mmol/L (3.3-5.1); Sodium 138 mmol/L (135-145)
[2024-09-19 07:51] VITALS: BP 140/63; PULSE 61; RESP 12; TEMP 36.1; O2SAT 98
[2024-09-19 08:16] LABS: Glucose, Whole Blood 323 mg/dL (60-115)
[2024-09-19] MEDS: Potassium Chloride Packet 20 MEQ PACKET 40 MEQ PO ×2 (08:20→11:37)
[2024-09-19] MEDS: Insulin Lispro 100 UNIT/ML 3 ML VIAL SUBCUT (08:21)
[2024-09-19 10:14] VITALS: BP 140/63; PULSE 61; O2SAT 98
--- NOTE | 2024-09-19 11:42 | MHC.CM.PN ---
PT is recommending STR; CM will follow.
[2024-09-19 11:44] LABS: Glucose, Whole Blood 136 mg/dL (60-115)
[2024-09-19 12:38] LABS: Vancomycin Random 7.9 mcg/mL (15-20)
[2024-09-19 13:02] LABS: HBS Num1 0.31 mIU/mL (0-7.99); HBc Num1 0.12 S/CO (0.00-0.79); HBsAGNum1 0.52 S/CO (0.00-0.99); Hepatitis B Core Antibody Nonreactive (Nonreactive); Hepatitis B Surface Antigen Negative (Negative); ~Hepatitis B Surface Antibody NONREACTIVE (Nonreactive)
--- NOTE | 2024-09-19 13:13 | HO.PM.IMPN ---
Subjective Subjective Date of Service: 09/19/24 Interval History: Seen and evaluated this morning blood cultures growing GPC for Dialysis today no other events Review of Systems Review of Systems: Yes all other systems are reviewed and are negative Physical Exam Vital Signs: Vital Signs: Last Vital Signs Temp 96.9 F 09/19/24 07:51 Pulse 61 09/19/24 10:14 Resp 12 09/19/24 07:51 BP 140/63 H 09/19/24 10:14 Pulse Ox 98 09/19/24 10:14 O2 Del Method Nasal Cannula 09/19/24 07:51 O2 Flow Rate 3 09/19/24 07:51 BMI result Body Mass Index 23.3 Const: Other: Constitutional : interactive, not in distress Cardiovascular : no JVP, no lower extremity edema Respiratory : bilateral chest movement, not in resp distress Gastrointestinal: soft, lax, Non tender Skin : Warm, Dry, Dialysis cath in neck Neurological : Alert & disoriented to time and place, No focal deficit Objective Data Active Medications Glucose (Glucose Gel 15 Gm Gel..Gram.) 15 gm PO Q15M PRN; Protocol PRN Reason: per Hypoglycemia Standing Ord. Heparin Sodium (Porcine) (Heparin Sodium,Porcine 5,000 Unit/Ml Vial) 5,000 unit INTRACATH ONCE ONE Stop: 09/20/24 06:01 Norepinephrine Bitartrate (Levophed) 8 mg in 250 mls @ 0 mls/hr IVCONT .Q0M [facility]; Protocol Last Titration: 09/18/24 16:36 Dose: 0 mcg/kg/min, 0 mls/hr Documented By: RADAMES Sodium Bicarbonate 150 meq/ (Dextrose) 1,000 mls @ 100 mls/hr IV .Q10H [facility] Last Admin: 09/19/24 03:44 Dose: 100 mls/hr Documented By: MADISON Dextrose (D10) 250 mls @ 750 mls/hr IV Q15M PRN; Protocol PRN Reason: per Hypoglycemia Standing Ord. Levofloxacin (Levaquin) 500 mg in 100 mls @ 100 mls/hr IV Q48H [facility] Vancomycin HCl 500 mg/ Sodium (Chloride) 110 mls @ 110 mls/hr IV Q48H [facility] Vancomycin HCl 500 mg/ Sodium (Chloride) 110 mls @ 110 mls/hr IV ONCE ONE Stop: 09/19/24 13:59 Insulin Human Lispro (Insulin Lispro 100 Unit/Ml 3 Ml Vial) 0 unit SUBCUT QIDACHS [facility]; Protocol Last Admin: 09/19/24 11:45 Dose: Not Given Documented By: DION Non-Admin Reason: No Insulin Coverage Levothyroxine Sodium (Levothyroxine Sodium 50 Mcg Tablet) 50 mcg PO DAILY@0600 [facility] Last Admin: 09/19/24 06:02 Dose: 50 mcg Documented By: MADISON Pharmacy Consult (Consult Rx Vancomycin Dosing) 1 each MISCELLANE DAILY PRN PRN Reason: Consult order Labs 09/19/24 06:23 09/19/24 06:23 Labs: Laboratory Results - last 24 hr 09/18/24 09/18/24 09/19/24 16:45 21:14 06:23 MCV 86.3 MCH 32.7 MCHC 37.9 H RDW 12.6 Plt Count 67 L MPV 9.5 Immature Gran % (Auto) 1.0 H Neut % (Auto) 87.1 H Lymph % (Auto) 4.2 L [place] % (Auto) 7.6 Eos % (Auto) 0.0 Baso % (Auto) 0.1 Lymph # (Auto) 0.3 L [place] # (Auto) 0.5 Eos # (Auto) 0.0 Baso # (Auto) 0.0 Abs Immat Gran (auto) 0.07 H Absolute Neuts (auto) 5.9 Absolute Nucleated RBC 0.000 Nucleated RBC % (auto) 0.0 Anion Gap 18 Estim Creat Clear Calc 5.4 Estimated GFR 6 POC Glucose 115 196 H Random Glucose 316 H Calcium 7.6 L D Random Vancomycin 09/19/24 09/19/24 09/19/24 07:53 11:40 12:05 MCV MCH MCHC RDW Plt Count MPV Immature Gran % (Auto) Neut % (Auto) Lymph % (Auto) [place] % (Auto) Eos % (Auto) Baso % (Auto) Lymph # (Auto) [place] # (Auto) Eos # (Auto) Baso # (Auto) Abs Immat Gran (auto) Absolute Neuts (auto) Absolute Nucleated RBC Nucleated RBC % (auto) Anion Gap Estim Creat Clear Calc Estimated GFR POC Glucose 323 H 136 H Random Glucose Calcium Random Vancomycin 7.9 L Microbiology Microbiology Results: Microbiology 09/17/24 18:52 Blood Culture - Preliminary Blood - Venous Group G streptococcus 09/17/24 18:41 Blood Culture - Preliminary Blood - Venous Group G streptococcus 09/17/24 18:52 Urine Culture - Final Urine clean catch - Clean Catch Midstream Enterococcus faecium Assessment and Plan (1) Acute UTI: Status: Acute (2) Acute hypotension: Status: Acute (3) Sepsis: Status: Acute (4) Acute on chronic kidney failure: Status: Acute Plan An 83 years old lady with CKD4, HTN, DM2 among others presenting with septic shock from UTI admitted to ICU for pressors and YENNIFER on CKD. Acute on CKD5 requiring Hemodialysis secondary to ATN from shock and possible urosepsis Possibly needs long-term dialysis, her HCP not entertaining this possibility and will have more discussions if we end up with this scenario next week HD today and tomorrow dialysis line in place for now Septic Shock 2/2 UTI and GPC bacteremia Improved, off pressors Continue IV Vancomycin and Levaquin for now Pending final cultures Ucx growing Enterococcus Repeat blood cultures ID consult Vancomycin dosing for HD Normocytic anemia secondary to EPO deficiency from chronic kidney disease Erythropoietin as per Nephrology Transfuse if hemoglobin less than 7 grams/deciliter Hypothyroidism: Continue levothyroxine 50 mcg daily Prophylaxis: Heparin The patient will need overnight stay pending repeat blood cultures, dialysis on IV antiibotics Quality Stroke Does the patient have a stroke diagnosis?: No VTE Prior VTE?: No VTE Risk Level:: Medical - moderate - high VTE Device Contraindication: N/A - Device Ordered VTE Drug Contraindication: N/A - Med Ordered
[2024-09-19] MEDS: vancomycin HCL 500 MG in 0.9 % Sodium Chloride 100 ML 110 MG IV (15:10)
[2024-09-19 15:45] VITALS: BP 125/70; PULSE 67; RESP 16; TEMP 35.8; O2SAT 98
[2024-09-19 16:22] LABS: Glucose, Whole Blood 116 mg/dL (60-115)
[2024-09-19] MEDS: levoFLOXacin/D5W 500 MG/100 ML PIGGYBACK 100 MG IV (17:51)
[2024-09-19 19:43] VITALS: BP 143/69; PULSE 67; RESP 14; TEMP 36; O2SAT 96
[2024-09-19 20:33] LABS: Glucose, Whole Blood 132 mg/dL (60-115)
--- NOTE | 2024-09-19 20:55 | PM.PNNEP ---
Subjective Subjective Date of Service: 09/19/24 Interval history: Seen and evaluated this morning . Blood cultures growing GPC ; For Dialysis today; D/W Son Physical Exam Vital Signs: Vital Signs: Last Vital Signs Temp 96.8 F 09/19/24 19:43 Pulse 67 09/19/24 19:43 Resp 14 09/19/24 19:43 BP 143/69 H 09/19/24 19:43 Pulse Ox 96 09/19/24 19:43 O2 Del Method Nasal Cannula 09/19/24 19:43 O2 Flow Rate 2 09/19/24 19:43 BMI result Body Mass Index 23.3 Const: General: no acute distress Orientation/consciousness: patient oriented x3 Eyes: EOM: EOMs intact bilaterally Resp: Auscultation: diminished lung sounds Cardio: Rate: regular rate GI: Palpation (GI): Soft to palpation Neuro: General: patient oriented x3 Objective Data Labs 09/19/24 06:23 09/19/24 06:23 Labs: Laboratory Results - last 24 hr 09/18/24 09/19/24 09/19/24 21:14 06:23 07:53 WBC 6.7 RBC 2.48 L Hgb 8.1 L Hct 21.4 L MCV 86.3 MCH 32.7 MCHC 37.9 H RDW 12.6 Plt Count 67 L MPV 9.5 Immature Gran % (Auto) 1.0 H Neut % (Auto) 87.1 H Lymph % (Auto) 4.2 L [place] % (Auto) 7.6 Eos % (Auto) 0.0 Baso % (Auto) 0.1 Lymph # (Auto) 0.3 L [place] # (Auto) 0.5 Eos # (Auto) 0.0 Baso # (Auto) 0.0 Abs Immat Gran (auto) 0.07 H Absolute Neuts (auto) 5.9 Absolute Nucleated RBC 0.000 Nucleated RBC % (auto) 0.0 Sodium 138 Potassium 2.9 L* Chloride 98 Carbon Dioxide 25 Anion Gap 18 BUN 50 H Creatinine 6.62 H* Estim Creat Clear Calc 5.4 Estimated GFR 6 POC Glucose 196 H 323 H Random Glucose 316 H Calcium 7.6 L D Random Vancomycin Hep Bs Antigen Hep Bs Antibody Hep B Core Total Ab 09/19/24 09/19/24 09/19/24 11:40 12:05 16:04 WBC RBC Hgb Hct MCV MCH MCHC RDW Plt Count MPV Immature Gran % (Auto) Neut % (Auto) Lymph % (Auto) [place] % (Auto) Eos % (Auto) Baso % (Auto) Lymph # (Auto) [place] # (Auto) Eos # (Auto) Baso # (Auto) Abs Immat Gran (auto) Absolute Neuts (auto) Absolute Nucleated RBC Nucleated RBC % (auto) Sodium Potassium Chloride Carbon Dioxide Anion Gap BUN Creatinine Estim Creat Clear Calc Estimated GFR POC Glucose 136 H 116 H Random Glucose Calcium Random Vancomycin 7.9 L Hep Bs Antigen Negative Hep Bs Antibody NONREACTIVE Hep B Core Total Ab Nonreactive 09/19/24 20:29 WBC RBC Hgb Hct MCV MCH MCHC RDW Plt Count MPV Immature Gran % (Auto) Neut % (Auto) Lymph % (Auto) [place] % (Auto) Eos % (Auto) Baso % (Auto) Lymph # (Auto) [place] # (Auto) Eos # (Auto) Baso # (Auto) Abs Immat Gran (auto) Absolute Neuts (auto) Absolute Nucleated RBC Nucleated RBC % (auto) Sodium Potassium Chloride Carbon Dioxide Anion Gap BUN Creatinine Estim Creat Clear Calc Estimated GFR POC Glucose 132 H Random Glucose Calcium Random Vancomycin Hep Bs Antigen Hep Bs Antibody Hep B Core Total Ab Microbiology Microbiology Results: Microbiology 09/17/24 18:52 Blood - Venous Blood Culture - Preliminary Group G streptococcus 09/17/24 18:41 Blood - Venous Blood Culture - Preliminary Group G streptococcus 09/17/24 18:52 Urine clean catch - Clean Catch Midstream Urine Culture - Final Enterococcus faecium Procedures Date of Service Date of Service: 09/19/24 Assessment & Plan Assessment and plan (1) Acute on chronic kidney failure: Status: Acute Plan Has advanced CKD at baseline Presented with YENNIFER on CKD likely due to tubular injury No reason to suspect obstructive Uropathy/GN HD today and Sunday; HCP doesnt want medical terminologist HD C/W rest of current management; Shall F/U closely Progress Note: Quality Stroke Does the patient have a stroke diagnosis?: No
--- NOTE | 2024-09-19 22:12 | P.CNID_ITS ---
History of Present Illness Data of Consult Service Date: 09/19/24 Requesting physician: Mikie Lozano Primary Care Provider: Gianluca Betancur MD HPI Reason for consult: sepsis Group G strep ,enterococcus faecium urine She presents with facial weakness and fatigue. She has no lung or urine symptoms to complain about but has dementia. She has enterococcus faecium and pyuria. She also has Group G strep infection blood x 2. She has chronic Carnes. There are no dental complaints She has had renal failure and needed dialysis. Review of Systems 2 Review of Systems: Yes Unobtainable due to mental status [facility] Past Medical History Medical History Hypertension CKD stage 3b, GFR 30-44 ml/min Hypothyroidism History of ovarian cancer Generalized weakness Gallbladder & bile duct stone with obstruction Diabetes Family History Family history: reviewed and not pertinent Surgical History Surgical History H/O: hysterectomy Social History Social History Household Members: Family Household Members Other:: Grandson. Housing: House Do you presently have visiting nurse or other home services: No Alcohol intake: former Patient Tobacco Use Status: Former Tobacco user Advance Directives Date on File: 05/08/23 service: No Meds Allergies Allergy/AdvReac Type Severity Reaction Status Date / Time No Known Allergies Allergy Verified 09/17/24 18:27 Active Medications: Current Medications Glucose (Glucose Gel 15 Gm Gel..Gram.) 15 gm PO Q15M PRN; Protocol PRN Reason: per Hypoglycemia Standing Ord. Heparin Sodium (Porcine) (Heparin Sodium,Porcine 5,000 Unit/Ml Vial) 5,000 unit INTRACATH ONCE ONE Stop: 09/20/24 06:01 Norepinephrine Bitartrate (Levophed) 8 mg in 250 mls @ 0 mls/hr IVCONT .Q0M [facility]; Protocol Last Titration: 09/18/24 16:36 Dose: 0 mcg/kg/min, 0 mls/hr Dextrose (D10) 250 mls @ 750 mls/hr IV Q15M PRN; Protocol PRN Reason: per Hypoglycemia Standing Ord. Levofloxacin (Levaquin) 500 mg in 100 mls @ 100 mls/hr IV Q48H [facility] Last Infusion: 09/19/24 19:08 Dose: Infused Vancomycin HCl 500 mg/ Sodium (Chloride) 110 mls @ 110 mls/hr IV Q48H [facility] Insulin Human Lispro (Insulin Lispro 100 Unit/Ml 3 Ml Vial) 0 unit SUBCUT QIDACHS [facility]; Protocol Last Admin: 09/19/24 22:09 Dose: Not Given Levothyroxine Sodium (Levothyroxine Sodium 50 Mcg Tablet) 50 mcg PO DAILY@0600 [facility] Last Admin: 09/19/24 06:02 Dose: 50 mcg Pharmacy Consult (Consult Rx Vancomycin Dosing) 1 each MISCELLANE DAILY PRN PRN Reason: Consult order Home Medications ?Medication ?Instructions ?Recorded ?Confirmed ?Last Taken ?Type levothyroxine 50 mcg tablet 50 mcg PO DAILY@0600 05/07/23 09/17/24 09/17/24 History multivitamin 1 tab PO DAILY 05/07/23 09/17/24 09/17/24 History insulin NPH-regular 70-30 U-100 3 - 8 unit subcut BID@0700,1900 06/25/24 09/17/24 09/17/24 History insulin 100 unit/mL subcutaneous PRN Hyperglycemia pen (Humulin 70/30 U-100 KwikPen) glipizide 5 mg tablet 10 mg PO BID 09/17/24 09/17/24 09/17/24 History Physical Exam 2 Vital Signs: Vital Signs: Last Vital Signs Temp 96.8 F 09/19/24 19:43 Pulse 67 09/19/24 19:43 Resp 14 09/19/24 19:43 BP 143/69 H 09/19/24 19:43 Pulse Ox 96 09/19/24 19:43 O2 Del Method Nasal Cannula 09/19/24 19:43 O2 Flow Rate 2 09/19/24 19:43 BMI result Body Mass Index 23.3 Psych: Other: somnolent,not interactive Results Labs 09/19/24 06:23 09/19/24 06:23 Labs: Short CBC 09/19/24 Range/Units 06:23 WBC 6.7 (4.8-10.8) X10*3/uL Hgb 8.1 L (12.0-16.0) g/dl Hct 21.4 L (37.0-47.0) % Plt Count 67 L (160-400) X10*3/uL BMP 09/19/24 06:23 Sodium 138 Potassium 2.9 L* Chloride 98 Carbon Dioxide 25 BUN 50 H Creatinine 6.62 H* Calcium 7.6 L D Microbiology Microbiology Results: Microbiology 09/17/24 18:52 Blood - Venous Blood Culture - Preliminary Group G streptococcus 09/17/24 18:41 Blood - Venous Blood Culture - Preliminary Group G streptococcus 09/17/24 18:52 Urine clean catch - Clean Catch Midstream Urine Culture - Final Enterococcus faecium Assessment and Plan (1) Acute hypotension: Status: Acute (2) Sepsis: Qualifiers: Acute renal failure type: unspecified Sepsis acute organ dysfunction status: with acute organ dysfunction Sepsis type: sepsis due to unspecified organism Severe sepsis acute organ dysfunction type: acute renal failure S evere sepsis shock status: with septic shock Qualified Code(s): A41.9 - Sepsis, unspecified organism; R65.21 - Severe sepsis with septic shock; N17.9 - Acute kidney failure, unspecified Status: Acute (3) Acute on chronic kidney failure: Qualifiers: Acute renal failure type: unspecified Chronic kidney disease stage: u nspecified stage Qualified Code(s): N17.9 - Acute kidney failure, unspecified; N18.9 - Chronic kidney disease, unspecified Status: Acute (4) Acute UTI: Status: Acute Plan She has Group G strep sepsis ,may be oral or skin source. She also has enterococcus faecium urine,may be colonized only but should treat. would give Ceftriaxone IV,can give 2 g post each HD and can switch to oral for total 14 d if no endocarditis seen. If endocarditis 30 days Also linezolid 600 mg bid IV for enterococcus IV or po ,probable 14 days Please discontinue Vancomycin and Levaquin at this time. Check TTE if not done. Address oral health
[2024-09-19 23:59] VITALS: BP 111/53; PULSE 65; RESP 14; TEMP 36; O2SAT 96
[2024-09-20] MEDS: Linezolid 600 MG TABLET PO ×3 (00:09→23:58)
[2024-09-20] MEDS: cefTRIAXone sodium 2 GM VIAL IVPUSH ×2 (00:09→21:07)
[2024-09-20 03:52] VITALS: BP 126/60; PULSE 60; RESP 16; TEMP 36; O2SAT 96
[2024-09-20 06:00] VITALS: BMI 23.1
[2024-09-20] MEDS: Levothyroxine Sodium 50 MCG TABLET PO (06:28)
--- NOTE | 2024-09-20 06:30 | PC.NURSE ---
Patient had loose stool x3 11-7 shift
[2024-09-20 07:19] LABS: MANUAL DIFF FLAG NO
[2024-09-20 07:22] LABS: Basophils Percent Auto 0.2 % (0-2); Eosinophils Absolute Auto 0.1 X10*3/uL (0.0-0.4); Eosinophils Percent Auto 1.6 % (0-4); Hemoglobin 7.2 g/dl (12.0-16.0); Lymphocytes Absolute Auto 0.5 X10*3/uL (1.2-4.9); Lymphocytes Percent Auto 10.5 % (20-40); Mean Corpuscular HGB Conc 35.5 g/dl (31.0-35.0); Mean Corpuscular Hemoglobin 31.7 pg (27.0-33.0); Mean Corpuscular Volume 89.4 fL (80.0-98.0); Mean Platelet Volume 9.4 fL (9.4-12.3); Monocytes Absolute Auto 0.5 X10*3/uL (0.1-1.2); Monocytes Percent Auto 10.1 % (2-11); Neutrophils Absolute Auto 3.8 x10*3/uL (2.0-8.3); Neutrophils Percent Auto 75.6 % (45-73); Red Blood Count 2.27 X10*6/uL (4.20-5.50); Red Cell Distribution Width 12.9 % (11.0-16.0); White Blood Count 5.1 X10*3/uL (4.8-10.8)
[2024-09-20 07:49] LABS: Anion Gap 10 (12-20); Blood Urea Nitrogen 29 mg/dL (9-16); Calcium 8.4 mg/dL (8.4-10.2); Carbon Dioxide 25 mmol/L (22-29); Chloride 105 mmol/L (96-108); Creatinine Clr Calc Pharmacy 8.2; Estimated Glomerular Filt Rate 10; Glucose Random 130 mg/dL (60-115); Potassium 3.2 mmol/L (3.3-5.1); Sodium 137 mmol/L (135-145)
[2024-09-20 07:52] LABS: Glucose, Whole Blood 123 mg/dL (60-115)
[2024-09-20 07:54] VITALS: BP 142/63; PULSE 59; RESP 18; TEMP 36; O2SAT 94
[2024-09-20] MEDS: Heparin Sodium,Porcine 5,000 UNIT/ML VIAL 5000 UNIT INTRACATH (08:02)
[2024-09-20 08:05] LABS: Hematocrit 20.3 % (37.0-47.0); Platelet Count 57 X10*3/uL (160-400)
[2024-09-20 11:35] LABS: Glucose, Whole Blood 137 mg/dL (60-115)
[2024-09-20 11:40] VITALS: BP 133/59; PULSE 59; RESP 18; TEMP 36; O2SAT 94
--- NOTE | 2024-09-20 11:58 | PC.NURSE ---
MD informed of pt's K. per md, str cath pt once bladder scan volume is 350ml or greater and pt unable to void.
--- NOTE | 2024-09-20 13:13 | P.PNIM_ITS ---
Subjective Subjective Date of Service: 09/20/24 Interval History: Seen and evaluated this morning blood cultures grew Grp G Strep, UCx grew Enterococcus for Dialysis today no other events Review of Systems Review of Systems: Yes all other systems are reviewed and are negative Physical Exam 2 Vital Signs: Vital Signs: Last Vital Signs Temp 96.8 F 09/20/24 11:40 Pulse 59 09/20/24 11:40 Resp 18 09/20/24 11:40 BP 133/59 L 09/20/24 11:40 Pulse Ox 94 09/20/24 11:40 O2 Del Method Room Air 09/20/24 11:40 O2 Flow Rate 2 09/20/24 03:52 BMI result Body Mass Index 23.1 Const: Other: Constitutional : interactive, not in distress Cardiovascular : no JVP, no lower extremity edema Respiratory : bilateral chest movement, not in resp distress Gastrointestinal: soft, lax, Non tender Skin : Warm, Dry, Dialysis cath in neck Neurological : Alert & disoriented to time and place, No focal deficit Objective Data Active Medications Ceftriaxone Sodium (Ceftriaxone Sodium 2 Gm Vial) 2 gm IVPUSH ONCE ONE Stop: 09/20/24 21:01 Glucose (Glucose Gel 15 Gm Gel..Gram.) 15 gm PO Q15M PRN; Protocol PRN Reason: per Hypoglycemia Standing Ord. Norepinephrine Bitartrate (Levophed) 8 mg in 250 mls @ 0 mls/hr IVCONT .Q0M [facility]; Protocol Last Titration: 09/18/24 16:36 Dose: 0 mcg/kg/min, 0 mls/hr Documented By: RADAMES Dextrose (D10) 250 mls @ 750 mls/hr IV Q15M PRN; Protocol PRN Reason: per Hypoglycemia Standing Ord. Insulin Human Lispro (Insulin Lispro 100 Unit/Ml 3 Ml Vial) 0 unit SUBCUT QIDACHS [facility]; Protocol Last Admin: 09/20/24 11:40 Dose: Not Given Documented By: ERNIE Non-Admin Reason: poc oor Levothyroxine Sodium (Levothyroxine Sodium 50 Mcg Tablet) 50 mcg PO DAILY@0600 [facility] Last Admin: 09/20/24 06:28 Dose: 50 mcg Documented By: STEVE Linezolid (Linezolid 600 Mg Tablet) 600 mg PO Q12H [facility] Last Admin: 09/20/24 11:59 Dose: 600 mg Documented By: ERNIE Labs 09/20/24 06:59 09/20/24 06:59 Labs: Laboratory Results - last 24 hr 09/19/24 09/19/24 09/19/24 12:05 16:04 20:29 MCV MCH MCHC RDW Plt Count MPV Immature Gran % (Auto) Neut % (Auto) Lymph % (Auto) [place] % (Auto) Eos % (Auto) Baso % (Auto) Lymph # (Auto) [place] # (Auto) Eos # (Auto) Baso # (Auto) Abs Immat Gran (auto) Absolute Neuts (auto) Absolute Nucleated RBC Nucleated RBC % (auto) Anion Gap Estim Creat Clear Calc Estimated GFR POC Glucose 116 H 132 H Random Glucose Calcium Hep Bs Antigen Negative Hep Bs Antibody NONREACTIVE Hep B Core Total Ab Nonreactive 09/20/24 09/20/24 09/20/24 06:59 07:43 11:19 MCV 89.4 MCH 31.7 MCHC 35.5 H RDW 12.9 Plt Count 57 L MPV 9.4 Immature Gran % (Auto) 2.0 H Neut % (Auto) 75.6 H Lymph % (Auto) 10.5 L [place] % (Auto) 10.1 Eos % (Auto) 1.6 Baso % (Auto) 0.2 Lymph # (Auto) 0.5 L [place] # (Auto) 0.5 Eos # (Auto) 0.1 Baso # (Auto) 0.0 Abs Immat Gran (auto) 0.10 H Absolute Neuts (auto) 3.8 Absolute Nucleated RBC 0.000 Nucleated RBC % (auto) 0.0 Anion Gap 10 L Estim Creat Clear Calc 8.2 Estimated GFR 10 POC Glucose 123 H 137 H Random Glucose 130 H Calcium 8.4 D Hep Bs Antigen Hep Bs Antibody Hep B Core Total Ab Microbiology Microbiology Results: Microbiology 09/19/24 08:57 Blood Culture - Preliminary Blood - Venous No growth after 24 hours. 09/19/24 08:57 Blood Culture - Preliminary Blood - Venous No growth after 24 hours. 09/17/24 18:52 Blood Culture - Preliminary Blood - Venous Group G streptococcus 09/17/24 18:41 Blood Culture - Preliminary Blood - Venous Group G streptococcus 09/17/24 18:52 Urine Culture - Final Urine clean catch - Clean Catch Midstream Enterococcus faecium Assessment and Plan (1) Acute UTI: Status: Acute (2) Sepsis: Status: Acute (3) Acute on chronic kidney failure: Status: Acute (4) Bacteremia: Status: Acute Plan An 83 years old lady with CKD4, HTN, DM2 among others presenting with septic shock from UTI admitted to ICU for pressors and YENNIFER on CKD. Acute on CKD5 requiring Hemodialysis secondary to ATN from shock and possible urosepsis Possibly needs long-term dialysis, her HCP not entertaining this possibility and will have more discussions if we end up with this scenario next week HD today then hold dialysis line in place for now has small amount of urine in bladder scan Septic Shock 2/2 Enterococcus UTI and Grp G Strep bacteremia Improved, off pressors dc IV Vancomycin and Levaquin Start PO Zyvox and 2 gm Ceftriaxone post HD per ID rec. Blood Cx growing Grp G Strep Ucx growing Enterococcus Repeat blood cultures Normocytic anemia secondary to EPO deficiency from chronic kidney disease Erythropoietin as per Nephrology Transfuse if hemoglobin less than 7 grams/deciliter Hypothyroidism: Continue levothyroxine 50 mcg daily Prophylaxis: Heparin The patient will need overnight stay pending repeat blood cultures, dialysis on IV antiibotics Quality Stroke Does the patient have a stroke diagnosis?: No VTE Prior VTE?: No VTE Risk Level:: Medical - moderate - high VTE Device Contraindication: N/A - Device Ordered VTE Drug Contraindication: N/A - Med Ordered
[2024-09-20 15:51] VITALS: BP 133/59; PULSE 80
[2024-09-20 18:23] LABS: Glucose, Whole Blood 90 mg/dL (60-115)
[2024-09-20 18:33] VITALS: BP 154/70; PULSE 63; RESP 18; TEMP 35.9; O2SAT 96
[2024-09-20 19:53] VITALS: BP 156/75; PULSE 70; RESP 18; TEMP 36.3; O2SAT 95
[2024-09-20 20:53] LABS: Glucose, Whole Blood 77 mg/dL (60-115)
[2024-09-21] VITALS: BP 166/70; PULSE 66; RESP 18; TEMP 36.1; O2SAT 97
[2024-09-21 03:20] VITALS: BP 156/67; PULSE 64; RESP 20; TEMP 36.3; O2SAT 97
[2024-09-21 06:00] VITALS: BMI 23.5
[2024-09-21 06:33] LABS: MANUAL DIFF FLAG NO
[2024-09-21] MEDS: Levothyroxine Sodium 50 MCG TABLET PO (06:38)
[2024-09-21 07:02] LABS: Basophils Percent Auto 0.2 % (0-2); Eosinophils Absolute Auto 0.1 X10*3/uL (0.0-0.4); Eosinophils Percent Auto 3.2 % (0-4); Hemoglobin 7.3 g/dl (12.0-16.0); Imm Gran Pct Auto 4.9 % (0.0-0.4); Lymphocytes Absolute Auto 0.7 X10*3/uL (1.2-4.9); Lymphocytes Percent Auto 16.3 % (20-40); Mean Corpuscular HGB Conc 34.9 g/dl (31.0-35.0); Mean Corpuscular Hemoglobin 31.6 pg (27.0-33.0); Mean Corpuscular Volume 90.5 fL (80.0-98.0); Mean Platelet Volume 9.7 fL (9.4-12.3); Monocytes Absolute Auto 0.3 X10*3/uL (0.1-1.2); Monocytes Percent Auto 8.1 % (2-11); Neutrophils Absolute Auto 2.7 x10*3/uL (2.0-8.3); Neutrophils Percent Auto 67.3 % (45-73); Red Blood Count 2.31 X10*6/uL (4.20-5.50); Red Cell Distribution Width 12.7 % (11.0-16.0); White Blood Count 4.1 X10*3/uL (4.8-10.8)
[2024-09-21 07:13] LABS: Iron 113 mcg/dL (30-160); Percent Iron Saturation 58 % (15-50); Total Iron Binding Capacity 195 mcg/dL (228-428); Unsaturated Iron Binding 82 ug/dL
[2024-09-21 07:20] LABS: Blood Urea Nitrogen 16 mg/dL (9-16); Calcium 8.5 mg/dL (8.4-10.2); Creatinine Clr Calc Pharmacy 12.6; Estimated Glomerular Filt Rate 16; Glucose Random 89 mg/dL (60-115)
[2024-09-21 07:51] LABS: Anion Gap 13 (12-20); Carbon Dioxide 22 mmol/L (22-29); Chloride 107 mmol/L (96-108); Potassium 2.5 mmol/L (3.3-5.1); Sodium 139 mmol/L (135-145)
[2024-09-21 07:57] LABS: Hematocrit 20.9 % (37.0-47.0); Platelet Count 73 X10*3/uL (160-400)
[2024-09-21 08:00] VITALS: BP 168/67; PULSE 62; RESP 18; TEMP 36.1; O2SAT 96
[2024-09-21 08:01] LABS: Glucose, Whole Blood 81 mg/dL (60-115)
[2024-09-21] MEDS: Linezolid 600 MG TABLET PO ×2 (09:28→22:17)
[2024-09-21] MEDS: Potassium Chloride Packet 20 MEQ PACKET 40 MEQ PO (09:28)
[2024-09-21] MEDS: Sodium Ferric Gluconat/Sucrose 125 MG in 0.9 % Sodium Chloride 100 ML 100 MG IV (09:50)
[2024-09-21 11:34] LABS: Glucose, Whole Blood 77 mg/dL (60-115)
[2024-09-21 11:43] VITALS: BP 156/70; PULSE 58; RESP 19; TEMP 36.1; O2SAT 99
--- NOTE | 2024-09-21 11:54 | HO.PM.IMPN ---
Subjective Subjective Date of Service: 09/21/24 Interval History: Seen and evaluated this morning blood cultures grew Grp G Strep, UCx grew Enterococcus , repeat negative Drop in Hb to 7.3 Low K level this morning no other events Review of Systems Review of Systems: Yes all other systems are reviewed and are negative Physical Exam Vital Signs: Vital Signs: Last Vital Signs Temp 96.9 F 09/21/24 11:43 Pulse 58 09/21/24 11:43 Resp 19 09/21/24 11:43 BP 156/70 H 09/21/24 11:43 Pulse Ox 99 09/21/24 11:43 O2 Del Method Nasal Cannula 09/21/24 11:43 O2 Flow Rate 2 09/21/24 11:43 BMI result Body Mass Index 23.5 Const: Other: Constitutional : interactive, not in distress Cardiovascular : no JVP, no lower extremity edema Respiratory : bilateral chest movement, not in resp distress Gastrointestinal: soft, lax, Non tender Skin : Warm, Dry, Dialysis cath in neck Neurological : Alert & disoriented to time and place, No focal deficit Objective Data Active Medications Glucose (Glucose Gel 15 Gm Gel..Gram.) 15 gm PO Q15M PRN; Protocol PRN Reason: per Hypoglycemia Standing Ord. Norepinephrine Bitartrate (Levophed) 8 mg in 250 mls @ 0 mls/hr IVCONT .Q0M [facility]; Protocol Last Titration: 09/20/24 15:51 Dose: Infused Documented By: ERNIE Dextrose (D10) 250 mls @ 750 mls/hr IV Q15M PRN; Protocol PRN Reason: per Hypoglycemia Standing Ord. Ferric Sodium Gluconate Complex 125 mg/ Sodium Chloride 110 mls @ 100 mls/hr IV DAILY [facility] Stop: 09/23/24 10:05 Last Infusion: 09/21/24 11:05 Dose: Infused Documented By: KAYCEE Potassium Chloride (Potassium Chloride/H20) 10 meq in 100 mls @ 100 mls/hr IV Q1H [facility] Stop: 09/21/24 13:59 Insulin Human Lispro (Insulin Lispro 100 Unit/Ml 3 Ml Vial) 0 unit SUBCUT QIDACHS [facility]; Protocol Last Admin: 09/21/24 07:42 Dose: Not Given Documented By: KAYCEE Non-Admin Reason: No Insulin Coverage Levothyroxine Sodium (Levothyroxine Sodium 50 Mcg Tablet) 50 mcg PO DAILY@0600 [facility] Last Admin: 09/21/24 06:38 Dose: 50 mcg Documented By: CHELSI Linezolid (Linezolid 600 Mg Tablet) 600 mg PO Q12H [facility] Last Admin: 09/21/24 09:28 Dose: 600 mg Documented By: KAYCEE Labs 09/21/24 06:16 09/21/24 06:16 Labs: Laboratory Results - last 24 hr 09/20/24 09/20/24 09/21/24 18:14 20:38 06:16 MCV 90.5 MCH 31.6 MCHC 34.9 RDW 12.7 Plt Count 73 L D MPV 9.7 Immature Gran % (Auto) 4.9 H Neut % (Auto) 67.3 Lymph % (Auto) 16.3 L [place] % (Auto) 8.1 Eos % (Auto) 3.2 Baso % (Auto) 0.2 Lymph # (Auto) 0.7 L [place] # (Auto) 0.3 Eos # (Auto) 0.1 Baso # (Auto) 0.0 Abs Immat Gran (auto) 0.20 H Absolute Neuts (auto) 2.7 Absolute Nucleated RBC 0.000 Nucleated RBC % (auto) 0.0 Anion Gap 13 Estim Creat Clear Calc 12.6 Estimated GFR 16 POC Glucose 90 77 Random Glucose 89 Calcium 8.5 Iron 113 TIBC 195 L % Saturation 58 H Unsat Iron Binding 82 09/21/24 09/21/24 07:37 11:30 MCV MCH MCHC RDW Plt Count MPV Immature Gran % (Auto) Neut % (Auto) Lymph % (Auto) [place] % (Auto) Eos % (Auto) Baso % (Auto) Lymph # (Auto) [place] # (Auto) Eos # (Auto) Baso # (Auto) Abs Immat Gran (auto) Absolute Neuts (auto) Absolute Nucleated RBC Nucleated RBC % (auto) Anion Gap Estim Creat Clear Calc Estimated GFR POC Glucose 81 77 Random Glucose Calcium Iron TIBC % Saturation Unsat Iron Binding Microbiology Microbiology Results: Microbiology 09/19/24 08:57 Blood Culture - Preliminary Blood - Venous No growth after 48 hours. 09/19/24 08:57 Blood Culture - Preliminary Blood - Venous No growth after 48 hours. 09/17/24 18:41 Blood Culture - Final Blood - Venous Group G streptococcus 09/17/24 18:52 Blood Culture - Final Blood - Venous Group G streptococcus Assessment and Plan (1) Bacteremia: Status: Acute (2) Acute UTI: Status: Acute (3) Acute on chronic kidney failure: Status: Acute (4) ESRD needing dialysis: Status: Acute Plan An 83 years old lady with CKD4, HTN, DM2 among others presenting with septic shock from UTI admitted to ICU for pressors and YENNIFER on CKD. Acute on CKD5 requiring Hemodialysis secondary to ATN from shock and possible urosepsis dialysis line in place for now Possibly needs long-term dialysis, her HCP not entertaining this possibility and will have more discussions if we end up with this scenario next week HD on hold has small amount of urine overnight Cr 2.9 Acute hypokalemia K of 2.5 give replacement follow BMP Septic Shock 2/2 Enterococcus UTI and Grp G Strep bacteremia dc IV Vancomycin and Levaquin Start PO Zyvox and 2 gm Ceftriaxone post HD per ID rec. Blood Cx growing Grp G Strep Ucx growing Enterococcus Repeat blood cultures negative Normocytic anemia secondary to EPO deficiency from chronic kidney disease Erythropoietin as per Nephrology Transfuse if hemoglobin less than 7 grams/deciliter Hypothyroidism: Continue levothyroxine 50 mcg daily Prophylaxis: Heparin The patient will need overnight stay pending repeat blood cultures, dialysis on IV antiibotics Quality Stroke Does the patient have a stroke diagnosis?: No VTE Prior VTE?: No VTE Risk Level:: Medical - moderate - high VTE Device Contraindication: N/A - Device Ordered VTE Drug Contraindication: N/A - Med Ordered
[2024-09-21] MEDS: Potassium Chloride/H20 10 MEQ/100 ML PIGGYBACK 100 MEQ IV ×2 (12:01→13:07)
[2024-09-21 14:29] LABS: Anion Gap 15 (12-20); Blood Urea Nitrogen 17 mg/dL (9-16); Calcium 8.6 mg/dL (8.4-10.2); Carbon Dioxide 21 mmol/L (22-29); Chloride 107 mmol/L (96-108); Creatinine Clr Calc Pharmacy 11.1; Estimated Glomerular Filt Rate 14; Glucose Random 76 mg/dL (60-115); Sodium 140 mmol/L (135-145)
[2024-09-21 14:33] LABS: Potassium 2.8 mmol/L (3.3-5.1)
[2024-09-21 15:42] LABS: Glucose, Whole Blood 76 mg/dL (60-115)
[2024-09-21 15:44] VITALS: BP 156/70; PULSE 61; RESP 18; TEMP 36; O2SAT 97
[2024-09-21] MEDS: Potassium Chloride ER 20 MEQ TAB.ER.PRT 40 MEQ PO (17:47)
[2024-09-21 20:00] VITALS: BP 165/70; PULSE 64; RESP 18; TEMP 35.7; O2SAT 98
[2024-09-21 22:17] LABS: Glucose, Whole Blood 108 mg/dL (60-115)
[2024-09-22] VITALS: BP 132/60; PULSE 62; RESP 18; TEMP 35.9; O2SAT 97
[2024-09-22 04:00] VITALS: BP 147/77; PULSE 67; RESP 18; TEMP 36.4; O2SAT 99
[2024-09-22 06:56] LABS: Hematocrit 22.7 % (37.0-47.0); Hemoglobin 7.9 g/dl (12.0-16.0); Mean Corpuscular HGB Conc 34.8 g/dl (31.0-35.0); Mean Corpuscular Hemoglobin 31.6 pg (27.0-33.0); Mean Corpuscular Volume 90.8 fL (80.0-98.0); Mean Platelet Volume 9.1 fL (9.4-12.3); NRBC Pct Auto 0.6 /100WBC (0.0-0.2); Red Cell Distribution Width 12.7 % (11.0-16.0); White Blood Count 5.2 X10*3/uL (4.8-10.8)
[2024-09-22 06:59] LABS: Platelet Count 80 X10*3/uL (160-400)
[2024-09-22 07:46] LABS: Atypical Lymph Absolute Manual 0.1 x10*3/uL; Atypical Lymphs Percent Manual 1 % (0-6); Band Neutrophils Percent 5 % (3-5); Eosinophils Absolute Manual 0.2 X10*3/uL (0.0-0.4); Eosinophils Percent Manual 4 % (0-4); Lymphocytes Absolute Manual 0.5 X10*3/uL (1.2-4.9); Lymphocytes Percent Manual 9 % (20-40); Metamyelocytes Absolute 0.1 X10*3/uL; Metamyelocytes Percent 1 %; Monocytes Absolute Manual 0.2 X10*3/uL (0.1-1.2); Monocytes Percent Manual 3 % (2-11); Myelocytes Absolute 0.1 X10*/uL; Myelocytes Percent 1 %; Neutrophils Absolute Manual 4.2 X10*3/uL (2.0-8.3); Neutrophils Percent Manual 76 % (45-73); Nucleated Red Blood Cells 2 /100WBC (0-0)
[2024-09-22 07:47] LABS: RBC Morphology NOTED; Schistocytes 1+ (0-2) /OIF
[2024-09-22 07:48] LABS: Platelet Estimate DECREASED (NORMAL); Platelet Morphology Comment NORMAL
[2024-09-22 07:51] LABS: Burr Cells 1+ (0-2) /OIF
[2024-09-22 07:53] VITALS: BP 134/63; PULSE 65; RESP 20; TEMP 36.1; O2SAT 97
[2024-09-22 07:53] LABS: Anion Gap 14 (12-20); Blood Urea Nitrogen 23 mg/dL (9-16); Calcium 8.3 mg/dL (8.4-10.2); Carbon Dioxide 20 mmol/L (22-29); Chloride 110 mmol/L (96-108); Glucose Random 103 mg/dL (60-115); Sodium 141 mmol/L (135-145)
[2024-09-22 08:14] LABS: Creatinine Clr Calc Pharmacy 8.7; Estimated Glomerular Filt Rate 10; Potassium 2.9 mmol/L (3.3-5.1)
[2024-09-22 08:17] LABS: Glucose, Whole Blood 99 mg/dL (60-115)
[2024-09-22] MEDS: Levothyroxine Sodium 50 MCG TABLET PO (09:52)
[2024-09-22] MEDS: Potassium Chloride ER 20 MEQ TAB.ER.PRT 40 MEQ PO (09:52)
[2024-09-22] MEDS: Linezolid 600 MG TABLET PO (09:52)
[2024-09-22] MEDS: Sodium Ferric Gluconat/Sucrose 125 MG in 0.9 % Sodium Chloride 100 ML 100 MG IV (10:47)
--- NOTE | 2024-09-22 11:13 | MHC.CM.PN ---
Addendum entered by Yanira Urbina 09/22/24 14:05: Hospice Informational has been completed. Goal is home with [facility] on Sunday09/24/2024. MD is aware and CM will follow. Original Note: Per MD's request, a Hospice Informational has been requested from [facility]. CM will follow.
[2024-09-22 11:25] LABS: Glucose, Whole Blood 109 mg/dL (60-115)
[2024-09-22 11:41] VITALS: BP 144/65; PULSE 67; RESP 20; TEMP 36.1; O2SAT 99
--- NOTE | 2024-09-22 12:23 | P.PNIM_ITS ---
Subjective Subjective Date of Service: 09/22/24 Interval History: Seen and evaluated this morning blood cultures grew Grp G Strep, UCx grew Enterococcus , repeat cx negative Hb improved at 7.9 Low K level this morning 2.9 no other events Review of Systems Review of Systems: Yes all other systems are reviewed and are negative Physical Exam 2 Vital Signs: Vital Signs: Last Vital Signs Temp 97.0 F 09/22/24 11:41 Pulse 67 09/22/24 11:41 Resp 20 09/22/24 11:41 BP 144/65 H 09/22/24 11:41 Pulse Ox 99 09/22/24 11:41 O2 Del Method Nasal Cannula 09/22/24 11:41 O2 Flow Rate 2 09/22/24 11:41 BMI result Body Mass Index 23.5 Const: Other: Constitutional : interactive, not in distress Cardiovascular : no JVP, no lower extremity edema Respiratory : bilateral chest movement, not in resp distress Gastrointestinal: soft, lax, Non tender Skin : Warm, Dry, Dialysis cath in neck Neurological : Alert & disoriented to time and place, No focal deficit Objective Data Active Medications Glucose (Glucose Gel 15 Gm Gel..Gram.) 15 gm PO Q15M PRN; Protocol PRN Reason: per Hypoglycemia Standing Ord. Norepinephrine Bitartrate (Levophed) 8 mg in 250 mls @ 0 mls/hr IVCONT .Q0M [facility]; Protocol Last Titration: 09/20/24 15:51 Dose: Infused Documented By: LIAFAJennifer Dextrose (D10) 250 mls @ 750 mls/hr IV Q15M PRN; Protocol PRN Reason: per Hypoglycemia Standing Ord. Ferric Sodium Gluconate Complex 125 mg/ Sodium Chloride 110 mls @ 100 mls/hr IV DAILY [facility] Stop: 09/23/24 10:05 Last Infusion: 09/22/24 12:12 Dose: Infused Documented By: ANGELINE Insulin Human Lispro (Insulin Lispro 100 Unit/Ml 3 Ml Vial) 0 unit SUBCUT QIDACHS [facility]; Protocol Last Admin: 09/22/24 11:28 Dose: Not Given Documented By: ANGELINE Non-Admin Reason: No Insulin Coverage Levothyroxine Sodium (Levothyroxine Sodium 50 Mcg Tablet) 50 mcg PO DAILY@0600 [facility] Last Admin: 09/22/24 09:52 Dose: 50 mcg Documented By: CHRISTINE Linezolid (Linezolid 600 Mg Tablet) 600 mg PO Q12H [facility] Last Admin: 09/22/24 09:52 Dose: 600 mg Documented By: CHRISTINE Labs 09/22/24 06:10 09/22/24 06:10 Labs: Laboratory Results - last 24 hr 09/21/24 09/21/24 09/21/24 13:13 15:37 22:13 MCV MCH MCHC RDW Plt Count MPV Immature Gran % (Auto) Neut % (Auto) Lymph % (Auto) [place] % (Auto) Eos % (Auto) Baso % (Auto) Lymph # (Auto) [place] # (Auto) Eos # (Auto) Baso # (Auto) Abs Immat Gran (auto) Absolute Neuts (auto) Absolute Nucleated RBC Nucleated RBC % (auto) Neutrophils % (Manual) Band Neutrophils % Lymphocytes % (Manual) Atypical Lymphs % (Man) Monocytes % (Manual) Eosinophils % (Manual) Metamyelocytes % Myelocytes % Abs Neuts (Manual) Lymphocytes # (Manual) Atyp Lymphs # (Manual) Monocytes # (Manual) Eosinophils # (Manual) Metamyelocytes # Myelocytes # Nucleated RBCs Platelet Estimate Plt Morphology Comment RBC Morphology [place] Cells Schistocytes Smear Path Review Anion Gap 15 Estim Creat Clear Calc 11.1 Estimated GFR 14 POC Glucose 76 108 Random Glucose 76 Calcium 8.6 09/22/24 09/22/24 09/22/24 06:10 07:57 11:18 MCV 90.8 MCH 31.6 MCHC 34.8 RDW 12.7 Plt Count 80 L MPV 9.1 L Immature Gran % (Auto) Cancelled Neut % (Auto) Cancelled Lymph % (Auto) Cancelled [place] % (Auto) Cancelled Eos % (Auto) Cancelled Baso % (Auto) Cancelled Lymph # (Auto) Cancelled [place] # (Auto) Cancelled Eos # (Auto) Cancelled Baso # (Auto) Cancelled Abs Immat Gran (auto) Cancelled Absolute Neuts (auto) Cancelled Absolute Nucleated RBC 0.030 H Nucleated RBC % (auto) 0.6 H Neutrophils % (Manual) 76 H Band Neutrophils % 5 Lymphocytes % (Manual) 9 L Atypical Lymphs % (Man) 1 Monocytes % (Manual) 3 Eosinophils % (Manual) 4 Metamyelocytes % 1 Myelocytes % 1 Abs Neuts (Manual) 4.2 Lymphocytes # (Manual) 0.5 L Atyp Lymphs # (Manual) 0.1 Monocytes # (Manual) 0.2 Eosinophils # (Manual) 0.2 Metamyelocytes # 0.1 Myelocytes # 0.1 Nucleated RBCs 2 H Platelet Estimate DECREASED Plt Morphology Comment NORMAL RBC Morphology NOTED [place] Cells 1+ (0-2) Schistocytes 1+ (0-2) Smear Path Review SEE NOTE Anion Gap 14 Estim Creat Clear Calc 8.7 Estimated GFR 10 POC Glucose 99 109 Random Glucose 103 Calcium 8.3 L Microbiology Microbiology Results: Microbiology 09/19/24 08:57 Blood Culture - Preliminary Blood - Venous No growth after 48 hours. 09/19/24 08:57 Blood Culture - Preliminary Blood - Venous No growth after 48 hours. Assessment and Plan (1) ESRD needing dialysis: Status: Acute (2) Bacteremia: Status: Acute (3) Acute UTI: Status: Acute Plan An 83 years old lady with CKD4, HTN, DM2 among others presenting with septic shock from UTI admitted to ICU for pressors and YENNIFER on CKD. Acute on CKD5 requiring Hemodialysis secondary to ATN from shock and possible urosepsis dialysis line in place for now , to DC will likely need long-term dialysis, her HCP not entertaining this possibility and decides to go with Hospice care HD on hold and remove catheter tomorrow if no plans to resume it had 700cc of urine overnight Cr 4.2 Acute hypokalemia K of 2.9 give replacement follow BMP Septic Shock 2/2 Enterococcus UTI and Grp G Strep bacteremia Blood Cx growing Grp G Strep Ucx growing Enterococcus Repeat blood cultures negative dc IV Vancomycin and Levaquin Start PO Zyvox and 2 gm Ceftriaxone post HD per ID rec. 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 [facility] will follow with them. The patient will need overnight stay on antibiotics pending hospice team evaluation Quality Stroke Does the patient have a stroke diagnosis?: No VTE Prior VTE?: No VTE Risk Level:: Medical - moderate - high VTE Device Contraindication: N/A - Device Ordered VTE Drug Contraindication: N/A - Med Ordered
[2024-09-22] MEDS: cefuroxime axetiL 250 MG TABLET PO (13:05)
[2024-09-22 15:45] VITALS: BP 128/74; PULSE 106; RESP 17; TEMP 36.5; O2SAT 99
[2024-09-22 16:21] LABS: Glucose, Whole Blood 123 mg/dL (60-115)
[2024-09-22 17:54] LABS: Complement C3 98 mg/dL
[2024-09-22 19:28] VITALS: BP 141/66; PULSE 77; RESP 16; TEMP 36.3; O2SAT 100
[2024-09-22 20:59] LABS: Glucose, Whole Blood 116 mg/dL (60-115)
[2024-09-23] VITALS: BP 169/70; PULSE 76; RESP 19; TEMP 36.3; O2SAT 99
[2024-09-23] MEDS: Linezolid 600 MG TABLET PO ×2 (00:05→22:34)
[2024-09-23 04:00] VITALS: BP 142/67; PULSE 71; RESP 19; TEMP 36.4; O2SAT 96
[2024-09-23] MEDS: Levothyroxine Sodium 50 MCG TABLET PO (05:41)
[2024-09-23 06:43] LABS: Anion Gap 15 (12-20); Blood Urea Nitrogen 31 mg/dL (9-16); Calcium 8.5 mg/dL (8.4-10.2); Carbon Dioxide 16 mmol/L (22-29); Chloride 113 mmol/L (96-108); Creatinine Clr Calc Pharmacy 6.6; Estimated Glomerular Filt Rate 7; Glucose Random 123 mg/dL (60-115); Potassium 3.4 mmol/L (3.3-5.1); Sodium 141 mmol/L (135-145)
[2024-09-23 07:20] LABS: Glucose, Whole Blood 120 mg/dL (60-115)
[2024-09-23 07:27] LABS: CDiff Gene PCR POSITIVE (Negative)
[2024-09-23 08:00] VITALS: BP 156/58; PULSE 69; RESP 20; TEMP 36.1; O2SAT 99
[2024-09-23 08:52] LABS: CDIFF Internal ctrl Dots and bkg OK (V); CDiff Toxin Negative (Negative)
[2024-09-23] MEDS: Sodium Ferric Gluconat/Sucrose 125 MG in 0.9 % Sodium Chloride 100 ML 100 MG IV (09:14)
[2024-09-23 09:59] LABS: Adenovirus F 40/41 Not Detected (Not Detect.); Astrovirus Not Detected (Not Detect.); Campylobacter Not Detected (Not Detect.); Cryptosporidium Not Detected (Not Detect.); Cyclospora cayetanensis Not Detected (Not Detect.); E. coli EAEC Not Detected (Not Detect.); E. coli EPEC Not Detected (Not Detect.); E. coli ETEC Not Detected (Not Detect.); E. coli STEC Not Detected (Not Detect.); Entamoeba histolytica Not Detected (Not Detect.); Giardia lamblia Not Detected (Not Detect.); Norovirus GI/GII Not Detected (Not Detect.); Plesiomonas shigelloides Not Detected (Not Detect.); Rotavirus A Not Detected (Not Detect.); Salmonella Not Detected (Not Detect.); Sapovirus Not Detected (Not Detect.); Shigella sp./EIEC Not Detected (Not Detect.); Vibrio Not Detected (Not Detect.); Vibrio Cholerae Not Detected (Not Detect.); Yersinia enterocolitica Not Detected (Not Detect.)
--- NOTE | 2024-09-23 11:22 | HO.PM.IMPN ---
Subjective Subjective Date of Service: 09/23/24 Interval History: Seen and evaluated this morning Had diarrhea, C.Diff antigen but no toxin Potassium corrected no other events Review of Systems Review of Systems: Yes all other systems are reviewed and are negative Physical Exam Vital Signs: Vital Signs: Last Vital Signs Temp 97.0 F 09/23/24 08:00 Pulse 69 09/23/24 08:00 Resp 20 09/23/24 08:00 BP 156/58 H 09/23/24 08:00 Pulse Ox 99 09/23/24 08:00 O2 Del Method Nasal Cannula 09/23/24 08:00 O2 Flow Rate 2 09/23/24 08:00 BMI result Body Mass Index 23.5 Const: Other: Constitutional : interactive, not in distress Cardiovascular : no JVP, no lower extremity edema Respiratory : bilateral chest movement, not in resp distress Gastrointestinal: soft, lax, Non tender Skin : Warm, Dry, Dialysis cath in neck Neurological : Alert & oriented to self but not much to time and place, No focal deficit Objective Data Active Medications Cefuroxime Axetil (Cefuroxime Axetil 250 Mg Tablet) 250 mg PO Q24H [facility] Last Admin: 09/22/24 13:05 Dose: 250 mg Documented By: CHRISTINE Glucose (Glucose Gel 15 Gm Gel..Gram.) 15 gm PO Q15M PRN; Protocol PRN Reason: per Hypoglycemia Standing Ord. Norepinephrine Bitartrate (Levophed) 8 mg in 250 mls @ 0 mls/hr IVCONT .Q0M [facility]; Protocol Last Titration: 09/20/24 15:51 Dose: Infused Documented By: ERNIE Dextrose (D10) 250 mls @ 750 mls/hr IV Q15M PRN; Protocol PRN Reason: per Hypoglycemia Standing Ord. Insulin Human Lispro (Insulin Lispro 100 Unit/Ml 3 Ml Vial) 0 unit SUBCUT QIDACHS [facility]; Protocol Last Admin: 09/23/24 07:53 Dose: Not Given Documented By: ANGELINE Non-Admin Reason: No Insulin Coverage Levothyroxine Sodium (Levothyroxine Sodium 50 Mcg Tablet) 50 mcg PO DAILY@0600 [facility] Last Admin: 09/23/24 05:41 Dose: 50 mcg Documented By: AUGUSTUS Linezolid (Linezolid 600 Mg Tablet) 600 mg PO Q12H [facility]ST[facility] Last Admin: 09/23/24 00:05 Dose: 600 mg Documented By: AUGUSTUS Labs 09/22/24 06:10 09/23/24 06:16 Labs: Laboratory Results - last 24 hr 09/19/24 09/22/24 09/22/24 06:23 11:18 16:13 Anion Gap Estim Creat Clear Calc Estimated GFR POC Glucose 109 123 H Random Glucose Calcium Stl C. cayetanensis PCR Stool Rotavirus A PCR Stl Adenov F 40/ PCR Stool Astrovirus (PCR) Stool Campylobacter PCR Stool Cryptosporidium PCR Stl Sh Tox Pr E STEC PCR Stool E coli O157 PCR Stl Enterotoxigenic E PCR Stool EPEC (PCR) Stool EAEC (PCR) Stl E. histolytica PCR Stool Giardia Lamblia PCR Stl P. shigelloides PCR Stool Salmonella PCR Stool Sapovirus (PCR) Stl Shigella/EIEC PCR St Y.enterocolitica PCR Stool Vibrio (PCR) Stl Vibrio cholerae PCR Stl Norovirus GI/GII PCR Complement C3 98 Complement C4 19 C. difficile Tox B Gene C. difficile Toxin A&B C. difficile Interpret 09/22/24 09/23/24 09/23/24 20:55 06:14 06:16 Anion Gap 15 Estim Creat Clear Calc 6.6 Estimated GFR 7 POC Glucose 116 H Random Glucose 123 H Calcium 8.5 Stl C. cayetanensis PCR Not Detected Stool Rotavirus A PCR Not Detected Stl Adenov F 40/ PCR Not Detected Stool Astrovirus (PCR) Not Detected Stool Campylobacter PCR Not Detected Stool Cryptosporidium PCR Not Detected Stl Sh Tox Pr E STEC PCR Not Detected Stool E coli O157 PCR Not applicable Stl Enterotoxigenic E PCR Not Detected Stool EPEC (PCR) Not Detected Stool EAEC (PCR) Not Detected Stl E. histolytica PCR Not Detected Stool Giardia Lamblia PCR Not Detected Stl P. shigelloides PCR Not Detected Stool Salmonella PCR Not Detected Stool Sapovirus (PCR) Not Detected Stl Shigella/EIEC PCR Not Detected St Y.enterocolitica PCR Not Detected Stool Vibrio (PCR) Not Detected Stl Vibrio cholerae PCR Not Detected Stl Norovirus GI/GII PCR Not Detected Complement C3 Complement C4 C. difficile Tox B Gene POSITIVE A* C. difficile Toxin A&B Negative C. difficile Interpret SEE NOTE 09/23/24 07:16 Anion Gap Estim Creat Clear Calc Estimated GFR POC Glucose 120 H Random Glucose Calcium Stl C. cayetanensis PCR Stool Rotavirus A PCR Stl Adenov F 40/41 PCR Stool Astrovirus (PCR) Stool Campylobacter PCR Stool Cryptosporidium PCR Stl Sh Tox Pr E STEC PCR Stool E coli O157 PCR Stl Enterotoxigenic E PCR Stool EPEC (PCR) Stool EAEC (PCR) Stl E. histolytica PCR Stool Giardia Lamblia PCR Stl P. shigelloides PCR Stool Salmonella PCR Stool Sapovirus (PCR) Stl Shigella/EIEC PCR St Y.enterocolitica PCR Stool Vibrio (PCR) Stl Vibrio cholerae PCR Stl Norovirus GI/GII PCR Complement C3 Complement C4 C. difficile Tox B Gene C. difficile Toxin A&B C. difficile Interpret Microbiology Microbiology Results: Microbiology 09/17/24 18:52 Blood Culture - Final Blood - Venous Group G streptococcus Assessment and Plan (1) Clostridium difficile carrier: Status: Acute (2) Bacteremia: Status: Acute (3) Acute UTI: Status: Acute Plan An 83 years old lady with CKD4, HTN, DM2 among others presenting with septic shock from UTI admitted to ICU for pressors and YENNIFER on CKD. Acute on CKD5 requiring Hemodialysis secondary to ATN from shock and possible urosepsis Cr 5.4 this morning HCP invoked Family decided to stop dialysis and go with hospice care at home. patient understand that and asked how much time does she have Will remove dialysis line Hospice team following Acute hypokalemia K of 4.2 follow BMP Diarrhea C.Diff antigen positive, no acute infection with C.Diff stool panel negative diarrhea improved with no intervention will cover with Vancomycin as prophylaxis while on antibiotics Septic Shock 2/2 Enterococcus UTI and Grp G Strep bacteremia Blood Cx grew Grp G Strep Ucx grew Enterococcus Repeat blood cultures negative dc IV Vancomycin and Levaquin Start PO Zyvox and 2 gm Ceftriaxone post HD per ID rec. 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 CW will follow with them. The patient will need overnight stay on antibiotics pending hospice team plan at home and resolving diarrhea Quality Stroke Does the patient have a stroke diagnosis?: No VTE Prior VTE?: No VTE Risk Level:: Medical - moderate - high VTE Device Contraindication: N/A - Device Ordered VTE Drug Contraindication: N/A - Med Ordered
[2024-09-23 11:26] LABS: Glucose, Whole Blood 139 mg/dL (60-115)
[2024-09-23 11:29] VITALS: BP 143/72; PULSE 63; RESP 20; TEMP 36.1; O2SAT 100
--- NOTE | 2024-09-23 11:39 | P.DS_ITS ---
DS: Providers Provider Date of Service: 09/24/24 Date of admission: 09/17/24 20:55 Date of discharge: 09/24/24 Primary care physician: Gianluca Betancur MD Consults: 09/19/24 13:22 Consult to Infectious Diseases Routine Consulting Provider: [facility] Reason for consultation: Bacteremia, Enterococcus UTI. DS: Diagnosis Discharge Diagnosis (1) Clostridium difficile carrier: Status: Acute (2) Bacteremia: Status: Acute (3) Acute UTI: Status: Acute DS: Summary Hospital Course Hospital Course: Admission note HPI Ms. Castillo is an 83-year-old female with CKD 4, HTN, DM2, hypothyroidism, chronic thrombocytopenia, history of ovarian cancer who was brought in by ambulance for generalized weakness, poor p.o. intake. The patient?s grandson reported to EMS that she had had slurred speech for 1 week.? The patient has history of dementia.? She states she feels a bit weak but has no other complaints. On arrival to the emergency room, rectal temp was 91 0.0, blood pressure 110/47, heart rate 56.? O2 sat 100% on room air. Laboratory data significant for? WBC 12.4, hemoglobin 8.9, hematocrit 24.8, platelets 78 ,? chloride 113, serum bicarb 6, BUN 110, creatinine 10.21, glucose 181, phos 8.6. VBG 7.09 19 64 6. UA indicative of UTI. Respiratory panel negative for influenza and COVID-19. Head CT showed nothing acute. Chest x-ray showed? nonspecific mild right opacities, possibly pneumonitis. ED course: the patient was initially given 1 L of normal saline.? She was started on a bicarb drip per Nephrology. ? She received Levaquin 500 mg. ? She became hypotensive and was started on a Levophed drip. Hospital course The patient was treated for: # Acute on CKD5 requiring Hemodialysis secondary to ATN from shock and possible urosepsis. Had 3 sessions of HD. HCP invoked. she continued to require dialysis and seems to be chronic not acute need. Family decided to stop dialysis and go with hospice care at home. patient understand that and asked how much time does she have. remove dialysis line as Hospice team following for home hospice. # Septic Shock secondary to Enterococcus UTI and Grp G Strep bacteremia requiring ICU admission and pressor support. Blood Cx grew Grp G Strep. Ucx grew Enterococcus. Repeat blood cultures negative. Treated with IV Vancomycin and Levaquin then switched to PO Zyvox and 2 gm Ceftriaxone post HD per ID rec. switched to PO Ceftin renally adjusted dose ( 1st negative culture 09/19) with plan to finish total of 10-14 days of Abx # Acute hypokalemia, resolved with replacement # Diarrhea, Developed on 09/22. C.Diff antigen positive, no acute infection with C.Diff as tox negative. stool panel negative. diarrhea improved with no intervention. To cover with PO Vancomycin as prophylaxis while inpatient and dc upon discharge. 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 Dilip thropoietin given as per Nephrology. did not require transfusion. Hb of 7.9. Discharge plan Discharge on home hospice as dialysis discontinued Continue PO Vancomycin as prescribed Continue PO Antibiotics for infection Time Attestation Discharge Coordination Time (in mins): 45 Quality: Safe Use of Opioids Does Pt have an Active Cancer Diagnosis on the Problem List?: No Quality: Stroke Does the patient have a stroke diagnosis?: No Physical Exam Vital Signs: Vital Signs: Last Vital Signs Temp 97.0 F 09/23/24 11:29 Pulse 63 09/23/24 11:29 Resp 20 09/23/24 11:29 BP 143/72 H 09/23/24 11:29 Pulse Ox 100 09/23/24 11:29 O2 Del Method Room Air 09/23/24 11:29 O2 Flow Rate 2 09/23/24 08:00 BMI result Body Mass Index 23.5 Const: Other: Constitutional : interactive, not in distress Cardiovascular : no JVP, no lower extremity edema Respiratory : bilateral chest movement, not in resp distress , on O2 supplement Gastrointestinal: soft, lax, Non tender Skin : Warm, Dry, Dialysis cath in neck Neurological : Alert & oriented to self but not much to time and place, No focal deficit DS: Data Data Completed and Pending Labs on day of discharge: Laboratory Results - last 24 hr 09/19/24 09/22/24 09/22/24 06:23 16:13 20:55 Sodium Potassium Chloride Carbon Dioxide Anion Gap BUN Creatinine Estim Creat Clear Calc Estimated GFR POC Glucose 123 H 116 H Random Glucose Calcium Stl C. cayetanensis PCR Stool Rotavirus A PCR Stl Adenov F 40/41 PCR Stool Astrovirus (PCR) Stool Campylobacter PCR Stool Cryptosporidium PCR Stl Sh Tox Pr E STEC PCR Stool E coli O157 PCR Stl Enterotoxigenic E PCR Stool EPEC (PCR) Stool EAEC (PCR) Stl E. histolytica PCR Stool Giardia Lamblia PCR Stl P. shigelloides PCR Stool Salmonella PCR Stool Sapovirus (PCR) Stl Shigella/EIEC PCR St Y.enterocolitica PCR Stool Vibrio (PCR) Stl Vibrio cholerae PCR Stl Norovirus GI/GII PCR Complement C3 98 Complement C4 19 C. difficile Tox B Gene C. difficile Toxin A&B C. difficile Interpret 09/23/24 09/23/24 09/23/24 06:14 06:16 07:16 Sodium 141 Potassium 3.4 Chloride 113 H Carbon Dioxide 16 L Anion Gap 15 BUN 31 H Creatinine 5.47 H* Estim Creat Clear Calc 6.6 Estimated GFR 7 POC Glucose 120 H Random Glucose 123 H Calcium 8.5 Stl C. cayetanensis PCR Not Detected Stool Rotavirus A PCR Not Detected Stl Adenov F 40/ PCR Not Detected Stool Astrovirus (PCR) Not Detected Stool Campylobacter PCR Not Detected Stool Cryptosporidium PCR Not Detected Stl Sh Tox Pr E STEC PCR Not Detected Stool E coli O157 PCR Not applicable Stl Enterotoxigenic E PCR Not Detected Stool EPEC (PCR) Not Detected Stool EAEC (PCR) Not Detected Stl E. histolytica PCR Not Detected Stool Giardia Lamblia PCR Not Detected Stl P. shigelloides PCR Not Detected Stool Salmonella PCR Not Detected Stool Sapovirus (PCR) Not Detected Stl Shigella/EIEC PCR Not Detected St Y.enterocolitica PCR Not Detected Stool Vibrio (PCR) Not Detected Stl Vibrio cholerae PCR Not Detected Stl Norovirus GI/GII PCR Not Detected Complement C3 Complement C4 C. difficile Tox B Gene POSITIVE A* C. difficile Toxin A&B Negative C. difficile Interpret SEE NOTE 09/23/24 11:17 Sodium Potassium Chloride Carbon Dioxide Anion Gap BUN Creatinine Estim Creat Clear Calc Estimated GFR POC Glucose 139 H Random Glucose Calcium Stl C. cayetanensis PCR Stool Rotavirus A PCR Stl Adenov F 40/41 PCR Stool Astrovirus (PCR) Stool Campylobacter PCR Stool Cryptosporidium PCR Stl Sh Tox Pr E STEC PCR Stool E coli O157 PCR Stl Enterotoxigenic E PCR Stool EPEC (PCR) Stool EAEC (PCR) Stl E. histolytica PCR Stool Giardia Lamblia PCR Stl P. shigelloides PCR Stool Salmonella PCR Stool Sapovirus (PCR) Stl Shigella/EIEC PCR St Y.enterocolitica PCR Stool Vibrio (PCR) Stl Vibrio cholerae PCR Stl Norovirus GI/GII PCR Complement C3 Complement C4 C. difficile Tox B Gene C. difficile Toxin A&B C. difficile Interpret Preliminary micro results at discharge 09/19/24 08:57 Blood Culture - Preliminary Blood - Venous No growth after 48 hours. 09/19/24 08:57 Blood Culture - Preliminary Blood - Venous No growth after 48 hours. Imaging Chest x-ray: Radiologist's impression: ITS Impressions Abdomen/Pelvis CT 09/18/24 11:59 IMPRESSION: 1. Multiple moderate bilateral pleural effusions. Adjacent airspace opacity at both lung bases may represent atelectasis or pneumonia. Small amount of ascites in the upper abdomen. 2. Bilateral nephrolithiasis. No inflammatory process is identified, although evaluation is limited by lack of intravenous and oral contrast material. Electronically signed by: Chadwick Denton MD 09/18/2024 12:55 PM EST RP Chest X-Ray 09/18/24 13:20 IMPRESSION: Suspect mild pulmonary vascular congestion. Right central venous dialysis catheter tip in proximal SVC. Electronically signed by: Vikash Gurrola MD 09/18/2024 01:43 PM EST RP Discharge Plan Discharge Anticipated Discharge Date/Time: 09/24/24 07:47 Patient Disposition: Hospice - Home Discharge Diagnosis: ESRD on hospice Bacteremia Referrals: Lakshmi GREY [Outside] - 1 Week Gianluca Betancur MD [Primary Care Provider] - 1 Week Discharge Medications: New linezolid 600 mg Tablet 600 mg PO Q12H Qty: 20 0RF cefuroxime axetil 250 mg Tablet 250 mg PO Q24H Qty: 10 0RF Continued levothyroxine 50 mcg tablet 50 mcg PO DAILY@0600 multivitamin Tablet 1 tab PO DAILY Humulin 70/30 U-100 KwikPen 100 unit/mL (70-30) insulin pen 3 - 8 unit subcut BID@0700,1900 PRN (Reason: Hyperglycemia) amlodipine 5 mg Tablet 5 mg PO DAILY Qty: 0 0RF Protocol: Hold for SBP< HOLD for SBP < : 90 Discontinued glipizide 5 mg tablet 10 mg PO BID Discharge Orders: Discharge Order (Routine); Ordered 09/24/24 Ordered By: Lola Canales Diet: Advance to usual diet Activity on Discharge: As tolerated Stand Alone Forms: Patient Portal Discharge page Print Language: Syriac Care Plan Goals: Continue by mouth ceftriaxone and linezolid x 10 days Diet as tolerated Further treatment plan as per hospice Health Concerns: goal of care comfort Plan of Treatment: Outpatient follow-up with primary care physician Assessment: as above Discharge Date/Time: 09/24/24 14:03
[2024-09-23] MEDS: vancomycin HCL 125 MG CAPSULE PO ×3 (13:18→22:34)
--- NOTE | 2024-09-23 13:44 | MHC.CM.PN ---
Plan is for dc to home tomorrow at 11 AM, via [facility], with [facility]. CM spoke with Son/HCP/Milton at listed # and addressed IMM with him (HCP is invoked). Original IMM will be mailed certified letter to Son/HCP and a copy has been placed on the chart. Milton is in agreement with the dc plan.
[2024-09-23 15:32] VITALS: BP 158/78; PULSE 60; RESP 19; TEMP 36.3; O2SAT 99
--- NOTE | 2024-09-23 17:46 | PC.NURSE ---
dialysis cath was removed by DR Lozano, no bleeding from the site dressing intact
[2024-09-23 18:53] LABS: Glucose, Whole Blood 161 mg/dL (60-115)
[2024-09-23 19:23] VITALS: BP 144/68; PULSE 68; RESP 16; TEMP 37.1; O2SAT 100
[2024-09-23 20:39] LABS: Glucose, Whole Blood 163 mg/dL (60-115)
[2024-09-23] MEDS: Insulin Lispro 100 UNIT/ML 3 ML VIAL SUBCUT (22:33)
[2024-09-24] VITALS: BP 143/66; PULSE 65; RESP 20; TEMP 36.4; O2SAT 99
[2024-09-24 03:33] VITALS: BP 177/76; PULSE 55; RESP 20; TEMP 36.1; O2SAT 100
[2024-09-24 06:00] VITALS: BMI 23.5
[2024-09-24] MEDS: vancomycin HCL 125 MG CAPSULE PO ×2 (06:01→11:41)
[2024-09-24] MEDS: Levothyroxine Sodium 50 MCG TABLET PO (06:01)
[2024-09-24 07:07] VITALS: BP 136/76; PULSE 63; RESP 17; TEMP 36.9; O2SAT 100
[2024-09-24 07:12] LABS: Glucose, Whole Blood 101 mg/dL (60-115)
[2024-09-24 11:09] VITALS: BP 146/75; PULSE 57; RESP 20; TEMP 36.2; O2SAT 100
[2024-09-24 11:40] LABS: Glucose, Whole Blood 105 mg/dL (60-115)
[2024-09-24] MEDS: cefuroxime axetiL 250 MG TABLET PO (11:41)
[2024-09-24] MEDS: Linezolid 600 MG TABLET PO (11:41)
== END 2024-09-24 14:03 | disposition hospice, home (50) | DRG 871 ==
LOC: HO.ED 20:48 → HO.EDOVER 21:07 → HO.ICU 21:40 → HO.IMC 09-18 17:43
PROVIDERS: Internal Medicine Critical Care Medicine; Internal Medicine Nephrology; Student in an Organized Health Care Education/Training Program; Admitting Provider Nurse Practitioner Family; Emergency Provider Emergency Medicine; PCP Internal Medicine; Visit Provider Hospitalist
DX: A41.9 Sepsis, unspecified organism (principal); J18.9 Pneumonia, unspecified organism; R65.21 Severe sepsis with septic shock; N17.0 Acute kidney failure with tubular necrosis; N18.6 End stage renal disease; I12.0 Hypertensive chronic kidney disease with stage 5 chronic kidney disease or end stage renal disease; B95.4 Other streptococcus as the cause of diseases classified elsewhere; B95.2 Enterococcus as the cause of diseases classified elsewhere; Z51.5 Encounter for palliative care; E11.22 Type 2 diabetes mellitus with diabetic chronic kidney disease; Z99.2 Dependence on renal dialysis; Z22.1 Carrier of other intestinal infectious diseases; E87.6 Hypokalemia; D63.1 Anemia in chronic kidney disease; R68.0 Hypothermia, not associated with low environmental temperature; Z20.822 Contact with and (suspected) exposure to COVID-19; Z79.890 Hormone replacement therapy; Z79.899 Other long term (current) drug therapy
CPT/HCPCS: 0241U; 36415; 70450; 71045; 74176; 80048; 80076; 80202; 81001; 81003; 82040; 82803; 82947; 83540; 83605; 83735; 84100; 84443; 84484; 85007; 85025; 85027; 85610; 86160; 86704; 86706; 87040; 87086; 87088; 87147; 87186; 87205; 87324; 87340; 87493; 87507; 90999; 93005; 97161; 97530; 99285; J0696; J0885; J1644; J1956; J2916; J3370; J3371; J3480

== ENCOUNTER → 2024-09-17 18:20 | Outpatient (BNV) | payer MEDICARE, SELFPAY | PROVIDERS: Admitting Provider Nurse Practitioner Family; Emergency Provider Emergency Medicine; PCP Internal Medicine; Visit Provider Internal Medicine | DX: R00.1 Bradycardia, unspecified (principal) | CPT/HCPCS: 93010 ==

== ENCOUNTER → 2024-09-17 18:36 | Outpatient (BNV) | payer MEDICARE, SELFPAY | PROVIDERS: Emergency Provider Emergency Medicine; PCP Internal Medicine; Visit Provider Radiology Neuroradiology | DX: R53.1 Weakness (principal); A41.9 Sepsis, unspecified organism | CPT/HCPCS: 70450; 71045 ==

== ENCOUNTER 2024-09-17 20:55 | Outpatient (BNV) | payer MEDICARE, SELFPAY | END 2024-09-18 11:59 | PROVIDERS: Admitting Provider Nurse Practitioner Family; Emergency Provider Emergency Medicine; PCP Internal Medicine; Visit Provider Radiology Diagnostic Radiology | DX: A41.9 Sepsis, unspecified organism (principal); N17.9 Acute kidney failure, unspecified; Z49.01 Encounter for fitting and adjustment of extracorporeal dialysis catheter | CPT/HCPCS: 71045 ==

== ENCOUNTER → 2024-09-17 20:55 | Outpatient (BNV) | payer MEDICARE, SELFPAY | PROVIDERS: Admitting Provider Nurse Practitioner Family; Emergency Provider Emergency Medicine; PCP Internal Medicine; Visit Provider Internal Medicine | DX: I95.9 Hypotension, unspecified (principal); A41.9 Sepsis, unspecified organism; R65.21 Severe sepsis with septic shock; N17.9 Acute kidney failure, unspecified; N18.9 Chronic kidney disease, unspecified; N39.0 Urinary tract infection, site not specified | CPT/HCPCS: 99222 ==

== ENCOUNTER → 2024-09-17 20:55 | Outpatient (BNV) | payer MEDICARE, SELFPAY | PROVIDERS: Admitting Provider Nurse Practitioner Family; Emergency Provider Emergency Medicine; PCP Internal Medicine; Visit Provider Nurse Practitioner Family | DX: A41.9 Sepsis, unspecified organism (principal); R65.21 Severe sepsis with septic shock; N17.9 Acute kidney failure, unspecified; I95.9 Hypotension, unspecified; N39.0 Urinary tract infection, site not specified; N18.9 Chronic kidney disease, unspecified; J18.9 Pneumonia, unspecified organism; R68.89 Other general symptoms and signs; I12.9 Hypertensive chronic kidney disease with stage 1 through stage 4 chronic kidney disease, or unspecified chronic kidney disease | CPT/HCPCS: 36556; 99233; 99291 ==

== ENCOUNTER → 2024-09-17 20:55 | Outpatient (BNV) | payer MEDICARE, SELFPAY | PROVIDERS: Admitting Provider Nurse Practitioner Family; Emergency Provider Emergency Medicine; PCP Internal Medicine; Visit Provider Internal Medicine Nephrology | DX: N17.9 Acute kidney failure, unspecified (principal); N18.4 Chronic kidney disease, stage 4 (severe) | CPT/HCPCS: 90935 ==

== ENCOUNTER → 2024-09-17 20:55 | Outpatient (BNV) | payer MEDICARE, SELFPAY | PROVIDERS: Admitting Provider Nurse Practitioner Family; Emergency Provider Emergency Medicine; PCP Internal Medicine; Visit Provider Student in an Organized Health Care Education/Training Program | DX: R78.81 Bacteremia (principal); N39.0 Urinary tract infection, site not specified; N17.9 Acute kidney failure, unspecified; N18.6 End stage renal disease; Z99.2 Dependence on renal dialysis | CPT/HCPCS: 99232; 99233 ==